=== PATIENT | female | born 1985 | race American Indian/Alaskan Native ===

== ENCOUNTER 2017-11-26 23:19 | Emergency (ER) | payer OTHER ==
[2017-11-26 23:36] VITALS: BP 149/88
[2017-11-26] MEDS ORDERED: Sodium Chloride 0.9% 1,000 ML IV ONE (23:57)
[2017-11-26] MEDS ORDERED: Ondansetron 4 MG/2 ML SDV IVPUSH ONE (23:57)
[2017-11-26] MEDS ORDERED: Loperamide 2 MG Cap PO STA (23:57)
--- NOTE | 2017-11-27 | EDM.PDOC ---
ED HPI GENERAL MEDICAL PROBLEM - General Chief Complaint: Gastrointestinal Problem Stated Complaint: nausea vomiting Time Seen by Provider: 11/26/17 23:44 Source of Information: Reports: Patient History Limitations: Reports: No Limitations - History of Present Illness INITIAL COMMENTS - FREE TEXT/NARRATIVE: The patient states that she developed nausea and emesis, the sensation of having a fast heart rate, and lightheadedness whenever upright around 13:00 this afternoon. She developed watery diarrhea a few hours ago. No recent fever. No recent cough, chest pain, or shortness of breath. No abdominal pain. No prior similar symptoms. No recent spoiled food. No recent travel. No recent antibiotics. No similarly ill contacts. The patient states that she took a calcium pill, however, has not taken any antinausea or antidiarrheal medicines. The patient states that she drank some inexpensive whiskey and smoked marijuana last night, and acknowledges that her current symptoms may be related to excessive partying last night. The patient states that she has hypothyroidism, but that she stopped taking Synthroid many months ago. The patient does not have a PCP. Headache Pain Score (Numeric/FACES): 5 - Related Data Allergies Allergy/AdvReac Type Severity Reaction Status Date / Time No Known Allergies Allergy Verified 11/26/17 23:30 Home Meds: Home Meds Ondansetron [Zofran ODT] 1 tab PO Q8H PRN #10 tab.dis 11/27/17 [Rx] Past Medical History HEENT History: Reports: Impaired Vision Other HEENT History: glasses Endocrine/Metabolic History: Reports: Hyperthyroidism, Obesity/BMI 30+ Social & Family History - Family History Family Medical History: Noncontributory - Tobacco Use Smoking Status *Q: Never Smoker - Caffeine Use Caffeine Use: Reports: None - Alcohol Use Alcohol Use History: Yes Alcohol Use Frequency: Socially - Recreational Drug Use Recreational Drug Use: Yes Drug Use in Last 12 Months: Yes Recreational Drug Type: Reports: Marijuana/Hashish (last = 11/26/2017. Uses occasionally) - Living Situation & Occupation Living situation: Reports: Single, with Family (Cousin) Occupation: Unemployed ED ROS GENERAL - Review of Systems Review Of Systems: ROS reveals no pertinent complaints other than HPI. ED EXAM, GENERAL - Physical Exam Exam: See Below Exam Limited By: No Limitations General Appearance: Alert, WD/WN, Mild Distress (Tremulous. Appears uncomfortable.) Eye Exam: Bilateral Eye: Normal Inspection Ears: Normal External Exam, Hearing Grossly Normal Nose: Normal Inspection, No Blood Throat/Mouth: Normal Inspection, Normal Lips, Normal Voice, No Airway Compromise Head: Atraumatic, Normocephalic Neck: Normal Inspection, Full Range of Motion Respiratory/Chest: No Respiratory Distress, Lungs Clear, Normal Breath Sounds, No Accessory Muscle Use Cardiovascular: Normal Peripheral Pulses, No Edema, No Gallop, No JVD, No Murmur , No Rub, Tachycardia (regular) Peripheral Pulses: 4+: Radial (L), Radial (R) GI/Abdominal: Normal Bowel Sounds, Soft, Non-Tender, No Organomegaly, No Distention, No Abnormal Bruit, No Mass, Other (Obese) (Female) Exam: Deferred Rectal (Female) Exam: Deferred Back Exam: Normal Inspection, Full Range of Motion, NT Extremities: Normal Inspection, Normal Range of Motion, No Pedal Edema, Normal Capillary Refill Neurological: Alert, Oriented, Normal Cognition, No Motor/Sensory Deficits Psychiatric: Normal Affect Skin Exam: Warm, Dry, Intact, Normal Color, No Rash EKG INTERPRETATION EKG Date: 11/27/17 Time: 00:03 Rhythm: Other (Sinus tachycardia) Rate (Beats/Min): 101 [place]: Normal P-Wave: Present QRS: Normal ST-T: Normal QT: Normal Comparison: No Change (10/17/2016) Course - Vital Signs Last Recorded V/S: Last Vital Signs Temp 36.8 C 11/26/17 23:31 Pulse 107 H 11/26/17 23:31 Resp 18 11/26/17 23:31 BP 149/88 H 11/26/17 23:31 Pulse Ox 99 11/26/17 23:31 Orthostatic Blood Pressure [ 145/94 Standing] Orthostatic Blood Pressure [ 131/82 Supine] - Orders/Labs/Meds Orders: Active Orders 24 hr Category Date Time Status EKG Documentation Completion [RC] STAT Care 11/26/17 23:55 Active Orthostatic Vital Signs [RC] STAT Care 11/26/17 23:55 Active Labs: Laboratory Tests 11/27/17 11/27/17 11/27/17 Range/Units 00:10 00:10 00:10 WBC 7.41 (3.98-10.04) K/mm3 RBC 4.02 (3.98-5.22) M/mm3 Hgb 13.2 (11.2-15.7) gm/L Hct 40.6 (34.1-44.9) % MCV 101.0 H (79.4-94.8) fl MCH 32.8 H (25.6-32.2) pg MCHC 32.5 (32.2-35.5) g/dl RDW Std Deviation 49.9 H (36.4-46.3) fL Plt Count 157 L (182-369) K/mm3 MPV 10.4 (9.4-12.3) fl Neutrophils % (Manual) 80 H (40-60) % Band Neutrophils % 0 (0-10) % Lymphocytes % (Manual) 14 L (20-40) % Atypical Lymphs % 0 % Monocytes % (Manual) 6 (2-10) % Eosinophils % (Manual) 0 L (0.7-5.8) % Basophils % (Manual) 0 L (0.1-1.2) Platelet Estimate Adequate Plt Morphology Comment Normal Macrocytosis Few Spherocytes Few RBC Morph Comment Not Reportable PT 12.6 (8.0-13.0) SECONDS INR 1.15 APTT 25 (22-36) SECONDS D-Dimer, Quantitative 0.32 (0.19-0.59) mg/L Sodium 140 (136-145) mEq/L Potassium 4.0 (3.5-5.1) mEq/L Chloride 101 (98-107) mEq/L Carbon Dioxide 20 L (21-32) mEq/L Anion Gap 23.0 H (5-15) BUN 5 L (7-18) mg/dL Creatinine 0.7 (0.55-1.02) mg/dL Est Cr Clr Drug Dosing 111.16 mL/min Estimated GFR (MDRD) > 60 (>60) mL/min BUN/Creatinine Ratio 7.1 L (14-18) Glucose 82 (74-106) mg/dL Calcium 8.6 (8.5-10.1) mg/dL Magnesium 1.6 L (1.8-2.4) mg/dl Total Bilirubin 2.6 H (0.2-1.0) mg/dL AST 210 H (15-37) U/L ALT 77 H (14-59) U/L Alkaline Phosphatase 77 (46-116) U/L Total Protein 10.1 H (6.4-8.2) g/dl Albumin 3.6 (3.4-5.0) g/dl Globulin 6.5 gm/dL Albumin/Globulin Ratio 0.6 L (1-2) TSH 3rd Generation 0.062 L (0.358-3.74) uIU/mL Urine HCG, Qual (NEGATIVE) Urine Opiates Screen (NEGATIVE) Ur Buprenorphine Scrn (NEGATIVE) Ur Oxycodone Screen (NEGATIVE) Urine Methadone Screen (NEGATIVE) Ur Propoxyphene Screen (NEGATIVE) Ur Barbiturates Screen (NEGATIVE) Ur Tricyclics Screen (NEGATIVE) Ur Phencyclidine Scrn (NEGATIVE) Ur Amphetamine Screen (NEGATIVE) U Methamphetamines Scrn (NEGATIVE) U Benzodiazepines Scrn (NEGATIVE) U Cocaine Metab Screen (NEGATIVE) U Marijuana (THC) Screen (NEGATIVE) 11/27/17 11/27/17 Range/Units 01:53 01:53 WBC (3.98-10.04) K/mm3 RBC (3.98-5.22) M/mm3 Hgb (11.2-15.7) gm/L Hct (34.1-44.9) % MCV (79.4-94.8) fl MCH (25.6-32.2) pg MCHC (32.2-35.5) g/dl RDW Std Deviation (36.4-46.3) fL Plt Count (182-369) K/mm3 MPV (9.4-12.3) fl Neutrophils % (Manual) (40-60) % Band Neutrophils % (0-10) % Lymphocytes % (Manual) (20-40) % Atypical Lymphs % % Monocytes % (Manual) (2-10) % Eosinophils % (Manual) (0.7-5.8) % Basophils % (Manual) (0.1-1.2) Platelet Estimate Plt Morphology Comment Macrocytosis Spherocytes RBC Morph Comment PT (8.0-13.0) SECONDS INR APTT (22-36) SECONDS D-Dimer, Quantitative (0.19-0.59) mg/L Sodium (136-145) mEq/L Potassium (3.5-5.1) mEq/L Chloride (98-107) mEq/L Carbon Dioxide (21-32) mEq/L Anion Gap (5-15) BUN (7-18) mg/dL Creatinine (0.55-1.02) mg/dL Est Cr Clr Drug Dosing mL/min Estimated GFR (MDRD) (>60) mL/min BUN/Creatinine Ratio (14-18) Glucose (74-106) mg/dL Calcium (8.5-10.1) mg/dL Magnesium (1.8-2.4) mg/dl Total Bilirubin (0.2-1.0) mg/dL AST (15-37) U/L ALT (14-59) U/L Alkaline Phosphatase (46-116) U/L Total Protein (6.4-8.2) g/dl Albumin (3.4-5.0) g/dl Globulin gm/dL Albumin/Globulin Ratio (1-2) TSH 3rd Generation (0.358-3.74) uIU/mL Urine HCG, Qual Negative (NEGATIVE) Urine Opiates Screen Negative (NEGATIVE) Ur Buprenorphine Scrn Negative (NEGATIVE) Ur Oxycodone Screen Negative (NEGATIVE) Urine Methadone Screen Negative (NEGATIVE) Ur Propoxyphene Screen Negative (NEGATIVE) Ur Barbiturates Screen Negative (NEGATIVE) Ur Tricyclics Screen Negative (NEGATIVE) Ur Phencyclidine Scrn Negative (NEGATIVE) Ur Amphetamine Screen Negative (NEGATIVE) U Methamphetamines Scrn Negative (NEGATIVE) U Benzodiazepines Scrn Negative (NEGATIVE) U Cocaine Metab Screen Negative (NEGATIVE) U Marijuana (THC) Screen Presumptive positive H (NEGATIVE) Meds: Medications Discontinued Medications Generic Name Dose Route Start Last Admin Trade Name Freq PRN Reason Stop Dose Admin Sodium Chloride 1,000 mls @ 999 mls/hr 11/26/17 23:57 11/27/17 00:14 Normal Saline IV 11/27/17 00:57 999 mls/hr ONETIME ONE Administration Magnesium Sulfate 2 gm/ Premix 50 mls @ 50 mls/hr 11/27/17 01:04 11/27/17 01: 20 IV 11/27/17 02:03 50 mls/hr ONETIME ONE Administration Loperamide HCl 4 mg 11/26/17 23:57 11/27/17 00:15 Imodium PO 11/26/17 23:58 4 mg ONETIME STA Administration Ondansetron HCl 4 mg 11/26/17 23:57 11/27/17 00:15 Zofran IVPUSH 11/26/17 23:58 4 mg ONETIME ONE Administration - Re-Assessments/Exams Free Text/Narrative Re-Assessment/Exam: 11/26/17 23:58 The patient has been experiencing emesis, watery diarrhea, tachycardia, and lightheadedness when upright since this afternoon. All of this is in the setting of likely excessive consumption of alcohol and marijuana last night. I have ordered IV fluid, Zofran, and loperamide. I would also like to rule out other possibilities for her symptoms, however, such as , dysrhythmias, and PE. Lastly, I have ordered a TSH, as she has a history of untreated hypothyroidism. 11/27/17 00:24 The patient is not orthostatic, but will still receive the 1 L of IV fluid. 11/27/17 01:04 The patient's magnesium has returned low at 1.6, although her potassium is normal. I have ordered a 2 g Mg-rider. The patient's total bilirubin is elevated at 2.6, and her AST/ALT are elevated at 210/77. This is consistent with, although not diagnostic of, alcohol abuse. There are no prior LFTs to compare. The patient's TSH is low at 0.062, consistent with hypERthyroidism. She will need to follow-up in this regard. The patient's urine and urine drug screen are still pending. 11/27/17 03:02 Test results discussed with the patient and her brother (who was not here when I initially examined the patient). I explained that despite the patient's tachycardia, she is not intravascularly depleted or dehydrated. I explained that her magnesium was found to be low, therefore we replace it. I explained that her liver enzymes are elevated, consistent with excessive alcohol consumption. The patient acknowledged that she is a heavy drinker. I recommended that she seek professional help in this regard, at [facility]. She stated that she is already court ordered to go there. For her nausea, I will e- prescribe Zofran. The patient's brother then stated that when he binges on alcohol and drugs, he gets admitted to [facility] for a week, where they knock him out for a couple of days, then discharge him home with Ativan, Valium, or Librium. He stated that the patient is in DTs, and he thinks that she should be admitted for the same treatment. I explained that the patient is not in DTs, and that, while commonly done, prescribing benzodiazepines for alcoholism is not medically correct; that benzodiazepines do not decrease one's desire for alcohol. I explained that I do not find an indication for the patient to be admitted to the hospital, which is why I am discharging her home. Departure - Departure Time of Disposition: 03:02 Disposition: Home, Self-Care 01 Condition: Fair Clinical Impression: Alcohol abuse, Nausea and vomiting, Low TSH level, Elevated liver enzymes, Hypomagnesemia - Discharge Information Referrals: PCP,None [Primary Care Provider] - Elle Redding MD [Physician] - Forms: ED Department Discharge Additional Instructions: You were seen in the emergency room for nausea, vomiting, watery diarrhea, an elevated heart rate, and lightheadedness when upright. Workup in the ER included blood work, a urine test, a urine drug screen, an ECG, and positional blood pressure checks. Your workup found that your magnesium was low. This was replaced through an IV. Your workup found that your thyroid-stimulating hormone (TSH) was low at 0.062. This indicates that you are hyperthyroid. You will need to follow-up in this regard. Your workup found that your liver enzymes are elevated, consistent with alcohol abuse. We STRONGLY recommend that you seek professional help in stopping drinking. We recommend that you follow-up at [facility]: [address] [place] [phone] For your nausea and vomiting, a prescription for the anti-nausea medicine Zofran has been sent to the [facility], [address]. They will be open from 8 AM until 1 PM today. Dissolve 1 tablet of Zofran on your tongue up to every 8 hours, as needed for nausea/vomiting. Stay adequately hydrated. Gatorade or Pedialyte are best, but any fluid will do. Follow-up with Dr. Elle Redding as a primary care physician, this coming week. She can help you with your thyroid issue. If any other problems, please do not hesitate to return to the ER. - My Orders Last 24 Hours: My Active Orders 11/26/17 23:55 EKG Documentation Completion [RC] STAT Orthostatic Vital Signs [RC] STAT - Assessment/Plan Last 24 Hours: My Active Orders 11/26/17 23:55 EKG Documentation Completion [RC] STAT Orthostatic Vital Signs [RC] STAT
[2017-11-27] MEDS ORDERED: Magnesium Sulfate/Water 2 GM in Premix Bag 1 BAG IV ONE (01:04)
== END 2017-11-27 03:25 | disposition home or self-care (01) ==
LOC: JD.ED 23:19
DX: F10.10 Alcohol abuse, uncomplicated (principal); E83.42 Hypomagnesemia; R74.8 Abnormal levels of other serum enzymes; R94.6 Abnormal results of thyroid function studies; E03.9 Hypothyroidism, unspecified
CPT/HCPCS: 36415; 80053; 80306; 81025; 83735; 84443; 85025; 85379; 85610; 85730; 93005; 96361; 96365; 96375; 99284; A9270; J2405; J7040; 93010; J3475

== ENCOUNTER 2017-12-25 10:34 | Emergency (ER) | payer OTHER ==
[2017-12-25] MEDS ORDERED: Thiamine 100 MG in Sodium Chloride 0.9% 100 ML IV ONE (11:22)
[2017-12-25] MEDS ORDERED: Sodium Chloride 0.9% 10 ML Syringe FLUSH PRN (11:22)
[2017-12-25] MEDS ORDERED: Pantoprazole 40 MG Vial IVPUSH ONE (11:22)
[2017-12-25] MEDS ORDERED: Folic Acid 1 MG Tab PO ONE (11:22)
[2017-12-25] MEDS ORDERED: Lactated Ringers 1,000 ML IV ONE ×2 (11:22→14:29)
[2017-12-25] MEDS ORDERED: Ondansetron 4 MG/2 ML SDV IVPUSH ONE (11:23)
--- NOTE | 2017-12-25 11:26 | EDM.PDOCBH ---
ED HPI GENERAL MEDICAL PROBLEM - General Chief Complaint: Drug or Alcohol Abuse Stated Complaint: [facility] Time Seen by Provider: 12/25/17 11:03 Source of Information: Reports: Patient History Limitations: Reports: No Limitations - History of Present Illness INITIAL COMMENTS - FREE TEXT/NARRATIVE: 32-year-old female presents via [facility] after having a seizure. Patient does not have any history of seizures. Reports that she was drinking alcohol last night. She states that she had 3 beers and 2 "shooters". No drugs. She denies any chance of . Patient reports that she was not feeling well. She is states that she went from the bathroom to the kitchen. She reports that she couldn't stand and attempted to grab onto the wall. She states that her sister was there as well as her niece. Her niece ran for help. Reportedly she fell to the floor and had a seizure. This was witnessed by her sister and her niece. It is unclear exactly how long the seizure lasted. She states she did bite her tongue. No urinary or stool incontinence. Currently she is reporting a headache in the back of her head. No nausea, vomiting or abdominal pain at this time. She states she's never had any withdrawal seizures. Denies any history of seizures, tremors or hallucinations with withdrawal. Normally drinks alcohol about twice a week. She states that she normally has about 10 drinks at a time when she does drink. Patient is a history of hypothyroidism but is not on any medications. Patient reports that she was ill with cough and symptoms motor month ago. Review of patient's records show that she was seen in the ER to by Dr. Oliver on November 26 for nausea and vomiting. She was discharged home with instructions to follow-up with Dr. Redding. She is also given the number for [facility]. Doesn't sound as [facility] Onset: Today Posterior Head Pain Score (Numeric/FACES): 8 - Related Data Allergies Allergy/AdvReac Type Severity Reaction Status Date / Time No Known Allergies Allergy Verified 12/25/17 10:41 Home Meds: Home Meds LORazepam [Ativan] 1 mg PO Q6H PRN #10 tab 12/25/17 [Rx] Nitrofurantoin Monohyd/M-Cryst [Macrobid 100 mg Capsule] 100 mg PO BID #14 capsule 12/25/17 [Rx] Past Medical History HEENT History: Reports: Impaired Vision Other HEENT History: glasses Musculoskeletal History: Reports: Fracture, Other (See Below) Other Musculoskeletal History: siatica Psychiatric History: Reports: Addiction Other Psychiatric History: alcohol Endocrine/Metabolic History: Reports: Hyperthyroidism, Obesity/BMI 30+ - Infectious Disease History Infectious Disease History: Reports: Chicken Pox Social & Family History - Family History Family Medical History: Noncontributory - Tobacco Use Smoking Status *Q: Never Smoker Second Hand Smoke Exposure: No - Caffeine Use Caffeine Use: Reports: Soda - Alcohol Use Days Per Week of Alcohol Use: 2 Number of Drinks Per Day: 10 Total Drinks Per Week: 20 - Recreational Drug Use Recreational Drug Use: No Drug Use in Last 12 Months: Yes Recreational Drug Type: Reports: Marijuana/Hashish (last = 11/26/2017. Uses occasionally) - Living Situation & Occupation Living situation: Reports: Single, with Family (Cousin) Occupation: Unemployed ED ROS GENERAL - Review of Systems Review Of Systems: See Below Constitutional: Reports: Malaise. Denies: Fever, Chills HEENT: Reports: Other (tongue biting) GI/Abdominal: Denies: Abdominal Pain, Diarrhea, Hematemesis, Melena, Nausea, Vomiting : Denies: Incontinence Neurological: Reports: Headache, Seizure ED EXAM, BEHAVIORAL HEALTH - Physical Exam Exam: See Below Exam Limited By: No Limitations General Appearance: Alert, WD/WN, No Apparent Distress, Obese Ears: Normal External Exam Nose: Normal Inspection Throat/Mouth: Normal Inspection, Normal Lips, Normal Voice, No Airway Compromise , Other (evidence of tongue biting right lateral tongue) Respiratory/Chest: No Respiratory Distress, Lungs Clear, Normal Breath Sounds Cardiovascular: Normal Peripheral Pulses, Regular Rate, Rhythm, No Murmur GI/Abdominal: Normal Bowel Sounds, Soft, Non-Tender Neurological: Alert, Normal Mood/Affect, Normal Cognition Psychiatric: Alert, Normal Affect, Normal Mood Skin Exam: Warm, Dry, Normal color COURSE, BEHAVIORAL HEALTH COMP - Course Vital Signs: Last Vital Signs Temp 36.5 C 12/25/17 14:55 Pulse 92 12/25/17 16:10 Resp 18 12/25/17 16:10 BP 110/62 12/25/17 16:10 Pulse Ox 97 12/25/17 16:10 Orders, Labs, Meds: Active Orders 24 hr Category Date Time Status Cardiac Monitoring [RC] . DIRECTED Care 12/25/17 11:30 Active Peripheral IV Care [RC] . DIRECTED Care 12/25/17 11:22 Active CULTURE URINE [RM] Stat Lab 12/25/17 14:08 Received Peripheral IV Insertion Adult [OM.PC] Routine Oth 12/25/17 11:21 Ordered Laboratory Tests 12/25/17 12/25/17 12/25/17 Range/Units 11:45 11:45 11:45 WBC 6.26 (3.98-10.04) K/mm3 RBC 3.79 L (3.98-5.22) M/mm3 Hgb 12.3 (11.2-15.7) gm/L Hct 38.4 (34.1-44.9) % MCV 101.3 H (79.4-94.8) fl MCH 32.5 H (25.6-32.2) pg MCHC 32.0 L (32.2-35.5) g/dl RDW Std Deviation 50.7 H (36.4-46.3) fL Plt Count 135 L (182-369) K/mm3 MPV 10.1 (9.4-12.3) fl Neutrophils % (Manual) 80 H (40-60) % Band Neutrophils % 0 (0-10) % Lymphocytes % (Manual) 12 L (20-40) % Atypical Lymphs % 0 % Monocytes % (Manual) 7 (2-10) % Eosinophils % (Manual) 1 (0.7-5.8) % Basophils % (Manual) 0 L (0.1-1.2) Platelet Estimate Adequate Poikilocytosis 1+ slight Anisocytosis 1+ slight RBC Morph Comment Not Reportable PT (8.0-13.0) SECONDS INR APTT (22-36) SECONDS Sodium 137 (136-145) mEq/L Potassium 3.9 (3.5-5.1) mEq/L Chloride 102 (98-107) mEq/L Carbon Dioxide 22 (21-32) mEq/L Anion Gap 16.9 H (5-15) BUN 4 L (7-18) mg/dL Creatinine 0.7 (0.55-1.02) mg/dL Est Cr Clr Drug Dosing 107.01 mL/min Estimated GFR (MDRD) > 60 (>60) mL/min BUN/Creatinine Ratio 5.7 L (14-18) Glucose 118 H (74-106) mg/dL Calcium 8.6 (8.5-10.1) mg/dL Magnesium 1.6 L (1.8-2.4) mg/dl Total Bilirubin 3.3 H (0.2-1.0) mg/dL AST 137 H (15-37) U/L ALT 51 (14-59) U/L Alkaline Phosphatase 81 (46-116) U/L Total Protein 8.3 H (6.4-8.2) g/dl Albumin 2.7 L (3.4-5.0) g/dl Globulin 5.6 gm/dL Albumin/Globulin Ratio 0.5 L (1-2) TSH 3rd Generation 0.121 L (0.358-3.74) uIU/mL HCG, Qual Negative (NEGATIVE) Urine Color (Yellow) Urine Appearance (Clear) Urine pH (5.0-8.0) Ur Specific [employer] (1.005-1.030) Urine Protein (Negative) Urine Glucose (UA) (Negative) Urine Ketones (Negative) Urine Occult Blood (Negative) Urine Nitrite (Negative) Urine Bilirubin (Negative) Urine Urobilinogen (0.2-1.0) Ur Leukocyte Esterase (Negative) Urine RBC (0-5) /hpf Urine WBC (0-5) /hpf Ur Epithelial Cells (0-5) /hpf Urine Bacteria (FEW) /hpf Urine Mucus (FEW) /hpf Urine Opiates Screen (NEGATIVE) Ur Buprenorphine Scrn (NEGATIVE) Ur Oxycodone Screen (NEGATIVE) Urine Methadone Screen (NEGATIVE) Ur Propoxyphene Screen (NEGATIVE) Ur Barbiturates Screen (NEGATIVE) Ur Tricyclics Screen (NEGATIVE) Ur Phencyclidine Scrn (NEGATIVE) Ur Amphetamine Screen (NEGATIVE) U Methamphetamines Scrn (NEGATIVE) U Benzodiazepines Scrn (NEGATIVE) U Cocaine Metab Screen (NEGATIVE) U Marijuana (THC) Screen (NEGATIVE) Ethyl Alcohol 0.00 (0.00) gm% 12/25/17 12/25/17 12/25/17 Range/Units 11:45 14:05 14:05 WBC (3.98-10.04) K/mm3 RBC (3.98-5.22) M/mm3 Hgb (11.2-15.7) gm/L Hct (34.1-44.9) % MCV (79.4-94.8) fl MCH (25.6-32.2) pg MCHC (32.2-35.5) g/dl RDW Std Deviation (36.4-46.3) fL Plt Count (182-369) K/mm3 MPV (9.4-12.3) fl Neutrophils % (Manual) (40-60) % Band Neutrophils % (0-10) % Lymphocytes % (Manual) (20-40) % Atypical Lymphs % % Monocytes % (Manual) (2-10) % Eosinophils % (Manual) (0.7-5.8) % Basophils % (Manual) (0.1-1.2) Platelet Estimate Poikilocytosis Anisocytosis RBC Morph Comment PT 14.0 H (8.0-13.0) SECONDS INR 1.30 APTT 29 (22-36) SECONDS Sodium (136-145) mEq/L Potassium (3.5-5.1) mEq/L Chloride (98-107) mEq/L Carbon Dioxide (21-32) mEq/L Anion Gap (5-15) BUN (7-18) mg/dL Creatinine (0.55-1.02) mg/dL Est Cr Clr Drug Dosing mL/min Estimated GFR (MDRD) (>60) mL/min BUN/Creatinine Ratio (14-18) Glucose (74-106) mg/dL Calcium (8.5-10.1) mg/dL Magnesium (1.8-2.4) mg/dl Total Bilirubin (0.2-1.0) mg/dL AST (15-37) U/L ALT (14-59) U/L Alkaline Phosphatase (46-116) U/L Total Protein (6.4-8.2) g/dl Albumin (3.4-5.0) g/dl Globulin gm/dL Albumin/Globulin Ratio (1-2) TSH 3rd Generation (0.358-3.74) uIU/mL HCG, Qual (NEGATIVE) Urine Color Loli H (Yellow) Urine Appearance Slt cloudy H (Clear) Urine pH 7.0 (5.0-8.0) Ur Specific [employer] 1.025 (1.005-1.030) Urine Protein 2+ H (Negative) Urine Glucose (UA) Negative (Negative) Urine Ketones Trace H (Negative) Urine Occult Blood 3+ H (Negative) Urine Nitrite Positive H (Negative) Urine Bilirubin 2+ H (Negative) Urine Urobilinogen >=8.0 H (0.2-1.0) Ur Leukocyte Esterase Negative (Negative) Urine RBC 10-20 H (0-5) /hpf Urine WBC 0-5 (0-5) /hpf Ur Epithelial Cells 10-20 H (0-5) /hpf Urine Bacteria Moderate H (FEW) /hpf Urine Mucus Many H (FEW) /hpf Urine Opiates Screen Negative (NEGATIVE) Ur Buprenorphine Scrn Negative (NEGATIVE) Ur Oxycodone Screen Negative (NEGATIVE) Urine Methadone Screen Negative (NEGATIVE) Ur Propoxyphene Screen Negative (NEGATIVE) Ur Barbiturates Screen Negative (NEGATIVE) Ur Tricyclics Screen Negative (NEGATIVE) Ur Phencyclidine Scrn Negative (NEGATIVE) Ur Amphetamine Screen Negative (NEGATIVE) U Methamphetamines Scrn Negative (NEGATIVE) U Benzodiazepines Scrn Negative (NEGATIVE) U Cocaine Metab Screen Negative (NEGATIVE) U Marijuana (THC) Screen Presumptive positive H (NEGATIVE) Ethyl Alcohol (0.00) gm% Medications Discontinued Medications Generic Name Dose Route Start Last Admin Trade Name Freq PRN Reason Stop Dose Admin Folic Acid 1 mg 12/25/17 11:22 12/25/17 11:56 Folic Acid PO 12/25/17 11:23 1 mg ONETIME ONE Administration Lactated Ringer's 1,000 mls @ 999 mls/hr 12/25/17 11:22 12/25/17 11:55 Ringers, Lactated IV 12/25/17 12:22 999 mls/hr .BOLUS ONE Administration Thiamine HCl 100 mg/ Sodium 101 mls @ 202 mls/hr 12/25/17 11:22 12/25/17 12: 12 Chloride IV 12/25/17 11:23 202 mls/hr ONETIME ONE Administration Pantoprazole Sodium 80 mg/ 100 mls @ 100 mls/hr 12/25/17 12:01 12/25/17 12:59 Sodium Chloride IV 12/25/17 13:00 Not Given NOW STA Lactated Ringer's 1,000 mls @ 999 mls/hr 12/25/17 14:29 12/25/17 14:50 Ringers, Lactated IV 12/25/17 15:29 999 mls/hr .BOLUS ONE Administration Ketorolac Tromethamine 30 mg 12/25/17 11:52 12/25/17 12:07 Toradol IVPUSH 12/25/17 11:53 30 mg ONETIME ONE Administration Lorazepam 1 mg 12/25/17 12:48 12/25/17 13:00 Ativan IVPUSH 12/25/17 12:49 1 mg ONETIME ONE Administration Ondansetron HCl 4 mg 12/25/17 11:23 12/25/17 11:47 Zofran IVPUSH 12/25/17 11:24 4 mg ONETIME ONE Administration Pantoprazole Sodium 40 mg 12/25/17 11:22 12/25/17 12:10 Protonix Iv IVPUSH 12/25/17 11:23 40 mg ONETIME ONE Administration Sodium Chloride 10 ml 12/25/17 11:22 12/25/17 11:55 Saline Flush FLUSH 10 ml ASDIRECTED PRN Administration Keep Vein Open Re-Assessment/Re-Exam: 15:[address] Technique: Multiple axial sections through the brain were obtained. Intravenous contrast was not utilized. Comparison: No previous intracranial imaging. Findings: Ventricles along with basal cisterns and sulci over the convexities are within normal limits for the patient's age. No abnormal parenchymal densities are seen. No evidence of intracranial hemorrhage. No midline shift or mass effect is seen. Visualized paranasal sinuses are clear. Mastoid sinuses are clear. No acute calvarial abnormality is identified Impression: 1. Nothing acute is seen on noncontrast head CT exam. Unfortunately, the time and instead of given over half an hour was given as a push. The Protonix which was ordered as a push was given as a drip. Patient did not have any flushing due to the timing push. Patient has been resting in the ER without any problems. She not have any additional seizure activity. I reviewed the labs and imaging with her. I have recommended that she follow up with primary care for her thyroid as well as a recheck of her symptoms. I will give her some Ativan to help with her shakes and anxiety. Encouraged to see [facility]. I will discharge her home. Discharge instructions as documented. Departure - Departure Time of Disposition: 15:45 Disposition: Home, Self-Care 01 Clinical Impression: Alcohol abuse, Urinary tract infection, Seizure, Low TSH level - Discharge Information Prescriptions: LORazepam [Ativan] 1 mg PO Q6H PRN #10 tab PRN Reason: Anxiety Nitrofurantoin Monohyd/M-Cryst [Macrobid 100 mg Capsule] 100 mg PO BID #14 capsule Instructions: Alcohol Use Disorder, Urinary Tract Infection, Adult, Easy-to- Read, Seizure, Adult Referrals: PCP,None [Primary Care Provider] - Elle Redding MD [Physician] - Additional Instructions: We recommended to stop drinking alcohol. You will have a happier and healthier life if your stop drinking alcohol. Recommend follow-up with [facility] [employer] for help with this. Call them at [phone] or the emergency crisis line at [phone] for additional help. also go to the walkin clinic hours at 8 AM Wednesday through . Present to their clinic for immediate evaluation. Recommend follow-up with a primary care provider this week for recheck. Recommend Dr. Redding at [facility]. Call [phone] schedule with her. make sure you are drinking plenty of fluids. Recommend starting a multivitamin. These are available [id number]. Macrobid 1 Twice a day for 7 days for urinary tract infection. Ativan 1 tab every 6 hours as needed for shakiness and tremors. We do not recommend the to drive or operate machinery for 3 months to your seizure today. Please return to the ER if your symptoms change or worsen. - My Orders Last 24 Hours: My Active Orders 12/25/17 11:21 Peripheral IV Insertion Adult [OM.PC] Routine 12/25/17 11:22 Peripheral IV Care [RC] . DIRECTED 12/25/17 11:30 Cardiac Monitoring [RC] . DIRECTED 12/25/17 14:08 CULTURE URINE [RM] Stat - Assessment/Plan Last 24 Hours: My Active Orders 12/25/17 11:21 Peripheral IV Insertion Adult [OM.PC] Routine 12/25/17 11:22 Peripheral IV Care [RC] . DIRECTED 12/25/17 11:30 Cardiac Monitoring [RC] . DIRECTED 12/25/17 14:08 CULTURE URINE [RM] Stat
--- NOTE | 2017-12-25 11:49 | CT ---
Head CT Technique: Multiple axial sections through the brain were obtained. Intravenous contrast was not utilized. Comparison: No previous intracranial imaging. Findings: Ventricles along with basal cisterns and sulci over the convexities are within normal limits for the patient's age. No abnormal parenchymal densities are seen. No evidence of intracranial hemorrhage. No midline shift or mass effect is seen. Visualized paranasal sinuses are clear. Mastoid sinuses are clear. No acute calvarial abnormality is identified Impression: 1. Nothing acute is seen on noncontrast head CT exam. Diagnostic code #1
[2017-12-25] MEDS ORDERED: Ketorolac 30 MG/ML SDV IVPUSH ONE (11:52)
[2017-12-25] MEDS: Pantoprazole 80 MG in Sodium Chloride 0.9% 100 ML IV STA ×2 (12:12→12:59)
[2017-12-25] MEDS ORDERED: LORazepam 2 MG/ML MDV IVPUSH ONE (12:48)
[2017-12-25 16:25] VITALS: BP 110/62
== END 2017-12-25 16:10 | disposition home or self-care (01) ==
LOC: JD.ED 10:34
DX: R56.9 Unspecified convulsions (principal); F10.10 Alcohol abuse, uncomplicated; N39.0 Urinary tract infection, site not specified; E03.9 Hypothyroidism, unspecified
CPT/HCPCS: 36415; 70450; 80053; 80306; 81001; 83735; 84443; 84703; 85025; 85610; 85730; 87086; 96361; 96374; 96375; 99285; A9270; C9113; G0480; J1885; J2060; J2405; J3411; J7030; J7050; J7120; 87088; 99284

== ENCOUNTER 2018-02-07 14:35 | Emergency (ER) | payer OTHER ==
[2018-02-07 14:41] VITALS: BP 141/79
[2018-02-07] MEDS ORDERED: LORazepam 2 MG/ML SDV IVPUSH ONE ×2 (14:55→20:16)
[2018-02-07] MEDS ORDERED: Ondansetron 4 MG/2 ML SDV IVPUSH ONE ×2 (14:55→20:16)
[2018-02-07] MEDS ORDERED: Sodium Chloride 0.9% 2,000 ML IV ONE (14:55)
--- NOTE | 2018-02-07 15:00 | EDM.PDOC ---
ED HPI GENERAL MEDICAL PROBLEM - General Chief Complaint: Neurological Problem Stated Complaint: [facility] Time Seen by Provider: 02/07/18 14:40 Source of Information: Reports: Patient History Limitations: Reports: No Limitations - History of Present Illness INITIAL COMMENTS - FREE TEXT/NARRATIVE: Patient is a 32-year-old female with a history of chronic alcohol use with intermittent dizziness with standing and a sensation of almost passing out. Patient admits to drinking 4x40 ounce bottles of beer yesterday. She consumes alcohol 5 days a week and has been attempting to cut back. With the above sensation patient does develop increasing anxiety. At time she's had tunnel vision with onset of the symptoms. She has not passed out at all. Patient states symptoms did resolve over short period of time and with stepping outside in the cool air. Today, developed a sore mild headache to the posterior aspect of her head. Denies any vision changes, fever, sinus congestion, sore throat, stiff neck, or recent trauma. She is mildly nauseated with admission to the ED. There's been no vomiting. Denies any chest pain, sob, abdomen pain, dysuria , blood in her stool, diarrhea, hallucinations, recent seizure, suicidal ideations, or any additional complaints. She has had a seizure 1 in the past but is on no medications for this. They suspect it was related to the alcohol use. She denies any additional past medical history. She is on no medications. She does not smoke. Denies any recreational drug use. - Related Data Allergies Allergy/AdvReac Type Severity Reaction Status Date / Time No Known Allergies Allergy Verified 02/07/18 14:41 Home Meds: Home Meds Magnesium Chloride [Slow-Mag] 71.5 mg PO DAILY #30 tablet.dr 02/07/18 [Rx] Potassium Chloride 20 meq PO QAM #30 tablet.er 02/07/18 [Rx] Past Medical History HEENT History: Reports: Impaired Vision Other HEENT History: glasses Musculoskeletal History: Reports: Fracture, Other (See Below) Other Musculoskeletal History: siatica Psychiatric History: Reports: Addiction Other Psychiatric History: alcohol Endocrine/Metabolic History: Reports: Hyperthyroidism, Obesity/BMI 30+ - Infectious Disease History Infectious Disease History: Reports: Chicken Pox Social & Family History - Family History Family Medical History: Noncontributory - Tobacco Use Smoking Status *Q: Never Smoker Second Hand Smoke Exposure: No - Caffeine Use Caffeine Use: Reports: Soda - Alcohol Use Days Per Week of Alcohol Use: 5 Number of Drinks Per Day: 4 Total Drinks Per Week: 20 - Recreational Drug Use Recreational Drug Use: No Drug Use in Last 12 Months: Yes Recreational Drug Type: Reports: Marijuana/Hashish (last = 11/26/2017. Uses occasionally) - Living Situation & Occupation Living situation: Reports: Single, with Family (Cousin) Occupation: Unemployed ED ROS GENERAL - Review of Systems Review Of Systems: See Below Constitutional: Reports: Malaise, Decreased Appetite HEENT: Reports: No Symptoms Respiratory: Reports: No Symptoms Cardiovascular: Reports: No Symptoms GI/Abdominal: Reports: No Symptoms : Reports: No Symptoms Musculoskeletal: Reports: No Symptoms Skin: Reports: No Symptoms Neurological: Reports: Dizziness, Headache (posterior (not the worst WALKER of her life)) Psychiatric: Reports: Anxiety (shakey) Hematologic/Lymphatic: Reports: No Symptoms ED EXAM, GENERAL - Physical Exam Exam: See Below Exam Limited By: No Limitations General Appearance: Anxious Eye Exam: Bilateral Eye: EOMI, Normal Inspection, Nystagmus (horizontal), PERRL Ears: Normal External Exam, Hearing Grossly Normal Nose: Normal Inspection Throat/Mouth: Normal Oropharynx, Normal Voice, No Airway Compromise, Other ( Tongue intact with no signs of biting her tongue. ) Neck: Normal Inspection Respiratory/Chest: No Respiratory Distress, Lungs Clear, Normal Breath Sounds, No Accessory Muscle Use, Chest Non-Tender Cardiovascular: Normal Peripheral Pulses, Tachycardia. No: Systolic Murmur Peripheral Pulses: 4+: Radial (L), Radial (R) GI/Abdominal: Normal Bowel Sounds, Soft, Non-Tender, No Organomegaly, No Distention Extremities: Normal Inspection, Normal Range of Motion, Non-Tender, No Pedal Edema, Normal Capillary Refill Neurological: Alert, Oriented, CN II-XII Intact, Normal Cognition Psychiatric: Normal Affect, Anxious Skin Exam: Warm, Dry, Intact, Normal Color Course - Vital Signs Last Recorded V/S: Last Vital Signs Temp 99 F 02/07/18 14:36 Pulse 110 H 02/07/18 14:36 Resp 17 02/07/18 14:36 BP 141/79 H 02/07/18 14:36 Pulse Ox 100 02/07/18 14:36 Orthostatic Blood Pressure [ 153/90 Standing] Orthostatic Blood Pressure [ 137/79 Supine] - Orders/Labs/Meds Labs: Laboratory Tests 02/07/18 02/07/18 02/07/18 Range/Units 15:00 15:00 15:07 WBC 6.00 (3.98-10.04) K/mm3 RBC 3.74 L (3.98-5.22) M/mm3 Hgb 12.4 (11.2-15.7) gm/L Hct 37.8 (34.1-44.9) % MCV 101.1 H (79.4-94.8) fl MCH 33.2 H (25.6-32.2) pg MCHC 32.8 (32.2-35.5) g/dl RDW Std Deviation 51.4 H (36.4-46.3) fL Plt Count 194 (182-369) K/mm3 MPV 9.1 L (9.4-12.3) fl Neutrophils % (Manual) 60 (40-60) % Band Neutrophils % 0 (0-10) % Lymphocytes % (Manual) 31 (20-40) % Atypical Lymphs % 0 % Monocytes % (Manual) 8 (2-10) % Eosinophils % (Manual) 1 (0.7-5.8) % Basophils % (Manual) 0 L (0.1-1.2) Platelet Estimate Adequate Plt Morphology Comment Normal RBC Morph Comment Normal Sodium 140 (136-145) mEq/L Potassium 3.4 L (3.5-5.1) mEq/L Chloride 104 (98-107) mEq/L Carbon Dioxide 18 L (21-32) mEq/L Anion Gap 21.4 H (5-15) BUN 3 L (7-18) mg/dL Creatinine 0.6 (0.55-1.02) mg/dL Est Cr Clr Drug Dosing 124.85 mL/min Estimated GFR (MDRD) > 60 (>60) mL/min BUN/Creatinine Ratio 5.0 L (14-18) Glucose 113 H (74-106) mg/dL Calcium 8.5 (8.5-10.1) mg/dL Magnesium 1.4 L (1.8-2.4) mg/dl Total Bilirubin 1.5 H (0.2-1.0) mg/dL AST 165 H (15-37) U/L ALT 50 (14-59) U/L Alkaline Phosphatase 65 (46-116) U/L Total Protein 9.1 H (6.4-8.2) g/dl Albumin 3.2 L (3.4-5.0) g/dl Globulin 5.9 gm/dL Albumin/Globulin Ratio 0.5 L (1-2) Urine Color Yellow (Yellow) Urine Appearance Clear (Clear) Urine pH 8.0 (5.0-8.0) Ur Specific [place] 1.020 (1.005-1.030) Urine Protein 1+ H (Negative) Urine Glucose (UA) Negative (Negative) Urine Ketones Trace H (Negative) Urine Occult Blood Negative (Negative) Urine Nitrite Negative (Negative) Urine Bilirubin Negative (Negative) Urine Urobilinogen 2.0 H (0.2-1.0) Ur Leukocyte Esterase Negative (Negative) Urine RBC Not seen (0-5) /hpf Urine WBC 0-5 (0-5) /hpf Ur Epithelial Cells 0-5 (0-5) /hpf Urine Bacteria Moderate H (FEW) /hpf Urine Mucus Moderate H (FEW) /hpf Urine HCG, Qual (NEGATIVE) Urine Opiates Screen (NEGATIVE) Ur Buprenorphine Scrn (NEGATIVE) Ur Oxycodone Screen (NEGATIVE) Urine Methadone Screen (NEGATIVE) Ur Propoxyphene Screen (NEGATIVE) Ur Barbiturates Screen (NEGATIVE) Ur Tricyclics Screen (NEGATIVE) Ur Phencyclidine Scrn (NEGATIVE) Ur Amphetamine Screen (NEGATIVE) U Methamphetamines Scrn (NEGATIVE) U Benzodiazepines Scrn (NEGATIVE) U Cocaine Metab Screen (NEGATIVE) U Marijuana (THC) Screen (NEGATIVE) Ethyl Alcohol 0.05 (0.00) gm% 02/07/18 02/07/18 Range/Units 15:07 15:07 WBC (3.98-10.04) K/mm3 RBC (3.98-5.22) M/mm3 Hgb (11.2-15.7) gm/L Hct (34.1-44.9) % MCV (79.4-94.8) fl MCH (25.6-32.2) pg MCHC (32.2-35.5) g/dl RDW Std Deviation (36.4-46.3) fL Plt Count (182-369) K/mm3 MPV (9.4-12.3) fl Neutrophils % (Manual) (40-60) % Band Neutrophils % (0-10) % Lymphocytes % (Manual) (20-40) % Atypical Lymphs % % Monocytes % (Manual) (2-10) % Eosinophils % (Manual) (0.7-5.8) % Basophils % (Manual) (0.1-1.2) Platelet Estimate Plt Morphology Comment RBC Morph Comment Sodium (136-145) mEq/L Potassium (3.5-5.1) mEq/L Chloride (98-107) mEq/L Carbon Dioxide (21-32) mEq/L Anion Gap (5-15) BUN (7-18) mg/dL Creatinine (0.55-1.02) mg/dL Est Cr Clr Drug Dosing mL/min Estimated GFR (MDRD) (>60) mL/min BUN/Creatinine Ratio (14-18) Glucose (74-106) mg/dL Calcium (8.5-10.1) mg/dL Magnesium (1.8-2.4) mg/dl Total Bilirubin (0.2-1.0) mg/dL AST (15-37) U/L ALT (14-59) U/L Alkaline Phosphatase (46-116) U/L Total Protein (6.4-8.2) g/dl Albumin (3.4-5.0) g/dl Globulin gm/dL Albumin/Globulin Ratio (1-2) Urine Color (Yellow) Urine Appearance (Clear) Urine pH (5.0-8.0) Ur Specific [place] (1.005-1.030) Urine Protein (Negative) Urine Glucose (UA) (Negative) Urine Ketones (Negative) Urine Occult Blood (Negative) Urine Nitrite (Negative) Urine Bilirubin (Negative) Urine Urobilinogen (0.2-1.0) Ur Leukocyte Esterase (Negative) Urine RBC (0-5) /hpf Urine WBC (0-5) /hpf Ur Epithelial Cells (0-5) /hpf Urine Bacteria (FEW) /hpf Urine Mucus (FEW) /hpf Urine HCG, Qual Negative (NEGATIVE) Urine Opiates Screen Negative (NEGATIVE) Ur Buprenorphine Scrn Negative (NEGATIVE) Ur Oxycodone Screen Negative (NEGATIVE) Urine Methadone Screen Negative (NEGATIVE) Ur Propoxyphene Screen Negative (NEGATIVE) Ur Barbiturates Screen Negative (NEGATIVE) Ur Tricyclics Screen Negative (NEGATIVE) Ur Phencyclidine Scrn Negative (NEGATIVE) Ur Amphetamine Screen Negative (NEGATIVE) U Methamphetamines Scrn Negative (NEGATIVE) U Benzodiazepines Scrn Negative (NEGATIVE) U Cocaine Metab Screen Negative (NEGATIVE) U Marijuana (THC) Screen Negative (NEGATIVE) Ethyl Alcohol (0.00) gm% Meds: Medications Discontinued Medications Generic Name Dose Route Start Last Admin Trade Name Freq PRN Reason Stop Dose Admin Folic Acid 1 mg 02/07/18 16:25 02/07/18 16:52 Folic Acid PO 02/07/18 16:26 1 mg ONETIME ONE Administration Sodium Chloride 2,000 mls @ 999 mls/hr 02/07/18 14:55 02/07/18 15:04 Normal Saline IV 02/07/18 16:55 999 mls/hr ONETIME ONE Administration Magnesium Sulfate 2 gm/ Premix 50 mls @ 25 mls/hr 02/07/18 16:25 02/07/18 16: 42 IV 02/07/18 18:24 25 mls/hr ONETIME ONE Administration Lorazepam 0 mg 02/07/18 14:55 02/07/18 15:03 Ativan IVPUSH 02/07/18 14:56 1 mg ONETIME ONE Administration Protocol Lorazepam 1 mg 02/07/18 20:16 02/07/18 20:24 Ativan IVPUSH 02/07/18 20:17 1 mg ONETIME ONE Administration Ondansetron HCl 4 mg 02/07/18 14:55 02/07/18 15:03 Zofran IVPUSH 02/07/18 14:56 4 mg ONETIME ONE Administration Ondansetron HCl 4 mg 02/07/18 20:16 02/07/18 20:24 Zofran IVPUSH 02/07/18 20:17 4 mg ONETIME ONE Administration Pantoprazole Sodium 40 mg 02/07/18 20:16 02/07/18 20:24 Protonix Iv IVPUSH 02/07/18 20:17 40 mg ONETIME ONE Administration Thiamine HCl 100 mg 02/07/18 16:25 02/07/18 16:44 Vitamin B-1 PO 02/07/18 16:26 100 mg ONETIME ONE Administration - Re-Assessments/Exams Free Text/Narrative Re-Assessment/Exam: Patient is quite tremulous with evaluation. Orthostatic vitals were negative. Patients BP and HR increased with standing. Patient was anxious about getting dizzy. Vital signs are stable. Initial lab studies will include CBC, chem 14, urine drug tox, serum EtOH, hCG qualitative, serum magnesium, UA, and EKG. EKG sinus tachycardia at rate 106 with UT interval 135, QTC 479, no acute ST changes noted. Initial therapies will include Ativan per CIWAA protocol, ns 2liters IV, and zofran 4mg IVP. Labs reviewed: Patient's HGB 12.4, MCV quite elevated at 101.1 suggesting chronic alcoholic. Platelet count 194. Sodium 140, potassium 3.4, CO2 18, AG 21.4, BUS 3, creatinine 0.6, glucose 113, magnesium 1.4, total bilirubin is 1.5 , AST elevated at 165, and ALT 50. Urine drug tox negative. Serum EtOH 0.05. UA revealed: protein one plus, trace ketones, urobilinogen 2.0, bacteria moderate, mucus moderate, and hCG negative. Ordered magnesium 2gram IV, folic acid 1 mg po, and thiamine 100mg PO. 1635 Reassessment, vital signs are stable. Heart rate 95. Patient states she's feeling much better with the above therapies. I discussed lab results with the patient. States the chronic alcohol use is killing her. She voices understanding. Offered to arrange help for alcoholism. Patient refuses inpatient detox and treatment. Request referral information. Will discharge patient home after administration of the above therapies. 02/07/18 18:59 Blood pressure 130/76 heart rate 97. Patient's resting comfortably after the above therapies. Once IV fluids are in will get patient up and see how she tolerates walking. If tolerates will discharge patient home. 02/07/18 19:09 Patient tolerated walking to the bathroom with no issues. Will discharge patient home. 02/07/18 20:16 per nursing staff they were getting the patient up and she became nauseated and started to vomit. There is faint blood present within yellow/clear fluid contents. I did evaluate the patient. There is a small amount of bright red blood present within the emesis. Suspect Glendy-Echeverria tear. She has no history of esophageal varices or gastric ulcers. She is tremulous. Ordered Ativan 1 mg IVP, Protonix 40 mg IVP, and Zofran 4 mg IVP. 02/07/18 20:51 Vomiting has ceased. Patient is feeling much better after the above therapies. She does not want inpatient detox and/or alcohol dependence treatment. She will followup with a addiction counselor at her own convenience. I did provide zofran and protonix prescriptions. Only scant bleeding with the emesis. Return precautions were discussed with patient. The patient remained hemodynamically stable while under my care in the E.D. I reviewed the patients care today and discussed the concerning symptoms for which to return to the E.D. with the patient/family. The patient/family verbalized understanding. All questions were answered. Departure - Departure Time of Disposition: 19:18 Disposition: Home, Self-Care 01 Condition: Good Clinical Impression: Dehydration, Alcoholic, Hypomagnesemia, Hypokalemia due to inadequate potassium intake Prescriptions: Magnesium Chloride [Slow-Mag] 71.5 mg PO DAILY #30 tablet. Potassium Chloride 20 meq PO QAM #30 tablet.er Instructions: Addiction and the Family, Chemical Dependency, Hypomagnesemia, Hypokalemia, Dehydration, Adult, [id number], Finding Treatment for Addiction Referrals: Ron Ching LAC [Licensed Counselor] - [facility] [Outside] Forms: ED Department Discharge Additional Instructions: Push the fluids including: Gatorade, Powerade, and water. Refrain from alcohol use. Take the potassium chloride and Slow-Mag as prescribed. See a addiction counselor for further evaluation and treatment for alcoholism. Eat a balanced diet. No driving while consuming alcohol. Return to the E.D. if you develop any new or worsening symptoms. See your PCP the end of this week or first part of next week for lab work to ensure potassium and magnesium levels are increasing.
[2018-02-07] MEDS ORDERED: Folic Acid 1 MG Tab PO ONE (16:25)
[2018-02-07] MEDS ORDERED: Thiamine 100 MG Tab PO ONE (16:25)
[2018-02-07] MEDS ORDERED: Magnesium Sulfate/Water 2 GM in Premix Bag 1 BAG IV ONE (16:25)
[2018-02-07] MEDS ORDERED: Pantoprazole 40 MG Vial IVPUSH ONE (20:16)
== END 2018-02-07 20:55 | disposition home or self-care (01) ==
LOC: JD.ED 14:35
DX: E83.42 Hypomagnesemia (principal); E87.6 Hypokalemia; E86.0 Dehydration; F10.229 Alcohol dependence with intoxication, unspecified; Y90.0 Blood alcohol level of less than 20 mg/100 ml
CPT/HCPCS: 36415; 80053; 80306; 81001; 81025; 83735; 85025; 93005; 96361; 96365; 96366; 96375; 96376; 99285; A9270; C9113; G0480; J2060; J2405; J7040; 93010; 99284; J3475

== ENCOUNTER 2018-02-18 10:55 | Emergency (ER) | payer OTHER ==
[2018-02-18 11:07] VITALS: BP 142/92
[2018-02-18] MEDS ORDERED: diphenhydrAMINE 50 MG/ML SDV IM ONE (11:38)
[2018-02-18] MEDS ORDERED: Haloperidol Lactate 5 MG/ML SDV IM ONE (11:38)
[2018-02-18] MEDS ORDERED: Ketorolac 60 MG/2 ML SDV IM ONE (11:38)
--- NOTE | 2018-02-18 11:45 | EDM.PDOC ---
ED HPI GENERAL MEDICAL PROBLEM - General Chief Complaint: Behavioral/Psych Stated Complaint: anxiety/headache Time Seen by Provider: 02/18/18 11:10 Source of Information: Reports: Patient History Limitations: Reports: No Limitations - History of Present Illness INITIAL COMMENTS - FREE TEXT/NARRATIVE: Patient is a 32-year-old female with a history of alcoholism presents to the ED with concerns of experiencing dizziness with body position changes while having increased anxiety. States she wants to get checked out. She has not had any alcohol since her last visit to the ED which was February 07, 2018. She has established care with Dr. Redding over [facility] and was evaluated on . On examination in the ED February 07, 2018 she was found to have low mg and k+ started on supplements. States in most cases she is anxious prior to onset of dizziness. Develops sensation of her heart is beating fast. Takes Zofran ODT with resolution. She has been eating and drinking well. States this morning symptoms worsened upon awakening. She admits to smoking quite a bit of marijuana last night. She does have evaluation at [facility] this coming Wednesday for alcohol abuse. She's been under more stress recently since she received a driving while intoxicated and also driving while license was suspended. Otherwise she's been sleeping and eating okay. She does not work she sits at home most of the day. Developed a headache to the back or head and also bitemporal described as a squeezing sensation. Sensitive to the light with no hyperacusis. There is no nausea or vomiting, chest pain, shortness of breath, dysuria, or any additional complaints. Headache Pain Score (Numeric/FACES): 3 - Related Data Allergies Allergy/AdvReac Type Severity Reaction Status Date / Time No Known Allergies Allergy Verified 02/18/18 11:09 Home Meds: Home Meds Magnesium Chloride [Slow-Mag] 71.5 mg PO DAILY #30 tablet.dr 02/07/18 [Rx] Potassium Chloride 20 meq PO QAM #30 tablet.er 02/07/18 [Rx] Ondansetron [Zofran ODT] 4 mg PO Q6H PRN 02/18/18 [History] Pantoprazole [ProTONIX] 40 mg PO DAILY 02/18/18 [History] Past Medical History HEENT History: Reports: Impaired Vision Other HEENT History: glasses Gastrointestinal History: Reports: GERD Musculoskeletal History: Reports: Fracture, Other (See Below) Other Musculoskeletal History: siatica Psychiatric History: Reports: Addiction, Anxiety Other Psychiatric History: alcohol Endocrine/Metabolic History: Reports: Hyperthyroidism, Obesity/BMI 30+ - Infectious Disease History Infectious Disease History: Reports: Chicken Pox Social & Family History - Family History Family Medical History: Noncontributory - Tobacco Use Smoking Status *Q: Never Smoker Second Hand Smoke Exposure: No - Caffeine Use Caffeine Use: Reports: Soda - Alcohol Use Days Per Week of Alcohol Use: 5 Number of Drinks Per Day: 4 Total Drinks Per Week: 20 - Recreational Drug Use Recreational Drug Use: No Drug Use in Last 12 Months: Yes Recreational Drug Type: Reports: Marijuana/Hashish - Living Situation & Occupation Living situation: Reports: Single, with Family (Cousin) Occupation: Unemployed ED ROS GENERAL - Review of Systems Review Of Systems: See Below Constitutional: Reports: No Symptoms HEENT: Reports: No Symptoms. Denies: Vision Change Respiratory: Reports: No Symptoms Cardiovascular: Reports: Palpitations (at times with increased anxiety). Denies : Chest Pain, Dyspnea on Exertion, Lightheadedness, Syncope GI/Abdominal: Reports: No Symptoms Musculoskeletal: Reports: No Symptoms Neurological: Reports: Dizziness, Headache. Denies: Confusion, Numbness, Syncope, Tingling, Difficulty Walking, Weakness Psychiatric: Reports: Anxiety. Denies: Agitation, Confusion, Cravings, Depression, Hallucinations, Homicidal Ideation, Mood Lability, Suicidal Ideation - Physical Exam Exam: See Below Exam Limited By: No Limitations General Appearance: Alert, WD/WN, Anxious Eye Exam: Bilateral Eye: EOMI, Nystagmus (few horizontal.), PERRL Ears: Normal External Exam, Normal Canal, Hearing Grossly Normal, Normal TMs Nose: Normal Inspection Throat/Mouth: Normal Inspection, Normal Oropharynx, Normal Voice, No Airway Compromise Head Exam: Atraumatic, Normocephalic Neck: Normal Inspection, Supple, Non-Tender, Full Range of Motion Respiratory/Chest: No Respiratory Distress, Lungs Clear, Normal Breath Sounds, Chest Non-Tender Cardiovascular: Normal Peripheral Pulses, Regular Rate, Rhythm Neuro Exam (Abbreviated): Alert, Oriented, CN II-XII Intact, Normal Cognition, No Motor/Sensory Deficits Psychiatric: Normal Affect, Anxious Skin Exam: Warm, Dry, Intact, Normal Color, No Rash Course - Vital Signs Last Recorded V/S: Last Vital Signs Temp 97.2 F 02/18/18 11:04 Pulse 90 02/18/18 11:04 Resp 14 02/18/18 11:04 BP 142/92 H 02/18/18 11:04 Pulse Ox 100 02/18/18 11:04 Orthostatic Blood Pressure [ 156/93 Standing] Orthostatic Blood Pressure [ 137/92 Sitting] Orthostatic Blood Pressure [ 126/70 Supine] - Orders/Labs/Meds Labs: Laboratory Tests 02/18/18 02/18/18 02/18/18 Range/Units 11:47 11:54 11:55 Sodium 139 (136-145) mEq/L Potassium 3.6 (3.5-5.1) mEq/L Chloride 102 (98-107) mEq/L Carbon Dioxide 26 (21-32) mEq/L Anion Gap 14.6 (5-15) BUN 6 L (7-18) mg/dL Creatinine 0.7 (0.55-1.02) mg/dL Est Cr Clr Drug Dosing 107.01 mL/min Estimated GFR (MDRD) > 60 (>60) mL/min BUN/Creatinine Ratio 8.6 L (14-18) Glucose 121 H (74-106) mg/dL Calcium 9.2 (8.5-10.1) mg/dL Total Bilirubin 0.8 (0.2-1.0) mg/dL AST 137 H (15-37) U/L ALT 73 H (14-59) U/L Alkaline Phosphatase 73 (46-116) U/L Total Protein 9.5 H (6.4-8.2) g/dl Albumin 3.4 (3.4-5.0) g/dl Globulin 6.1 gm/dL Albumin/Globulin Ratio 0.6 L (1-2) TSH 3rd Generation 0.096 L (0.358-3.74) uIU/mL Urine Color Yellow (Yellow) Urine Appearance Clear (Clear) Urine pH 8.5 H (5.0-8.0) Ur Specific [place] 1.015 (1.005-1.030) Urine Protein Negative (Negative) Urine Glucose (UA) Negative (Negative) Urine Ketones Negative (Negative) Urine Occult Blood Negative (Negative) Urine Nitrite Negative (Negative) Urine Bilirubin Negative (Negative) Urine Urobilinogen 1.0 (0.2-1.0) Ur Leukocyte Esterase Negative (Negative) Urine RBC 0-5 (0-5) /hpf Urine WBC 0-5 (0-5) /hpf Ur Epithelial Cells 0-5 (0-5) /hpf Urine Bacteria Few (FEW) /hpf Urine Mucus Few (FEW) /hpf Urine Opiates Screen Negative (NEGATIVE) Ur Buprenorphine Scrn Negative (NEGATIVE) Ur Oxycodone Screen Negative (NEGATIVE) Urine Methadone Screen Negative (NEGATIVE) Ur Propoxyphene Screen Negative (NEGATIVE) Ur Barbiturates Screen Negative (NEGATIVE) Ur Tricyclics Screen Negative (NEGATIVE) Ur Phencyclidine Scrn Negative (NEGATIVE) Ur Amphetamine Screen Negative (NEGATIVE) U Methamphetamines Scrn Negative (NEGATIVE) U Benzodiazepines Scrn Negative (NEGATIVE) U Cocaine Metab Screen Negative (NEGATIVE) U Marijuana (THC) Screen Negative (NEGATIVE) Meds: Medications Discontinued Medications Generic Name Dose Route Start Last Admin Trade Name Freq PRN Reason Stop Dose Admin Diphenhydramine HCl 50 mg 02/18/18 11:38 02/18/18 11:56 Benadryl IM 02/18/18 11:39 50 mg ONETIME ONE Administration Haloperidol Lactate 5 mg 02/18/18 11:38 02/18/18 11:57 Haldol IM 02/18/18 11:39 5 mg ONETIME ONE Administration Ketorolac Tromethamine 60 mg 02/18/18 11:38 02/18/18 11:56 Toradol IM 02/18/18 11:39 60 mg ONETIME ONE Administration - Re-Assessments/Exams Free Text/Narrative Re-Assessment/Exam: Labs obtained for 02/16/2018 reviewed: TSH was 0.147. Free T4 1.44. Free T3 3.42. LFTs were elevated at that time AST 163, ALT 83, GGT 332, K+ 3.9. 2017 reviewed: serum etoh 0.05 Will obtain today CMP, Urine drug screen, TSH, UA, and orthostatic vitals. To abort headache which I feel is tension in origin I have ordered haldol 5mg IM , toradol 60mg IM, and benadryl 50mg IM. 02/18/18 11:57 Orthostatic vitals were negative. 02/18/18 12:40 Labs: Sodium 139, potassium 3.6, hCG 14.6, creatinine 0.7, glucose 121, AST 137, ALT 73, TSH 0.096. UA negative for any concerning findings. Urine drug tox negative. 02/18/18 12:48 Reassessment, patient headache has resolved. She is resting comfortably with no issues. Vitals are stable. Patiet has eaten. She is ready to be discharged home. She has appt to be evaluated at [facility] thiscoming wednesday and address anxiety concerns and alcohol abuse. She has been stressed out recently and suspect increasing her anxiety. She has also stopped consuming alcohol that has also increased her symptoms.Will discharge patient home. Departure - Departure Time of Disposition: 12:50 Disposition: Home, Self-Care 01 Condition: Good Clinical Impression: Anxiety, Alcoholic, Low TSH level, Marijuana abuse - Discharge Information Instructions: Chemical Dependency, Substance Use Disorder, Finding Treatment for Addiction Referrals: Elle Redding MD [Primary Care Provider] - Forms: ED Department Discharge Additional Instructions: Please refrain from alcohol use. See addiction and psych provider at [facility] as scheduled for this coming Wednesday. Do not drive this evening since receiving a sedative medication. For headache take tylenol and ibuprofen in alternating fashion for pain. Continue to push the fluids. Eat balanced meal. Followup with PCP this coming week if symptoms persist. Return to the E.D. if you develop any new or worsening symptoms.
== END 2018-02-18 13:09 | disposition home or self-care (01) ==
LOC: JD.ED 10:55
DX: F41.9 Anxiety disorder, unspecified (principal); F12.10 Cannabis abuse, uncomplicated; F10.20 Alcohol dependence, uncomplicated; Y90.0 Blood alcohol level of less than 20 mg/100 ml; R94.6 Abnormal results of thyroid function studies; K21.9 Gastro-esophageal reflux disease without esophagitis; Z79.899 Other long term (current) drug therapy
CPT/HCPCS: 36415; 80053; 80306; 81001; 84443; 96372; 99284; J1200; J1630; J1885; 99283

== ENCOUNTER 2018-03-21 06:18 | Emergency (ER) | payer OTHER ==
[2018-03-21 06:26] VITALS: BP 162/91
[2018-03-21] MEDS ORDERED: Ondansetron 4 MG Tab.DIS PO ONE (06:37)
--- NOTE | 2018-03-21 06:45 | EDM.PDOCBH ---
ED HPI GENERAL MEDICAL PROBLEM - General Chief Complaint: Drug or Alcohol Abuse Stated Complaint: WEAK Time Seen by Provider: 03/21/18 06:32 Source of Information: Reports: Patient History Limitations: Reports: No Limitations - History of Present Illness INITIAL COMMENTS - FREE TEXT/NARRATIVE: The patient presents with generalized weakness. She says she also feels dehydrated. She has nausea and she vomited this morning. She has no fever or chills. She has no chest pain but she does have a little shortness of breath. She woke up this morning and she could not go back to sleep. She did not feel right. She has no abdominal pain. She has no dysuria or hematuria. She does admit to drinking 2 forty ounce beers last night and a few shots. This started this morning. Onset: Gradual Duration: Hour(s): Severity: Moderate Improves with: Reports: None Worsens with: Reports: None Associated Symptoms: Reports: Nausea/Vomiting, Shortness of Breath. Denies: Chest Pain, Cough, Fever/Chills, Headaches - Related Data Allergies Allergy/AdvReac Type Severity Reaction Status Date / Time No Known Allergies Allergy Verified 02/18/18 11:09 Home Meds: Home Meds Magnesium Chloride [Slow-Mag] 71.5 mg PO DAILY #30 tablet.dr 02/07/18 [Rx] Potassium Chloride 20 meq PO QAM #30 tablet.er 02/07/18 [Rx] Pantoprazole [ProTONIX] 40 mg PO DAILY 02/18/18 [History] Magnesium Amino Acid Chelate [Magnesium] 100 mg PO DAILY #30 tablet 03/21/18 [Rx ] Ondansetron [Zofran ODT] 4 mg PO Q6H PRN #20 tab.dis 03/21/18 [Rx] Potassium Chloride 20 meq PO DAILY #30 tablet.er 03/21/18 [Rx] Past Medical History HEENT History: Reports: Impaired Vision Other HEENT History: glasses Gastrointestinal History: Reports: GERD Musculoskeletal History: Reports: Fracture, Other (See Below) Other Musculoskeletal History: siatica Psychiatric History: Reports: Addiction, Anxiety Other Psychiatric History: alcohol Endocrine/Metabolic History: Reports: Hyperthyroidism, Obesity/BMI 30+ - Infectious Disease History Infectious Disease History: Reports: Chicken Pox Social & Family History - Family History Family Medical History: Noncontributory - Tobacco Use Smoking Status *Q: Never Smoker - Caffeine Use Caffeine Use: Reports: Soda - Recreational Drug Use Recreational Drug Use: No - Living Situation & Occupation Living situation: Reports: Single, with Family (Cousin) Occupation: Unemployed ED ROS GENERAL - Review of Systems Review Of Systems: See Below Constitutional: Reports: Weakness HEENT: Reports: No Symptoms Respiratory: Reports: Shortness of Breath. Denies: Cough Cardiovascular: Reports: No Symptoms Endocrine: Reports: No Symptoms GI/Abdominal: Reports: Nausea, Vomiting. Denies: Abdominal Pain : Reports: No Symptoms Musculoskeletal: Reports: No Symptoms ED EXAM, BEHAVIORAL HEALTH - Physical Exam Exam: See Below Exam Limited By: No Limitations General Appearance: Alert, No Apparent Distress Ears: Normal External Exam Nose: Normal Inspection Head: Atraumatic, Normocephalic Neck: Normal Inspection Respiratory/Chest: No Respiratory Distress, Lungs Clear, Normal Breath Sounds Cardiovascular: Regular Rate, Rhythm, No Edema, No Murmur GI/Abdominal: Soft, Non-Tender, No Organomegaly, No Mass Back Exam: Normal Inspection Extremities: Normal Inspection Neurological: Alert, No Motor/Sensory Deficits, Oriented x 3 COURSE, BEHAVIORAL HEALTH COMP - Course Vital Signs: Last Vital Signs Temp 98.7 F 03/21/18 06:23 Pulse 107 H 03/21/18 06:23 Resp 16 03/21/18 06:23 BP 162/91 H 03/21/18 06:23 Pulse Ox 99 03/21/18 06:23 Orders, Labs, Meds: Active Orders 24 hr Category Date Time Status Cardiac Monitoring [RC] . DIRECTED Care 03/21/18 06:37 Active Laboratory Tests 03/21/18 03/21/18 Range/Units 06:48 06:48 WBC 4.22 (3.98-10.04) K/mm3 RBC 3.69 L (3.98-5.22) M/mm3 Hgb 12.1 (11.2-15.7) gm/L Hct 36.6 (34.1-44.9) % MCV 99.2 H (79.4-94.8) fl MCH 32.8 H (25.6-32.2) pg MCHC 33.1 (32.2-35.5) g/dl RDW Std Deviation 43.7 (36.4-46.3) fL Plt Count 158 L (182-369) K/mm3 MPV 8.9 L (9.4-12.3) fl Neut % (Auto) 57.1 (34.0-71.1) % Lymph % (Auto) 34.4 (19.3-51.7) % [place] % (Auto) 6.4 (4.7-12.5) % Eos % (Auto) 1.9 (0.7-5.8) Baso % (Auto) 0.2 (0.1-1.2) % Neut # (Auto) 2.41 (1.56-6.13) K/mm3 Lymph # (Auto) 1.45 (1.18-3.74) K/mm3 [place] # (Auto) 0.27 (0.24-0.36) K/mm3 Eos # (Auto) 0.08 (0.04-0.36) K/mm3 Baso # (Auto) 0.01 (0.01-0.08) K/mm3 Sodium 139 (136-145) mEq/L Potassium 3.2 L (3.5-5.1) mEq/L Chloride 104 (98-107) mEq/L Carbon Dioxide 24 (21-32) mEq/L Anion Gap 14.2 (5-15) BUN 3 L (7-18) mg/dL Creatinine 0.6 (0.55-1.02) mg/dL Est Cr Clr Drug Dosing 124.85 mL/min Estimated GFR (MDRD) > 60 (>60) mL/min BUN/Creatinine Ratio 5.0 L (14-18) Glucose 127 H (74-106) mg/dL Calcium 8.3 L (8.5-10.1) mg/dL Magnesium 1.5 L (1.8-2.4) mg/dl Total Bilirubin 0.9 (0.2-1.0) mg/dL AST 75 H (15-37) U/L ALT 37 (14-59) U/L Alkaline Phosphatase 57 (46-116) U/L Total Protein 8.9 H (6.4-8.2) g/dl Albumin 3.1 L (3.4-5.0) g/dl Globulin 5.8 gm/dL Albumin/Globulin Ratio 0.5 L (1-2) Ethyl Alcohol 0.08 (0.00) gm% Medications Discontinued Medications Generic Name Dose Route Start Last Admin Trade Name Jayleen PRN Reason Stop Dose Admin Ondansetron HCl 4 mg 03/21/18 06:37 03/21/18 06:41 Zofran Odt PO 03/21/18 06:38 4 mg ONETIME ONE Administration Re-Assessment/Re-Exam: I ordered zofran 4mg ODT by mouth and labs. Her CBC looks good. Her K was a little low at 3.2. Her magnesium was a little low at 1.5. Her blood alcohol is 0.08. Departure - Departure Time of Disposition: 07:20 Disposition: Home, Self-Care 01 Condition: Good Clinical Impression: Alcohol abuse, Hypomagnesemia, Hypokalemia due to inadequate potassium intake Alcohol intoxication Qualifiers: Complication of substance-induced condition: uncomplicated Qualified Code(s): F10.920 - Alcohol use, unspecified with intoxication, uncomplicated - Discharge Information Prescriptions: Magnesium Amino Acid Chelate [Magnesium] 100 mg PO DAILY #30 tablet Ondansetron [Zofran ODT] 4 mg PO Q6H PRN #20 tab.dis PRN Reason: Nausea\vomiting Potassium Chloride 20 meq PO DAILY #30 tablet.er Referrals: Elle Redding MD [Primary Care Provider] - Additional Instructions: Take the magnesium and potassium daily. You may take the zofran every 4 hours as needed for nausea and vomiting. Drink plenty of water. Do not drink alcohol. Please return if you are worse. - My Orders Last 24 Hours: My Active Orders 03/21/18 06:37 Cardiac Monitoring [RC] . DIRECTED - Assessment/Plan Last 24 Hours: My Active Orders 03/21/18 06:37 Cardiac Monitoring [RC] . DIRECTED
== END 2018-03-21 07:54 | disposition home or self-care (01) ==
LOC: JD.ED 06:18
DX: F10.129 Alcohol abuse with intoxication, unspecified (principal); E83.42 Hypomagnesemia; E87.6 Hypokalemia; K21.9 Gastro-esophageal reflux disease without esophagitis; E05.90 Thyrotoxicosis, unspecified without thyrotoxic crisis or storm; Y90.4 Blood alcohol level of 80-99 mg/100 ml; Z79.899 Other long term (current) drug therapy
CPT/HCPCS: 36415; 80053; 83735; 85025; 99283; A9270; G0480

== ENCOUNTER 2018-03-31 14:37 | Emergency (ER) | payer OTHER ==
[2018-03-31] MEDS ORDERED: Thiamine 100 MG Tab PO ONE (15:14)
[2018-03-31] MEDS ORDERED: Sodium Chloride 0.9% 1,000 ML IV ONE (15:14)
[2018-03-31] MEDS ORDERED: LORazepam 2 MG/ML SDV IVPUSH ONE (15:14)
[2018-03-31] MEDS ORDERED: Folic Acid 1 MG Tab PO ONE (15:14)
[2018-03-31] MEDS ORDERED: Sodium Chloride 0.9% 10 ML Syringe FLUSH PRN (15:14)
[2018-03-31] MEDS ORDERED: Magnesium Sulfate/Water 2 GM in Premix Bag 1 BAG IV ONE (15:14)
[2018-03-31] MEDS ORDERED: Ondansetron 4 MG/2 ML SDV IVPUSH ONE (15:14)
[2018-03-31] MEDS ORDERED: Pantoprazole 40 MG Vial IVPUSH ONE (15:16)
[2018-03-31] MEDS ORDERED: Alum Hydrox/Mag Hydrox/Simeth 30 ML, Lidocaine 2% 15 ML PO ONE ×2 (15:16)
--- NOTE | 2018-03-31 15:20 | EDM.PDOC ---
ED HPI GENERAL MEDICAL PROBLEM - General Chief Complaint: General Stated Complaint: SEIZURES Time Seen by Provider: 03/31/18 15:10 Source of Information: Reports: Patient History Limitations: Reports: No Limitations - History of Present Illness INITIAL COMMENTS - FREE TEXT/NARRATIVE: Patient is a 32-year-old female with a history of alcoholism presents to the E.D. complaining of feeling shakey. Patient states she has been consuming alcohol pretty heavy as of recent. Stopped two days ago. Normally take magnesium and potassium supplements but since she was not feeling good did not go pick them up. She refuses inpatient admission for detox. states she has an appt with a alcohol counselor next week. She complains of mild epigastric pain. Denies SOB, fever, bloody emesis, blood in stool, dark tarry stools, suicidal ideations, hallucinations, painful urination, or any additional complaints. Treatments OCC THERAPY ASST: Reports: Other (see below) Other Treatments OCC THERAPY ASST: zofran - Related Data Allergies Allergy/AdvReac Type Severity Reaction Status Date / Time No Known Allergies Allergy Verified 02/18/18 11:09 Home Meds: Home Meds Cholecalciferol (Vitamin D3) [Vitamin D3] 2,000 unit PO DAILY 03/31/18 [History] Past Medical History HEENT History: Reports: Impaired Vision Other HEENT History: glasses Gastrointestinal History: Reports: GERD Musculoskeletal History: Reports: Fracture, Other (See Below) Other Musculoskeletal History: sciatica Neurological History: Reports: Seizure, Other (See Below) Other Neuro History: with alcohol withdrawl Psychiatric History: Reports: Addiction, Anxiety Other Psychiatric History: alcohol Endocrine/Metabolic History: Reports: Hyperthyroidism, Obesity/BMI 30+ - Infectious Disease History Infectious Disease History: Reports: Chicken Pox Social & Family History - Family History Family Medical History: Noncontributory - Tobacco Use Smoking Status *Q: Never Smoker - Caffeine Use Caffeine Use: Reports: Soda - Alcohol Use Days Per Week of Alcohol Use: 7 Number of Drinks Per Day: 15 Total Drinks Per Week: 105 Date of Last Drink: 03/30/18 Time of Last Drink: 21:00 - Recreational Drug Use Recreational Drug Use: No - Living Situation & Occupation Living situation: Reports: Single, with Family (Cousin) Occupation: Unemployed ED ROS GENERAL - Review of Systems Review Of Systems: See Below Constitutional: Reports: No Symptoms HEENT: Reports: No Symptoms Respiratory: Reports: No Symptoms Cardiovascular: Reports: No Symptoms GI/Abdominal: Reports: Abdominal Pain, Decreased Appetite, Nausea. Denies: Black Stool, Bloody Stool, Constipation, Diarrhea, Hematochezia, Melena, Vomiting : Reports: No Symptoms Musculoskeletal: Reports: No Symptoms Neurological: Reports: No Symptoms Psychiatric: Reports: Anxiety ED EXAM, GENERAL - Physical Exam Exam: See Below Exam Limited By: No Limitations General Appearance: Alert, WD/WN, Anxious Eye Exam: Bilateral Eye: PERRL Ears: Hearing Grossly Normal Nose: Normal Inspection Throat/Mouth: Normal Inspection, Normal Oropharynx, Normal Voice, No Airway Compromise Neck: Normal Inspection, Supple, Non-Tender, Full Range of Motion Respiratory/Chest: No Respiratory Distress, Lungs Clear, Normal Breath Sounds, No Accessory Muscle Use, Chest Non-Tender Cardiovascular: Normal Peripheral Pulses, Regular Rate, Rhythm Peripheral Pulses: 4+: Radial (R) GI/Abdominal: Normal Bowel Sounds, Soft, No Organomegaly, No Distention, Tender (epigastric region) Back Exam: Normal Inspection Extremities: Normal Inspection, Normal Range of Motion, Non-Tender, No Pedal Edema, Normal Capillary Refill Neurological: Alert, Oriented, CN II-XII Intact, Normal Cognition, No Motor/ Sensory Deficits Psychiatric: Normal Affect, Normal Mood Skin Exam: Warm, Dry, Intact, Normal Color, No Rash Course - Vital Signs Last Recorded V/S: Last Vital Signs Temp 97.8 F 03/31/18 14:42 Pulse 89 03/31/18 18:30 Resp 16 03/31/18 18:30 BP 129/73 03/31/18 18:30 Pulse Ox 99 03/31/18 18:30 - Orders/Labs/Meds Orders: Active Orders 24 hr Category Date Time Status EKG Documentation Completion [RC] STAT Care 03/31/18 15:14 Active Peripheral IV Care [RC] . DIRECTED Care 03/31/18 15:15 Active DRUG SCREEN, URINE [URCHEM] Stat Lab 03/31/18 16:15 Ordered Peripheral IV Insertion Adult [OM.PC] Routine Oth 03/31/18 15:14 Ordered Labs: Laboratory Tests 03/31/18 03/31/18 03/31/18 Range/Units 15:25 15:25 15:25 WBC 5.76 (3.98-10.04) K/mm3 RBC 3.70 L (3.98-5.22) M/mm3 Hgb 12.0 (11.2-15.7) gm/L Hct 36.6 (34.1-44.9) % MCV 98.9 H (79.4-94.8) fl MCH 32.4 H (25.6-32.2) pg MCHC 32.8 (32.2-35.5) g/dl RDW Std Deviation 43.9 (36.4-46.3) fL Plt Count 218 (182-369) K/mm3 MPV 8.6 L (9.4-12.3) fl Neutrophils % (Manual) 54 (40-60) % Band Neutrophils % 0 (0-10) % Lymphocytes % (Manual) 43 H (20-40) % Atypical Lymphs % 0 % Monocytes % (Manual) 3 (2-10) % Eosinophils % (Manual) 0 L (0.7-5.8) % Basophils % (Manual) 0 L (0.1-1.2) Platelet Estimate Adequate Plt Morphology Comment Normal RBC Morph Comment Normal PT 11.7 (9.5-12.1) SECONDS INR 1.07 APTT 27 (24-31) SECONDS Sodium 136 (136-145) mEq/L Potassium 3.4 L (3.5-5.1) mEq/L Chloride 101 (98-107) mEq/L Carbon Dioxide 20 L (21-32) mEq/L Anion Gap 18.4 H (5-15) BUN 4 L (7-18) mg/dL Creatinine 0.7 (0.55-1.02) mg/dL Est Cr Clr Drug Dosing 107.01 mL/min Estimated GFR (MDRD) > 60 (>60) mL/min BUN/Creatinine Ratio 5.7 L (14-18) Glucose 116 H (74-106) mg/dL Calcium 8.7 (8.5-10.1) mg/dL Magnesium 1.3 L (1.8-2.4) mg/dl Total Bilirubin 0.8 (0.2-1.0) mg/dL AST 78 H (15-37) U/L ALT 40 (14-59) U/L Alkaline Phosphatase 55 (46-116) U/L C-Reactive Protein 0.5 (<1.0) mg/dL Total Protein 9.0 H (6.4-8.2) g/dl Albumin 3.2 L (3.4-5.0) g/dl Globulin 5.8 gm/dL Albumin/Globulin Ratio 0.6 L (1-2) Lipase 138 (73-393) U/L Urine Color (Yellow) Urine Appearance (Clear) Urine pH (5.0-8.0) Ur Specific [place] (1.005-1.030) Urine Protein (Negative) Urine Glucose (UA) (Negative) Urine Ketones (Negative) Urine Occult Blood (Negative) Urine Nitrite (Negative) Urine Bilirubin (Negative) Urine Urobilinogen (0.2-1.0) Ur Leukocyte Esterase (Negative) Urine RBC (0-5) /hpf Urine WBC (0-5) /hpf Ur Epithelial Cells (0-5) /hpf Urine Bacteria (FEW) /hpf Urine Mucus (FEW) /hpf Urine Opiates Screen (NEGATIVE) Ur Buprenorphine Scrn (NEGATIVE) Ur Oxycodone Screen (NEGATIVE) Urine Methadone Screen (NEGATIVE) Ur Propoxyphene Screen (NEGATIVE) Ur Barbiturates Screen (NEGATIVE) Ur Tricyclics Screen (NEGATIVE) Ur Phencyclidine Scrn (NEGATIVE) Ur Amphetamine Screen (NEGATIVE) U Methamphetamines Scrn (NEGATIVE) U Benzodiazepines Scrn (NEGATIVE) U Cocaine Metab Screen (NEGATIVE) U Marijuana (THC) Screen (NEGATIVE) Ethyl Alcohol 0.05 (0.00) gm% 03/31/18 03/31/18 Range/Units 16:15 16:15 WBC (3.98-10.04) K/mm3 RBC (3.98-5.22) M/mm3 Hgb (11.2-15.7) gm/L Hct (34.1-44.9) % MCV (79.4-94.8) fl MCH (25.6-32.2) pg MCHC (32.2-35.5) g/dl RDW Std Deviation (36.4-46.3) fL Plt Count (182-369) K/mm3 MPV (9.4-12.3) fl Neutrophils % (Manual) (40-60) % Band Neutrophils % (0-10) % Lymphocytes % (Manual) (20-40) % Atypical Lymphs % % Monocytes % (Manual) (2-10) % Eosinophils % (Manual) (0.7-5.8) % Basophils % (Manual) (0.1-1.2) Platelet Estimate Plt Morphology Comment RBC Morph Comment PT (9.5-12.1) SECONDS INR APTT (24-31) SECONDS Sodium (136-145) mEq/L Potassium (3.5-5.1) mEq/L Chloride (98-107) mEq/L Carbon Dioxide (21-32) mEq/L Anion Gap (5-15) BUN (7-18) mg/dL Creatinine (0.55-1.02) mg/dL Est Cr Clr Drug Dosing mL/min Estimated GFR (MDRD) (>60) mL/min BUN/Creatinine Ratio (14-18) Glucose (74-106) mg/dL Calcium (8.5-10.1) mg/dL Magnesium (1.8-2.4) mg/dl Total Bilirubin (0.2-1.0) mg/dL AST (15-37) U/L ALT (14-59) U/L Alkaline Phosphatase (46-116) U/L C-Reactive Protein (<1.0) mg/dL Total Protein (6.4-8.2) g/dl Albumin (3.4-5.0) g/dl Globulin gm/dL Albumin/Globulin Ratio (1-2) Lipase (73-393) U/L Urine Color Yellow (Yellow) Urine Appearance Clear (Clear) Urine pH 8.0 (5.0-8.0) Ur Specific [place] 1.020 (1.005-1.030) Urine Protein Negative (Negative) Urine Glucose (UA) Negative (Negative) Urine Ketones Trace H (Negative) Urine Occult Blood Negative (Negative) Urine Nitrite Negative (Negative) Urine Bilirubin Negative (Negative) Urine Urobilinogen 0.2 (0.2-1.0) Ur Leukocyte Esterase Negative (Negative) Urine RBC 0-5 (0-5) /hpf Urine WBC 0-5 (0-5) /hpf Ur Epithelial Cells 0-5 (0-5) /hpf Urine Bacteria Few (FEW) /hpf Urine Mucus Not seen (FEW) /hpf Urine Opiates Screen Negative (NEGATIVE) Ur Buprenorphine Scrn Negative (NEGATIVE) Ur Oxycodone Screen Negative (NEGATIVE) Urine Methadone Screen Negative (NEGATIVE) Ur Propoxyphene Screen Negative (NEGATIVE) Ur Barbiturates Screen Negative (NEGATIVE) Ur Tricyclics Screen Negative (NEGATIVE) Ur Phencyclidine Scrn Negative (NEGATIVE) Ur Amphetamine Screen Negative (NEGATIVE) U Methamphetamines Scrn Negative (NEGATIVE) U Benzodiazepines Scrn Negative (NEGATIVE) U Cocaine Metab Screen Negative (NEGATIVE) U Marijuana (THC) Screen Negative (NEGATIVE) Ethyl Alcohol (0.00) gm% Meds: Medications Discontinued Medications Generic Name Dose Route Start Last Admin Trade Name Freq PRN Reason Stop Dose Admin Al Hydroxide/Mg Hydroxide 30 0 ml 03/31/18 15:16 03/31/18 16:22 ml/ Lidocaine HCl 15 ml PO 03/31/18 15:17 45 ml ONETIME ONE Administration Folic Acid 1 mg 03/31/18 15:14 03/31/18 15:59 Folic Acid PO 03/31/18 15:15 1 mg ONETIME ONE Administration Magnesium Sulfate 2 gm/ Premix 50 mls @ 25 mls/hr 03/31/18 15:14 03/31/18 16: 21 IV 03/31/18 17:13 25 mls/hr ONETIME ONE Administration Sodium Chloride 1,000 mls @ 999 mls/hr 03/31/18 15:14 03/31/18 16:00 Normal Saline IV 03/31/18 16:14 999 mls/hr ONETIME ONE Administration Lorazepam 2 mg 03/31/18 15:14 03/31/18 16:04 Ativan IVPUSH 03/31/18 15:15 2 mg ONETIME ONE Administration Protocol Ondansetron HCl 4 mg 03/31/18 15:14 03/31/18 16:01 Zofran IVPUSH 03/31/18 15:15 4 mg ONETIME ONE Administration Pantoprazole Sodium 40 mg 03/31/18 15:16 03/31/18 16:02 Protonix Iv IVPUSH 03/31/18 15:17 40 mg ONETIME ONE Administration Sodium Chloride 10 ml 03/31/18 15:14 03/31/18 16:21 Saline Flush FLUSH 10 ml ASDIRECTED PRN Administration Keep Vein Open Thiamine HCl 100 mg 03/31/18 15:14 03/31/18 15:59 Vitamin B-1 PO 03/31/18 15:15 100 mg ONETIME ONE Administration - Re-Assessments/Exams Free Text/Narrative Re-Assessment/Exam: Patient is quite anxious with examination. Patient has pain to the epigastric region. The is concerning for pancreatitis. IV established with NS 999 mls per hour. Magnesium 2 g IV. Zofran 4 mg IV. Protonix 40 mg IV. Thiamine 100 mg by mouth. Folic acid 1 mg by mouth. Ativan protocol. GI cocktail by mouth. 03/31/18 18:23 Labs reviewed: CBC within normal limits. Chemistry revealed potassium 3.4, creatinine 0.7, magnesium 1.3, AST ALT and alkaline phosphatase his concerns noted. Lipase 138. UA trace ketones. Urine drug tox negative. Serum EtOH 0.05. 1815 Reassessment, patient's feeling much better. Resting comfortably. She is ready be discharged home. Departure - Departure Time of Disposition: 18:26 Disposition: Home, Self-Care 01 Condition: Good Clinical Impression: Alcohol abuse, Hypokalemia due to inadequate potassium intake, Hypomagnesemia, Elevated liver enzymes Alcohol intoxication Qualifiers: Complication of substance-induced condition: uncomplicated Qualified Code(s): F10.920 - Alcohol use, unspecified with intoxication, uncomplicated Gastritis Qualifiers: Gastritis type: alcoholic Chronicity: acute Gastritis bleeding: without bleeding Qualified Code(s): K29.20 - Alcoholic gastritis without bleeding - Discharge Information Instructions: Gastritis, Adult, [id number], Liver Function Tests, Hypomagnesemia, Hypokalemia, Alcohol Intoxication, Alcohol Abuse and Nutrition Referrals: Elle Redding MD [Primary Care Provider] - [facility] [Outside] [facility] [Outside] Forms: ED Department Discharge Additional Instructions: Refrain from alcohol use. Push the fluids including: Gatorade and Powerade. Potassium and magnesium were low. This is related to your poor diet due to alcohol is in. So eat 3 balanced meals with plenty of vegetables. No driving today since receiving a sedative medication while in the ED. Seek out help for alcohol abuse. Stop drinking alcohol. An additional heavy take Prilosec 20 mg every day half-hour prior to eating every morning. May take Zantac 150 mg at at bedtime if acid reflux present. See your primary care provider this coming week for reevaluation. Return to the ED if you develop any new or worsening symptoms. Refrain from caffeinated beverages, spicy foods, and her eating within 4 hours of going to bed. - My Orders Last 24 Hours: My Active Orders 03/31/18 15:14 EKG Documentation Completion [RC] STAT Peripheral IV Insertion Adult [OM.PC] Routine 03/31/18 15:15 Peripheral IV Care [RC] . DIRECTED 03/31/18 16:15 DRUG SCREEN, URINE [URCHEM] Stat - Assessment/Plan Last 24 Hours: My Active Orders 03/31/18 15:14 EKG Documentation Completion [RC] STAT Peripheral IV Insertion Adult [OM.PC] Routine 03/31/18 15:15 Peripheral IV Care [RC] . DIRECTED 03/31/18 16:15 DRUG SCREEN, URINE [URCHEM] Stat
--- NOTE | 2018-03-31 16:26 | CR ---
Abdominal series: Supine and upright views of the abdomen were obtained as well as frontal view of the chest. Comparison: Prior chest x-ray of 10/17/16. Heart size and mediastinum are within normal limits. Lungs are clear. No free air is seen. Bowel gas pattern appears normal. No abnormal calcifications or soft tissue abnormality is seen. Bony structures are unremarkable. Impression: 1. Nothing acute is seen on abdominal series. Diagnostic code #1
[2018-03-31 18:30] VITALS: BP 129/73
== END 2018-03-31 18:45 | disposition home or self-care (01) ==
LOC: JD.ED 14:37
DX: F10.129 Alcohol abuse with intoxication, unspecified (principal); K29.20 Alcoholic gastritis without bleeding; R74.8 Abnormal levels of other serum enzymes; E87.6 Hypokalemia; E83.42 Hypomagnesemia; Y90.2 Blood alcohol level of 40-59 mg/100 ml
CPT/HCPCS: 36415; 74022; 80053; 80306; 81001; 83690; 83735; 85007; 85027; 85610; 85730; 86140; 93005; 96365; 96366; 96375; 99285; A9270; C9113; G0480; J2060; J2405; J7040; J7050; 99284; J3475

== ENCOUNTER 2018-05-17 11:42 | Emergency (ER) | payer OTHER ==
--- NOTE | 2018-05-17 12:04 | EDM.PDOC ---
<Nadine Olivo - Last Filed: 05/17/18 14:47> ED HPI GENERAL MEDICAL PROBLEM - General Chief Complaint: Syncope Stated Complaint: BLACKING OUT Time Seen by Provider: 05/17/18 12:04 - History of Present Illness INITIAL COMMENTS - FREE TEXT/NARRATIVE: Patient comes in today for complaint of pre syncope at 1100 this morning while sitting in the bathroom. She did not have a syncopal episode. Patient then vomited three times. Running her head under cold water helped her symptoms. Associated symptoms include SOB, GRANADOS, and tremor. Patient denies cough, wheezing, chest pain, edema, nausea, diarrhea, and constipation. Patient is supposed to take magnesium daily, however, she ran out a week ago. She has been taking her potassium, vitamin D, and Protonix. Patient drank a 40mL bottle of liquor last night, she believes she went to bed at midnight last night. Onset: Today Duration: Improving Improves with: Reports: Rest Worsens with: Reports: Movement Associated Symptoms: Reports: Nausea/Vomiting, Shortness of Breath. Denies: Chest Pain, Cough, Fever/Chills - Related Data Allergies Allergy/AdvReac Type Severity Reaction Status Date / Time No Known Allergies Allergy Verified 05/17/18 11:52 Home Meds: Home Meds Cholecalciferol (Vitamin D3) [Vitamin D3] 0 unit PO DAILY 03/31/18 [History] Magnesium Chloride [Slow-Mag] 71.5 mg PO BID #60 tablet. 05/17/18 [Rx] ED ROS GENERAL - Review of Systems Review Of Systems: See Below Constitutional: Reports: No Symptoms Cardiovascular: Reports: No Symptoms. Denies: Chest Pain GI/Abdominal: Reports: Vomiting. Denies: Abdominal Pain, Bloody Stool, Constipation, Diarrhea, Nausea Musculoskeletal: Reports: No Symptoms Neurological: Reports: Tremors ED EXAM, NEURO - Physical Exam Exam: See Below Exam Limited By: No Limitations General Appearance: Alert, WD/WN, No Apparent Distress Eye Exam: Bilateral Eye: EOMI, PERRL Head Exam: Atraumatic, Normocephalic Respiratory/Chest: No Respiratory Distress, Lungs Clear, Normal Breath Sounds, No Accessory Muscle Use, Chest Non-Tender Cardiovascular: Normal Peripheral Pulses, Regular Rate, Rhythm, No Edema GI/Abdominal: Soft, Non-Tender, No Organomegaly, No Distention. No: Guarding, Rigid, Rebound Neurological: Alert, Normal Mood/Affect, Oriented x 3 Skin Exam: Warm, Dry, Intact Course - Vital Signs Last Recorded V/S: Last Vital Signs Temp 98.7 F 05/17/18 15:35 Pulse 112 H 05/17/18 15:35 Resp 20 05/17/18 15:35 BP 132/79 05/17/18 15:35 Pulse Ox 96 05/17/18 15:35 Orthostatic Blood Pressure [ 148/89 Standing] Orthostatic Blood Pressure [ 132/79 Supine] - Orders/Labs/Meds Labs: Laboratory Tests 05/17/18 05/17/18 05/17/18 Range/Units 11:52 11:52 12:15 WBC 4.95 (3.98-10.04) K/mm3 RBC 3.96 L (3.98-5.22) M/mm3 Hgb 12.4 (11.2-15.7) gm/L Hct 38.1 (34.1-44.9) % MCV 96.2 H (79.4-94.8) fl MCH 31.3 (25.6-32.2) pg MCHC 32.5 (32.2-35.5) g/dl RDW Std Deviation 47.7 H (36.4-46.3) fL Plt Count 208 (182-369) K/mm3 MPV 9.2 L (9.4-12.3) fl Neutrophils % (Manual) 54 (40-60) % Band Neutrophils % 0 (0-10) % Lymphocytes % (Manual) 41 H (20-40) % Atypical Lymphs % 0 % Monocytes % (Manual) 2 (2-10) % Eosinophils % (Manual) 3 (0.7-5.8) % Basophils % (Manual) 0 L (0.1-1.2) Platelet Estimate Adequate RBC Morph Comment Normal Sodium 141 (136-145) mEq/L Potassium 3.7 (3.5-5.1) mEq/L Chloride 103 (98-107) mEq/L Carbon Dioxide 23 (21-32) mEq/L Anion Gap 18.7 H (5-15) BUN 3 L (7-18) mg/dL Creatinine 0.7 (0.55-1.02) mg/dL Est Cr Clr Drug Dosing 107.01 mL/min Estimated GFR (MDRD) > 60 (>60) mL/min BUN/Creatinine Ratio 4.3 L (14-18) Glucose 115 H (74-106) mg/dL Calcium 8.3 L (8.5-10.1) mg/dL Magnesium 1.7 L (1.8-2.4) mg/dl Total Bilirubin 0.7 (0.2-1.0) mg/dL AST 138 H (15-37) U/L ALT 70 H (14-59) U/L Alkaline Phosphatase 65 (46-116) U/L Total Protein 9.3 H (6.4-8.2) g/dl Albumin 3.4 (3.4-5.0) g/dl Globulin 5.9 gm/dL Albumin/Globulin Ratio 0.6 L (1-2) TSH 3rd Generation 0.081 L (0.358-3.74) uIU/mL Urine Color Yellow (Yellow) Urine Appearance Clear (Clear) Urine pH 8.5 H (5.0-8.0) Ur Specific [place] 1.015 (1.005-1.030) Urine Protein Negative (Negative) Urine Glucose (UA) Negative (Negative) Urine Ketones Negative (Negative) Urine Occult Blood Negative (Negative) Urine Nitrite Negative (Negative) Urine Bilirubin Negative (Negative) Urine Urobilinogen 0.2 (0.2-1.0) Ur Leukocyte Esterase Negative (Negative) Urine RBC Not seen (0-5) /hpf Urine WBC 0-5 (0-5) /hpf Ur Epithelial Cells 0-5 (0-5) /hpf Urine Bacteria Few (FEW) /hpf Urine Mucus Not seen (FEW) /hpf Urine Opiates Screen (NEGATIVE) Ur Buprenorphine Scrn (NEGATIVE) Ur Oxycodone Screen (NEGATIVE) Urine Methadone Screen (NEGATIVE) Ur Propoxyphene Screen (NEGATIVE) Ur Barbiturates Screen (NEGATIVE) Ur Tricyclics Screen (NEGATIVE) Ur Phencyclidine Scrn (NEGATIVE) Ur Amphetamine Screen (NEGATIVE) U Methamphetamines Scrn (NEGATIVE) U Benzodiazepines Scrn (NEGATIVE) U Cocaine Metab Screen (NEGATIVE) U Marijuana (THC) Screen (NEGATIVE) Ethyl Alcohol 0.13 (0.00) gm% 05/17/18 Range/Units 12:15 WBC (3.98-10.04) K/mm3 RBC (3.98-5.22) M/mm3 Hgb (11.2-15.7) gm/L Hct (34.1-44.9) % MCV (79.4-94.8) fl MCH (25.6-32.2) pg MCHC (32.2-35.5) g/dl RDW Std Deviation (36.4-46.3) fL Plt Count (182-369) K/mm3 MPV (9.4-12.3) fl Neutrophils % (Manual) (40-60) % Band Neutrophils % (0-10) % Lymphocytes % (Manual) (20-40) % Atypical Lymphs % % Monocytes % (Manual) (2-10) % Eosinophils % (Manual) (0.7-5.8) % Basophils % (Manual) (0.1-1.2) Platelet Estimate RBC Morph Comment Sodium (136-145) mEq/L Potassium (3.5-5.1) mEq/L Chloride (98-107) mEq/L Carbon Dioxide (21-32) mEq/L Anion Gap (5-15) BUN (7-18) mg/dL Creatinine (0.55-1.02) mg/dL Est Cr Clr Drug Dosing mL/min Estimated GFR (MDRD) (>60) mL/min BUN/Creatinine Ratio (14-18) Glucose (74-106) mg/dL Calcium (8.5-10.1) mg/dL Magnesium (1.8-2.4) mg/dl Total Bilirubin (0.2-1.0) mg/dL AST (15-37) U/L ALT (14-59) U/L Alkaline Phosphatase (46-116) U/L Total Protein (6.4-8.2) g/dl Albumin (3.4-5.0) g/dl Globulin gm/dL Albumin/Globulin Ratio (1-2) TSH 3rd Generation (0.358-3.74) uIU/mL Urine Color (Yellow) Urine Appearance (Clear) Urine pH (5.0-8.0) Ur Specific [place] (1.005-1.030) Urine Protein (Negative) Urine Glucose (UA) (Negative) Urine Ketones (Negative) Urine Occult Blood (Negative) Urine Nitrite (Negative) Urine Bilirubin (Negative) Urine Urobilinogen (0.2-1.0) Ur Leukocyte Esterase (Negative) Urine RBC (0-5) /hpf Urine WBC (0-5) /hpf Ur Epithelial Cells (0-5) /hpf Urine Bacteria (FEW) /hpf Urine Mucus (FEW) /hpf Urine Opiates Screen Negative (NEGATIVE) Ur Buprenorphine Scrn Negative (NEGATIVE) Ur Oxycodone Screen Negative (NEGATIVE) Urine Methadone Screen Negative (NEGATIVE) Ur Propoxyphene Screen Negative (NEGATIVE) Ur Barbiturates Screen Negative (NEGATIVE) Ur Tricyclics Screen Negative (NEGATIVE) Ur Phencyclidine Scrn Negative (NEGATIVE) Ur Amphetamine Screen Negative (NEGATIVE) U Methamphetamines Scrn Negative (NEGATIVE) U Benzodiazepines Scrn Negative (NEGATIVE) U Cocaine Metab Screen Negative (NEGATIVE) U Marijuana (THC) Screen Negative (NEGATIVE) Ethyl Alcohol (0.00) gm% Meds: Medications Discontinued Medications Generic Name Dose Route Start Last Admin Trade Name Freq PRN Reason Stop Dose Admin Folic Acid 1 mg 05/17/18 12:18 05/17/18 12:37 Folic Acid PO 05/17/18 12:19 1 mg ONETIME ONE Administration Sodium Chloride 1,000 mls @ 999 mls/hr 05/17/18 12:15 05/17/18 12:37 Normal Saline IV 05/17/18 13:15 999 mls/hr ONETIME ONE Administration Thiamine HCl 100 mg/ Sodium 101 mls @ 202 mls/hr 05/17/18 12:18 05/17/18 12: 58 Chloride IV 05/17/18 12:19 202 mls/hr ONETIME ONE Administration Sodium Chloride 1,000 mls @ 999 mls/hr 05/17/18 13:22 05/17/18 14:08 Normal Saline IV 05/17/18 14:22 999 mls/hr ONETIME ONE Administration Magnesium Oxide 400 mg 05/17/18 14:15 05/17/18 14:30 Magnesium Oxide PO 05/17/18 14:16 400 mg ONETIME ONE Administration Ondansetron HCl 4 mg 05/17/18 13:25 05/17/18 13:30 Zofran IVPUSH 05/17/18 13:26 4 mg ONETIME ONE Administration Sodium Chloride 10 ml 05/17/18 12:15 05/17/18 12:39 Saline Flush FLUSH 10 ml ASDIRECTED PRN Administration Keep Vein Open Departure - Departure Time of Disposition: 14:46 Disposition: Home, Self-Care 01 Condition: Fair Clinical Impression: Alcohol abuse, Hypomagnesemia, Elevated liver enzymes - Discharge Information Prescriptions: Magnesium Chloride [Slow-Mag] 71.5 mg PO BID #60 tablet. Instructions: Near-Syncope, [id number] Referrals: Elle Redding MD [Primary Care Provider] - Forms: ED Department Discharge Additional Instructions: I recommend that you stop drinking alcohol. [facility] . Please follow up with your primary care Dr. Redding within the next week for ED follow up care. I have prescribed magnesium for you to take twice a day. Drink plenty of water. Please return to the ED if you have any worsening of your symptoms. <Myra Francis - Last Filed: 05/20/18 11:19> ED HPI GENERAL MEDICAL PROBLEM - General Source of Information: Reports: Patient History Limitations: Reports: No Limitations - History of Present Illness INITIAL COMMENTS - FREE TEXT/NARRATIVE: I have seen the patient and agree with the HPI as documented by MAYI D eLeon. Patient reportedly has a history of seizures. Last seizure was in December. She was working with [facility] on getting into an inpatient treatment facility. She stopped seeing [facility] in April. Head Pain Score (Numeric/FACES): 6 Past Medical History HEENT History: Reports: Impaired Vision Other HEENT History: glasses Gastrointestinal History: Reports: GERD Musculoskeletal History: Reports: Fracture, Other (See Below) Other Musculoskeletal History: sciatica Neurological History: Reports: Seizure, Other (See Below) Other Neuro History: with alcohol withdrawl Psychiatric History: Reports: Addiction, Anxiety Other Psychiatric History: alcohol Endocrine/Metabolic History: Reports: Hyperthyroidism, Obesity/BMI 30+ - Infectious Disease History Infectious Disease History: Reports: Chicken Pox Social & Family History - Family History Family Medical History: Noncontributory - Tobacco Use Smoking Status *Q: Never Smoker - Caffeine Use Caffeine Use: Reports: Soda - Recreational Drug Use Recreational Drug Use: Yes Drug Use in Last 12 Months: Yes Recreational Drug Type: Reports: Marijuana/Hashish - Living Situation & Occupation Living situation: Reports: Single, with Family (Cousin) Occupation: Unemployed ED ROS GENERAL - Review of Systems Review Of Systems: See Below ED EXAM, NEURO - Physical Exam Exam: See Below General Appearance: Obese Ears: Normal External Exam Nose: Normal Inspection Throat/Mouth: Normal Inspection, Normal Lips, Normal Oropharynx, Normal Voice, No Airway Compromise, Other (dry mucus membranes) Psychiatric: Anxious Skin Exam: Warm, Dry Course - Orders/Labs/Meds Labs: Laboratory Tests 05/17/18 05/17/18 05/17/18 Range/Units 11:52 11:52 12:15 WBC 4.95 (3.98-10.04) K/mm3 RBC 3.96 L (3.98-5.22) M/mm3 Hgb 12.4 (11.2-15.7) gm/L Hct 38.1 (34.1-44.9) % MCV 96.2 H (79.4-94.8) fl MCH 31.3 (25.6-32.2) pg MCHC 32.5 (32.2-35.5) g/dl RDW Std Deviation 47.7 H (36.4-46.3) fL Plt Count 208 (182-369) K/mm3 MPV 9.2 L (9.4-12.3) fl Neutrophils % (Manual) 54 (40-60) % Band Neutrophils % 0 (0-10) % Lymphocytes % (Manual) 41 H (20-40) % Atypical Lymphs % 0 % Monocytes % (Manual) 2 (2-10) % Eosinophils % (Manual) 3 (0.7-5.8) % Basophils % (Manual) 0 L (0.1-1.2) Platelet Estimate Adequate RBC Morph Comment Normal Sodium 141 (136-145) mEq/L Potassium 3.7 (3.5-5.1) mEq/L Chloride 103 (98-107) mEq/L Carbon Dioxide 23 (21-32) mEq/L Anion Gap 18.7 H (5-15) BUN 3 L (7-18) mg/dL Creatinine 0.7 (0.55-1.02) mg/dL Est Cr Clr Drug Dosing 107.01 mL/min Estimated GFR (MDRD) > 60 (>60) mL/min BUN/Creatinine Ratio 4.3 L (14-18) Glucose 115 H (74-106) mg/dL Calcium 8.3 L (8.5-10.1) mg/dL Magnesium 1.7 L (1.8-2.4) mg/dl Total Bilirubin 0.7 (0.2-1.0) mg/dL AST 138 H (15-37) U/L ALT 70 H (14-59) U/L Alkaline Phosphatase 65 (46-116) U/L Total Protein 9.3 H (6.4-8.2) g/dl Albumin 3.4 (3.4-5.0) g/dl Globulin 5.9 gm/dL Albumin/Globulin Ratio 0.6 L (1-2) TSH 3rd Generation 0.081 L (0.358-3.74) uIU/mL Urine Color Yellow (Yellow) Urine Appearance Clear (Clear) Urine pH 8.5 H (5.0-8.0) Ur Specific [place] 1.015 (1.005-1.030) Urine Protein Negative (Negative) Urine Glucose (UA) Negative (Negative) Urine Ketones Negative (Negative) Urine Occult Blood Negative (Negative) Urine Nitrite Negative (Negative) Urine Bilirubin Negative (Negative) Urine Urobilinogen 0.2 (0.2-1.0) Ur Leukocyte Esterase Negative (Negative) Urine RBC Not seen (0-5) /hpf Urine WBC 0-5 (0-5) /hpf Ur Epithelial Cells 0-5 (0-5) /hpf Urine Bacteria Few (FEW) /hpf Urine Mucus Not seen (FEW) /hpf Urine Opiates Screen (NEGATIVE) Ur Buprenorphine Scrn (NEGATIVE) Ur Oxycodone Screen (NEGATIVE) Urine Methadone Screen (NEGATIVE) Ur Propoxyphene Screen (NEGATIVE) Ur Barbiturates Screen (NEGATIVE) Ur Tricyclics Screen (NEGATIVE) Ur Phencyclidine Scrn (NEGATIVE) Ur Amphetamine Screen (NEGATIVE) U Methamphetamines Scrn (NEGATIVE) U Benzodiazepines Scrn (NEGATIVE) U Cocaine Metab Screen (NEGATIVE) U Marijuana (THC) Screen (NEGATIVE) Ethyl Alcohol 0.13 (0.00) gm% //18 Range/Units 12:15 WBC (3.98-10.04) K/mm3 RBC (3.98-5.22) M/mm3 Hgb (11.2-15.7) gm/L Hct (34.1-44.9) % MCV (79.4-94.8) fl MCH (25.6-32.2) pg MCHC (32.2-35.5) g/dl RDW Std Deviation (36.4-46.3) fL Plt Count (182-369) K/mm3 MPV (9.4-12.3) fl Neutrophils % (Manual) (40-60) % Band Neutrophils % (0-10) % Lymphocytes % (Manual) (20-40) % Atypical Lymphs % % Monocytes % (Manual) (2-10) % Eosinophils % (Manual) (0.7-5.8) % Basophils % (Manual) (0.1-1.2) Platelet Estimate RBC Morph Comment Sodium (136-145) mEq/L Potassium (3.5-5.1) mEq/L Chloride (98-107) mEq/L Carbon Dioxide (21-32) mEq/L Anion Gap (5-15) BUN (7-18) mg/dL Creatinine (0.55-1.02) mg/dL Est Cr Clr Drug Dosing mL/min Estimated GFR (MDRD) (>60) mL/min BUN/Creatinine Ratio (14-18) Glucose (74-106) mg/dL Calcium (8.5-10.1) mg/dL Magnesium (1.8-2.4) mg/dl Total Bilirubin (0.2-1.0) mg/dL AST (15-37) U/L ALT (14-59) U/L Alkaline Phosphatase (46-116) U/L Total Protein (6.4-8.2) g/dl Albumin (3.4-5.0) g/dl Globulin gm/dL Albumin/Globulin Ratio (1-2) TSH 3rd Generation (0.358-3.74) uIU/mL Urine Color (Yellow) Urine Appearance (Clear) Urine pH (5.0-8.0) Ur Specific [place] (1.005-1.030) Urine Protein (Negative) Urine Glucose (UA) (Negative) Urine Ketones (Negative) Urine Occult Blood (Negative) Urine Nitrite (Negative) Urine Bilirubin (Negative) Urine Urobilinogen (0.2-1.0) Ur Leukocyte Esterase (Negative) Urine RBC (0-5) /hpf Urine WBC (0-5) /hpf Ur Epithelial Cells (0-5) /hpf Urine Bacteria (FEW) /hpf Urine Mucus (FEW) /hpf Urine Opiates Screen Negative (NEGATIVE) Ur Buprenorphine Scrn Negative (NEGATIVE) Ur Oxycodone Screen Negative (NEGATIVE) Urine Methadone Screen Negative (NEGATIVE) Ur Propoxyphene Screen Negative (NEGATIVE) Ur Barbiturates Screen Negative (NEGATIVE) Ur Tricyclics Screen Negative (NEGATIVE) Ur Phencyclidine Scrn Negative (NEGATIVE) Ur Amphetamine Screen Negative (NEGATIVE) U Methamphetamines Scrn Negative (NEGATIVE) U Benzodiazepines Scrn Negative (NEGATIVE) U Cocaine Metab Screen Negative (NEGATIVE) U Marijuana (THC) Screen Negative (NEGATIVE) Ethyl Alcohol (0.00) gm% Meds: Medications Discontinued Medications Generic Name Dose Route Start Last Admin Trade Name Freq PRN Reason Stop Dose Admin Folic Acid 1 mg 05/17/18 12:18 05/17/18 12:37 Folic Acid PO 05/17/18 12:19 1 mg ONETIME ONE Administration Sodium Chloride 1,000 mls @ 999 mls/hr 05/17/18 12:15 05/17/18 12:37 Normal Saline IV 05/17/18 13:15 999 mls/hr ONETIME ONE Administration Thiamine HCl 100 mg/ Sodium 101 mls @ 202 mls/hr 05/17/18 12:18 05/17/18 12: 58 Chloride IV 05/17/18 12:19 202 mls/hr ONETIME ONE Administration Sodium Chloride 1,000 mls @ 999 mls/hr 05/17/18 13:22 05/17/18 14:08 Normal Saline IV 05/17/18 14:22 999 mls/hr ONETIME ONE Administration Magnesium Oxide 400 mg 05/17/18 14:15 05/17/18 14:30 Magnesium Oxide PO 05/17/18 14:16 400 mg ONETIME ONE Administration Ondansetron HCl 4 mg 05/17/18 13:25 05/17/18 13:30 Zofran IVPUSH 05/17/18 13:26 4 mg ONETIME ONE Administration Sodium Chloride 10 ml 05/17/18 12:15 05/17/18 12:39 Saline Flush FLUSH 10 ml ASDIRECTED PRN Administration Keep Vein Open - Re-Assessments/Exams Free Text/Narrative Re-Assessment/Exam: 05/17/18 14:18 I have seen the patient and agree with the HPI, ROS and PE as documented by MAYI De Leon. checked on the patient. she is resting. Has eaten. Reviewed labs with the patient. 05/17/18 14:46 Patient is feeling improved. Recommend re establishing with [facility] if she would like to pursue further treatment with her alcohol abuse. Will refill the magnesium, recommend follow-up with family med. Discharge institutions as documented. Departure - Discharge Information *PRESCRIPTION DRUG MONITORING PROGRAM REVIEWED*: No *COPY OF PRESCRIPTION DRUG MONITORING REPORT IN PATIENT MAURY: No
[2018-05-17] MEDS ORDERED: Sodium Chloride 0.9% 10 ML Syringe FLUSH PRN (12:15)
[2018-05-17] MEDS ORDERED: Sodium Chloride 0.9% 1,000 ML IV ONE ×2 (12:15→13:22)
[2018-05-17] MEDS ORDERED: Thiamine 100 MG in Sodium Chloride 0.9% 100 ML IV ONE (12:18)
[2018-05-17] MEDS ORDERED: Folic Acid 1 MG Tab PO ONE (12:18)
[2018-05-17] MEDS ORDERED: Ondansetron 4 MG/2 ML SDV IVPUSH ONE (13:25)
[2018-05-17] MEDS ORDERED: Magnesium Oxide 400 MG Tab PO ONE (14:15)
[2018-05-17 15:44] VITALS: BP 132/79
== END 2018-05-17 15:39 | disposition home or self-care (01) ==
LOC: JD.ED 11:42
DX: F10.129 Alcohol abuse with intoxication, unspecified (principal); E83.42 Hypomagnesemia; R74.8 Abnormal levels of other serum enzymes; Y90.6 Blood alcohol level of 120-199 mg/100 ml
CPT/HCPCS: 36415; 80053; 80306; 81001; 83735; 84443; 85007; 85027; 96361; 96365; 96375; 99284; A9270; G0480; J2405; J3411; J7030; J7040; J7050

== ENCOUNTER 2018-06-18 12:56 | Emergency (ER) | payer OTHER ==
[2018-06-18 14:30] VITALS: BP 154/92
--- NOTE | 2018-06-18 15:36 | EDM.PDOC ---
ED HPI GENERAL MEDICAL PROBLEM - General Chief Complaint: Neurological Problem Stated Complaint: SEIZURES Time Seen by Provider: 06/18/18 15:07 Source of Information: Reports: Patient History Limitations: Reports: No Limitations - History of Present Illness INITIAL COMMENTS - FREE TEXT/NARRATIVE: The patient states that she walked about one block to the store, and on the way developed lightheadedness, generalized body weakness, tightness in her throat, and a panicky feeling, around 13:00 this afternoon.. She believes that her symptoms were due to the heat - it is 92 out. The patient states that she had similar symptoms about 3 weeks ago. She did not seek medical attention for that episode. Here in the ED, the patient is feeling much better, but it is noted that her oxygen saturation was 100% on room air. The patient's PCP is Dr. Elle Redding. The patient has an appointment to see Dr. Redding this coming 06/20/2018, at 14:15. - Related Data Allergies Allergy/AdvReac Type Severity Reaction Status Date / Time No Known Allergies Allergy Verified 06/18/18 14:29 Home Meds: Home Meds Cholecalciferol (Vitamin D3) [Vitamin D3] 0 unit PO DAILY 03/31/18 [History] Magnesium Chloride [Slow-Mag] 71.5 mg PO BID #60 tablet. 05/17/18 [Rx] Past Medical History HEENT History: Reports: Impaired Vision Other HEENT History: glasses Gastrointestinal History: Reports: GERD (untreated) Musculoskeletal History: Reports: Fracture (right 3rd finger) Neurological History: Reports: Seizure (alcohol-related only) Psychiatric History: Reports: Addiction (alcohol), Anxiety (untreated) Endocrine/Metabolic History: Reports: Hyperthyroidism (untreated), Obesity/BMI 30+ - Infectious Disease History Infectious Disease History: Reports: Chicken Pox - Past Surgical History Musculoskeletal Surgical History: Reports: Arthroscopic Knee (right) Social & Family History - Family History Family Medical History: Noncontributory - Tobacco Use Smoking Status *Q: Never Smoker - Caffeine Use Caffeine Use: Reports: Energy Drinks, Soda - Alcohol Use Alcohol Use History: Yes Date/Time of Last Drink Comment: Alcoholic. Last drink around 06/11/2018 - Recreational Drug Use Recreational Drug Use: Yes Drug Use in Last 12 Months: Yes Recreational Drug Type: Reports: Marijuana/Hashish (smokes on occasion) - Living Situation & Occupation Living situation: Reports: Single, with Family (Cousin) Occupation: Unemployed ED ROS GENERAL - Review of Systems Review Of Systems: ROS reveals no pertinent complaints other than HPI. ED EXAM, GENERAL - Physical Exam Exam: See Below Exam Limited By: No Limitations General Appearance: Alert, WD/WN, No Apparent Distress Eye Exam: Bilateral Eye: EOMI, Normal Inspection Ears: Normal External Exam, Hearing Grossly Normal Nose: Normal Inspection, No Blood Throat/Mouth: Normal Inspection, Normal Lips, Normal Voice, No Airway Compromise Head: Atraumatic, Normocephalic Neck: Normal Inspection, Full Range of Motion Respiratory/Chest: No Respiratory Distress, Lungs Clear, Normal Breath Sounds, No Accessory Muscle Use Cardiovascular: Normal Peripheral Pulses, Regular Rate, Rhythm, No Gallop, No JVD, No Murmur, No Rub Peripheral Pulses: 4+: Radial (L), Radial (R) GI/Abdominal: Normal Bowel Sounds, Soft, Non-Tender, No Organomegaly, No Distention, No Abnormal Bruit, No Mass, Other (Obese) (Female) Exam: Deferred Rectal (Female) Exam: Deferred Back Exam: Normal Inspection, Full Range of Motion, NT Extremities: Normal Inspection, Normal Range of Motion, No Pedal Edema, Normal Capillary Refill Neurological: Alert, Oriented, Normal Cognition, No Motor/Sensory Deficits Psychiatric: Normal Affect Skin Exam: Warm, Dry, Intact, Normal Color, No Rash Course - Vital Signs Last Recorded V/S: Last Vital Signs Temp 36.9 C 06/18/18 14:26 Pulse 74 06/18/18 14:26 Resp 13 06/18/18 14:26 BP 154/92 H 06/18/18 14:26 Pulse Ox 100 06/18/18 14:26 - Re-Assessments/Exams Free Text/Narrative Re-Assessment/Exam: 06/18/18 15:32 By history, the patient experienced a panic attack with hyperventilation. It is noted that her oxygen saturation was 100% on room air here in the ED, consistent with hyperventilation. Currently, she feels calm. As this is only the second episode that the patient has had of this, no specific treatment is required, however, I am recommending that if this becomes recurrent, that she talk to her PCP, Dr. Redding, about treatment options for anxiety. The patient mentioned that she has an appointment to see Dr. Redding this coming 06/20/2018, to have her electrolytes and magnesium checked. She inquired whether that could be done here in the ED. I explained that the emergency department is not in a position to check routine labs simply out of convenience. Departure - Departure Time of Disposition: 15:33 Disposition: Home, Self-Care 01 Condition: Good Clinical Impression: Hyperventilation syndrome - Discharge Information *PRESCRIPTION DRUG MONITORING PROGRAM REVIEWED*: Not Applicable *COPY OF PRESCRIPTION DRUG MONITORING REPORT IN PATIENT MAURY: Not Applicable Instructions: Hyperventilation Referrals: Elle Redding MD [Primary Care Provider] - Forms: ED Department Discharge Additional Instructions: You were seen in the emergency room after developing lightheadedness, generalized weakness, tightness in your throat, and feeling panicky. Based on your history and physical examination, your symptoms are MOST LIKELY due to hyperventilation syndrome, due to anxiety. As this is only the second time this has happened 2, no treatment is required, however, if this becomes a recurrent thing, we recommend that you talk to your PCP, Dr. Redding, about treatment options for anxiety. Follow-up with Dr. Redding at your previously scheduled appointment this coming 06/20/2018, to have your electrolytes checked. If any other problems, please do not hesitate to return to the ER.
== END 2018-06-18 15:47 | disposition home or self-care (01) ==
LOC: JD.ED 12:56
DX: F45.8 Other somatoform disorders (principal); E66.9 Obesity, unspecified
CPT/HCPCS: 99284

== ENCOUNTER 2018-07-16 12:50 | Emergency (ER) | payer OTHER ==
[2018-07-16] MEDS ORDERED: Sodium Chloride 0.9% 10 ML Syringe FLUSH PRN (13:36)
[2018-07-16] MEDS ORDERED: Sodium Chloride 0.9% 2,000 ML IV STA (13:36)
[2018-07-16] MEDS ORDERED: Ondansetron 4 MG/2 ML SDV IVPUSH ONE (13:36)
--- NOTE | 2018-07-16 14:16 | EDM.PDOCBH ---
ED HPI GENERAL MEDICAL PROBLEM - General Chief Complaint: Drug or Alcohol Abuse Stated Complaint: DIZZINESS,FEELS FAINT Time Seen by Provider: 07/16/18 13:10 Source of Information: Reports: Patient History Limitations: Reports: No Limitations - History of Present Illness INITIAL COMMENTS - FREE TEXT/NARRATIVE: The patient presents with nausea and vomiting. She admits to drinking to much last night and she passed out until morning and when she woke up she had nausea , vomiting, shaking and tingling and cramping in both hands. She has no fever but she does have chills. She has a slight cough. She has no chest pain or shortness of breath. She has no abdominal pain. Onset: Gradual Duration: Hour(s): Severity: Moderate Improves with: Reports: None Worsens with: Reports: None Associated Symptoms: Reports: Fever/Chills, Nausea/Vomiting. Denies: Chest Pain , Cough, Headaches, Shortness of Breath - Related Data Allergies Allergy/AdvReac Type Severity Reaction Status Date / Time No Known Allergies Allergy Verified 06/18/18 14:29 Home Meds: Home Meds Cholecalciferol (Vitamin D3) [Vitamin D3] 0 unit PO DAILY 03/31/18 [History] Magnesium Chloride [Slow-Mag] 71.5 mg PO BID #60 tablet.dr 05/17/18 [Rx] Ondansetron [Zofran ODT] 4 mg PO Q6H PRN #20 tab.dis 07/16/18 [Rx] Pantoprazole Sodium [Protonix] 40 mg PO DAILY 07/16/18 [History] Past Medical History HEENT History: Reports: Impaired Vision Other HEENT History: glasses Gastrointestinal History: Reports: GERD Musculoskeletal History: Reports: Fracture Other Musculoskeletal History: sciatica Neurological History: Reports: Seizure Other Neuro History: with alcohol withdrawl Psychiatric History: Reports: Addiction, Anxiety Other Psychiatric History: alcohol Endocrine/Metabolic History: Reports: Hyperthyroidism, Obesity/BMI 30+ - Infectious Disease History Infectious Disease History: Reports: Chicken Pox - Past Surgical History Musculoskeletal Surgical History: Reports: Arthroscopic Knee Social & Family History - Family History Family Medical History: Noncontributory - Tobacco Use Smoking Status *Q: Never Smoker - Caffeine Use Caffeine Use: Reports: None - Recreational Drug Use Recreational Drug Use: No - Living Situation & Occupation Living situation: Reports: Single, with Family (Cousin) Occupation: Unemployed ED ROS GENERAL - Review of Systems Review Of Systems: See Below Constitutional: Reports: Chills. Denies: Fever HEENT: Reports: No Symptoms Respiratory: Reports: No Symptoms Cardiovascular: Reports: No Symptoms Endocrine: Reports: No Symptoms GI/Abdominal: Reports: Nausea, Vomiting. Denies: Abdominal Pain : Reports: No Symptoms Musculoskeletal: Reports: Other (shaking and cramping in her hands) ED EXAM, BEHAVIORAL HEALTH - Physical Exam Exam: See Below Exam Limited By: No Limitations General Appearance: Alert, No Apparent Distress Ears: Normal External Exam Nose: Normal Inspection Head: Atraumatic, Normocephalic Neck: Normal Inspection Respiratory/Chest: No Respiratory Distress, Lungs Clear, Normal Breath Sounds Cardiovascular: Regular Rate, Rhythm, No Edema, No Murmur GI/Abdominal: Soft, Non-Tender, No Organomegaly, No Mass Back Exam: Normal Inspection Extremities: Normal Inspection Neurological: Alert, No Motor/Sensory Deficits, Oriented x 3 COURSE, BEHAVIORAL HEALTH COMP - Course Vital Signs: Last Vital Signs Temp 97.7 F 07/16/18 13:09 Pulse 83 07/16/18 13:09 Resp 20 07/16/18 13:09 BP 133/71 07/16/18 13:09 Pulse Ox 99 07/16/18 13:09 Orders, Labs, Meds: Active Orders 24 hr Category Date Time Status Peripheral IV Care [RC] . DIRECTED Care 07/16/18 13:36 Active Sodium Chloride 0.9% [Normal Saline] 2,000 ml Med 07/16/18 13:36 Active IV .BOLUS Sodium Chloride 0.9% [Saline Flush] Med 07/16/18 13:36 Active 10 ml FLUSH ASDIRECTED PRN ED Antiemetic Medication Reflex [OM.PC] Stat Oth 07/16/18 13:36 Ordered Peripheral IV Insertion Adult [OM.PC] Stat Oth 07/16/18 13:36 Ordered Medication Orders Sodium Chloride (Normal Saline) 2,000 mls @ 1,000 mls/hr IV .BOLUS STA Stop: 07/16/18 15:35 Last Admin: 07/16/18 13:45 Dose: 1,000 mls/hr Sodium Chloride (Saline Flush) 10 ml FLUSH ASDIRECTED PRN PRN Reason: Keep Vein Open Last Admin: 07/16/18 13:48 Dose: 10 ml Laboratory Tests 07/16/18 07/16/18 07/16/18 Range/Units 13:42 13:42 13:42 WBC 4.14 (3.98-10.04) K/mm3 RBC 4.11 (3.98-5.22) M/mm3 Hgb 12.6 (11.2-15.7) gm/L Hct 38.7 (34.1-44.9) % MCV 94.2 (79.4-94.8) fl MCH 30.7 (25.6-32.2) pg MCHC 32.6 (32.2-35.5) g/dl RDW Std Deviation 50.5 H (36.4-46.3) fL Plt Count 152 L (182-369) K/mm3 MPV 9.4 (9.4-12.3) fl Neut % (Auto) 52.8 (34.0-71.1) % Lymph % (Auto) 40.3 (19.3-51.7) % [place] % (Auto) 6.5 (4.7-12.5) % Eos % (Auto) 0.2 L (0.7-5.8) Baso % (Auto) 0.2 (0.1-1.2) % Neut # (Auto) 2.18 (1.56-6.13) K/mm3 Lymph # (Auto) 1.67 (1.18-3.74) K/mm3 [place] # (Auto) 0.27 (0.24-0.36) K/mm3 Eos # (Auto) 0.01 L (0.04-0.36) K/mm3 Baso # (Auto) 0.01 (0.01-0.08) K/mm3 Sodium 137 (136-145) mEq/L Potassium 3.5 (3.5-5.1) mEq/L Chloride 104 (98-107) mEq/L Carbon Dioxide 23 (21-32) mEq/L Anion Gap 13.5 (5-15) BUN 4 L (7-18) mg/dL Creatinine 0.7 (0.55-1.02) mg/dL Est Cr Clr Drug Dosing 107.01 mL/min Estimated GFR (MDRD) > 60 (>60) mL/min BUN/Creatinine Ratio 5.7 L (14-18) Glucose 109 H (74-106) mg/dL Calcium 8.5 (8.5-10.1) mg/dL Magnesium 1.5 L (1.8-2.4) mg/dl Total Bilirubin 1.4 H (0.2-1.0) mg/dL AST 128 H (15-37) U/L ALT 66 H (14-59) U/L Alkaline Phosphatase 73 (46-116) U/L Total Protein 8.9 H (6.4-8.2) g/dl Albumin 3.4 (3.4-5.0) g/dl Globulin 5.5 gm/dL Albumin/Globulin Ratio 0.6 L (1-2) Lipase 158 (73-393) U/L Ethyl Alcohol 0.08 (0.00) gm% Medications Generic Name Dose Route Start Last Admin Trade Name Freq PRN Reason Stop Dose Admin Sodium Chloride 2,000 mls @ 1,000 mls/hr 07/16/18 13:36 07/16/18 13:45 Normal Saline IV 07/16/18 15:35 1,000 mls/hr .BOLUS STA Administration Sodium Chloride 10 ml 07/16/18 13:36 07/16/18 13:48 Saline Flush FLUSH 10 ml ASDIRECTED PRN Administration Keep Vein Open Discontinued Medications Generic Name Dose Route Start Last Admin Trade Name Freq PRN Reason Stop Dose Admin Sodium Chloride Confirm 07/16/18 14:39 Normal Saline Administered 07/16/18 14:40 Dose 1,000 mls @ as directed .ROUTE .STK-MED ONE Ondansetron HCl 4 mg 07/16/18 13:36 07/16/18 13:46 Zofran IVPUSH 07/16/18 13:37 4 mg ONETIME ONE Administration Re-Assessment/Re-Exam: I ordered an IV NS 1L bolus, zofran 4mg IV, and labs. Her CBC looks good. Her magnesium was a little low at 1.5. Her total bili was elevated at 1.4. Her AST was elevated at 128. Her ALT was elevated at 66. Her lipase was normal. Her ETOH was elevated at 0.08. I will discharge her home soon. Departure - Departure Time of Disposition: 15:05 Disposition: Home, Self-Care 01 Condition: Good Clinical Impression: Alcohol abuse, Alcoholic Nausea and vomiting Qualifiers: Vomiting type: unspecified Vomiting Intractability: non-intractable Qualified Code(s): R11.2 - Nausea with vomiting, unspecified - Discharge Information *PRESCRIPTION DRUG MONITORING PROGRAM REVIEWED*: No *COPY OF PRESCRIPTION DRUG MONITORING REPORT IN PATIENT MAURY: No Prescriptions: Ondansetron [Zofran ODT] 4 mg PO Q6H PRN #20 tab.dis PRN Reason: Nausea\vomiting Referrals: Elle Redding MD [Primary Care Provider] - 1 Week Additional Instructions: Stop drinking. Go to [facility] for help. Their number is ( [phone]. Take the zofran every 6 hours as needed for nausea and vomiting. Please return if you are worse. - My Orders Last 24 Hours: My Active Orders 07/16/18 13:36 Peripheral IV Care [RC] . DIRECTED Sodium Chloride 0.9% [Normal Saline] 2,000 ml IV .BOLUS Sodium Chloride 0.9% [Saline Flush] 10 ml FLUSH ASDIRECTED PRN ED Antiemetic Medication Reflex [OM.PC] Stat Peripheral IV Insertion Adult [OM.PC] Stat - Assessment/Plan Last 24 Hours: My Active Orders 07/16/18 13:36 Peripheral IV Care [RC] . DIRECTED Sodium Chloride 0.9% [Normal Saline] 2,000 ml IV .BOLUS Sodium Chloride 0.9% [Saline Flush] 10 ml FLUSH ASDIRECTED PRN ED Antiemetic Medication Reflex [OM.PC] Stat Peripheral IV Insertion Adult [OM.PC] Stat
[2018-07-16] MEDS ORDERED: Sodium Chloride 0.9% 1,000 ML ONE (14:39)
[2018-07-16 15:04] VITALS: BP 123/78
== END 2018-07-16 15:20 | disposition home or self-care (01) ==
LOC: JD.ED 12:50
DX: F10.10 Alcohol abuse, uncomplicated (principal); E66.9 Obesity, unspecified; Y90.4 Blood alcohol level of 80-99 mg/100 ml
CPT/HCPCS: 36415; 80053; 83690; 83735; 85025; 96361; 96374; 99285; G0480; J2405; J7040; J7050; 99284

== ENCOUNTER 2018-08-01 12:43 | Emergency (ER) | payer OTHER ==
[2018-08-01] MEDS ORDERED: Sodium Chloride 0.9% 10 ML Syringe FLUSH PRN (13:57)
[2018-08-01] MEDS ORDERED: Ondansetron 4 MG/2 ML SDV IVPUSH ONE ×2 (13:57→16:14)
[2018-08-01] MEDS ORDERED: Sodium Chloride 0.9% 1,000 ML IV ONE (13:57)
--- NOTE | 2018-08-01 14:37 | EDM.PDOC ---
ED HPI GENERAL MEDICAL PROBLEM - General Chief Complaint: Abdominal Pain Stated Complaint: NAUSEA,VOMITING AND ABD PAIN Time Seen by Provider: 08/01/18 14:00 Source of Information: Reports: Patient History Limitations: Reports: No Limitations - History of Present Illness INITIAL COMMENTS - FREE TEXT/NARRATIVE: 32-year-old female presents for evaluation and treatment of nausea and vomiting. Patient reports she's been nauseous and vomited last 3-5 days. Patient is not able to eat or drink due to the nausea and vomiting. She reports some soreness her abdomen associated with this. She states that she had one bloody stool present unable to quantify blood was present. States she has been constipated lately. Has tried zofran with no relief. Patient also reports she has been ill with cold like symptoms for about 5 days. Reports headaches, bodyaches and a cough. Review of the patient's records show she has been her on numerous occasions for alcohol withdrawal side effects. Patient reports she has been drinking lately. Treatments MANAGER INSURANCE: Reports: Other Medication(s) Other Treatments MANAGER INSURANCE: nausea Abdomen Pain Score (Numeric/FACES): 2 - Related Data Allergies Allergy/AdvReac Type Severity Reaction Status Date / Time No Known Allergies Allergy Verified 08/01/18 13:17 Home Meds: Home Meds Cholecalciferol (Vitamin D3) [Vitamin D3] 0 unit PO DAILY 03/31/18 [History] Magnesium Chloride [Slow-Mag] 71.5 mg PO BID #60 tablet. 05/17/18 [Rx] Ondansetron [Zofran ODT] 4 mg PO Q6H PRN #20 tab.dis 07/16/18 [Rx] Pantoprazole Sodium [Protonix] 40 mg PO DAILY 07/16/18 [History] Potassium Chloride [Klor-Con] 20 mg PO DAILY 08/01/18 [History] Promethazine [Phenergan] 12.5 mg PO Q8H PRN #15 tab 08/01/18 [Rx] Past Medical History HEENT History: Reports: Impaired Vision Other HEENT History: glasses Gastrointestinal History: Reports: GERD Musculoskeletal History: Reports: Fracture Other Musculoskeletal History: sciatica Neurological History: Reports: Seizure Other Neuro History: with alcohol withdrawl Psychiatric History: Reports: Addiction, Anxiety Other Psychiatric History: alcohol Endocrine/Metabolic History: Reports: Hyperthyroidism, Obesity/BMI 30+ - Infectious Disease History Infectious Disease History: Reports: Chicken Pox - Past Surgical History Musculoskeletal Surgical History: Reports: Arthroscopic Knee Social & Family History - Family History Family Medical History: Noncontributory - Tobacco Use Smoking Status *Q: Never Smoker - Caffeine Use Caffeine Use: Reports: Coffee, Energy Drinks - Alcohol Use Days Per Week of Alcohol Use: 5 Number of Drinks Per Day: 10 Total Drinks Per Week: 50 - Recreational Drug Use Recreational Drug Use: Yes Drug Use in Last 12 Months: Yes Recreational Drug Type: Reports: Marijuana/Hashish Recreational Drug Use Frequency: Socially - Living Situation & Occupation Living situation: Reports: Single, with Family (Cousin) Occupation: Unemployed ED ROS GENERAL - Review of Systems Review Of Systems: See Below Constitutional: Reports: Malaise, Fatigue, Decreased Appetite, Other (reports bodyaches). Denies: Fever, Chills HEENT: Denies: Ear Pain, Throat Pain Respiratory: Reports: Cough GI/Abdominal: Reports: Abdominal Pain (reports "soreness"), Bloody Stool, Constipation, Nausea, Vomiting Neurological: Reports: Headache ED EXAM, GI/ABD - Physical Exam Exam: See Below Exam Limited By: No Limitations General Appearance: Alert, WD/WN, No Apparent Distress, Obese Eyes: Bilateral: Normal Appearance Ears: Normal External Exam, Normal Canal, Hearing Grossly Normal, Normal TMs Nose: Normal Inspection Throat/Mouth: Normal Inspection, Normal Lips, Normal Voice, No Airway Compromise Neck: Normal Inspection. No: Lymphadenopathy (L), Lymphadenopathy (R) Respiratory/Chest: No Respiratory Distress, Lungs Clear, Normal Breath Sounds Cardiovascular: Normal Peripheral Pulses, Regular Rate, Rhythm, No Murmur GI/Abdominal Exam: Normal Bowel Sounds, Soft, Non-Tender Neurological: Alert, Oriented, Normal Cognition Psychiatric: Normal Affect, Normal Mood Skin Exam: Warm, Dry, Normal Color Course - Vital Signs Last Recorded V/S: Last Vital Signs Temp 98.9 F 08/01/18 17:30 Pulse 90 08/01/18 17:30 Resp 18 08/01/18 17:30 BP 148/80 H 08/01/18 17:30 Pulse Ox 98 08/01/18 17:30 - Orders/Labs/Meds Labs: Laboratory Tests 08/01/18 08/01/18 08/01/18 Range/Units 14:00 14:00 14:00 WBC 5.94 (3.98-10.04) K/mm3 RBC 4.02 (3.98-5.22) M/mm3 Hgb 12.3 (11.2-15.7) gm/L Hct 38.3 (34.1-44.9) % MCV 95.3 H (79.4-94.8) fl MCH 30.6 (25.6-32.2) pg MCHC 32.1 L (32.2-35.5) g/dl RDW Std Deviation 51.2 H (36.4-46.3) fL Plt Count 222 (182-369) K/mm3 MPV 9.0 L (9.4-12.3) fl Neut % (Auto) 73.5 H (34.0-71.1) % Lymph % (Auto) 20.5 (19.3-51.7) % [place] % (Auto) 5.6 (4.7-12.5) % Eos % (Auto) 0.2 L (0.7-5.8) Baso % (Auto) 0.2 (0.1-1.2) % Neut # (Auto) 4.37 (1.56-6.13) K/mm3 Lymph # (Auto) 1.22 (1.18-3.74) K/mm3 [place] # (Auto) 0.33 (0.24-0.36) K/mm3 Eos # (Auto) 0.01 L (0.04-0.36) K/mm3 Baso # (Auto) 0.01 (0.01-0.08) K/mm3 Sodium 140 (136-145) mEq/L Potassium 3.7 (3.5-5.1) mEq/L Chloride 105 (98-107) mEq/L Carbon Dioxide 25 (21-32) mEq/L Anion Gap 13.7 (5-15) BUN 3 L (7-18) mg/dL Creatinine 0.6 (0.55-1.02) mg/dL Est Cr Clr Drug Dosing 124.85 mL/min Estimated GFR (MDRD) > 60 (>60) mL/min BUN/Creatinine Ratio 5.0 L (14-18) Glucose 101 (74-106) mg/dL Calcium 8.4 L (8.5-10.1) mg/dL Total Bilirubin 1.3 H (0.2-1.0) mg/dL AST 236 H (15-37) U/L ALT 88 H (14-59) U/L Alkaline Phosphatase 80 (46-116) U/L Total Protein 9.0 H (6.4-8.2) g/dl Albumin 3.3 L (3.4-5.0) g/dl Globulin 5.7 gm/dL Albumin/Globulin Ratio 0.6 L (1-2) HCG, Qual Negative (NEGATIVE) Ethyl Alcohol (0.00) gm% 08/01/18 Range/Units 14:00 WBC (3.98-10.04) K/mm3 RBC (3.98-5.22) M/mm3 Hgb (11.2-15.7) gm/L Hct (34.1-44.9) % MCV (79.4-94.8) fl MCH (25.6-32.2) pg MCHC (32.2-35.5) g/dl RDW Std Deviation (36.4-46.3) fL Plt Count (182-369) K/mm3 MPV (9.4-12.3) fl Neut % (Auto) (34.0-71.1) % Lymph % (Auto) (19.3-51.7) % [place] % (Auto) (4.7-12.5) % Eos % (Auto) (0.7-5.8) Baso % (Auto) (0.1-1.2) % Neut # (Auto) (1.56-6.13) K/mm3 Lymph # (Auto) (1.18-3.74) K/mm3 [place] # (Auto) (0.24-0.36) K/mm3 Eos # (Auto) (0.04-0.36) K/mm3 Baso # (Auto) (0.01-0.08) K/mm3 Sodium (136-145) mEq/L Potassium (3.5-5.1) mEq/L Chloride (98-107) mEq/L Carbon Dioxide (21-32) mEq/L Anion Gap (5-15) BUN (7-18) mg/dL Creatinine (0.55-1.02) mg/dL Est Cr Clr Drug Dosing mL/min Estimated GFR (MDRD) (>60) mL/min BUN/Creatinine Ratio (14-18) Glucose (74-106) mg/dL Calcium (8.5-10.1) mg/dL Total Bilirubin (0.2-1.0) mg/dL AST (15-37) U/L ALT (14-59) U/L Alkaline Phosphatase (46-116) U/L Total Protein (6.4-8.2) g/dl Albumin (3.4-5.0) g/dl Globulin gm/dL Albumin/Globulin Ratio (1-2) HCG, Qual (NEGATIVE) Ethyl Alcohol 0.08 (0.00) gm% Meds: Medications Discontinued Medications Generic Name Dose Route Start Last Admin Trade Name Freq PRN Reason Stop Dose Admin Sodium Chloride 1,000 mls @ 999 mls/hr 08/01/18 13:57 08/01/18 14:09 Normal Saline IV 08/01/18 14:57 999 mls/hr ONETIME ONE Administration Ondansetron HCl 4 mg 08/01/18 13:57 08/01/18 14:09 Zofran IVPUSH 08/01/18 13:58 4 mg ONETIME ONE Administration Ondansetron HCl 4 mg 08/01/18 16:14 08/01/18 16:39 Zofran IVPUSH 08/01/18 16:15 4 mg ONETIME ONE Administration Sodium Chloride 10 ml 08/01/18 13:57 08/01/18 14:09 Saline Flush FLUSH 10 ml ASDIRECTED PRN Administration Keep Vein Open - Re-Assessments/Exams Free Text/Narrative Re-Assessment/Exam: 08/01/18 16:33 Has not vomited since entering the ED. Likely alcohol abuse/withdrawal causing nausea and vomiting symptoms. Patient has no desire to stop drinking. Informed of lab changes, elevated liver enzymes, due to alcohol abuse. Recommend following-up with Mark. Could symptoms are likely from a viral upper respiratory infection. No bacterial source obvious. Rapid flu is negative. Discharge instructions as documented. Departure - Departure Time of Disposition: 16:35 Disposition: Home, Self-Care 01 Condition: Fair Clinical Impression: Elevated liver enzymes, Alcohol abuse Nausea and vomiting Qualifiers: Vomiting type: unspecified Vomiting Intractability: non-intractable Qualified Code(s): R11.2 - Nausea with vomiting, unspecified - Discharge Information *PRESCRIPTION DRUG MONITORING PROGRAM REVIEWED*: No *COPY OF PRESCRIPTION DRUG MONITORING REPORT IN PATIENT MAURY: No Prescriptions: Promethazine [Phenergan] 12.5 mg PO Q8H PRN #15 tab PRN Reason: Nausea Instructions: Nausea and Vomiting, Adult Referrals: Elle Redding MD [Primary Care Provider] - Forms: ED Department Discharge Additional Instructions: make sure you are drinking plenty of fluids. Recommend clear fluids such as water, Gatorade or Powerade. May advance to a bland diet Wednesday night or Wednesday as tolerated. [place] diet recommendations include bread, rice, soft, toast, soup broth, etc. Recommend avoiding alcohol. This likely is likely contributing to your nausea and vomiting today. If you would like any help with alcohol abuse recommend [facility]. Call [phone] to schedule with them. As of walk-in hours from 8a.m. Wednesday through for immediate evaluation. Take you zofran you have at home for nausea. May take phenergran as needed for if nausea is not relieved. Please return the ER for symptoms change or worsen.
[2018-08-01 17:33] VITALS: BP 148/80
--- NOTE | 2018-08-02 08:52 | CR ---
Chest: Two views of the chest were obtained. Comparison: Prior chest x-ray of 10/17/16. Heart size and mediastinum are normal. Lungs are clear. Bony structures appear unremarkable. Impression: 1. Nothing acute is seen on two-view chest x-ray. Diagnostic code #1
== END 2018-08-01 16:53 | disposition home or self-care (01) ==
LOC: JD.ED 12:43
DX: R11.2 Nausea with vomiting, unspecified (principal); F10.129 Alcohol abuse with intoxication, unspecified; R74.8 Abnormal levels of other serum enzymes; K21.9 Gastro-esophageal reflux disease without esophagitis; Y90.4 Blood alcohol level of 80-99 mg/100 ml; Z79.899 Other long term (current) drug therapy
CPT/HCPCS: 36415; 71046; 80053; 84703; 85025; 87804; 96361; 96374; 96376; 99284; G0480; J2405; J7040; J7050

== ENCOUNTER 2018-10-29 13:24 | Emergency (ER) | payer OTHER ==
[2018-10-29 13:53] VITALS: BP 122/77
[2018-10-29] MEDS ORDERED: Sodium Chloride 0.9% 1,000 ML IV ONE (14:13)
[2018-10-29] MEDS ORDERED: Ondansetron 4 MG/2 ML SDV IVPUSH ONE (14:13)
--- NOTE | 2018-10-29 14:19 | EDM.PDOCBH ---
ED HPI GENERAL MEDICAL PROBLEM - General Chief Complaint: Drug or Alcohol Abuse Stated Complaint: DIZZY Time Seen by Provider: 10/29/18 13:44 Source of Information: Reports: Patient, RN Notes Reviewed History Limitations: Reports: Intoxication - History of Present Illness INITIAL COMMENTS - FREE TEXT/NARRATIVE: The patient states that she developed nausea and vomiting around 13:00 this afternoon, just after her last drink. The patient states that she has been drinking "99 Bananas", a 99-prove schnapps, along with whiskey. The patient is a binge alcoholic. She states that she has been drinking daily for the past 4 days, and was sober for about one week prior to that. The patient also reports tingling to the dorsum of her right hand, which is recurrent. She also reports a bruise and swelling to the proximal phalanx of her right fourth finger, that she discovered this morning. The patient's PCP is Dr. Elle Redding. Left Upper Abdomen Pain Score (Numeric/FACES): 8 - Related Data Allergies Allergy/AdvReac Type Severity Reaction Status Date / Time No Known Allergies Allergy Verified 08/01/18 13:17 Home Meds: Home Meds Cholecalciferol (Vitamin D3) [Vitamin D3] 0 unit PO DAILY 03/31/18 [History] Magnesium Chloride [Slow-Mag] 71.5 mg PO BID #60 tablet.dr 05/17/18 [Rx] Pantoprazole Sodium [Protonix] 40 mg PO DAILY 07/16/18 [History] Potassium Chloride [Klor-Con] 20 mg PO DAILY 08/01/18 [History] Ondansetron [Zofran ODT] 1 tab PO Q8H PRN #10 tab.dis 10/29/18 [Rx] Past Medical History HEENT History: Reports: Impaired Vision Other HEENT History: glasses Gastrointestinal History: Reports: GERD (untreated) Musculoskeletal History: Reports: Fracture (right 3rd finger) Other Musculoskeletal History: sciatica Neurological History: Reports: Seizure (alcohol-related only) Psychiatric History: Reports: Addiction (alcohol), Anxiety (untreated) Endocrine/Metabolic History: Reports: Hyperthyroidism (untreated), Obesity/BMI 30+ - Infectious Disease History Infectious Disease History: Reports: Chicken Pox - Past Surgical History Musculoskeletal Surgical History: Reports: Arthroscopic Knee (right) Social & Family History - Family History Family Medical History: Noncontributory - Tobacco Use Smoking Status *Q: Former Smoker Years of Tobacco use: 10 Month/Year Tobacco Last Used: Quit 2006 - Caffeine Use Caffeine Use: Reports: None - Alcohol Use Alcohol Use History: Yes Alcohol Use Frequency: Binges - Recreational Drug Use Recreational Drug Use: Yes Drug Use in Last 12 Months: Yes Recreational Drug Type: Reports: Marijuana/Hashish (last smoked 10/27/2018) Recreational Drug Use Frequency: Socially - Living Situation & Occupation Living situation: Reports: Single, with Family (Cousin, brothers) Occupation: Unemployed ED ROS GENERAL - Review of Systems Review Of Systems: ROS reveals no pertinent complaints other than HPI. ED EXAM, BEHAVIORAL HEALTH - Physical Exam Exam: See Below General Appearance: WD/WN, No Apparent Distress, Lethargic (able to cooperate with exam), Other (smells of alcohol) Eye Exam: Bilateral Eye: EOMI, Normal Inspection Ears: Normal External Exam Nose: Normal Inspection Throat/Mouth: Normal Inspection, Normal Lips, Normal Voice, No Airway Compromise Head: Atraumatic, Normocephalic Neck: Normal Inspection, Full Range of Motion Respiratory/Chest: No Respiratory Distress, Lungs Clear, Normal Breath Sounds, No Accessory Muscle Use Cardiovascular: Normal Peripheral Pulses, Regular Rate, Rhythm, No Gallop, No JVD, No Murmur, No Rub GI/Abdominal: Normal Bowel Sounds, Soft, No Organomegaly, No Distention, No Abnormal Bruit, No Mass, Tender (slight, in epigastrium), Other (Obese) (Female) Exam: Deferred Rectal (Female) Exam: Deferred Extremities: Normal Inspection, Normal Range of Motion, Normal Capillary Refill , Other (ecchymosis and swelling to the proximal phalanx of the right 4th finger ) Neurological: No Motor/Sensory Deficits, Slow Response to Commands, Other ( slurred speech) Psychiatric: Other (Unable to assess) Skin Exam: Warm, Dry, Intact, Normal color, No rash COURSE, BEHAVIORAL HEALTH COMP - Course Vital Signs: Last Vital Signs Temp 36.6 C 10/29/18 13:51 Pulse 82 10/29/18 13:51 Resp 22 H 10/29/18 13:51 BP 122/77 10/29/18 13:51 Pulse Ox 98 10/29/18 13:51 Orders, Labs, Meds: Laboratory Tests 10/29/18 10/29/18 10/29/18 Range/Units 14:20 14:20 14:20 WBC 5.00 (3.98-10.04) K/mm3 RBC 3.85 L (3.98-5.22) M/mm3 Hgb 12.1 (11.2-15.7) gm/L Hct 37.5 (34.1-44.9) % MCV 97.4 H (79.4-94.8) fl MCH 31.4 (25.6-32.2) pg MCHC 32.3 (32.2-35.5) g/dl RDW Std Deviation 49.8 H (36.4-46.3) fL Plt Count 184 (182-369) K/mm3 MPV 9.6 (9.4-12.3) fl Neutrophils % (Manual) 63 H (40-60) % Band Neutrophils % 0 (0-10) % Lymphocytes % (Manual) 32 (20-40) % Atypical Lymphs % 0 % Monocytes % (Manual) 4 (2-10) % Eosinophils % (Manual) 1 (0.7-5.8) % Basophils % (Manual) 0 L (0.1-1.2) Platelet Estimate Adequate RBC Morph Comment Normal Sodium 143 (136-145) mEq/L Potassium 3.8 (3.5-5.1) mEq/L Chloride 106 (98-107) mEq/L Carbon Dioxide 25 (21-32) mEq/L Anion Gap 15.8 H (5-15) BUN 4 L (7-18) mg/dL Creatinine 0.5 L (0.55-1.02) mg/dL Est Cr Clr Drug Dosing 148.41 mL/min Estimated GFR (MDRD) > 60 (>60) mL/min BUN/Creatinine Ratio 8.0 L (14-18) Glucose 117 H (74-106) mg/dL Calcium 8.0 L (8.5-10.1) mg/dL Magnesium 1.8 (1.8-2.4) mg/dl Total Bilirubin 0.7 (0.2-1.0) mg/dL AST 169 H (15-37) U/L ALT 58 (14-59) U/L Alkaline Phosphatase 84 (46-116) U/L Total Protein 8.8 H (6.4-8.2) g/dl Albumin 3.2 L (3.4-5.0) g/dl Globulin 5.6 gm/dL Albumin/Globulin Ratio 0.6 L (1-2) Lipase 189 (73-393) U/L Ethyl Alcohol 0.38 (0.00) gm% 10/29/18 Range/Units 17:20 WBC (3.98-10.04) K/mm3 RBC (3.98-5.22) M/mm3 Hgb (11.2-15.7) gm/L Hct (34.1-44.9) % MCV (79.4-94.8) fl MCH (25.6-32.2) pg MCHC (32.2-35.5) g/dl RDW Std Deviation (36.4-46.3) fL Plt Count (182-369) K/mm3 MPV (9.4-12.3) fl Neutrophils % (Manual) (40-60) % Band Neutrophils % (0-10) % Lymphocytes % (Manual) (20-40) % Atypical Lymphs % % Monocytes % (Manual) (2-10) % Eosinophils % (Manual) (0.7-5.8) % Basophils % (Manual) (0.1-1.2) Platelet Estimate RBC Morph Comment Sodium (136-145) mEq/L Potassium (3.5-5.1) mEq/L Chloride (98-107) mEq/L Carbon Dioxide (21-32) mEq/L Anion Gap (5-15) BUN (7-18) mg/dL Creatinine (0.55-1.02) mg/dL Est Cr Clr Drug Dosing mL/min Estimated GFR (MDRD) (>60) mL/min BUN/Creatinine Ratio (14-18) Glucose (74-106) mg/dL Calcium (8.5-10.1) mg/dL Magnesium (1.8-2.4) mg/dl Total Bilirubin (0.2-1.0) mg/dL AST (15-37) U/L ALT (14-59) U/L Alkaline Phosphatase (46-116) U/L Total Protein (6.4-8.2) g/dl Albumin (3.4-5.0) g/dl Globulin gm/dL Albumin/Globulin Ratio (1-2) Lipase (73-393) U/L Ethyl Alcohol 0.30 (0.00) gm% Medications Discontinued Medications Generic Name Dose Route Start Last Admin Trade Name Jayleen PRN Reason Stop Dose Admin Sodium Chloride 1,000 mls @ 999 mls/hr 10/29/18 14:13 10/29/18 14:25 Normal Saline IV 10/29/18 15:13 999 mls/hr ONETIME ONE Administration Sodium Chloride 1,000 mls @ 100 mls/hr 10/29/18 16:15 10/29/18 16:13 Normal Saline IV 100 mls/hr ASDIRECTED HALINA Administration Ondansetron HCl 4 mg 10/29/18 14:13 10/29/18 14:26 Zofran IVPUSH 10/29/18 14:14 4 mg ONETIME ONE Administration Medical Clearance: 10/29/18 14:20 I have ordered some blood work, to make sure that the patient's electrolytes are not significantly abnormal, as well as a lipase, since she is complaining of mild epigastric tenderness, given her drinking history. I've ordered an alcohol level. In the meantime, the patient will receive some IV fluid and IV Zofran. 10/29/18 15:23 The patient's alcohol level has returned substantially elevated at 0.38. The remainder of her labwork is unremarkable. We will need to keep the patient in the ED until she is sober enough to discharge home. If her alcohol level decreases at 25 mg/dL/hr (a rough estimate), her alcohol level should drop below 0.30 around 17:30 this evening. I have ordered a repeat alcohol level for that time. 10/29/18 17:53 The patient's alcohol level at 17:20 returned at 0.30. She has been sleeping, but ate dinner earlier. A male relative is with her. I believe the patient can safely be discharged home. I will send in a prescription for Zofran, and refer her to [facility]. Departure - Departure Time of Disposition: 17:54 Disposition: Home, Self-Care 01 Condition: Fair Clinical Impression: Alcohol dependence, binge pattern Alcohol intoxication Qualifiers: Complication of substance-induced condition: uncomplicated Qualified Code(s): F10.920 - Alcohol use, unspecified with intoxication, uncomplicated Nausea and vomiting Qualifiers: Vomiting type: unspecified Vomiting Intractability: non-intractable Qualified Code(s): R11.2 - Nausea with vomiting, unspecified - Discharge Information *PRESCRIPTION DRUG MONITORING PROGRAM REVIEWED*: Not Applicable *COPY OF PRESCRIPTION DRUG MONITORING REPORT IN PATIENT MAURY: Not Applicable Prescriptions: Ondansetron [Zofran ODT] 1 tab PO Q8H PRN #10 tab.dis PRN Reason: Nausea/Vomiting Instructions: Addiction and the Family, Nausea and Vomiting, Adult, Easy-to- Read, Alcohol Intoxication, Alcohol Abuse and Nutrition Referrals: Elle Redding MD [Physician] - Additional Instructions: You were seen in the emergency room for nausea and vomiting associated with heavy drinking. Workup in the ER included blood work, including two alcohol levels. Your initial alcohol level was substantially elevated at 0.38. For reference, the legal limit for driving is 0.08. After some time, your repeat level was down to 0.30. A prescription for the anti-nausea medicine Zofran has been sent to the [facility], located in the [employer] grocery store. Dissolve one tablet of Zofran on your tongue up to every 8 hours, as needed for nausea/vomiting. We strongly recommend that you stop drinking alcohol. We recommend that you follow-up at [facility]: [address] [phone] Follow-up with your PCP, Dr. Elle Redding, as needed. If any other problems, please do not hesitate to return to the ER.
[2018-10-29] MEDS ORDERED: Sodium Chloride 0.9% 1,000 ML IV SCH (16:15)
== END 2018-10-29 18:15 | disposition home or self-care (01) ==
LOC: JD.ED 13:24
DX: F10.229 Alcohol dependence with intoxication, unspecified (principal); K21.9 Gastro-esophageal reflux disease without esophagitis; R11.2 Nausea with vomiting, unspecified; Z79.899 Other long term (current) drug therapy; Z87.891 Personal history of nicotine dependence; Y90.8 Blood alcohol level of 240 mg/100 ml or more
CPT/HCPCS: 36415; 80053; 83690; 83735; 85007; 85027; 96361; 96374; 99284; G0480; J2405; J7040

== ENCOUNTER 2018-11-08 14:30 | Emergency (ER) | payer OTHER ==
[2018-11-08] MEDS ORDERED: Ondansetron 4 MG/2 ML SDV IVPUSH ONE (15:50)
[2018-11-08] MEDS ORDERED: Sodium Chloride 0.9% 10 ML Syringe FLUSH PRN (15:50)
[2018-11-08] MEDS ORDERED: LORazepam 2 MG/ML SDV IVPUSH ONE (15:51)
[2018-11-08] MEDS ORDERED: Sodium Chloride 0.9% 1,000 ML IV SCH (16:00)
--- NOTE | 2018-11-08 16:02 | EDM.PDOC ---
<Sylvia Boyd M - Last Filed: 11/08/18 15:52> ED HPI GENERAL MEDICAL PROBLEM - General Chief Complaint: Neck Problem Stated Complaint: Neck pain, headache, alcohol abuse, situational depression Time Seen by Provider: 11/08/18 15:25 Source of Information: Reports: Patient History Limitations: Reports: No Limitations - History of Present Illness INITIAL COMMENTS - FREE TEXT/NARRATIVE: Patient is a 33 year old female who presents to the ED today for neck pain, headache, alcohol abuse, vision changes and situational depression. Patient states that yesterday, she found her 33 year old cousin unresponsive in his bedroom in her townhouse, and that after EMS resuscitation attempts, he unfortunately . This has caused her significant distress and she states she "overdid it" with alcohol. She states she drank 10 shots of vodka and 4 shooters of 99 Bananas. She was watched by some family members last night , and denies that she fell or hit her head. She states she was crying all day yesterday. Today, she woke up and had some diarrhea, was nauseous and had some wretching but no emesis. Denies any blood in her stool. She also had posterior neck pain and occipital head pain. She felt dizzy, and generally weak as well. Furthermore, she had blurry vision and felt that she was "Cross eyed" at times. She then had a strange sensation across her entire body that felt similar to when she had alcohol related seizures in the past. She then asked her cousin to take her to the ED. She states that she is short of breath, dizzy, unsteady, and still quite depressed. Posterior Neck Pain Score (Numeric/FACES): 7 - Related Data Allergies Allergy/AdvReac Type Severity Reaction Status Date / Time No Known Allergies Allergy Verified 08/01/18 13:17 Home Meds: Home Meds Cholecalciferol (Vitamin D3) [Vitamin D3] 0 unit PO DAILY 03/31/18 [History] Magnesium Chloride [Slow-Mag] 71.5 mg PO BID #60 tablet. 05/17/18 [Rx] Pantoprazole Sodium [Protonix] 40 mg PO DAILY 07/16/18 [History] Potassium Chloride [Klor-Con] 20 mg PO DAILY 08/01/18 [History] Ondansetron [Zofran ODT] 1 tab PO Q8H PRN #10 tab.dis 10/29/18 [Rx] LORazepam [Ativan] 1 mg PO Q8H PRN #15 tab 11/08/18 [Rx] Ondansetron [Zofran ODT] 4 mg PO Q6H PRN #20 tab.dis 11/08/18 [Rx] Past Medical History HEENT History: Reports: Impaired Vision Other HEENT History: glasses Gastrointestinal History: Reports: GERD Musculoskeletal History: Reports: Fracture Other Musculoskeletal History: sciatica Neurological History: Reports: Seizure Other Neuro History: with alcohol withdrawl Psychiatric History: Reports: Addiction, Anxiety Other Psychiatric History: alcohol Endocrine/Metabolic History: Reports: Hyperthyroidism, Obesity/BMI 30+ - Infectious Disease History Infectious Disease History: Reports: Chicken Pox - Past Surgical History Musculoskeletal Surgical History: Reports: Arthroscopic Knee Social & Family History - Family History Family Medical History: Noncontributory - Tobacco Use Smoking Status *Q: Never Smoker - Caffeine Use Caffeine Use: Reports: None - Recreational Drug Use Recreational Drug Type: Reports: Marijuana/Hashish - Living Situation & Occupation Living situation: Reports: Single, with Family (Cousin, brothers) Occupation: Unemployed ED ROS GENERAL - Review of Systems Review Of Systems: See Below Constitutional: Reports: Chills, Weakness HEENT: Reports: Vertigo, Vision Change (feels "cross eyed") Respiratory: Reports: Shortness of Breath Cardiovascular: Reports: No Symptoms GI/Abdominal: Reports: Diarrhea, Nausea : Reports: No Symptoms Musculoskeletal: Reports: Neck Pain (posterior ) Skin: Reports: No Symptoms Neurological: Reports: Dizziness, Headache (occipital), Tremors, Weakness Psychiatric: Reports: Anxiety, Depression ED EXAM, UPPER BACK/NECK PAIN - Physical Exam Exam: See Below General Appearance: Alert, Anxious, Obese Head Exam: Atraumatic, Normocephalic Neck Exam: Full Range of Motion, Normal Inspection, Other (neck pain improves on palpation) Cardiovascular/Respiratory: Regular Rate, Rhythm, Normal Breath Sounds GI/Abdominal: Normal Bowel Sounds, Soft, Non-Tender Neurologic: No Motor/Sensory Deficits, Alert, Depressed Affect Psychiatric: Anxious, Depressed Mood, Tearful Course - Vital Signs Last Recorded V/S: Last Vital Signs Temp 98.2 F 11/08/18 14:59 Pulse 87 11/08/18 14:59 Resp 14 11/08/18 14:59 BP 134/80 11/08/18 14:59 Pulse Ox 97 11/08/18 14:59 - Orders/Labs/Meds Orders: Active Orders 24 hr Category Date Time Status Cardiac Monitoring [RC] . DIRECTED Care 11/08/18 15:50 Active Peripheral IV Care [RC] . DIRECTED Care 11/08/18 15:50 Active Sodium Chloride 0.9% [Normal Saline] 1,000 ml Med 11/08/18 16:00 Active IV .BOLUS Sodium Chloride 0.9% [Saline Flush] Med 11/08/18 15:50 Active 10 ml FLUSH ASDIRECTED PRN ED Antiemetic Medication Reflex [OM.PC] Stat Oth 11/08/18 15:51 Ordered Peripheral IV Insertion Adult [OM.PC] Stat Oth 11/08/18 15:50 Ordered Medication Orders Sodium Chloride (Normal Saline) 1,000 mls @ 1,000 mls/hr IV .BOLUS HALINA Last Admin: 11/08/18 16:06 Dose: 1,000 mls/hr Sodium Chloride (Saline Flush) 10 ml FLUSH ASDIRECTED PRN PRN Reason: Keep Vein Open Last Admin: 11/08/18 16:08 Dose: 10 ml Labs: Laboratory Tests 11/08/18 11/08/18 Range/Units 16:00 16:09 WBC 6.14 (3.98-10.04) K/mm3 RBC 3.90 L (3.98-5.22) M/mm3 Hgb 12.1 (11.2-15.7) gm/L Hct 38.1 (34.1-44.9) % MCV 97.7 H (79.4-94.8) fl MCH 31.0 (25.6-32.2) pg MCHC 31.8 L (32.2-35.5) g/dl RDW Std Deviation 52.0 H (36.4-46.3) fL Plt Count 113 L (182-369) K/mm3 MPV 10.1 (9.4-12.3) fl Neut % (Auto) 67.4 (34.0-71.1) % Lymph % (Auto) 26.9 (19.3-51.7) % Ferry % (Auto) 5.0 (4.7-12.5) % Eos % (Auto) 0.2 L (0.7-5.8) Baso % (Auto) 0.3 (0.1-1.2) % Neut # (Auto) 4.14 (1.56-6.13) K/mm3 Lymph # (Auto) 1.65 (1.18-3.74) K/mm3 Ferry # (Auto) 0.31 (0.24-0.36) K/mm3 Eos # (Auto) 0.01 L (0.04-0.36) K/mm3 Baso # (Auto) 0.02 (0.01-0.08) K/mm3 Sodium 142 (136-145) mEq/L Potassium 3.9 (3.5-5.1) mEq/L Chloride 105 (98-107) mEq/L Carbon Dioxide 26 (21-32) mEq/L Anion Gap 14.9 (5-15) BUN 5 L (7-18) mg/dL Creatinine 0.6 (0.55-1.02) mg/dL Est Cr Clr Drug Dosing 123.68 mL/min Estimated GFR (MDRD) > 60 (>60) mL/min BUN/Creatinine Ratio 8.3 L (14-18) Glucose 97 (74-106) mg/dL Calcium 8.4 L (8.5-10.1) mg/dL Total Bilirubin 2.1 H (0.2-1.0) mg/dL AST 201 H (15-37) U/L ALT 62 H (14-59) U/L Alkaline Phosphatase 88 (46-116) U/L Total Protein 9.2 H (6.4-8.2) g/dl Albumin 3.4 (3.4-5.0) g/dl Globulin 5.8 gm/dL Albumin/Globulin Ratio 0.6 L (1-2) Lipase 200 (73-393) U/L Ethyl Alcohol 0.14 (0.00) gm% Meds: Medications Generic Name Dose Route Start Last Admin Trade Name Freq PRN Reason Stop Dose Admin Sodium Chloride 1,000 mls @ 1,000 mls/hr 11/08/18 16:00 11/08/18 16:06 Normal Saline IV 1,000 mls/hr .BOLUS HALINA Administration Sodium Chloride 10 ml 11/08/18 15:50 11/08/18 16:08 Saline Flush FLUSH 10 ml ASDIRECTED PRN Administration Keep Vein Open Discontinued Medications Generic Name Dose Route Start Last Admin Trade Name Jayleen PRN Reason Stop Dose Admin Lorazepam 1 mg 11/08/18 15:51 11/08/18 16:07 Ativan IVPUSH 11/08/18 15:52 1 mg ONETIME ONE Administration Ondansetron HCl 4 mg 11/08/18 15:50 11/08/18 16:07 Zofran IVPUSH 11/08/18 15:51 4 mg ONETIME ONE Administration Departure - Departure Disposition: Home, Self-Care 01 Clinical Impression: Neck pain, Alcohol dependence, binge pattern Alcohol intoxication Qualifiers: Complication of substance-induced condition: uncomplicated Qualified Code(s): F10.920 - Alcohol use, unspecified with intoxication, uncomplicated - Discharge Information Prescriptions: LORazepam [Ativan] 1 mg PO Q8H PRN #15 tab PRN Reason: Anxiety Ondansetron [Zofran ODT] 4 mg PO Q6H PRN #20 tab.dis PRN Reason: Nausea\\vomiting Referrals: Elle Redding MD [Primary Care Provider] - Forms: ED Department Discharge Additional Instructions: Take the zofran every 6 hours as needed for nausea and vomiting. Take the ativan every 8 hours as needed for anxiety and alcohol withdrawals. - My Orders Last 24 Hours: My Active Orders 11/08/18 15:50 Cardiac Monitoring [RC] . DIRECTED Peripheral IV Care [RC] . DIRECTED Sodium Chloride 0.9% [Saline Flush] 10 ml FLUSH ASDIRECTED PRN Peripheral IV Insertion Adult [OM.PC] Stat 11/08/18 15:51 ED Antiemetic Medication Reflex [OM.PC] Stat 11/08/18 16:00 Sodium Chloride 0.9% [Normal Saline] 1,000 ml IV .BOLUS - Assessment/Plan Last 24 Hours: My Active Orders 11/08/18 15:50 Cardiac Monitoring [RC] . DIRECTED Peripheral IV Care [RC] . DIRECTED Sodium Chloride 0.9% [Saline Flush] 10 ml FLUSH ASDIRECTED PRN Peripheral IV Insertion Adult [OM.PC] Stat 11/08/18 15:51 ED Antiemetic Medication Reflex [OM.PC] Stat 11/08/18 16:00 Sodium Chloride 0.9% [Normal Saline] 1,000 ml IV .BOLUS <Nico Landrum - Last Filed: 11/08/18 17:12> Course - Re-Assessments/Exams Free Text/Narrative Re-Assessment/Exam: 11/08/18 17:07 I examined the patient and I agree with Sylvia's assessment and plan. I ordered an IV NS 1L bolus, zofran 4mg IV, ativan 1mg IV and labs. Her platelets were a little low at 113. Her BUN was low at 5. Her calcium was low at 8.4. Her total bili was elevated at 2.1. Her AST was elevated at 201. Her ALT was elevated at 62. Her lipase was negative. Her ETOH was 0.14. I will discharge her home with some zofran and a few ativan. Departure - Departure Time of Disposition: 17:10 Condition: Good - Discharge Information *PRESCRIPTION DRUG MONITORING PROGRAM REVIEWED*: No *COPY OF PRESCRIPTION DRUG MONITORING REPORT IN PATIENT MAURY: No
[2018-11-08 17:36] VITALS: BP 126/78
== END 2018-11-08 17:20 | disposition home or self-care (01) ==
LOC: JD.ED 14:30
DX: F10.229 Alcohol dependence with intoxication, unspecified (principal); M54.2 Cervicalgia; K21.9 Gastro-esophageal reflux disease without esophagitis; F41.9 Anxiety disorder, unspecified; R56.9 Unspecified convulsions; Z79.891 Long term (current) use of opiate analgesic; Y90.0 Blood alcohol level of less than 20 mg/100 ml
CPT/HCPCS: 36415; 80053; 83690; 85025; 96361; 96374; 96375; 99284; G0480; J2060; J2405; J7040

== ENCOUNTER 2018-11-17 23:08 | Inpatient (IN) | payer OTHER ==
[2018-11-18] MEDS ORDERED: Sodium Chloride 0.9% 1,000 ML IV ONE (00:14)
[2018-11-18] MEDS ORDERED: Ondansetron 4 MG/2 ML SDV IVPUSH ONE (00:14)
[2018-11-18] MEDS ORDERED: LORazepam 2 MG/ML SDV IVPUSH STA ×2 (00:14→00:51)
--- NOTE | 2018-11-18 00:17 | EDM.PDOCBH ---
ED HPI GENERAL MEDICAL PROBLEM - General Chief Complaint: Drug or Alcohol Abuse Stated Complaint: SEIZURES Time Seen by Provider: 11/17/18 23:57 Source of Information: Reports: Patient, RN Notes Reviewed History Limitations: Reports: No Limitations - History of Present Illness INITIAL COMMENTS - FREE TEXT/NARRATIVE: The patient has a history of binge alcoholism. She states that she has been drinking daily ever since she was last here, and medical records indicate that she was last seen in this ED on 11/08/2018, for neck pain. The patient states that she drinks approximately 12 of the 99 Bananas mini bottles per day (99 Bananas = 99 proof schnapps, and each bottle contains 50 ml = 1.7 fl oz, each equivalent to 1.4 drinks, therefore almost 17 drinks per day). She states that her last drink was this morning, when she drank 2 of the mini bottles. The patient now presents, complaining of feeling lightheaded when she is ambulatory for the last 4 days, feeling shaky for the past 2 days, having a sharp pain in her left upper abdomen that has been coming and going since yesterday, and blurry vision, confusion, and possible visual hallucinations tonight. She states that looking up at an object in the ED examination room, the object appears to be coming towards her. She reports nausea and vomiting tonight. No recent fever. The patient denies taking any [id number] or home remedies to try to treat her symptoms. The patient's PCP is Dr. Elle Redding. - Related Data Allergies Allergy/AdvReac Type Severity Reaction Status Date / Time No Known Allergies Allergy Verified 08/01/18 13:17 Home Meds: Home Meds Cholecalciferol (Vitamin D3) [Vitamin D3] 0 unit PO DAILY 03/31/18 [History] Magnesium Chloride [Slow-Mag] 71.5 mg PO BID #60 tablet. 05/17/18 [Rx] Pantoprazole Sodium [Protonix] 40 mg PO DAILY 07/16/18 [History] Potassium Chloride [Klor-Con] 20 mg PO DAILY 08/01/18 [History] Ondansetron [Zofran ODT] 1 tab PO Q8H PRN #10 tab.dis 10/29/18 [Rx] LORazepam [Ativan] 1 mg PO Q8H PRN #15 tab 11/08/18 [Rx] LORazepam [Ativan] 1 mg PO Q8HR PRN #15 tablet 11/08/18 [Rx] Ondansetron [Zofran ODT] 4 mg PO Q6H PRN #20 tab.dis 11/08/18 [Rx] Past Medical History HEENT History: Reports: Impaired Vision Other HEENT History: wears glasses Gastrointestinal History: Reports: GERD (untreated) Musculoskeletal History: Reports: Fracture (right 3rd finger) Neurological History: Reports: Seizure (alcohol-related only) Psychiatric History: Reports: Addiction (alcohol), Anxiety (untreated) Other Psychiatric History: alcohol Endocrine/Metabolic History: Reports: Hyperthyroidism (untreated), Obesity/BMI 30+ - Infectious Disease History Infectious Disease History: Reports: Chicken Pox - Past Surgical History Musculoskeletal Surgical History: Reports: Arthroscopic Knee (right) Social & Family History - Family History Family Medical History: Noncontributory - Tobacco Use Smoking Status *Q: Never Smoker - Caffeine Use Caffeine Use: Reports: None - Alcohol Use Alcohol Use History: Yes Days Per Week of Alcohol Use: 7 Number of Drinks Per Day: 17 Total Drinks Per Week: 119 Date of Last Drink: 11/17/18 Alcohol Use Frequency: Binges - Recreational Drug Use Recreational Drug Use: Yes Drug Use in Last 12 Months: Yes Recreational Drug Type: Reports: Marijuana/Hashish (smokes regularly) - Living Situation & Occupation Living situation: Reports: Single, with Family (Cousin, brothers) Occupation: Unemployed ED ROS GENERAL - Review of Systems Review Of Systems: ROS reveals no pertinent complaints other than HPI. ED EXAM, BEHAVIORAL HEALTH - Physical Exam Exam: See Below Exam Limited By: No Limitations General Appearance: Alert, WD/WN, Mild Distress (tachypneic. Appears anxious.) Eye Exam: Bilateral Eye: EOMI, Normal Inspection Ears: Normal External Exam, Hearing Grossly Normal Nose: Normal Inspection Throat/Mouth: Normal Inspection, Normal Lips, Normal Voice, No Airway Compromise Head: Atraumatic, Normocephalic Neck: Normal Inspection, Full Range of Motion Respiratory/Chest: No Respiratory Distress, Lungs Clear, Normal Breath Sounds, No Accessory Muscle Use Cardiovascular: Normal Peripheral Pulses, No Gallop, No JVD, No Murmur, No Rub, Tachycardia (regular) GI/Abdominal: Normal Bowel Sounds, Soft, No Organomegaly, No Distention, No Abnormal Bruit, No Mass, Other (Obese) (Female) Exam: Deferred Rectal (Female) Exam: Deferred Extremities: Normal Inspection, Normal Range of Motion, Normal Capillary Refill Neurological: Alert, Normal Cognition, No Motor/Sensory Deficits, Oriented x 3 Psychiatric: Normal Affect, Visual Hallucinations (possible) Skin Exam: Warm, Dry, Intact, Normal color, No rash EKG INTERPRETATION EKG Date: 11/18/18 Time: 00:46 Rhythm: NSR Rate (Beats/Min): 93 [place]: Normal P-Wave: Present QRS: Normal (? early transition?) ST-T: Normal QT: Prolonged (QTc 489 ms) Comparison: No Change (03/31/2018) COURSE, BEHAVIORAL HEALTH COMP - Course Vital Signs: Last Vital Signs Temp 37.1 C 11/18/18 02:00 Pulse 114 H 11/17/18 23:17 Resp 17 11/18/18 02:00 BP 124/75 11/18/18 02:00 Pulse Ox 95 11/18/18 02:00 Orthostatic Blood Pressure [ 146/89 Standing] Orthostatic Blood Pressure [ 145/86 Sitting] Orthostatic Blood Pressure [ 130/74 Supine] Orders, Labs, Meds: Active Orders 24 hr Category Date Time Status Patient Status [ADT] Routine ADT 11/18/18 01:38 Active CIWAA Assessment [RC] Q1H Care 11/18/18 02:29 Active EKG Documentation Completion [RC] STAT Care 11/18/18 00:12 Active Orthostatic Vital Signs [RC] STAT Care 11/18/18 00:12 Active Up With Assistance [RC] ASDIRECTED Care 11/18/18 02:27 Active Regular Diet [DIET] Diet 11/18/18 Breakfast Active Chest 1V Frontal [CR] Stat Exams 11/18/18 00:11 Taken LORazepam [Ativan] Med 11/18/18 02:28 Active 1 mg IVPUSH Q4H PRN Ondansetron [Zofran] Med 11/18/18 02:27 Active 4 mg IVPUSH Q6H PRN Sodium Chloride 0.9% [Normal Saline] 1,000 ml Med 11/18/18 01:45 Active IV ASDIRECTED Code Status [Resuscitation Status] Routine Resus Stat 11/18/18 02:30 Ordered Medication Orders Sodium Chloride (Normal Saline) 1,000 mls @ 150 mls/hr IV ASDIRECTED HALINA Last Admin: 11/18/18 01:41 Dose: 150 mls/hr Lorazepam (Ativan) 1 mg IVPUSH Q4H PRN; Protocol PRN Reason: Withdrawal Symptoms Ondansetron HCl (Zofran) 4 mg IVPUSH Q6H PRN PRN Reason: Nausea/Vomiting Laboratory Tests 11/18/18 11/18/18 11/18/18 Range/Units 00:17 00:17 00:17 WBC 5.57 (3.98-10.04) K/mm3 RBC 3.79 L (3.98-5.22) M/mm3 Hgb 11.9 (11.2-15.7) gm/L Hct 36.9 (34.1-44.9) % MCV 97.4 H (79.4-94.8) fl MCH 31.4 (25.6-32.2) pg MCHC 32.2 (32.2-35.5) g/dl RDW Std Deviation 54.4 H (36.4-46.3) fL Plt Count 108 L (182-369) K/mm3 MPV 10.3 (9.4-12.3) fl Neutrophils % (Manual) 65 H (40-60) % Band Neutrophils % 0 (0-10) % Lymphocytes % (Manual) 22 (20-40) % Atypical Lymphs % 0 % Monocytes % (Manual) 12 H (2-10) % Eosinophils % (Manual) 0 L (0.7-5.8) % Basophils % (Manual) 1 (0.1-1.2) Platelet Estimate Decreased Plt Morphology Comment See note RBC Morph Comment Normal Puncture Site ABG pH (7.35-7.45) ABG pCO2 (35.0-45.0) mmHg ABG pO2 (80.0-100.0) mmHg ABG HCO3 (22.0-26.0) meq/L ABG O2 Saturation (96.0-97.0) % ABG Base Excess (-2-2.0) Gigi Test A-a Gradient mmHg FiO2 (21.00-100.00) % Sodium 142 (136-145) mEq/L Potassium 3.3 L (3.5-5.1) mEq/L Chloride 105 (98-107) mEq/L Carbon Dioxide 23 (21-32) mEq/L Anion Gap 17.3 H (5-15) BUN 4 L (7-18) mg/dL Creatinine 0.6 (0.55-1.02) mg/dL Est Cr Clr Drug Dosing 123.68 mL/min Estimated GFR (MDRD) > 60 (>60) mL/min BUN/Creatinine Ratio 6.7 L (14-18) Glucose 100 (74-106) mg/dL Calcium 8.2 L (8.5-10.1) mg/dL Magnesium 1.3 L (1.8-2.4) mg/dl Total Bilirubin 2.8 H (0.2-1.0) mg/dL AST 200 H (15-37) U/L ALT 68 H (14-59) U/L Alkaline Phosphatase 98 (46-116) U/L Total Protein 8.6 H (6.4-8.2) g/dl Albumin 3.0 L (3.4-5.0) g/dl Globulin 5.6 gm/dL Albumin/Globulin Ratio 0.5 L (1-2) Lipase 198 (73-393) U/L TSH 3rd Generation 0.073 L (0.358-3.74) uIU/mL Urine Color (Yellow) Urine Appearance (Clear) Urine pH (5.0-8.0) Ur Specific [place] (1.005-1.030) Urine Protein (Negative) Urine Glucose (UA) (Negative) Urine Ketones (Negative) Urine Occult Blood (Negative) Urine Nitrite (Negative) Urine Bilirubin (Negative) Urine Urobilinogen (0.2-1.0) Ur Leukocyte Esterase (Negative) Urine RBC (0-5) /hpf Urine WBC (0-5) /hpf Ur Epithelial Cells (0-5) /hpf Urine Bacteria (FEW) /hpf Urine Mucus (FEW) /hpf Urine HCG, Qual (NEGATIVE) Urine Opiates Screen (IWXLDP=033) Ur Buprenorphine Scrn (CUTOFF=10) Ur Oxycodone Screen (XLP3NA=865) Urine Methadone Screen (WJVGKN=390) Ur Propoxyphene Screen (MHLPVR=853) Ur Barbiturates Screen (RGHXZO=668) Ur Tricyclics Screen (FWPVOW=737) Ur Phencyclidine Scrn (CUTOFF=25) Ur Amphetamine Screen (OKRPDO=552) U Methamphetamines Scrn (HXPQKG=137) U Benzodiazepines Scrn (RJLRTW=490) U Cocaine Metab Screen (WCTVBC=175) U Marijuana (THC) Screen (CUTOFF=50) Ethyl Alcohol 0.15 (0.00) gm% Ketones 0.37 (0.0-0.3) mM 11/18/18 11/18/18 11/18/18 Range/Units 00:30 00:41 00:47 WBC (3.98-10.04) K/mm3 RBC (3.98-5.22) M/mm3 Hgb (11.2-15.7) gm/L Hct (34.1-44.9) % MCV (79.4-94.8) fl MCH (25.6-32.2) pg MCHC (32.2-35.5) g/dl RDW Std Deviation (36.4-46.3) fL Plt Count (182-369) K/mm3 MPV (9.4-12.3) fl Neutrophils % (Manual) (40-60) % Band Neutrophils % (0-10) % Lymphocytes % (Manual) (20-40) % Atypical Lymphs % % Monocytes % (Manual) (2-10) % Eosinophils % (Manual) (0.7-5.8) % Basophils % (Manual) (0.1-1.2) Platelet Estimate Plt Morphology Comment RBC Morph Comment Puncture Site Rt radial ABG pH 7.62 H* (7.35-7.45) ABG pCO2 17.5 L* (35.0-45.0) mmHg ABG pO2 108.0 H (80.0-100.0) mmHg ABG HCO3 18.3 L (22.0-26.0) meq/L ABG O2 Saturation 99.3 H (96.0-97.0) % ABG Base Excess -1.0 (-2-2.0) Gigi Test Positive A-a Gradient 4 mmHg FiO2 21.00 (21.00-100.00) % Sodium (136-145) mEq/L Potassium (3.5-5.1) mEq/L Chloride (98-107) mEq/L Carbon Dioxide (21-32) mEq/L Anion Gap (5-15) BUN (7-18) mg/dL Creatinine (0.55-1.02) mg/dL Est Cr Clr Drug Dosing mL/min Estimated GFR (MDRD) (>60) mL/min BUN/Creatinine Ratio (14-18) Glucose (74-106) mg/dL Calcium (8.5-10.1) mg/dL Magnesium (1.8-2.4) mg/dl Total Bilirubin (0.2-1.0) mg/dL AST (15-37) U/L ALT (14-59) U/L Alkaline Phosphatase (46-116) U/L Total Protein (6.4-8.2) g/dl Albumin (3.4-5.0) g/dl Globulin gm/dL Albumin/Globulin Ratio (1-2) Lipase (73-393) U/L TSH 3rd Generation (0.358-3.74) uIU/mL Urine Color Loli H (Yellow) Urine Appearance Clear (Clear) Urine pH 7.0 (5.0-8.0) Ur Specific [place] 1.025 (1.005-1.030) Urine Protein 2+ H (Negative) Urine Glucose (UA) Trace H (Negative) Urine Ketones 2+ H (Negative) Urine Occult Blood Negative (Negative) Urine Nitrite Negative (Negative) Urine Bilirubin 3+ H (Negative) Urine Urobilinogen >=8.0 H (0.2-1.0) Ur Leukocyte Esterase Negative (Negative) Urine RBC Not seen (0-5) /hpf Urine WBC Not seen (0-5) /hpf Ur Epithelial Cells 0-5 (0-5) /hpf Urine Bacteria Not seen (FEW) /hpf Urine Mucus Moderate H (FEW) /hpf Urine HCG, Qual Negative (NEGATIVE) Urine Opiates Screen (HVQSOM=519) Ur Buprenorphine Scrn (CUTOFF=10) Ur Oxycodone Screen (TKF3UG=622) Urine Methadone Screen (ZXICBD=083) Ur Propoxyphene Screen (OFBAUH=787) Ur Barbiturates Screen (PBMNYK=747) Ur Tricyclics Screen (TAIMKH=313) Ur Phencyclidine Scrn (CUTOFF=25) Ur Amphetamine Screen (ROPKCS=184) U Methamphetamines Scrn (SGEKBA=437) U Benzodiazepines Scrn (BRTVID=132) U Cocaine Metab Screen (CIZKBS=582) U Marijuana (THC) Screen (CUTOFF=50) Ethyl Alcohol (0.00) gm% Ketones (0.0-0.3) mM 01/18/19 Range/Units 00:47 WBC (3.98-10.04) K/mm3 RBC (3.98-5.22) M/mm3 Hgb (11.2-15.7) gm/L Hct (34.1-44.9) % MCV (79.4-94.8) fl MCH (25.6-32.2) pg MCHC (32.2-35.5) g/dl RDW Std Deviation (36.4-46.3) fL Plt Count (182-369) K/mm3 MPV (9.4-12.3) fl Neutrophils % (Manual) (40-60) % Band Neutrophils % (0-10) % Lymphocytes % (Manual) (20-40) % Atypical Lymphs % % Monocytes % (Manual) (2-10) % Eosinophils % (Manual) (0.7-5.8) % Basophils % (Manual) (0.1-1.2) Platelet Estimate Plt Morphology Comment RBC Morph Comment Puncture Site ABG pH (7.35-7.45) ABG pCO2 (35.0-45.0) mmHg ABG pO2 (80.0-100.0) mmHg ABG HCO3 (22.0-26.0) meq/L ABG O2 Saturation (96.0-97.0) % ABG Base Excess (-2-2.0) Gigi Test A-a Gradient mmHg FiO2 (21.00-100.00) % Sodium (136-145) mEq/L Potassium (3.5-5.1) mEq/L Chloride (98-107) mEq/L Carbon Dioxide (21-32) mEq/L Anion Gap (5-15) BUN (7-18) mg/dL Creatinine (0.55-1.02) mg/dL Est Cr Clr Drug Dosing mL/min Estimated GFR (MDRD) (>60) mL/min BUN/Creatinine Ratio (14-18) Glucose (74-106) mg/dL Calcium (8.5-10.1) mg/dL Magnesium (1.8-2.4) mg/dl Total Bilirubin (0.2-1.0) mg/dL AST (15-37) U/L ALT (14-59) U/L Alkaline Phosphatase (46-116) U/L Total Protein (6.4-8.2) g/dl Albumin (3.4-5.0) g/dl Globulin gm/dL Albumin/Globulin Ratio (1-2) Lipase (73-393) U/L TSH 3rd Generation (0.358-3.74) uIU/mL Urine Color (Yellow) Urine Appearance (Clear) Urine pH (5.0-8.0) Ur Specific [place] (1.005-1.030) Urine Protein (Negative) Urine Glucose (UA) (Negative) Urine Ketones (Negative) Urine Occult Blood (Negative) Urine Nitrite (Negative) Urine Bilirubin (Negative) Urine Urobilinogen (0.2-1.0) Ur Leukocyte Esterase (Negative) Urine RBC (0-5) /hpf Urine WBC (0-5) /hpf Ur Epithelial Cells (0-5) /hpf Urine Bacteria (FEW) /hpf Urine Mucus (FEW) /hpf Urine HCG, Qual (NEGATIVE) Urine Opiates Screen Negative (QQZXFE=382) Ur Buprenorphine Scrn Negative (CUTOFF=10) Ur Oxycodone Screen Negative (GDT0HY=936) Urine Methadone Screen Negative (HCIYVJ=208) Ur Propoxyphene Screen Negative (PTNUKQ=215) Ur Barbiturates Screen Negative (FTSPBF=472) Ur Tricyclics Screen Negative (ONCSEL=987) Ur Phencyclidine Scrn Negative (CUTOFF=25) Ur Amphetamine Screen Negative (MZKOWJ=677) U Methamphetamines Scrn Negative (FQLHLQ=599) U Benzodiazepines Scrn Presumptive positive H (YVPJLR=634) U Cocaine Metab Screen Negative (UNWSEI=289) U Marijuana (THC) Screen Presumptive positive H (CUTOFF=50) Ethyl Alcohol (0.00) gm% Ketones (0.0-0.3) mM Medications Generic Name Dose Route Start Last Admin Trade Name Freq PRN Reason Stop Dose Admin Sodium Chloride 1,000 mls @ 150 mls/hr 11/18/18 01:45 11/18/18 01:41 Normal Saline IV 150 mls/hr ASDIRECTED HALINA Administration Lorazepam 1 mg 11/18/18 02:28 Ativan IVPUSH Q4H PRN Withdrawal Symptoms Protocol Ondansetron HCl 4 mg 11/18/18 02:27 Zofran IVPUSH Q6H PRN Nausea/Vomiting Discontinued Medications Generic Name Dose Route Start Last Admin Trade Name Freq PRN Reason Stop Dose Admin Sodium Chloride 1,000 mls @ 999 mls/hr 11/18/18 00:14 11/18/18 00:32 Normal Saline IV 11/18/18 01:14 999 mls/hr ONETIME ONE Administration Magnesium Sulfate 2 gm/ Premix 50 mls @ 50 mls/hr 11/18/18 00:57 11/18/18 01: 13 IV 11/18/18 01:56 50 mls/hr ONETIME ONE Administration Lorazepam 1 mg 11/18/18 00:14 11/18/18 00:33 Ativan IVPUSH 11/18/18 00:15 1 mg ONETIME STA Administration Lorazepam 1 mg 11/18/18 00:51 11/18/18 01:06 Ativan IVPUSH 11/18/18 00:52 1 mg ONETIME STA Administration Ondansetron HCl 4 mg 11/18/18 00:14 11/18/18 00:32 Zofran IVPUSH 11/18/18 00:15 4 mg ONETIME ONE Administration Medical Clearance: 11/18/18 00:15 The patient is concerned that she might suffer seizures from alcohol withdrawal. That's possible, although at this time the patient is able to give a good history despite her tremulousness. She appears to be suffering from some significant alcohol withdrawal, however, including possible alcoholic hallucinosis. She is going to need to be admitted to the hospital. I've ordered a workup that includes orthostatic blood pressure measurements, a urinalysis, a urine drug screen, an alcohol level, ketones, and a chest x-ray, among other tests. In the meantime, the patient will receive IV fluid, some Ativan, and Zofran. 11/18/18 00:50 The patient's ABG shows significant acute respiratory alkalosis with no oxygen deficit. The patient was already given 1 mg Ativan, but we will need to give more to get this under control. 11/18/18 00:58 Portable chest radiograph appears to be grossly normal. The cardiac silhouette is within normal limits. No pulmonary vascular congestion. No pleural effusions seen on this AP view. No focal infiltrate. No pneumothorax. Formal read per the Radiologist pending. The patient's potassium has returned mildly depressed at 3.3, likely due to the respiratory alkalosis, however, the patient's magnesium is also significantly depressed at 1.3. I have therefore ordered a 2 g Mg-rider. The patient's alcohol level is significantly elevated at 0.15. This is concerning, given the degree of alcohol withdrawal symptoms that the patient is experiencing despite having such an alcohol level. This increases her risk of developing DTs within the next several days. As above, the patient will need to be hospitalized. The patient's TSH is depressed at 0.073. This is consistent with the patient's known history of untreated hyperthyroidism. 11/18/18 01:13 The patient is not orthostatic. 11/18/18 01:29 The patient's urine drug screen is positive for benzodiazepines and marijuana, however, the benzodiazepines are probably from the Ativan that was given here, and the patient acknowledged that she smokes marijuana regularly. The remainder of the patient's workup is unremarkable. Case discussed with Dr. Juárez at 01:26. He agreed to admit the patient to the ICU, and asked that I write bridge orders. Departure - Departure Time of Disposition: 01:30 Disposition: DC/Tfer to Acute Hospital 02 Condition: Serious Clinical Impression: Alcohol withdrawal, Acute alcoholic hallucinosis, Acute respiratory alkalosis, Ketosis, Hypomagnesemia, Hypokalemia, Hyperthyroidism, Alcohol dependence, binge pattern Alcohol intoxication Qualifiers: Complication of substance-induced condition: uncomplicated Qualified Code(s): F10.920 - Alcohol use, unspecified with intoxication, uncomplicated - Discharge Information *PRESCRIPTION DRUG MONITORING PROGRAM REVIEWED*: Not Applicable *COPY OF PRESCRIPTION DRUG MONITORING REPORT IN PATIENT MAURY: Not Applicable Referrals: Elle Redding MD [Primary Care Provider] - - My Orders Last 24 Hours: My Active Orders 11/18/18 00:11 Chest 1V Frontal [CR] Stat 11/18/18 00:12 EKG Documentation Completion [RC] STAT Orthostatic Vital Signs [RC] STAT 11/18/18 01:38 Patient Status [ADT] Routine 11/18/18 01:45 Sodium Chloride 0.9% [Normal Saline] 1,000 ml IV ASDIRECTED 11/18/18 02:27 Up With Assistance [RC] ASDIRECTED Ondansetron [Zofran] 4 mg IVPUSH Q6H PRN 11/18/18 02:28 LORazepam [Ativan] 1 mg IVPUSH Q4H PRN 11/18/18 02:29 CIWAA Assessment [RC] Q1H 11/18/18 02:30 Code Status [Resuscitation Status] Routine 11/18/18 Breakfast Regular Diet [DIET] - Assessment/Plan Last 24 Hours: My Active Orders 11/18/18 00:11 Chest 1V Frontal [CR] Stat 11/18/18 00:12 EKG Documentation Completion [RC] STAT Orthostatic Vital Signs [RC] STAT 11/18/18 01:38 Patient Status [ADT] Routine 11/18/18 01:45 Sodium Chloride 0.9% [Normal Saline] 1,000 ml IV ASDIRECTED 11/18/18 02:27 Up With Assistance [RC] ASDIRECTED Ondansetron [Zofran] 4 mg IVPUSH Q6H PRN 11/18/18 02:28 LORazepam [Ativan] 1 mg IVPUSH Q4H PRN 11/18/18 02:29 CIWAA Assessment [RC] Q1H 11/18/18 02:30 Code Status [Resuscitation Status] Routine 11/18/18 Breakfast Regular Diet [DIET]
[2018-11-18] MEDS ORDERED: Magnesium Sulfate/Water 2 GM in Premix Bag 1 BAG IV ONE ×2 (00:57→08:30)
[2018-11-18] MEDS: Sodium Chloride 0.9% 1,000 ML IV SCH ×4 (01:41→22:04)
[2018-11-18] MEDS ORDERED: Ondansetron 4 MG/2 ML SDV IVPUSH PRN (02:27)
[2018-11-18] MEDS ORDERED: LORazepam 2 MG/ML SDV IVPUSH PRN ×2 (02:28→06:36)
--- NOTE | 2018-11-18 06:31 | PCM.HP ---
H&P History of Present Illness - General Date of Service: 11/18/18 Admit Problem/Dx: Admission Diagnosis/Problem Admission Diagnosis/Problem Alcohol withdrawal syndrome Source of Information: Patient, Old Records, Provider, RN, RN Notes Reviewed History Limitations: Reports: No Limitations - History of Present Illness Initial Comments - Free Text/Narative: Stephany England is a 33 yo female who presented to our ED late yesterday night for possible seizures. She reportedly has a history of binge alcoholism. She is less in the ED on 11/18/2018 and has reportedly been drinking daily since she was here. She reports she drinks approximately 12 of the 99 but now has many bottles per day which is 99 progression ops. Each bowel reportedly contains 50 mL or 1.7 fluid ounces. This reported to be 1.4 drinks per bottle and chocolates O2 around 17 drinks per day. She reports her last alcoholic intake was in the morning in which she drank 2 of the many bottles. In the ED she complains of a feeling of lightheadedness while laboratory which has been present for the last 4 days, a shaky feeling for the last 2 days, and a sharp pain in her left abdomen that has been coming and going since the day prior. She also reports blurry vision, confusion, and possible visual hallucinations which started that day. She reports that she can see an object while in the ED examination room and thought it is coming towards her. She also complains of nausea and vomiting but denies fever or prior treatment. In the ED temperature 37.1 Celsius. Pulse 114. Respirations 17. Blood pressure 1/24/75. Pulse ox 95%. Total EKG is obtained showing a sinus rhythm at 93 bpm there is questionable early transition and a QRS along with a prolonged QTC of 489 ms. No changes noted from the prior years EKG. Orthostatic blood pressures are obtained and are negative. Labs are obtained: WBC is normal at 5.57. Hemoglobin 11.9. Hematocrit 36.9. She has macrocytic. Platelet are low 108,000. Neutrophils are elevated at 65%. There is no bandemia. Sodium is 142. Potassium 3.3. I will 5. Current accident 23. Anion gap was high at 17.3. BUN is 4. Creatinine 0.6. EGFR greater than 60. Glucose is 100. Calcium 8.2. Magnesium is very low at 1.3. Bilirubin is high at 2.8. AST is 200, ALT 68, alkaline phosphatase 98. Protein is high at 8.6. Albumin is low at 3.0. Lipase is 198. TSH is very low at 0.073. Ethyl alcohol is obtained and is 0.15. Ketones are 0.37. ABGs obtained in the right radial showing a pH of 7.62. PCO2 of 17.5. PO2 of 100.8. Bicarbonate of 18.3. O2 saturation 99.3. Base excess of -1.0. A-a gradient of 4. FiO2 21. UA is obtained and is negative however urine is noted to be paulino in color with 2+ protein, trace glucose, 2+ ketones, 3+ bilirubin, greater than 8 urobilinogen , and moderate mucus. HCG is negative. Urine drug screen is obtained and is positive for benzodiazepines and marijuana. He noted does mention that the patient was given benzos prior to UDS being obtained and the patient does admit to daily marijuana consumption. She is given a 1 L saline bolus and 2 g of magnesium. She is also given 1 mg of Ativan twice and 4 mg of Zofran. Chest x- rays obtained and interpreted by Dr. Gilbert as showing nothing acute. She carries a history of untreated GERD, alcohol-related seizures, untreated anxiety, alcohol addiction, untreated hyperthyroidism, obesity. She was never a smoker. She is a full code. Her PCP is Dr. Redding. Headache Pain Score (Numeric/FACES): 4 - Related Data Allergies/Adverse Reactions: Allergies Allergy/AdvReac Type Severity Reaction Status Date / Time No Known Allergies Allergy Verified 11/18/18 03:31 Home Medications: Home Meds Cholecalciferol (Vitamin D3) [Vitamin D3] 0 unit PO DAILY 03/31/18 [History] Magnesium Chloride [Slow-Mag] 71.5 mg PO BID #60 tablet. 05/17/18 [Rx] Pantoprazole Sodium [Protonix] 40 mg PO DAILY 07/16/18 [History] Potassium Chloride [Klor-Con] 20 mg PO DAILY 08/01/18 [History] Ondansetron [Zofran ODT] 1 tab PO Q8H PRN #10 tab.dis 10/29/18 [Rx] LORazepam [Ativan] 1 mg PO Q8H PRN #15 tab 11/08/18 [Rx] LORazepam [Ativan] 1 mg PO Q8HR PRN #15 tablet 11/08/18 [Rx] Ondansetron [Zofran ODT] 4 mg PO Q6H PRN #20 tab.dis 11/08/18 [Rx] Past Medical History HEENT History: Reports: Impaired Vision Other HEENT History: wears glasses Gastrointestinal History: Reports: GERD (untreated) Musculoskeletal History: Reports: Fracture (right 3rd finger) Other Musculoskeletal History: sciatica Neurological History: Reports: Seizure (alcohol-related only) Other Neuro History: with alcohol withdrawl Psychiatric History: Reports: Addiction (alcohol), Anxiety (untreated) Other Psychiatric History: alcohol Endocrine/Metabolic History: Reports: Hyperthyroidism (untreated), Obesity/BMI 30+ - Infectious Disease History Infectious Disease History: Reports: Chicken Pox - Past Surgical History Musculoskeletal Surgical History: Reports: Arthroscopic Knee (right) Social & Family History - Family History Family Medical History: Noncontributory - Tobacco Use Smoking Status *Q: Never Smoker Second Hand Smoke Exposure: No - Caffeine Use Caffeine Use: Reports: None - Alcohol Use Days Per Week of Alcohol Use: 7 Number of Drinks Per Day: 17 Total Drinks Per Week: 119 Date of Last Drink: 11/17/18 Time of Last Drink: 09:00 - Recreational Drug Use Recreational Drug Use: Yes Drug Use in Last 12 Months: Yes Recreational Drug Type: Reports: Marijuana/Hashish (smokes regularly) Recreational Drug Use Frequency: Socially - Living Situation & Occupation Living situation: Reports: Single, with Family (Cousin, brothers) Occupation: Unemployed H&P Review of Systems - Review of Systems: Review Of Systems: See Below General: Reports: Weakness, Fatigue. Denies: Fever, Chills, Malaise HEENT: Reports: No Symptoms. Denies: Eye Pain, Rhinitis, Sore Throat, Vertigo Pulmonary: Reports: No Symptoms. Denies: Shortness of Breath, Wheezing, Pleuritic Chest Pain, Cough, Sputum Cardiovascular: Reports: No Symptoms. Denies: Chest Pain, Palpitations, Dyspnea on Exertion, Edema, Lightheadedness Gastrointestinal: Reports: Abdominal Pain (epigastric ), Decreased Appetite, Nausea. Denies: Constipation, Diarrhea, Vomiting Genitourinary: Reports: No Symptoms. Denies: Pain Musculoskeletal: Reports: No Symptoms Skin: Reports: No Symptoms. Denies: Cyanosis, Jaundice, Erythema Psychiatric: Reports: Anxiety. Denies: Confusion, Hallucinations Neurological: Reports: Difficulty Walking, Gait Disturbance. Denies: Confusion , Headache, Numbness, Tingling, Trouble Speaking, Weakness, Change in Speech Hematologic/Lymphatic: Reports: No Symptoms Immunologic: Reports: No Symptoms Exam - Exam Exam: See Below - Vital Signs Vital Signs: Last Vital Signs Temp 99.1 F 11/18/18 04:00 Pulse 114 H 11/17/18 23:17 Resp 20 11/18/18 04:00 BP 112/73 11/18/18 04:00 Pulse Ox 92 L 11/18/18 04:00 Orthostatic Blood Pressure [ 146/89 Standing] Orthostatic Blood Pressure [ 145/86 Sitting] Orthostatic Blood Pressure [ 130/74 Supine] Weight: 237 lb - Exam Quality Assessment: DVT Prophylaxis General: Alert, Oriented, Cooperative, Mild Distress (starting to withdrawl ) HEENT: Conjunctiva Clear, EACs Clear, EOMI, Hearing Intact, Mucosa Moist & [place] , Nares Patent, Posterior Pharynx Clear, PERRLA Neck: Supple, Trachea Midline Lungs: Clear to Auscultation, Normal Respiratory Effort Cardiovascular: Regular Rhythm, Tachycardia GI/Abdominal Exam: Normal Bowel Sounds, Soft, No Distention, No Abnormal Bruit, Tender (Epigastric ) (Female) Exam: Deferred Rectal (Female) Exam: Deferred Extremities: Normal Inspection, Normal Range of Motion, Non-Tender, No Pedal Edema, Normal Capillary Refill Peripheral Pulses: 4+: Radial (L), Radial (R), Dorsalis Pedis (L), Dorsalis Pedis (R) Skin: Warm, Dry, Intact Neurological: Cranial Nerves Intact (grossly ) Psychiatric: Alert, Anxious, Withdrawal Symptoms. No: Agitated, Suicidal Ideation, Hallucinations - Patient Data Lab Results Last 24 hrs: Laboratory Results - last 24 hr 11/18/18 11/18/18 11/18/18 Range/Units 00:17 00:17 00:17 WBC 5.57 (3.98-10.04) K/mm3 RBC 3.79 L (3.98-5.22) M/mm3 Hgb 11.9 (11.2-15.7) gm/L Hct 36.9 (34.1-44.9) % MCV 97.4 H (79.4-94.8) fl MCH 31.4 (25.6-32.2) pg MCHC 32.2 (32.2-35.5) g/dl RDW Std Deviation 54.4 H (36.4-46.3) fL Plt Count 108 L (182-369) K/mm3 MPV 10.3 (9.4-12.3) fl Neutrophils % (Manual) 65 H (40-60) % Band Neutrophils % 0 (0-10) % Lymphocytes % (Manual) 22 (20-40) % Atypical Lymphs % 0 % Monocytes % (Manual) 12 H (2-10) % Eosinophils % (Manual) 0 L (0.7-5.8) % Basophils % (Manual) 1 (0.1-1.2) Platelet Estimate Decreased Plt Morphology Comment See note RBC Morph Comment Normal Puncture Site ABG pH (7.35-7.45) ABG pCO2 (35.0-45.0) mmHg ABG pO2 (80.0-100.0) mmHg ABG HCO3 (22.0-26.0) meq/L ABG O2 Saturation (96.0-97.0) % ABG Base Excess (-2-2.0) Gigi Test A-a Gradient mmHg FiO2 (21.00-100.00) % Sodium 142 (136-145) mEq/L Potassium 3.3 L (3.5-5.1) mEq/L Chloride 105 (98-107) mEq/L Carbon Dioxide 23 (21-32) mEq/L Anion Gap 17.3 H (5-15) BUN 4 L (7-18) mg/dL Creatinine 0.6 (0.55-1.02) mg/dL Est Cr Clr Drug Dosing 123.68 mL/min Estimated GFR (MDRD) > 60 (>60) mL/min BUN/Creatinine Ratio 6.7 L (14-18) Glucose 100 (74-106) mg/dL Calcium 8.2 L (8.5-10.1) mg/dL Magnesium 1.3 L (1.8-2.4) mg/dl Total Bilirubin 2.8 H (0.2-1.0) mg/dL AST 200 H (15-37) U/L ALT 68 H (14-59) U/L Alkaline Phosphatase 98 (46-116) U/L Total Protein 8.6 H (6.4-8.2) g/dl Albumin 3.0 L (3.4-5.0) g/dl Globulin 5.6 gm/dL Albumin/Globulin Ratio 0.5 L (1-2) Lipase 198 (73-393) U/L TSH 3rd Generation 0.073 L (0.358-3.74) uIU/mL Urine Color (Yellow) Urine Appearance (Clear) Urine pH (5.0-8.0) Ur Specific Filion (1.005-1.030) Urine Protein (Negative) Urine Glucose (UA) (Negative) Urine Ketones (Negative) Urine Occult Blood (Negative) Urine Nitrite (Negative) Urine Bilirubin (Negative) Urine Urobilinogen (0.2-1.0) Ur Leukocyte Esterase (Negative) Urine RBC (0-5) /hpf Urine WBC (0-5) /hpf Ur Epithelial Cells (0-5) /hpf Urine Bacteria (FEW) /hpf Urine Mucus (FEW) /hpf Urine HCG, Qual (NEGATIVE) Urine Opiates Screen (MCLFOJ=372) Ur Buprenorphine Scrn (CUTOFF=10) Ur Oxycodone Screen (SRV1KL=271) Urine Methadone Screen (YVHDXA=053) Ur Propoxyphene Screen (VEVBYH=667) Ur Barbiturates Screen (WGFNVK=094) Ur Tricyclics Screen (XQSFDH=575) Ur Phencyclidine Scrn (CUTOFF=25) Ur Amphetamine Screen (EZOJIX=992) U Methamphetamines Scrn (VWVRZB=718) U Benzodiazepines Scrn (FGSLLR=897) U Cocaine Metab Screen (SKFFFE=740) U Marijuana (THC) Screen (CUTOFF=50) Ethyl Alcohol 0.15 (0.00) gm% Ketones 0.37 (0.0-0.3) mM 11/18/18 11/18/18 11/18/18 Range/Units 00:30 00:41 00:47 WBC (3.98-10.04) K/mm3 RBC (3.98-5.22) M/mm3 Hgb (11.2-15.7) gm/L Hct (34.1-44.9) % MCV (79.4-94.8) fl MCH (25.6-32.2) pg MCHC (32.2-35.5) g/dl RDW Std Deviation (36.4-46.3) fL Plt Count (182-369) K/mm3 MPV (9.4-12.3) fl Neutrophils % (Manual) (40-60) % Band Neutrophils % (0-10) % Lymphocytes % (Manual) (20-40) % Atypical Lymphs % % Monocytes % (Manual) (2-10) % Eosinophils % (Manual) (0.7-5.8) % Basophils % (Manual) (0.1-1.2) Platelet Estimate Plt Morphology Comment RBC Morph Comment Puncture Site Rt radial ABG pH 7.62 H* (7.35-7.45) ABG pCO2 17.5 L* (35.0-45.0) mmHg ABG pO2 108.0 H (80.0-100.0) mmHg ABG HCO3 18.3 L (22.0-26.0) meq/L ABG O2 Saturation 99.3 H (96.0-97.0) % ABG Base Excess -1.0 (-2-2.0) Gigi Test Positive A-a Gradient 4 mmHg FiO2 21.00 (21.00-100.00) % Sodium (136-145) mEq/L Potassium (3.5-5.1) mEq/L Chloride (98-107) mEq/L Carbon Dioxide (21-32) mEq/L Anion Gap (5-15) BUN (7-18) mg/dL Creatinine (0.55-1.02) mg/dL Est Cr Clr Drug Dosing mL/min Estimated GFR (MDRD) (>60) mL/min BUN/Creatinine Ratio (14-18) Glucose (74-106) mg/dL Calcium (8.5-10.1) mg/dL Magnesium (1.8-2.4) mg/dl Total Bilirubin (0.2-1.0) mg/dL AST (15-37) U/L ALT (14-59) U/L Alkaline Phosphatase (46-116) U/L Total Protein (6.4-8.2) g/dl Albumin (3.4-5.0) g/dl Globulin gm/dL Albumin/Globulin Ratio (1-2) Lipase (73-393) U/L TSH 3rd Generation (0.358-3.74) uIU/mL Urine Color Paulino H (Yellow) Urine Appearance Clear (Clear) Urine pH 7.0 (5.0-8.0) Ur Specific Filion 1.025 (1.005-1.030) Urine Protein 2+ H (Negative) Urine Glucose (UA) Trace H (Negative) Urine Ketones 2+ H (Negative) Urine Occult Blood Negative (Negative) Urine Nitrite Negative (Negative) Urine Bilirubin 3+ H (Negative) Urine Urobilinogen >=8.0 H (0.2-1.0) Ur Leukocyte Esterase Negative (Negative) Urine RBC Not seen (0-5) /hpf Urine WBC Not seen (0-5) /hpf Ur Epithelial Cells 0-5 (0-5) /hpf Urine Bacteria Not seen (FEW) /hpf Urine Mucus Moderate H (FEW) /hpf Urine HCG, Qual Negative (NEGATIVE) Urine Opiates Screen (NABITL=340) Ur Buprenorphine Scrn (CUTOFF=10) Ur Oxycodone Screen (QEF0YL=697) Urine Methadone Screen (AFPDUY=666) Ur Propoxyphene Screen (YLHBZL=274) Ur Barbiturates Screen (ZBPPOX=342) Ur Tricyclics Screen (XRBQFM=767) Ur Phencyclidine Scrn (CUTOFF=25) Ur Amphetamine Screen (ICIAZB=026) U Methamphetamines Scrn (FCFEZA=162) U Benzodiazepines Scrn (EHHPWJ=403) U Cocaine Metab Screen (YFDKIS=815) U Marijuana (THC) Screen (CUTOFF=50) Ethyl Alcohol (0.00) gm% Ketones (0.0-0.3) mM 11/18/18 Range/Units 00:47 WBC (3.98-10.04) K/mm3 RBC (3.98-5.22) M/mm3 Hgb (11.2-15.7) gm/L Hct (34.1-44.9) % MCV (79.4-94.8) fl MCH (25.6-32.2) pg MCHC (32.2-35.5) g/dl RDW Std Deviation (36.4-46.3) fL Plt Count (182-369) K/mm3 MPV (9.4-12.3) fl Neutrophils % (Manual) (40-60) % Band Neutrophils % (0-10) % Lymphocytes % (Manual) (20-40) % Atypical Lymphs % % Monocytes % (Manual) (2-10) % Eosinophils % (Manual) (0.7-5.8) % Basophils % (Manual) (0.1-1.2) Platelet Estimate Plt Morphology Comment RBC Morph Comment Puncture Site ABG pH (7.35-7.45) ABG pCO2 (35.0-45.0) mmHg ABG pO2 (80.0-100.0) mmHg ABG HCO3 (22.0-26.0) meq/L ABG O2 Saturation (96.0-97.0) % ABG Base Excess (-2-2.0) Gigi Test A-a Gradient mmHg FiO2 (21.00-100.00) % Sodium (136-145) mEq/L Potassium (3.5-5.1) mEq/L Chloride (98-107) mEq/L Carbon Dioxide (21-32) mEq/L Anion Gap (5-15) BUN (7-18) mg/dL Creatinine (0.55-1.02) mg/dL Est Cr Clr Drug Dosing mL/min Estimated GFR (MDRD) (>60) mL/min BUN/Creatinine Ratio (14-18) Glucose (74-106) mg/dL Calcium (8.5-10.1) mg/dL Magnesium (1.8-2.4) mg/dl Total Bilirubin (0.2-1.0) mg/dL AST (15-37) U/L ALT (14-59) U/L Alkaline Phosphatase (46-116) U/L Total Protein (6.4-8.2) g/dl Albumin (3.4-5.0) g/dl Globulin gm/dL Albumin/Globulin Ratio (1-2) Lipase (73-393) U/L TSH 3rd Generation (0.358-3.74) uIU/mL Urine Color (Yellow) Urine Appearance (Clear) Urine pH (5.0-8.0) Ur Specific Filion (1.005-1.030) Urine Protein (Negative) Urine Glucose (UA) (Negative) Urine Ketones (Negative) Urine Occult Blood (Negative) Urine Nitrite (Negative) Urine Bilirubin (Negative) Urine Urobilinogen (0.2-1.0) Ur Leukocyte Esterase (Negative) Urine RBC (0-5) /hpf Urine WBC (0-5) /hpf Ur Epithelial Cells (0-5) /hpf Urine Bacteria (FEW) /hpf Urine Mucus (FEW) /hpf Urine HCG, Qual (NEGATIVE) Urine Opiates Screen Negative (FQAMLW=411) Ur Buprenorphine Scrn Negative (CUTOFF=10) Ur Oxycodone Screen Negative (LFE2WE=501) Urine Methadone Screen Negative (MZIFHE=474) Ur Propoxyphene Screen Negative (VSAEZW=096) Ur Barbiturates Screen Negative (RAMNQN=603) Ur Tricyclics Screen Negative (ZQQABK=209) Ur Phencyclidine Scrn Negative (CUTOFF=25) Ur Amphetamine Screen Negative (LJKZLZ=837) U Methamphetamines Scrn Negative (FZAOZP=383) U Benzodiazepines Scrn Presumptive positive H (OUHREL=463) U Cocaine Metab Screen Negative (XLAWWI=773) U Marijuana (THC) Screen Presumptive positive H (CUTOFF=50) Ethyl Alcohol (0.00) gm% Ketones (0.0-0.3) mM Result Diagrams: 11/18/18 00:17 11/18/18 00:17 - Problem List (1) Alcohol dependence, binge pattern SNOMED Code(s): 112521774, 389373372 ICD Code: F10.20 - ALCOHOL DEPENDENCE, UNCOMPLICATED Status: Acute Priority: High Current Visit: Yes (2) Alcohol intoxication SNOMED Code(s): 58370803 ICD Code: F10.929 - ALCOHOL USE, UNSPECIFIED WITH INTOXICATION, UNSPECIFIED Status: Acute Priority: High Current Visit: Yes Qualifiers: Complication of substance-induced condition: with unspecified complication Qualified Code(s): F10.929 - Alcohol use, unspecified with intoxication, unspecified (3) Alcohol withdrawal SNOMED Code(s): 677796677 ICD Code: F10.239 - ALCOHOL DEPENDENCE WITH WITHDRAWAL, UNSPECIFIED Status : Acute Priority: High Current Visit: Yes Qualifiers: Complication of substance-induced condition: with unspecified complication Qualified Code(s): F10.239 - Alcohol dependence with withdrawal, unspecified (4) Hyperthyroidism SNOMED Code(s): 32582209 ICD Code: E05.90 - THYROTOXICOSIS, UNSP WITHOUT THYROTOXIC CRISIS OR STORM Status: Chronic Priority: Medium Current Visit: Yes (5) Hypokalemia SNOMED Code(s): 17492125 ICD Code: E87.6 - HYPOKALEMIA Status: Acute Priority: High Current Visit: Yes (6) Hypomagnesemia SNOMED Code(s): 435147825 ICD Code: E83.42 - HYPOMAGNESEMIA Status: Acute Priority: High Current Visit: Yes (7) Marijuana abuse SNOMED Code(s): 65838759 ICD Code: F12.10 - CANNABIS ABUSE, UNCOMPLICATED Status: Chronic Priority : Medium Current Visit: Yes Problem List Initiated/Reviewed/Updated: Yes Orders Last 24hrs: Active Orders 24 hr Category Date Time Status Patient Status [ADT] Routine ADT 11/18/18 01:38 Active CIWAA Assessment [RC] Q1HR Care 11/18/18 02:29 Active Orthostatic Vital Signs [RC] STAT Care 11/18/18 00:12 Active Up With Assistance [RC] ASDIRECTED Care 11/18/18 02:27 Active Regular Diet [DIET] Diet 11/18/18 Breakfast Active Chest 1V Frontal [CR] Stat Exams 11/18/18 00:11 Taken LORazepam [Ativan] Med 11/18/18 02:28 Active 1 mg IVPUSH Q4H PRN Ondansetron [Zofran] Med 11/18/18 02:27 Active 4 mg IVPUSH Q6H PRN Sodium Chloride 0.9% [Normal Saline] 1,000 ml Med 11/18/18 01:45 Active IV ASDIRECTED Code Status [Resuscitation Status] Routine Resus Stat 11/18/18 02:30 Ordered Medication Orders Sodium Chloride (Normal Saline) 1,000 mls @ 150 mls/hr IV ASDIRECTED HALINA Last Admin: 11/18/18 01:41 Dose: 150 mls/hr Lorazepam (Ativan) 1 mg IVPUSH Q4H PRN; Protocol PRN Reason: Withdrawal Symptoms Ondansetron HCl (Zofran) 4 mg IVPUSH Q6H PRN PRN Reason: Nausea/Vomiting Assessment/Plan Comment:: I/P: Acute: ETOH Withdrawal Symptoms/DT - CIWA protocol: CIWA score has been 0 thus far - Was reportedly hallucinating in ED - Reported history of ETOH seizures - PRN Librium - Scheduled Topamax/Seroquel - MVI/Thiamine/Folic acid - Hydralzine and IVP BB for HR/BP control - Ativan for Abortive Seizure and Withdrawal Symptoms - Tele-psych and SA consult - Aspiration and seizure precautions Alcohol Abuse - Acute on Chronic - Risk factors: Unemployed, Hx/o ETOH abuse within family, Daily marijuana use, untreated anxiety - She reportedly drinks 12 small bottles of 99 bananas daily (99 proof schnapps, 1.7 fl oz. per bottle) - CIWA Protocol as above - ETOH 0.15 in ED - SA consult Hx/o Poly-Substance Abuse - Daily Marijuana user - UDS: Positive for marijuana and benzos (was given ativan piror to urine being obtained) - Counseled on Substance Abuse - SA/Psych consult Hyperthyroidism - TSH 0.073 - Has history of known hyperthyroidism which is untreated - T4 1.71 - Free T3 ordered Hypokalemia - Potassium 3.3 in ED - Pharmayc to monitor and supplement Hypomagnesemia - Magnesium 1.3 in ED - 2gm magnesium given in ED - Pharmacy to monitor and supplement Abdominal pain - Epigastric location - Likely 2/2 above - "I think it hurts because I had been puking so much" - Worse on palpation - Hx/o untreated GERD, heavy ETOH use - H2 reji daily - Abdominal/Pelvic CT ordered Chronic: Untreated GERD ETOH Seizures Untreated anxiety ETOH addiction Untreated Hyperthyroidism Obesity Plan: Admit to ICU Other orders as indicated above Routine AM lab draws Home medications as ordered SW/CM d/c planning DVT/PE prophylaxis: SCDs GI Prophylaxis/GERD treatment: Pepcid Code Status: Full code; PCP: Dr. Redding
[2018-11-18] MEDS ORDERED: Albuterol/Ipratropium 3.0-0.5 MG/3 ML Neb Soln NEB PRN (06:33)
[2018-11-18] MEDS ORDERED: Ondansetron 4 MG Tab.DIS PO PRN (06:33)
[2018-11-18] MEDS ORDERED: Acetaminophen 325 MG Tab PO PRN (06:33)
[2018-11-18] MEDS ORDERED: hydrALAZINE 20 MG/ML SDV IVPUSH PRN (06:36)
[2018-11-18] MEDS ORDERED: Metoprolol Tartrate 5 MG/5 ML SDV IVPUSH PRN (06:36)
[2018-11-18] MEDS ORDERED: Magnesium Oxide 400 MG Tab PO SCH (07:00)
--- NOTE | 2018-11-18 07:03 | CR ---
Chest: Portable view of the chest was obtained. Comparison: Prior chest x-ray of 08/01/18. Heart size and mediastinum are within normal limits for portable technique. Lungs are clear with no acute parenchymal change. Bony structures are grossly intact. Impression: 1. Nothing acute is identified on portable chest x-ray. Diagnostic code #1
[2018-11-18] MEDS: Potassium Chloride 20 MEQ Tab.ER PO SCH ×2 (07:53→12:04)
[2018-11-18] MEDS: Topiramate 25 MG Tab PO SCH ×2 (08:08→20:31)
[2018-11-18] MEDS: Famotidine 20 MG Tab PO SCH ×2 (08:08→20:31)
[2018-11-18] MEDS: Thiamine 100 MG Tab PO SCH (08:08)
[2018-11-18] MEDS: Folic Acid 1 MG Tab PO SCH (08:08)
[2018-11-18] MEDS: Multivitamins,Therapeutic Tab PO SCH (08:08)
[2018-11-18] MEDS: chlordiazePOXIDE 25 MG Cap PO PRN (12:04)
--- NOTE | 2018-11-18 14:20 | CT ---
CT abdomen and pelvis Technique: Multiple axial sections were obtained from above the dome of the diaphragm inferiorly through the pubic symphysis. Intravenous and oral contrast not utilized. Comparison: No prior CT abdomen or pelvis exam, previous abdominal x-ray of 03/31/18. Findings: Visualized lung bases shows slight atelectasis and/or scarring within both lung bases. Diffuse fatty infiltration is seen throughout the liver. Spleen appears within normal limits. Adrenal glands show no nodule. Pancreas is within normal limits. Kidneys show no abnormal calcifications or hydronephrosis. Gallbladder shows minimal calcification suspicious for small gallstones. Aorta shows no aneurysm. No retroperitoneal adenopathy or mesenteric abnormalities are seen. There is fat being seen within the colonic wall. Appendix is seen and is normal in size. No pelvic mass or adenopathy is seen. No free fluid or inflammatory change is identified. Bone window settings were reviewed which appear within normal limits for the patient's age. Impression: 1. Fatty infiltration throughout the liver. 2. Fatty change within the colonic wall raising the possibility of change from chronic inflammation. Please correlate with the patient's symptoms. 3. Possible small gallstones. 3. No acute abnormality is appreciated. Diagnostic code #3
[2018-11-18] MEDS: QUEtiapine 25 MG Tab PO SCH (20:31)
[2018-11-19] MEDS: chlordiazePOXIDE 25 MG Cap PO PRN (00:56)
[2018-11-19] MEDS: Sodium Chloride 0.9% 1,000 ML IV SCH ×3 (04:51→20:11)
[2018-11-19] MEDS: Thiamine 100 MG Tab PO SCH (10:15)
[2018-11-19] MEDS: Famotidine 20 MG Tab PO SCH ×2 (10:15→20:15)
[2018-11-19] MEDS: Folic Acid 1 MG Tab PO SCH (10:15)
[2018-11-19] MEDS: Multivitamins,Therapeutic Tab PO SCH (10:15)
[2018-11-19] MEDS: Topiramate 25 MG Tab PO SCH ×2 (10:16→20:15)
[2018-11-19] MEDS: chlordiazePOXIDE 25 MG Cap PO SCH ×2 (12:36→20:15)
--- NOTE | 2018-11-19 13:45 | PN ---
DATE OF SERVICE: 11/19/2018 TIME: 1258 hours. IDENTIFICATION: The patient is a 33-year-old woman, who was admitted to [facility] on 11/18/2018. An alcohol and drug evaluation was requested by her medical treatment team. SOURCE OF INFORMATION: Hospital records, staff report, background research, prescription drug monitoring report. An GORGE was signed to speak with her sister, Carrie. HISTORY OF PRESENT ILLNESS: The patient is a 33-year-old woman, who was admitted to [facility] on 11/18/2018 with complaints of feeling lightheaded for the past 4 days, having a sharp pain in her left upper abdomen, blurry vision, confusion, and possible visual hallucinations secondary to chronic alcoholism and intoxication. Her admitting ASHLYN is 0.15 with a presumptive positive for THC. The patient has presented 15 times in the past year with alcohol-related issues and has been experiencing alcohol-related seizures with decreased levels of alcohol in her system. She is experiencing significant alcohol withdrawal currently including possible alcohol hallucinosis, even at a ASHLYN 0.15, increasing her risk of severe withdrawals when her ASHLYN zeros out. The patient is also presenting with hyperthyroidism, untreated. PSYCHOSOCIAL HISTORY: The patient reports that she was born in [place], [place], and raised in [place], [place], by her biological parents. She reports that her mother moved to [place] when she was young, and she lived with her father and/or her auntie in [place] until she was about age 16. The patient reports that she dropped out of [employer] in the 10th grade after her auntie and moved to [place] to live with her mother. Her mother in 2003. The patient reports she has 4 brothers, one is , and 3 sisters, and she currently lives with her brother, Tru, and sister, Ashtyn, in an apartment in [place]. Her father is still living, and she reports having a relationship with him. 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 The patient reports that she has never been and is not currently involved in any significant relationship. The patient has no children. MENTAL HEALTH HISTORY: The patient's mental health history is deferred on this evaluation pending Dr. Escobedo's mental health assessment and diagnosis. The patient is reporting that her cousin recently and that she has been experiencing sadness and grief. SUBSTANCE ABUSE HISTORY: Tobacco: The patient reports that she is a never smoker. Alcohol: The patient's self-report is minimal; however, she is amenable to this evaluation and verbalizes she wants to address her substance use. The patient reports that she started drinking alcohol at age 14, and from 14 to 20, she drank on the weekends, 1 to 3 days, typically drinking one to two 40-ounce beers per occasion. From age 20 to 24, she reports drinking "3 good mixes; Holland, Coke, and beer" per occasion. When asked about how many beers she could drink, she states "5 to 6." From age 24 to 29, the patient reports drinking primarily on the weekends, 1 to 3 days, and she would share a gallon of vodka or whiskey with 5 or 6 other people per occasion. In 2012, she was arrested for APC and was put on the 24/05 program for short time. She states that she began drinking in a binge pattern at age 29 and would drink 3 to 4 days, all day every day, and then take a couple days off and start again. At age 29, she reports drinking during the binge days at least 6 shooters of 99 Bananas or schnapps and "maybe beer." The last several years she reports to ER staff that she has been drinking daily, about twelve 99 Banana shooters a day. ER staff calculates that this amount is equivalent to 17 shots of liquor daily. Research into past ER visits indicates that the patient has been drinking whiskey, vodka, and more beer per occasion as well. One admission, she drank four 40-ounce beers prior to admission. Another admission indicates, the client presented with a ASHLYN 0.38 after drinking 10 shots of vodka and 4 banana shooters. With the variance of self-report over the past 15 ER visits, it is possible to conclude that the patient may drink vodka, whiskey, 99 Bananas, schnapps, and beer depending on the occasion and may drink to fatal levels as indicated by her drug and alcohol lab tests. The patient currently presents with significant withdrawals at a ASHLYN 0.15, which may indicate that her body requires a much higher ASHLYN level to feel "normal." The patient reports her last drink was prior to admission. She also reports that she has had prior substance abuse residential treatment at [facility], but she states she could not pay the bill and did complete the program. The patient has had multiple alcohol and drug evaluations in the past for illegal substance related offenses. The patient reports that most members of her family have drug or alcohol problems. The patient also has experienced pass-out blackout, and delirium tremens. Cannabis: The patient reports that she started smoking cannabis at age 12. During her teen years, she reports smoking every day about 2 joints a day. When asked if this everyday pattern has continued, she replies "yes, but I quit in July." When asked why she quit in July, she replies "I just got tired of it." The patient did report to ER staff that upon admission she smoked cannabis regularly. The last time the patient reports smoking was prior to admission, but she adds that she only smoked because her cousin . She is denying withdrawals, however, it is unclear if she has totally quit smoking cannabis or not. The patient denies all other illicit or illicit substance use. DIAGNOSES: The patient meets DSM-5 criteria for the following diagnoses: 1. F10.20, alcohol use disorder, severe. 2. F10.229, alcohol intoxication. 3. F10.232, alcohol withdrawal with perceptual disturbance. 4. F12.20, cannabis use disorder, severe. ASAM DIMENSIONS: Dimension 1: Score of 3. The patient presents with a ASHLYN 0.15. She demonstrates poor ability to tolerate and cope with withdrawal discomfort. The patient displays severe signs and symptoms of risk of withdrawal, but manageable with medical intervention. Dimension 2: Score 1. The patient presents with mild to moderate signs and symptoms of hyperthyroidism that may interfere with daily functioning, but treated would likely not interfere with recovery or treatment. Dimension 3: Score 1. The patient is reporting grief issues and these emotional concerns may relate to negative consequences and effects of addiction. Diagnosis is deferred pending Dr. Escobedo's mental health evaluation. Dimension 4: Score 3. The patient has historically been unable to achieve and maintain sobriety for any length of time. Even though she may have expressed a desire to quit drinking, she exhibits inconsistent followthrough and minimal awareness of her addiction and its complications. The patient appears to be only partially able to follow through with treatment recommendations. Dimension 5: Score 3. The patient appears to have poor skills to cope with and interrupt addiction problems or to avoid or limit relapse or continued use. The patient appears to have severe craving with minimal or sporadic ability to resist. The patient appears to be substantially affected by external influences, and she demonstrates frequent use of alcohol 3 or more times a week and frequent use of cannabis more than 3 times a week. Dimension 6. Score of 3. The patient's environment appears to be not supportive of addiction recovery and coping is difficult even with clinical structure. The patient lives with people in the household who are currently dependent or abusing. The patient appears to have a subcultural norm that encourages abusive use, alcohol and drugs are readily available, and are preferred leisure and recreational activity. ASSESSMENT SUMMARY: The patient presents with chronic severe polysubstance dependence, alcohol and cannabis, which is resulting in significant withdrawal symptoms including alcohol-related seizures manifesting at high intoxication levels. On this admission, withdrawal presents at ASHLYN 0.15. The patient requires hospitalization to manage withdrawal symptoms. She is also presenting with unmanaged hyperthyroidism exacerbated by alcohol use. The patient reports that her cousin recently and that she has drank excessively in response. She apparently has been drinking chronically for at least the past 5 years and is now to the point where her body needs the presence of alcohol to continue to function. The patient displays symptoms that indicate she is in late stage III alcoholism as she is still able to have some insight into her alcohol use and some desire to quit. The patient is verbalizing that she wants to quit drinking, however, because of the nature of addiction, even though the patient may have the desire, the patient consistently demonstrates the inability to achieve sobriety on her own. At this stage, stage III, the psychological and biological addiction to alcohol necessitates professional intervention to assist the patient in achieving and maintaining sobriety. Several phone calls were placed to [facility], [facility], and [email or web address] in an attempt to transfer this patient to an [facility] approved treatment center, either in [place] or [place]. The patient was informed of the efforts to place her in one of these treatment centers. However, the patient is un- amenable to leave her family and is only willing to follow through with continued care at [facility]. A phone call was placed to her sister, Ashtyn, to discuss treatment options with family. However, her sister was at work and could not talk. A followup phone call to the patient's sister will be made this weekend at her request. The patient's evaluation was discussed with Dr. Juárez and SARAH Estrella. There is a concern that if discharged without any involuntary commitment, this patient will not be able to follow through with substance abuse treatment and may ultimately re-present to [facility] ER with similar symptoms as she has been admitted to ER approximately every 10 days since October 2018. The patient meets ASAM imminent danger criteria for a petition for involuntary commitment as well as meets ASAM criteria for a level 3.1 when medically stable. A petition for involuntary commitment was executed on 11/18/2018 for the patient to be admitted to [facility] or any admitting facility. RECOMMENDATIONS: The patient meets ASAM criteria for a level 3.1 clinically managed low intensity residential treatment. A petition for involuntary commitment was executed on 11/18/2018 for admission to [facility] or any admitting facility. WHITLEY /[id number]
--- NOTE | 2018-11-19 15:24 | PCM.PN ---
- General Info Date of Service: 11/19/18 Functional Status: Reports: Tolerating Diet, Urinating - Review of Systems General: Reports: Weakness HEENT: Reports: No Symptoms Pulmonary: Reports: No Symptoms Cardiovascular: Reports: No Symptoms Gastrointestinal: Reports: No Symptoms Genitourinary: Reports: No Symptoms Musculoskeletal: Reports: No Symptoms Skin: Reports: No Symptoms Neurological: Reports: No Symptoms - Patient Data Vitals - Most Recent: Last Vital Signs Temp 37.1 C 11/19/18 11:53 Pulse 96 11/19/18 11:53 Resp 20 11/19/18 11:53 BP 112/51 L 11/19/18 11:53 Pulse Ox 96 11/19/18 11:53 Orthostatic Blood Pressure [ 146/89 Standing] Orthostatic Blood Pressure [ 145/86 Sitting] Orthostatic Blood Pressure [ 130/74 Supine] Weight - Most Recent: 108 kg I&O - Last 24 Hours: Intake & Output 11/19/18 11/19/18 11/19/18 06:59 14:59 22:59 Intake Total 1134 240 Balance 1134 240 Lab Results Last 24 Hours: Laboratory Results - last 24 hr 11/19/18 11/19/18 Range/Units 05:55 05:55 WBC 4.88 (3.98-10.04) K/mm3 RBC 3.59 L (3.98-5.22) M/mm3 Hgb 11.3 (11.2-15.7) gm/L Hct 36.1 (34.1-44.9) % MCV 100.6 H (79.4-94.8) fl MCH 31.5 (25.6-32.2) pg MCHC 31.3 L (32.2-35.5) g/dl RDW Std Deviation 55.7 H (36.4-46.3) fL Plt Count 87 L (182-369) K/mm3 MPV 10.8 (9.4-12.3) fl Neut % (Auto) 58.6 (34.0-71.1) % Lymph % (Auto) 28.5 (19.3-51.7) % [place] % (Auto) 11.5 (4.7-12.5) % Eos % (Auto) 1.2 (0.7-5.8) Baso % (Auto) 0.2 (0.1-1.2) % Neut # (Auto) 2.86 (1.56-6.13) K/mm3 Lymph # (Auto) 1.39 (1.18-3.74) K/mm3 [place] # (Auto) 0.56 H (0.24-0.36) K/mm3 Eos # (Auto) 0.06 (0.04-0.36) K/mm3 Baso # (Auto) 0.01 (0.01-0.08) K/mm3 Manual Slide Review Abnormal smear Sodium 137 (136-145) mEq/L Potassium 4.5 (3.5-5.1) mEq/L Chloride 105 (98-107) mEq/L Carbon Dioxide 25 (21-32) mEq/L Anion Gap 11.5 (5-15) BUN 3 L (7-18) mg/dL Creatinine 0.6 (0.55-1.02) mg/dL Est Cr Clr Drug Dosing 123.68 mL/min Estimated GFR (MDRD) > 60 (>60) mL/min BUN/Creatinine Ratio 5.0 L (14-18) Glucose 87 (74-106) mg/dL Calcium 8.1 L (8.5-10.1) mg/dL Magnesium 2.0 (1.8-2.4) mg/dl Total Bilirubin 4.8 H (0.2-1.0) mg/dL AST 128 H (15-37) U/L ALT 55 (14-59) U/L Alkaline Phosphatase 89 (46-116) U/L Total Protein 7.7 (6.4-8.2) g/dl Albumin 2.6 L (3.4-5.0) g/dl Globulin 5.1 gm/dL Albumin/Globulin Ratio 0.5 L (1-2) Med Orders - Current: Current Medications Acetaminophen (Tylenol) 650 mg PO Q4H PRN PRN Reason: Pain (Mild 1-3)/fever Albuterol/Ipratropium (Duoneb 3.0-0.5 Mg/3 Ml) 3 ml NEB Q4H PRN PRN Reason: Shortness Of Breath/wheezing Chlordiazepoxide HCl (Librium) 25 mg PO Q12HR [facility] Last Admin: 11/19/18 12:36 Dose: 25 mg Famotidine (Pepcid) 20 mg PO BID [facility] Last Admin: 11/19/18 10:15 Dose: 20 mg Folic Acid (Folic Acid) 1 mg PO DAILY [facility] Last Admin: 11/19/18 10:15 Dose: 1 mg Hydralazine HCl (Apresoline) 20 mg IVPUSH Q4H PRN PRN Reason: Hypertension Sodium Chloride (Normal Saline) 1,000 mls @ 150 mls/hr IV ASDIRECTED [facility] Last Admin: 11/19/18 11:50 Dose: 150 mls/hr Lorazepam (Ativan) 1 mg IVPUSH Q4H PRN; Protocol PRN Reason: Withdrawal Symptoms Lorazepam (Ativan) 2 mg IVPUSH Q4H PRN PRN Reason: Seizures Metoprolol Tartrate (Lopressor) 5 mg IVPUSH Q4H PRN PRN Reason: Tachycardia Multivitamins (Thera) 1 each PO DAILY [facility] Last Admin: 11/19/18 10:15 Dose: 1 each Ondansetron HCl (Zofran) 4 mg IVPUSH Q6H PRN PRN Reason: Nausea/Vomiting Ondansetron HCl (Zofran Odt) 4 mg PO Q6H PRN PRN Reason: nausea, able to take PO Quetiapine Fumarate (Seroquel) 25 mg PO BEDTIME [facility] Last Admin: 11/18/18 20:31 Dose: 25 mg Thiamine HCl (Vitamin B-1) 100 mg PO DAILY [facility] Last Admin: 11/19/18 10:15 Dose: 100 mg Topiramate (Topamax) 25 mg PO BID [facility] Last Admin: 11/19/18 10:16 Dose: 25 mg Discontinued Medications Chlordiazepoxide HCl (Librium) 25 mg PO Q8HR PRN PRN Reason: ETOH Withdrawls Last Admin: 11/19/18 00:56 Dose: 25 mg Sodium Chloride (Normal Saline) 1,000 mls @ 999 mls/hr IV ONETIME ONE Stop: 11/18/18 01:14 Last Admin: 11/18/18 00:32 Dose: 999 mls/hr Magnesium Sulfate 2 gm/ Premix 50 mls @ 50 mls/hr IV ONETIME ONE Stop: 11/18/18 01:56 Last Admin: 11/18/18 01:13 Dose: 50 mls/hr Magnesium Sulfate 2 gm/ Premix 50 mls @ 25 mls/hr IV ONETIME ONE Stop: 11/18/18 10:29 Last Admin: 11/18/18 09:30 Dose: 25 mls/hr Influenza Virus Vaccine (Pharmacy To Dose - Influenza Vaccine) 1 each IM ONETIME ONE Stop: 11/18/18 14:00 Influenza Virus Vaccine (Fluzone Quad 0845-7501 Syringe) 60 mcg IM .ONCE ONE Stop: 11/18/18 14:16 Lorazepam (Ativan) 1 mg IVPUSH ONETIME STA Stop: 11/18/18 00:15 Last Admin: 11/18/18 00:33 Dose: 1 mg Lorazepam (Ativan) 1 mg IVPUSH ONETIME STA Stop: 11/18/18 00:52 Last Admin: 11/18/18 01:06 Dose: 1 mg Magnesium Oxide (Magnesium Oxide) 400 mg PO Q4H [facility] Stop: 11/18/18 11:01 Last Admin: 11/18/18 08:09 Dose: Not Given Magnesium Sulfate (Pharmacy To Dose - Magnesium Replacement) 1 dose .XX ASDIRECTED [facility] Ondansetron HCl (Zofran) 4 mg IVPUSH ONETIME ONE Stop: 11/18/18 00:15 Last Admin: 11/18/18 00:32 Dose: 4 mg Potassium Chloride (Pharmacy To Dose - Potassium Replacement) 1 dose .XX ASDIRECTED [facility] Potassium Chloride (Klor-Con M20) 20 meq PO Q4H [facility] Stop: 11/18/18 11:01 Last Admin: 11/18/18 12:04 Dose: 20 meq - Exam Quality Assessment: DVT Prophylaxis General: Alert, Oriented, Cooperative, No Acute Distress HEENT: Pupils Equal, Pupils Reactive, EOMI Neck: Trachea Midline, No JVD Lungs: Normal Respiratory Effort Cardiovascular: Regular Rate GI/Abdominal Exam: Normal Bowel Sounds, Soft, Non-Tender, No Organomegaly, No Distention (Female) Exam: Deferred Back Exam: Normal Inspection Extremities: Normal Inspection, Non-Tender, Normal Capillary Refill Skin: Warm Neurological: No New Focal Deficit Psy/Mental Status: Alert - Problem List & Annotations (1) Acute respiratory alkalosis SNOMED Code(s): 01723401 Code(s): E87.3 - ALKALOSIS Status: Acute Current Visit: Yes (2) Alcohol dependence, binge pattern SNOMED Code(s): 182683934, 998835495 Code(s): F10.20 - ALCOHOL DEPENDENCE, UNCOMPLICATED Status: Acute Priority: High Current Visit: Yes (3) Alcohol intoxication SNOMED Code(s): 21611121 Code(s): F10.929 - ALCOHOL USE, UNSPECIFIED WITH INTOXICATION, UNSPECIFIED Status: Acute Priority: High Current Visit: Yes Qualifiers: Complication of substance-induced condition: with unspecified complication Qualified Code(s): F10.929 - Alcohol use, unspecified with intoxication, unspecified (4) Alcohol withdrawal SNOMED Code(s): 687301893 Code(s): F10.239 - ALCOHOL DEPENDENCE WITH WITHDRAWAL, UNSPECIFIED Status: Acute Priority: High Current Visit: Yes Qualifiers: Complication of substance-induced condition: with unspecified complication Qualified Code(s): F10.239 - Alcohol dependence with withdrawal, unspecified (5) Hypokalemia SNOMED Code(s): 04652472 Code(s): E87.6 - HYPOKALEMIA Status: Acute Priority: High Current Visit : Yes (6) Hypomagnesemia SNOMED Code(s): 672301286 Code(s): E83.42 - HYPOMAGNESEMIA Status: Acute Priority: High Current Visit: Yes (7) Hyperthyroidism SNOMED Code(s): 78059951 Code(s): E05.90 - THYROTOXICOSIS, UNSP WITHOUT THYROTOXIC CRISIS OR STORM Status: Chronic Priority: Medium Current Visit: Yes (8) Marijuana abuse SNOMED Code(s): 30711693 Code(s): F12.10 - CANNABIS ABUSE, UNCOMPLICATED Status: Chronic Priority : Medium Current Visit: Yes (9) Alcohol abuse SNOMED Code(s): 93791288 Code(s): F10.10 - ALCOHOL ABUSE, UNCOMPLICATED Status: Acute Current Visit: No (10) Anxiety SNOMED Code(s): 61802202 Code(s): F41.9 - ANXIETY DISORDER, UNSPECIFIED Status: Acute Current Visit: No (11) Low TSH level SNOMED Code(s): 100444801 Code(s): R94.6 - ABNORMAL RESULTS OF THYROID FUNCTION STUDIES Status: Acute Current Visit: No - Problem List Review Problem List Initiated/Reviewed/Updated: Yes - My Orders Last 24 Hours: My Active Orders 11/19/18 12:39 Communication Order [RC] ROUTINE 11/19/18 13:00 chlordiazePOXIDE [Librium] 25 mg PO Q12HR 11/19/18 Dinner Clear Liquid Diet [DIET] 11/20/18 05:00 BILIRUBIN TOTAL [CHEM] Routine 11/20/18 Dinner NPO [Nothing Per Oral Diet] [DIET] 11/21/18 08:00 Abdomen Comp [US] Routine - Plan Plan:: I/P: Acute: ETOH Withdrawal Symptoms/DT - CIWA protocol: CIWA score has been 0 thus far - Was reportedly hallucinating in ED - Reported history of ETOH seizures - PRN Librium - Scheduled Topamax/Seroquel - MVI/Thiamine/Folic acid - Hydralzine and IVP BB for HR/BP control - Ativan for Abortive Seizure and Withdrawal Symptoms - Tele-psych and SA consult - Aspiration and seizure precautions Alcohol Abuse - Acute on Chronic - Risk factors: Unemployed, Hx/o ETOH abuse within family, Daily marijuana use, untreated anxiety - She reportedly drinks 12 small bottles of 99 bananas daily (99 proof schnapps, 1.7 fl oz. per bottle) - CIWA Protocol as above - ETOH 0.15 in ED - SA consult Hx/o Poly-Substance Abuse - Daily Marijuana user - UDS: Positive for marijuana and benzos (was given ativan piror to urine being obtained) - Counseled on Substance Abuse - SA/Psych consult Hyperthyroidism - TSH 0.073 - Has history of known hyperthyroidism which is untreated - T4 1.71 - Free T3 ordered Hypokalemia - Potassium 3.3 in ED - Pharmayc to monitor and supplement Hypomagnesemia - Magnesium 1.3 in ED - 2gm magnesium given in ED - Pharmacy to monitor and supplement Abdominal pain--needs abd US; elevated bilirubin, questionable GS - Epigastric location - Likely 2/2 above - "I think it hurts because I had been puking so much" - Worse on palpation - Hx/o untreated GERD, heavy ETOH use - H2 reji daily - Abdominal/Pelvic CT ordered Chronic: Untreated GERD ETOH Seizures Untreated anxiety ETOH addiction Untreated Hyperthyroidism Obesity Plan: Other orders as indicated above Routine AM lab draws Home medications as ordered SW/CM d/c planning DVT/PE prophylaxis: SCDs GI Prophylaxis/GERD treatment: Pepcid Code Status: Full code; PCP: Dr. Vahid FERNANDEZ Endo consult [facility] re: ETOH OP Psych
[2018-11-19] MEDS: QUEtiapine 25 MG Tab PO SCH (20:15)
[2018-11-20] MEDS: Sodium Chloride 0.9% 1,000 ML IV SCH ×5 (02:42→23:52)
[2018-11-20] MEDS: Topiramate 25 MG Tab PO SCH ×2 (08:49→20:57)
[2018-11-20] MEDS: Thiamine 100 MG Tab PO SCH (08:49)
[2018-11-20] MEDS: Folic Acid 1 MG Tab PO SCH (08:49)
[2018-11-20] MEDS: Multivitamins,Therapeutic Tab PO SCH (08:49)
[2018-11-20] MEDS: Famotidine 20 MG Tab PO SCH ×2 (08:50→20:57)
[2018-11-20] MEDS: chlordiazePOXIDE 25 MG Cap PO SCH ×2 (08:50→20:57)
--- NOTE | 2018-11-20 15:21 | PCM.PN ---
- General Info Date of Service: 11/20/18 Functional Status: Reports: Pain Controlled, Ambulating, Urinating - Review of Systems General: Reports: Weakness HEENT: Reports: No Symptoms Pulmonary: Reports: No Symptoms Cardiovascular: Reports: No Symptoms Gastrointestinal: Reports: No Symptoms Genitourinary: Reports: No Symptoms Musculoskeletal: Reports: No Symptoms Skin: Reports: No Symptoms Neurological: Reports: No Symptoms Psychiatric: Reports: No Symptoms - Patient Data Vitals - Most Recent: Last Vital Signs Temp 36.9 C 11/20/18 12:02 Pulse 98 11/20/18 12:02 Resp 16 11/20/18 12:02 BP 109/65 11/20/18 12:02 Pulse Ox 97 11/20/18 12:02 Orthostatic Blood Pressure [ 146/89 Standing] Orthostatic Blood Pressure [ 145/86 Sitting] Orthostatic Blood Pressure [ 130/74 Supine] Weight - Most Recent: 105.143 kg I&O - Last 24 Hours: Intake & Output 11/20/18 11/20/18 11/20/18 06:59 14:59 22:59 Intake Total 2525 500 360 Output Total 1200 Balance 1325 500 360 Lab Results Last 24 Hours: Laboratory Results - last 24 hr 11/20/18 11/20/18 11/20/18 Range/Units 06:45 06:45 06:45 WBC 6.01 (3.98-10.04) K/mm3 RBC 3.96 L (3.98-5.22) M/mm3 Hgb 12.6 (11.2-15.7) gm/L Hct 39.9 (34.1-44.9) % MCV 100.8 H (79.4-94.8) fl MCH 31.8 (25.6-32.2) pg MCHC 31.6 L (32.2-35.5) g/dl RDW Std Deviation 56.4 H (36.4-46.3) fL Plt Count 108 L (182-369) K/mm3 MPV 10.8 (9.4-12.3) fl Neut % (Auto) 63.8 (34.0-71.1) % Lymph % (Auto) 26.5 (19.3-51.7) % Grand % (Auto) 7.5 (4.7-12.5) % Eos % (Auto) 2.2 (0.7-5.8) Baso % (Auto) 0.0 L (0.1-1.2) % Neut # (Auto) 3.84 (1.56-6.13) K/mm3 Lymph # (Auto) 1.59 (1.18-3.74) K/mm3 Grand # (Auto) 0.45 H (0.24-0.36) K/mm3 Eos # (Auto) 0.13 (0.04-0.36) K/mm3 Baso # (Auto) 0.00 L (0.01-0.08) K/mm3 Sodium 138 (136-145) mEq/L Potassium 3.9 (3.5-5.1) mEq/L Chloride 107 (98-107) mEq/L Carbon Dioxide 23 (21-32) mEq/L Anion Gap 11.9 (5-15) BUN 3 L (7-18) mg/dL Creatinine 0.6 (0.55-1.02) mg/dL Est Cr Clr Drug Dosing 123.68 mL/min Estimated GFR (MDRD) > 60 (>60) mL/min BUN/Creatinine Ratio 5.0 L (14-18) Glucose 79 (74-106) mg/dL Calcium 8.5 (8.5-10.1) mg/dL Magnesium 1.9 (1.8-2.4) mg/dl Total Bilirubin 5.9 H (0.2-1.0) mg/dL Direct Bilirubin 4.10 H (0.0-0.2) mg/dl AST 104 H (15-37) U/L ALT 45 (14-59) U/L Alkaline Phosphatase 92 (46-116) U/L Total Protein 8.4 H (6.4-8.2) g/dl Albumin 2.8 L (3.4-5.0) g/dl Globulin 5.6 gm/dL Albumin/Globulin Ratio 0.5 L (1-2) Med Orders - Current: Current Medications Acetaminophen (Tylenol) 650 mg PO Q4H PRN PRN Reason: Pain (Mild 1-3)/fever Albuterol/Ipratropium (Duoneb 3.0-0.5 Mg/3 Ml) 3 ml NEB Q4H PRN PRN Reason: Shortness Of Breath/wheezing Chlordiazepoxide HCl (Librium) 25 mg PO Q12HR [facility] Last Admin: 11/20/18 08:50 Dose: 25 mg Famotidine (Pepcid) 20 mg PO BID [facility] Last Admin: 11/20/18 08:50 Dose: 20 mg Folic Acid (Folic Acid) 1 mg PO DAILY [facility] Last Admin: 11/20/18 08:49 Dose: 1 mg Hydralazine HCl (Apresoline) 20 mg IVPUSH Q4H PRN PRN Reason: Hypertension Sodium Chloride (Normal Saline) 1,000 mls @ 150 mls/hr IV ASDIRECTED [facility] Last Admin: 11/20/18 10:48 Dose: 150 mls/hr Lorazepam (Ativan) 1 mg IVPUSH Q4H PRN; Protocol PRN Reason: Withdrawal Symptoms Lorazepam (Ativan) 2 mg IVPUSH Q4H PRN PRN Reason: Seizures Metoprolol Tartrate (Lopressor) 5 mg IVPUSH Q4H PRN PRN Reason: Tachycardia Multivitamins (Thera) 1 each PO DAILY [facility] Last Admin: 11/20/18 08:49 Dose: 1 each Ondansetron HCl (Zofran) 4 mg IVPUSH Q6H PRN PRN Reason: Nausea/Vomiting Ondansetron HCl (Zofran Odt) 4 mg PO Q6H PRN PRN Reason: nausea, able to take PO Quetiapine Fumarate (Seroquel) 25 mg PO BEDTIME [facility] Last Admin: 11/19/18 20:15 Dose: 25 mg Thiamine HCl (Vitamin B-1) 100 mg PO DAILY [facility] Last Admin: 11/20/18 08:49 Dose: 100 mg Topiramate (Topamax) 25 mg PO BID [facility] Last Admin: 11/20/18 08:49 Dose: 25 mg Discontinued Medications Chlordiazepoxide HCl (Librium) 25 mg PO Q8HR PRN PRN Reason: ETOH Withdrawls Last Admin: 11/19/18 00:56 Dose: 25 mg Sodium Chloride (Normal Saline) 1,000 mls @ 999 mls/hr IV ONETIME ONE Stop: 11/18/18 01:14 Last Admin: 11/18/18 00:32 Dose: 999 mls/hr Magnesium Sulfate 2 gm/ Premix 50 mls @ 50 mls/hr IV ONETIME ONE Stop: 11/18/18 01:56 Last Admin: 11/18/18 01:13 Dose: 50 mls/hr Magnesium Sulfate 2 gm/ Premix 50 mls @ 25 mls/hr IV ONETIME ONE Stop: 11/18/18 10:29 Last Admin: 11/18/18 09:30 Dose: 25 mls/hr Influenza Virus Vaccine (Pharmacy To Dose - Influenza Vaccine) 1 each IM ONETIME ONE Stop: 11/18/18 14:00 Influenza Virus Vaccine (Fluzone Quad [id number] Syringe) 60 mcg IM .ONCE ONE Stop: 11/18/18 14:16 Lorazepam (Ativan) 1 mg IVPUSH ONETIME STA Stop: 11/18/18 00:15 Last Admin: 11/18/18 00:33 Dose: 1 mg Lorazepam (Ativan) 1 mg IVPUSH ONETIME STA Stop: 11/18/18 00:52 Last Admin: 11/18/18 01:06 Dose: 1 mg Magnesium Oxide (Magnesium Oxide) 400 mg PO Q4H [facility] Stop: 11/18/18 11:01 Last Admin: 11/18/18 08:09 Dose: Not Given Magnesium Sulfate (Pharmacy To Dose - Magnesium Replacement) 1 dose .XX ASDIRECTED [facility] Ondansetron HCl (Zofran) 4 mg IVPUSH ONETIME ONE Stop: 11/18/18 00:15 Last Admin: 11/18/18 00:32 Dose: 4 mg Potassium Chloride (Pharmacy To Dose - Potassium Replacement) 1 dose .XX ASDIRECTED [facility] Potassium Chloride (Klor-Con M20) 20 meq PO Q4H [facility] Stop: 11/18/18 11:01 Last Admin: 11/18/18 12:04 Dose: 20 meq - Exam Quality Assessment: Supplemental Oxygen, DVT Prophylaxis General: Alert, Cooperative, No Acute Distress HEENT: Pupils Equal, Pupils Reactive, EOMI, Scleral Icterus Neck: Trachea Midline, No JVD Lungs: Normal Respiratory Effort, Decreased Breath Sounds Cardiovascular: Regular Rate, Regular Rhythm GI/Abdominal Exam: Normal Bowel Sounds, Soft, Non-Tender, No Organomegaly, No Distention (Female) Exam: Deferred Back Exam: Normal Inspection Extremities: Normal Inspection, Normal Capillary Refill Skin: Warm Neurological: No New Focal Deficit Psy/Mental Status: Alert - Problem List & Annotations (1) Acute respiratory alkalosis SNOMED Code(s): 75895493 Code(s): E87.3 - ALKALOSIS Status: Acute Current Visit: Yes (2) Alcohol dependence, binge pattern SNOMED Code(s): 190797121, 197018566 Code(s): F10.20 - ALCOHOL DEPENDENCE, UNCOMPLICATED Status: Acute Priority: High Current Visit: Yes (3) Alcohol intoxication SNOMED Code(s): 76945421 Code(s): F10.929 - ALCOHOL USE, UNSPECIFIED WITH INTOXICATION, UNSPECIFIED Status: Acute Priority: High Current Visit: Yes Qualifiers: Complication of substance-induced condition: with unspecified complication Qualified Code(s): F10.929 - Alcohol use, unspecified with intoxication, unspecified (4) Alcohol withdrawal SNOMED Code(s): 957724339 Code(s): F10.239 - ALCOHOL DEPENDENCE WITH WITHDRAWAL, UNSPECIFIED Status: Acute Priority: High Current Visit: Yes Qualifiers: Complication of substance-induced condition: with unspecified complication Qualified Code(s): F10.239 - Alcohol dependence with withdrawal, unspecified (5) Hypokalemia SNOMED Code(s): 18921705 Code(s): E87.6 - HYPOKALEMIA Status: Acute Priority: High Current Visit : Yes (6) Hypomagnesemia SNOMED Code(s): 321438499 Code(s): E83.42 - HYPOMAGNESEMIA Status: Acute Priority: High Current Visit: Yes (7) Hyperthyroidism SNOMED Code(s): 97303456 Code(s): E05.90 - THYROTOXICOSIS, UNSP WITHOUT THYROTOXIC CRISIS OR STORM Status: Chronic Priority: Medium Current Visit: Yes (8) Marijuana abuse SNOMED Code(s): 71366803 Code(s): F12.10 - CANNABIS ABUSE, UNCOMPLICATED Status: Chronic Priority : Medium Current Visit: Yes (9) Alcohol abuse SNOMED Code(s): 71253340 Code(s): F10.10 - ALCOHOL ABUSE, UNCOMPLICATED Status: Acute Current Visit: No (10) Anxiety SNOMED Code(s): 35321505 Code(s): F41.9 - ANXIETY DISORDER, UNSPECIFIED Status: Acute Current Visit: No (11) Low TSH level SNOMED Code(s): 280330296 Code(s): R94.6 - ABNORMAL RESULTS OF THYROID FUNCTION STUDIES Status: Acute Current Visit: No (12) Hyperbilirubinemia SNOMED Code(s): 03148955 Code(s): E80.6 - OTHER DISORDERS OF BILIRUBIN METABOLISM Status: Acute Current Visit: Yes - Problem List Review Problem List Initiated/Reviewed/Updated: Yes - My Orders Last 24 Hours: My Active Orders 11/19/18 Dinner Clear Liquid Diet [DIET] 11/20/18 09:17 AIME Hose [Antiembolic Hose] [OM.PC] Routine 11/20/18 Dinner NPO [Nothing Per Oral Diet] [DIET] 11/21/18 08:00 Abdomen Comp [US] Routine - Plan Plan:: I/P: Acute: ETOH Withdrawal Symptoms/DT - CIWA protocol: CIWA score has been 0 thus far - Was reportedly hallucinating in ED - Reported history of ETOH seizures - PRN Librium - Scheduled Topamax/Seroquel - MVI/Thiamine/Folic acid - Hydralzine and IVP BB for HR/BP control - Ativan for Abortive Seizure and Withdrawal Symptoms - Tele-psych and SA consult - Aspiration and seizure precautions Alcohol Abuse - Acute on Chronic - Risk factors: Unemployed, Hx/o ETOH abuse within family, Daily marijuana use, untreated anxiety - She reportedly drinks 12 small bottles of 99 bananas daily (99 proof schnapps, 1.7 fl oz. per bottle) - CIWA Protocol as above - ETOH 0.15 in ED - SA consult Hx/o Poly-Substance Abuse - Daily Marijuana user - UDS: Positive for marijuana and benzos (was given ativan piror to urine being obtained) - Counseled on Substance Abuse - SA/Psych consult Hyperthyroidism - TSH 0.073 - Has history of known hyperthyroidism which is untreated - T4 1.71 - Free T3 ordered Hypokalemia - Potassium 3.3 in ED - Pharmayc to monitor and supplement Hypomagnesemia - Magnesium 1.3 in ED - 2gm magnesium given in ED - Pharmacy to monitor and supplement Abdominal pain--needs abd US; elevated bilirubin, questionable GS - Epigastric location - Likely 2/2 above - "I think it hurts because I had been puking so much" - Worse on palpation - Hx/o untreated GERD, heavy ETOH use - H2 reji daily - Abdominal/Pelvic CT ordered Hyperbilirubinemia-->mixed, total/direct; unlikely hyperthyroidism; eval for gallstones Chronic: Untreated GERD ETOH Seizures Untreated anxiety ETOH addiction Untreated Hyperthyroidism Obesity Plan: Abd US Hepatitis panel Other orders as indicated above Routine AM lab draws Home medications as ordered SW/CM d/c planning DVT/PE prophylaxis: SCDs GI Prophylaxis/GERD treatment: Pepcid Code Status: Full code; PCP: Dr. Vahid FERNANDEZ Endo consult Gen surgery PRABHU Flores re: ETOH OP Psych
[2018-11-20] MEDS: QUEtiapine 25 MG Tab PO SCH (20:56)
[2018-11-21] MEDS: Sodium Chloride 0.9% 1,000 ML IV SCH ×3 (06:41→20:11)
[2018-11-21] MEDS: Thiamine 100 MG Tab PO SCH (08:40)
[2018-11-21] MEDS: chlordiazePOXIDE 25 MG Cap PO SCH ×2 (08:40→20:12)
[2018-11-21] MEDS: Multivitamins,Therapeutic Tab PO SCH (08:40)
[2018-11-21] MEDS: Folic Acid 1 MG Tab PO SCH (08:40)
[2018-11-21] MEDS: Topiramate 25 MG Tab PO SCH ×2 (08:41→20:12)
[2018-11-21] MEDS: Famotidine 20 MG Tab PO SCH ×2 (08:41→20:12)
--- NOTE | 2018-11-21 08:47 | US ---
Abdominal ultrasound: Multiple real-time images were obtained. Comparison: Previous abdominal and pelvic CT study of 11/18/18. Technologist's note: Very limited study due to poor windows in part to body habitus, and intercostal scanning Liver is echogenic likely representing fatty infiltration which was noted on prior CT exam. Small amount of free fluid seen next to the anterior liver. Spleen size measures at the upper limits of normal at 13.2 cm. Minimal debris is noted within the gallbladder. No shadowing cholelithiasis, gallbladder wall thickening or biliary duct dilatation is seen. Kidney show no hydronephrosis or discrete mass. Right kidney length is 13.5 cm and left kidney length is 13.3 cm. Proximal aorta not visualized. Distal aorta shows no aneurysm. Pancreas is incompletely seen. Visualized portions appear within normal limits. Inferior vena cava is patent. Portal vein not well seen. Impression: 1. Somewhat limited abdominal ultrasound as noted above. 2. Echogenic liver compatible with fatty infiltration. Small amount of free fluid next to the anterior liver is seen. 3. Small amount of debris within the gallbladder without shadowing gallstones, gallbladder wall thickening or biliary duct dilatation. 4. Spleen size at the upper limits of normal at 13.2 cm. Diagnostic code #3
--- NOTE | 2018-11-21 12:11 | PCM.PN ---
- General Info Date of Service: 11/21/18 Admission Dx/Problem (Free Text): Admission Diagnosis/Problem Admission Diagnosis/Problem Alcohol withdrawal syndrome Functional Status: Reports: Pain Controlled, Tolerating Diet, Ambulating, Urinating. Denies: New Symptoms - Review of Systems General: Reports: No Symptoms. Denies: Fever, Weakness, Fatigue, Malaise HEENT: Reports: No Symptoms. Denies: Headaches, Sore Throat Pulmonary: Reports: No Symptoms. Denies: Shortness of Breath, Pleuritic Chest Pain, Cough, Wheezing Cardiovascular: Reports: No Symptoms. Denies: Chest Pain, Palpitations, Dyspnea on Exertion, Edema, Lightheadedness Gastrointestinal: Reports: No Symptoms. Denies: Abdominal Pain, Constipation, Diarrhea, Nausea, Vomiting Genitourinary: Reports: No Symptoms. Denies: Pain Musculoskeletal: Reports: No Symptoms Skin: Reports: No Symptoms Neurological: Reports: No Symptoms. Denies: Confusion, Dizziness, Headache, Numbness, Seizure, Syncope, Trouble Speaking, Difficulty Walking, Weakness, Gait Disturbance Psychiatric: Reports: No Symptoms - Patient Data Vitals - Most Recent: Last Vital Signs Temp 98.1 F 11/21/18 08:29 Pulse 100 11/21/18 08:28 Resp 19 11/21/18 08:28 BP 118/67 11/21/18 08:28 Pulse Ox 98 11/21/18 08:28 Orthostatic Blood Pressure [ 146/89 Standing] Orthostatic Blood Pressure [ 145/86 Sitting] Orthostatic Blood Pressure [ 130/74 Supine] Weight - Most Recent: 229 lb 14.4 oz I&O - Last 24 Hours: Intake & Output 11/20/18 11/21/18 11/21/18 22:59 06:59 14:59 Intake Total 2500 2182 500 Output Total 1000 1900 Balance 1500 282 500 Lab Results Last 24 Hours: Laboratory Results - last 24 hr 11/21/18 11/21/18 Range/Units 05:38 05:38 WBC 6.34 (3.98-10.04) K/mm3 RBC 3.73 L (3.98-5.22) M/mm3 Hgb 11.5 (11.2-15.7) gm/L Hct 37.7 (34.1-44.9) % MCV 101.1 H (79.4-94.8) fl MCH 30.8 (25.6-32.2) pg MCHC 30.5 L (32.2-35.5) g/dl RDW Std Deviation 57.4 H (36.4-46.3) fL Plt Count 120 L (182-369) K/mm3 MPV 10.4 (9.4-12.3) fl Neut % (Auto) 59.5 (34.0-71.1) % Lymph % (Auto) 26.3 (19.3-51.7) % [place] % (Auto) 11.5 (4.7-12.5) % Eos % (Auto) 2.2 (0.7-5.8) Baso % (Auto) 0.3 (0.1-1.2) % Neut # (Auto) 3.77 (1.56-6.13) K/mm3 Lymph # (Auto) 1.67 (1.18-3.74) K/mm3 [place] # (Auto) 0.73 H (0.24-0.36) K/mm3 Eos # (Auto) 0.14 (0.04-0.36) K/mm3 Baso # (Auto) 0.02 (0.01-0.08) K/mm3 Sodium 139 (136-145) mEq/L Potassium 3.7 (3.5-5.1) mEq/L Chloride 109 H (98-107) mEq/L Carbon Dioxide 24 (21-32) mEq/L Anion Gap 9.7 (5-15) BUN 3 L (7-18) mg/dL Creatinine 0.6 (0.55-1.02) mg/dL Est Cr Clr Drug Dosing 123.68 mL/min Estimated GFR (MDRD) > 60 (>60) mL/min BUN/Creatinine Ratio 5.0 L (14-18) Glucose 81 (74-106) mg/dL Calcium 8.4 L (8.5-10.1) mg/dL Magnesium 1.8 (1.8-2.4) mg/dl Total Bilirubin 5.6 H (0.2-1.0) mg/dL AST 77 H (15-37) U/L ALT 34 (14-59) U/L Alkaline Phosphatase 85 (46-116) U/L Total Protein 7.5 (6.4-8.2) g/dl Albumin 2.4 L (3.4-5.0) g/dl Globulin 5.1 gm/dL Albumin/Globulin Ratio 0.5 L (1-2) Med Orders - Current: Current Medications Acetaminophen (Tylenol) 650 mg PO Q4H PRN PRN Reason: Pain (Mild 1-3)/fever Albuterol/Ipratropium (Duoneb 3.0-0.5 Mg/3 Ml) 3 ml NEB Q4H PRN PRN Reason: Shortness Of Breath/wheezing Chlordiazepoxide HCl (Librium) 25 mg PO Q12HR [facility] Last Admin: 11/21/18 08:40 Dose: 25 mg Famotidine (Pepcid) 20 mg PO BID [facility] Last Admin: 11/21/18 08:41 Dose: 20 mg Folic Acid (Folic Acid) 1 mg PO DAILY [facility] Last Admin: 11/21/18 08:40 Dose: 1 mg Hydralazine HCl (Apresoline) 20 mg IVPUSH Q4H PRN PRN Reason: Hypertension Sodium Chloride (Normal Saline) 1,000 mls @ 150 mls/hr IV ASDIRECTED [facility] Last Admin: 11/21/18 06:41 Dose: 150 mls/hr Lorazepam (Ativan) 1 mg IVPUSH Q4H PRN; Protocol PRN Reason: Withdrawal Symptoms Lorazepam (Ativan) 2 mg IVPUSH Q4H PRN PRN Reason: Seizures Metoprolol Tartrate (Lopressor) 5 mg IVPUSH Q4H PRN PRN Reason: Tachycardia Multivitamins (Thera) 1 each PO DAILY [facility] Last Admin: 11/21/18 08:40 Dose: 1 each Ondansetron HCl (Zofran) 4 mg IVPUSH Q6H PRN PRN Reason: Nausea/Vomiting Ondansetron HCl (Zofran Odt) 4 mg PO Q6H PRN PRN Reason: nausea, able to take PO Quetiapine Fumarate (Seroquel) 25 mg PO BEDTIME [facility] Last Admin: 11/20/18 20:56 Dose: 25 mg Thiamine HCl (Vitamin B-1) 100 mg PO DAILY [facility] Last Admin: 11/21/18 08:40 Dose: 100 mg Topiramate (Topamax) 25 mg PO BID [facility] Last Admin: 11/21/18 08:41 Dose: 25 mg Discontinued Medications Chlordiazepoxide HCl (Librium) 25 mg PO Q8HR PRN PRN Reason: ETOH Withdrawls Last Admin: 11/19/18 00:56 Dose: 25 mg Sodium Chloride (Normal Saline) 1,000 mls @ 999 mls/hr IV ONETIME ONE Stop: 11/18/18 01:14 Last Admin: 11/18/18 00:32 Dose: 999 mls/hr Magnesium Sulfate 2 gm/ Premix 50 mls @ 50 mls/hr IV ONETIME ONE Stop: 11/18/18 01:56 Last Admin: 11/18/18 01:13 Dose: 50 mls/hr Magnesium Sulfate 2 gm/ Premix 50 mls @ 25 mls/hr IV ONETIME ONE Stop: 11/18/18 10:29 Last Admin: 11/18/18 09:30 Dose: 25 mls/hr Influenza Virus Vaccine (Pharmacy To Dose - Influenza Vaccine) 1 each IM ONETIME ONE Stop: 11/18/18 14:00 Influenza Virus Vaccine (Fluzone Quad [id number] Syringe) 60 mcg IM .ONCE ONE Stop: 11/18/18 14:16 Lorazepam (Ativan) 1 mg IVPUSH ONETIME STA Stop: 11/18/18 00:15 Last Admin: 11/18/18 00:33 Dose: 1 mg Lorazepam (Ativan) 1 mg IVPUSH ONETIME STA Stop: 11/18/18 00:52 Last Admin: 11/18/18 01:06 Dose: 1 mg Magnesium Oxide (Magnesium Oxide) 400 mg PO Q4H [facility] Stop: 11/18/18 11:01 Last Admin: 11/18/18 08:09 Dose: Not Given Magnesium Sulfate (Pharmacy To Dose - Magnesium Replacement) 1 dose .XX ASDIRECTED [facility] Ondansetron HCl (Zofran) 4 mg IVPUSH ONETIME ONE Stop: 11/18/18 00:15 Last Admin: 11/18/18 00:32 Dose: 4 mg Potassium Chloride (Pharmacy To Dose - Potassium Replacement) 1 dose .XX ASDIRECTED [facility] Potassium Chloride (Klor-Con M20) 20 meq PO Q4H [facility] Stop: 11/18/18 11:01 Last Admin: 11/18/18 12:04 Dose: 20 meq - Exam Quality Assessment: DVT Prophylaxis General: Alert, Oriented, Cooperative, No Acute Distress HEENT: Pupils Equal, Pupils Reactive, EOMI, Mucous Membr. Moist/[place] Neck: Supple, Trachea Midline Lungs: Clear to Auscultation, Normal Respiratory Effort Cardiovascular: Regular Rate, Regular Rhythm GI/Abdominal Exam: Normal Bowel Sounds, Soft, Non-Tender, No Distention, No Abnormal Bruit (Female) Exam: Deferred Back Exam: Normal Inspection, Full Range of Motion Extremities: Normal Inspection, Normal Range of Motion, Non-Tender, No Pedal Edema, Normal Capillary Refill Peripheral Pulses: 3+: Radial (L), Radial (R), Dorsalis Pedis (L), Dorsalis Pedis (R) Skin: Warm, Dry, Intact Neurological: No New Focal Deficit Psy/Mental Status: Alert, Normal Affect, Normal Mood. No: Anxious, Agitated, Withdrawal Symptoms - Problem List & Annotations (1) Alcohol dependence, binge pattern SNOMED Code(s): 977954024, 044318446 Code(s): F10.20 - ALCOHOL DEPENDENCE, UNCOMPLICATED Status: Acute Priority: High Current Visit: Yes (2) Alcohol intoxication SNOMED Code(s): 60853190 Code(s): F10.929 - ALCOHOL USE, UNSPECIFIED WITH INTOXICATION, UNSPECIFIED Status: Acute Priority: High Current Visit: Yes Qualifiers: Complication of substance-induced condition: with unspecified complication Qualified Code(s): F10.929 - Alcohol use, unspecified with intoxication, unspecified (3) Alcohol withdrawal SNOMED Code(s): 372578662 Code(s): F10.239 - ALCOHOL DEPENDENCE WITH WITHDRAWAL, UNSPECIFIED Status: Acute Priority: High Current Visit: Yes Qualifiers: Complication of substance-induced condition: with unspecified complication Qualified Code(s): F10.239 - Alcohol dependence with withdrawal, unspecified (4) Hyperthyroidism SNOMED Code(s): 77948006 Code(s): E05.90 - THYROTOXICOSIS, UNSP WITHOUT THYROTOXIC CRISIS OR STORM Status: Chronic Priority: Medium Current Visit: Yes (5) Hypokalemia SNOMED Code(s): 04663315 Code(s): E87.6 - HYPOKALEMIA Status: Acute Priority: High Current Visit : Yes (6) Hypomagnesemia SNOMED Code(s): 716994985 Code(s): E83.42 - HYPOMAGNESEMIA Status: Acute Priority: High Current Visit: Yes (7) Marijuana abuse SNOMED Code(s): 47064267 Code(s): F12.10 - CANNABIS ABUSE, UNCOMPLICATED Status: Chronic Priority : Medium Current Visit: Yes - Problem List Review Problem List Initiated/Reviewed/Updated: Yes - My Orders Last 24 Hours: My Active Orders 11/22/18 05:11 CBC WITH AUTO DIFF [HEME] AM CMP [COMPREHENSIVE METABOLIC PN,CMP] [CHEM] DAILY MAGNESIUM [CHEM] AM - Plan Plan:: I/P: Acute: ETOH Withdrawal Symptoms/DT - CIWA protocol: CIWA score has been 0 thus far - Was reportedly hallucinating in ED - Reported history of ETOH seizures - PRN Librium - Scheduled Topamax/Seroquel - MVI/Thiamine/Folic acid - Hydralzine and IVP BB for HR/BP control - Ativan for Abortive Seizure and Withdrawal Symptoms - Tele-psych and SA consult - Aspiration and seizure precautions Alcohol Abuse - Acute on Chronic - Risk factors: Unemployed, Hx/o ETOH abuse within family, Daily marijuana use, untreated anxiety - She reportedly drinks 12 small bottles of 99 bananas daily (99 proof schnapps, 1.7 fl oz. per bottle) - CIWA Protocol as above - ETOH 0.15 in ED - SA consult Hx/o Poly-Substance Abuse - Daily Marijuana user - UDS: Positive for marijuana and benzos (was given ativan piror to urine being obtained) - Counseled on Substance Abuse - SA/Psych consult Hyperthyroidism - TSH 0.073 - Has history of known hyperthyroidism which is untreated - T4 1.71 - Free T3 ordered - Old notes show multiple appointments made with endocrinology which the patient no-showed - Old record note prior dx of Graves disease with exopthalmos - thyroid uptake done in 2012 - Was apparently treated with methimazole for 3 months in the past Hyperbilirubinemia - Mixed, total/direct - Unlikely hyperthyroidism - Abdominal US to eval for gallstones 11/21/18 * 1.Somewhat limited abdominal ultrasound as noted * 2. Echogenic liver compatible with fatty infiltration. Small amount of free fluid next to the anterior liver is seen * 3. Small amount of debris within the gallbladder without shadowing gallstones , gallbladder wall thickening or biliary duct dilation * 4. Spleen size at the upper limits of normal at 13.2cm - Hepatitis panel pending - General surgery consult - Dr. Dowell fashion coordinator Resolved: Hypokalemia - Potassium 3.3 in ED - Pharmayc to monitor and supplement Hypomagnesemia - Magnesium 1.3 in ED - 2gm magnesium given in ED - Pharmacy to monitor and supplement Abdominal pain--needs abd US; elevated bilirubin, questionable GS - Epigastric location - Likely 2/2 above - "I think it hurts because I had been puking so much" - Worse on palpation - Hx/o untreated GERD, heavy ETOH use - H2 reji daily - Abdominal/Pelvic CT 11/19/18 * 1. Fatty infiltration throughout the liver * 2. Fatty change within the colonic wall raising the possibility of change from chronic inflammation. Please correlate with the patient's symptoms * 3. Possible small gallstones * 4. No acute abnormality is appreciated Chronic: Untreated GERD ETOH Seizures Untreated anxiety ETOH addiction Untreated Hyperthyroidism Obesity Plan: Other orders as indicated above Routine AM lab draws Home medications as ordered SW/CM d/c planning DVT/PE prophylaxis: SCDs GI Prophylaxis/GERD treatment: Pepcid Code Status: Full code; PCP: Dr. Vahid FERNANDEZ Endo consult Gen surgery [facility] re: ETOH OP Psych
--- NOTE | 2018-11-21 12:57 | CONS ---
CONSULTING PHYSICIAN: Nico Escobedo MD DATE OF CONSULTATION: 11/19/2018 This is a 60-minute inpatient telemedicine event. Site where the services are provided to are [facility] in [place], [place]. Site with the services are provided from our offices in [facility]. Length of service for this 60-minute inpatient telemedicine event is 60 minutes. IDENTIFICATION: The patient is a 33-year-old female who is admitted to the inpatient MICU at [facility] in [place], [place]. She is seen for psychiatric consultation. CHIEF COMPLAINT: "me and my cousin and my brother were drinking and my cousin the next day. I have been drinking every day since then." HISTORY OF PRESENT ILLNESS: The patient is a 33-year-old female who reports that she has been drinking very heavily since her cousin and she ended up being admitted to the [facility] in 11/2018. She has had multiple in ED visits and 2 ED visits since the 11/01/2018 and she had a blood alcohol level of 0.15 on this admission to the ICU. The patient states she is drinking "way too much" and she estimates maybe it is about "pint a day or something like that." The patient states she struggles with lonely feelings and " feeling down" and she also endorses some symptoms of anxiety. That said, at this point in time, she is wanting treatment "over at [facility]." When she is medically stable, she wants to hold off on any psychiatric medications because she was going to get prescribed Lexapro "but I heard from my friend that was not a good medication." The patient feels that if she can get her drinking under control, she will be feeling better. MEDICATIONS: Prior to admission none. ALLERGIES: No known drug allergies. PAST MEDICAL HISTORY: 1. GERD. 2. History of seizures. REVIEW OF SYSTEMS: Aside from GI and neuro, all other major organ systems are negative at this point in time for acute difficulties or complications. FAMILY PSYCHIATRIC AND CD HISTORY: The patient reports a history of alcoholism in the family. PAST PSYCHIATRIC AND CD HISTORY: The patient denies any previous psychiatric hospitalizations or chemical dependency treatments. Denies any previous suicide attempts or eating disorder history. She has been diagnosed with depression in the past and prescribed Lexapro, but she has never taken the Lexapro. SOCIAL HISTORY: The patient is born and raised in [place], [place]. She works in road construction and cleaning. She is not involved in any current relationships, and she has never been . Denies any pregnancies in the past. She has no children. She lives in a town house by herself in [place]. Denies any prior service or current legal difficulties. She is raised Hindu. She enjoys playing pool and spending time with her family. MENTAL STATUS EXAMINATION: The patient is a 33-year-old, soft-spoken, female of [place], [facility], and [facility] descent, in no apparent distress. She is a member of the 3 affiliated tribes or virtual [place]. She is cognitively oriented x3. Psychomotor activity is within normal limits. There is no abnormal motor movements or tics observed. Gait and station are not observed. This patient is lying in bed for the purposes of the telemedicine consult. Mood is mildly depressed and anxious per patient report. Affect is cooperative overall for the purposes of the inpatient consult. There is no behavioral or stated evidence of acute suicidal or homicidal ideation or acute psychotic, delusional, or paranoid symptoms. Thought process is organized. There are no manic symptoms ir loose associations evident. Judgment and insight appear unimpaired at this point in time. Motivation for help is good. VITALS: 119/52, 95, 20, 98.7 degrees. IMPRESSION: Frohna I: 1. Alcohol dependence, F10.20. 2. Depression, not otherwise specified, F32.9. 3. Anxiety disorder, not otherwise specified, F41.9. 4. Rule out major depressive disorder. Frohna II: None. Frohna III: 1. History of gastroesophageal reflux disease. 2. History of seizures, withdrawal type in the past. Frohna IV: Severe. Frohna V: 60. PLAN: 1. Sobriety. 2. AA rep to visit the patient while on unit. 3. Pastoral guidance. 4. CD consult to assess the patient's need for treatment. 5. Librium 25 mg b.i.d. 6. Topamax 25 mg b.i.d. for seizure prophylaxis and anxiety reduction. 7. Seroquel 25 mg at bedtime for clarity of thought, mood stability, and psychosis prophylaxis. 8. Ativan per [place] protocol. 9. Folic acid supplementation 1 mg daily. 10.Thiamine supplementation 100 mg daily. 11.Other medications as dosed and prescribed by the patient's primary inpatient medical treatment team. 12.Recommend transferring the patient to chemical dependency treatment when she is medically stable. 13.Would recommend following up with Outpatient Psychiatry. The patient continues to struggle with symptoms of depression and anxiety, once she is medically stabilized and discharged after the treatment into the community. 14.We will continue to follow up the patient as needed while she remains on the inpatient medical treatment unit. 15.Crisis plan is in place. WHITLEY /[id number]
--- NOTE | 2018-11-21 15:54 | PCM.CONS ---
H&P History of Present Illness - General Date of Service: 11/21/18 Admit Problem/Dx: Admission Diagnosis/Problem Admission Diagnosis/Problem Alcohol withdrawal syndrome Source of Information: Patient, Old Records, Provider History Limitations: Reports: No Limitations - History of Present Illness Initial Comments - Free Text/Narative: 33 yo female, admitted morning of 11/18/2018 with alcoholic withdrawal, has been on the hospitalist service. She was noted to have epigastric abdominal pain on admission, which was attributed to vomiting at the time. A CT scan was obtained , which demonstrated possible gallstones. Daily labs were notable for an increase in both total and direct bilirubin. A RUQ ultrasound was obtained today , which demonstrated debris in the gallbladder. This was a limited study due to patient's body habitus. The patient was evaluated this afternoon, and currently denies any pain. She reports having a "bruised rib" when her cousin fell on her two months ago, and since then, she has had a pain. Pain is located mid-epigastric, but radiating to her back. She has had vomiting prior to admission, attributed to her alcohol. She denies yellowing of eyes or skin. Denies acholic stools and tea- colored urine. Patient is notably a poor historian. Headache Pain Score (Numeric/FACES): 4 - Related Data Allergies/Adverse Reactions: Allergies Allergy/AdvReac Type Severity Reaction Status Date / Time No Known Allergies Allergy Verified 11/18/18 03:31 Home Medications: Home Meds Cholecalciferol (Vitamin D3) [Vitamin D] 5,000 unit PO BID 11/18/18 [History] Pantoprazole [ProTONIX] 40 mg PO DAILY 11/18/18 [History] Potassium Chloride [Klor-Con M20] 20 meq PO DAILY 11/18/18 [History] Past Medical History HEENT History: Reports: Impaired Vision Other HEENT History: wears glasses Gastrointestinal History: Reports: GERD (untreated) Musculoskeletal History: Reports: Fracture (right 3rd finger) Other Musculoskeletal History: sciatica Neurological History: Reports: Seizure (alcohol-related only) Other Neuro History: with alcohol withdrawl Psychiatric History: Reports: Addiction (alcohol), Anxiety (untreated) Other Psychiatric History: alcohol Endocrine/Metabolic History: Reports: Hyperthyroidism (untreated), Obesity/BMI 30+ - Infectious Disease History Infectious Disease History: Reports: Chicken Pox - Past Surgical History Musculoskeletal Surgical History: Reports: Arthroscopic Knee (right) Social & Family History - Family History Family Medical History: Noncontributory - Tobacco Use Smoking Status *Q: Never Smoker Second Hand Smoke Exposure: No - Caffeine Use Caffeine Use: Reports: None - Alcohol Use Days Per Week of Alcohol Use: 7 Number of Drinks Per Day: 17 Total Drinks Per Week: 119 Date of Last Drink: 11/17/18 Time of Last Drink: 09:00 - Recreational Drug Use Recreational Drug Use: Yes Drug Use in Last 12 Months: Yes Recreational Drug Type: Reports: Marijuana/Hashish (smokes regularly) Recreational Drug Use Frequency: Socially - Living Situation & Occupation Living situation: Reports: Single, with Family (Cousin, brothers) Occupation: Unemployed H&P Review of Systems - Review of Systems: Review Of Systems: ROS reveals no pertinent complaints other than HPI. Exam - Exam Exam: See Below - Vital Signs Vital Signs: Last Vital Signs Temp 36.7 C 11/21/18 08:29 Pulse 100 11/21/18 08:28 Resp 19 11/21/18 08:28 BP 118/67 11/21/18 08:28 Pulse Ox 98 11/21/18 08:28 Orthostatic Blood Pressure [ 146/89 Standing] Orthostatic Blood Pressure [ 145/86 Sitting] Orthostatic Blood Pressure [ 130/74 Supine] Weight: 104.281 kg - Exam General: Alert, Oriented, Other (Obese) HEENT: Scleral Icterus, Other (mucosal jaundice) Lungs: Clear to Auscultation, Normal Respiratory Effort Cardiovascular: Regular Rate, Regular Rhythm, Normal S1, Normal S2 GI/Abdominal Exam: Soft, Tender (mildly tender to the epigastric region), Other (Obese) Skin: Other (jaundice) Psychiatric: Alert - Patient Data Lab Results Last 24 hrs: Laboratory Results - last 24 hr 11/21/18 11/21/18 Range/Units 05:38 05:38 WBC 6.34 (3.98-10.04) K/mm3 RBC 3.73 L (3.98-5.22) M/mm3 Hgb 11.5 (11.2-15.7) gm/L Hct 37.7 (34.1-44.9) % MCV 101.1 H (79.4-94.8) fl MCH 30.8 (25.6-32.2) pg MCHC 30.5 L (32.2-35.5) g/dl RDW Std Deviation 57.4 H (36.4-46.3) fL Plt Count 120 L (182-369) K/mm3 MPV 10.4 (9.4-12.3) fl Neut % (Auto) 59.5 (34.0-71.1) % Lymph % (Auto) 26.3 (19.3-51.7) % Parke % (Auto) 11.5 (4.7-12.5) % Eos % (Auto) 2.2 (0.7-5.8) Baso % (Auto) 0.3 (0.1-1.2) % Neut # (Auto) 3.77 (1.56-6.13) K/mm3 Lymph # (Auto) 1.67 (1.18-3.74) K/mm3 Parke # (Auto) 0.73 H (0.24-0.36) K/mm3 Eos # (Auto) 0.14 (0.04-0.36) K/mm3 Baso # (Auto) 0.02 (0.01-0.08) K/mm3 Sodium 139 (136-145) mEq/L Potassium 3.7 (3.5-5.1) mEq/L Chloride 109 H (98-107) mEq/L Carbon Dioxide 24 (21-32) mEq/L Anion Gap 9.7 (5-15) BUN 3 L (7-18) mg/dL Creatinine 0.6 (0.55-1.02) mg/dL Est Cr Clr Drug Dosing 123.68 mL/min Estimated GFR (MDRD) > 60 (>60) mL/min BUN/Creatinine Ratio 5.0 L (14-18) Glucose 81 (74-106) mg/dL Calcium 8.4 L (8.5-10.1) mg/dL Magnesium 1.8 (1.8-2.4) mg/dl Total Bilirubin 5.6 H (0.2-1.0) mg/dL AST 77 H (15-37) U/L ALT 34 (14-59) U/L Alkaline Phosphatase 85 (46-116) U/L Total Protein 7.5 (6.4-8.2) g/dl Albumin 2.4 L (3.4-5.0) g/dl Globulin 5.1 gm/dL Albumin/Globulin Ratio 0.5 L (1-2) Result Diagrams: 11/21/18 05:38 11/21/18 05:38 Imaging Impressions Last 24 hrs: Abdominal ultrasound: Multiple real-time images were obtained. Comparison: Previous abdominal and pelvic CT study of 11/18/18. Technologist's note: Very limited study due to poor windows in part to body habitus, and intercostal scanning Liver is echogenic likely representing fatty infiltration which was noted on prior CT exam. Small amount of free fluid seen next to the anterior liver. Spleen size measures at the upper limits of normal at 13.2 cm. Minimal debris is noted within the gallbladder. No shadowing cholelithiasis, gallbladder wall thickening or biliary duct dilatation is seen. Kidney show no hydronephrosis or discrete mass. Right kidney length is 13.5 cm and left kidney length is 13.3 cm. Proximal aorta not visualized. Distal aorta shows no aneurysm. Pancreas is incompletely seen. Visualized portions appear within normal limits. Inferior vena cava is patent. Portal vein not well seen. Impression: 1. Somewhat limited abdominal ultrasound as noted above. 2. Echogenic liver compatible with fatty infiltration. Small amount of free fluid next to the anterior liver is seen. 3. Small amount of debris within the gallbladder without shadowing gallstones, gallbladder wall thickening or biliary duct dilatation. 4. Spleen size at the upper limits of normal at 13.2 cm. Diagnostic code #3 Dictated by: Darrick Gilbert MD 11/21/[address] abdomen and pelvis Technique: Multiple axial sections were obtained from above the dome of the diaphragm inferiorly through the pubic symphysis. Intravenous and oral contrast not utilized. Comparison: No prior CT abdomen or pelvis exam, previous abdominal x-ray of 03/31/18. Findings: Visualized lung bases shows slight atelectasis and/or scarring within both lung bases. Diffuse fatty infiltration is seen throughout the liver. Spleen appears within normal limits. Adrenal glands show no nodule. Pancreas is within normal limits. Kidneys show no abnormal calcifications or hydronephrosis. Gallbladder shows minimal calcification suspicious for small gallstones. Aorta shows no aneurysm. No retroperitoneal adenopathy or mesenteric abnormalities are seen. There is fat being seen within the colonic wall. Appendix is seen and is normal in size. No pelvic mass or adenopathy is seen. No free fluid or inflammatory change is identified. Bone window settings were reviewed which appear within normal limits for the patient's age. Impression: 1. Fatty infiltration throughout the liver. 2. Fatty change within the colonic wall raising the possibility of change from chronic inflammation. Please correlate with the patient's symptoms. 3. Possible small gallstones. 3. No acute abnormality is appreciated. Diagnostic code #3 Dictated by: Darrick Gilbert MD 11/18/18 at 1418 Consult PN Assessment/Plan Procedures: Procedures ASSAY OF FERRITIN (02/16/18) ASSAY OF FREE THYROXINE (06/20/18) ASSAY OF GGT (02/16/18) ASSAY OF IRON (02/16/18) ASSAY OF LIPASE (11/08/18) ASSAY OF MAGNESIUM (10/29/18) ASSAY THYROID STIM HORMONE (06/20/18) BL SMEAR W/DIFF WBC COUNT (10/29/18) C-REACTIVE PROTEIN (08/26/18) CHEST X-RAY 1 VIEW FRONTAL (10/17/16) CHORIONIC GONADOTROPIN ASSAY (08/01/18) CHYLMD TRACH DNA AMP PROBE (02/16/18) COMPLETE CBC AUTOMATED (10/29/18) COMPLETE CBC W/AUTO DIFF WBC (11/08/18) COMPREHEN METABOLIC PANEL (11/08/18) CT HEAD/BRAIN W/O DYE (12/25/17) DRUG TEST PRSMV INSTRMNT (05/17/18) ECG MONIT/REPRT UP TO 48 HRS (07/21/18) ECG MONIT/REPRT UP TO 48 HRS (07/21/18) ELECTROCARDIOGRAM TRACING (03/31/18) EMERGENCY DEPT VISIT (11/08/18) EMERGENCY DEPT VISIT (07/16/18) EMERGENCY DEPT VISIT (06/18/18) EMERGENCY DEPT VISIT (03/31/18) EMERGENCY DEPT VISIT (03/21/18) EMERGENCY DEPT VISIT (02/18/18) EMERGENCY DEPT VISIT (02/07/18) EMERGENCY DEPT VISIT (11/26/17) EMERGENCY DEPT VISIT (10/17/16) FIBRIN DEGRADATION QUANT (11/26/17) FREE ASSAY (FT-3) (06/20/18) GLYCOSYLATED HEMOGLOBIN TEST (02/16/18) HYDRATE IV INFUSION ADD-ON (11/08/18) IMMUNOASSAY QUANT NOS NONAB (04/07/18) INFLUENZA ASSAY W/OPTIC (08/01/18) LIPID PANEL (02/16/18) METABOLIC PANEL TOTAL CA (04/07/18) MRI LUMBAR SPINE W/O DYE (02/28/18) N.GONORRHOEAE DNA AMP PROB (02/16/18) PROTHROMBIN TIME (03/31/18) ROUTINE VENIPUNCTURE (11/08/18) SMEAR WET MOUNT SALINE/INK (02/16/18) THER/DIAG CONCURRENT INF (08/26/18) THER/PROPH/DIAG INJ IV PUSH (11/08/18) THER/PROPH/DIAG INJ SC/IM (02/18/18) THER/PROPH/DIAG IV INF ADDON (08/26/18) THER/PROPH/DIAG IV INF INIT (08/26/18) THROMBOPLASTIN TIME PARTIAL (03/31/18) TRICHOMONAS ASSAY W/OPTIC (02/16/18) TX/PRO/DX INJ NEW DRUG ADDON (11/08/18) TX/PRO/DX INJ SAME DRUG TEACHING ARTIST (08/01/18) TX/PROPH/DG ADDL SEQ IV INF (08/26/18) URINALYSIS AUTO W/SCOPE (05/17/18) URINE CULTURE/COLONY COUNT (12/25/17) URINE TEST (02/07/18) VITAMIN D 25 HYDROXY (06/20/18) X-RAY EXAM CHEST 2 VIEWS (08/01/18) X-RAY EXAM L-S SPINE 2/3 VWS (02/16/18) X-RAY EXAM SERIES ABDOMEN (03/31/18) (1) Alcohol dependence, binge pattern SNOMED Code(s): 731029119, 867458603 Code(s): F10.20 - ALCOHOL DEPENDENCE, UNCOMPLICATED Priority: High Current Visit: Yes (2) Hyperbilirubinemia SNOMED Code(s): 92917783 Code(s): E80.6 - OTHER DISORDERS OF BILIRUBIN METABOLISM Current Visit: Yes Problem List Initiated/Reviewed/Updated: Yes Plan: IMPRESSION/RECOMMENDATIONS: 33 yo female, h/o multiple medical problems, including alcohol abuse (with prior admissions for alcohol withdrawal), alcoholic liver disease, fatty liver, obesity (BMI 37), hyperthyroidism (untreated), HD#4 for alcohol withdrawal, presenting with abdominal pain and hyperbilirubinemia. Total bilirubin has continued to increase since admission (2.8 -> 4.8 -> 5.9 -> 5.6). Direct bilirubin is elevated at 4.1 (yesterday). AST elevated more than ALT (2x greater ), consistent with alcoholic liver disease. Elevation of both total and direct bilirubin concerning for post-hepatic biliary obstruction (most common benign cause is gallstones) or cholestasis (from alcoholic hepatitis). No fever or leukocytosis, so no concern for cholangitis at this time. CT scan images, US images, and radiology reports were reviewed. No obvious gallstones seen. - Recommend MRCP to rule out choledocholithiasis. If negative, then patient's elevated bilirubin likely secondary to alcoholic hepatitis. - If MRCP shows choledocholithiasis, then patient would benefit from transfer to higher level of care for consideration of ERCP. In the setting of biliary obstruction, can develop into cholangitis, so can consider antibiotic use (IV Zosyn). If patient's biliary obstruction is indeed due to choledocholithiasis, then patient would also benefit from cholecystectomy during the same hospitalization to prevent future episodes. - Can consider repeat total and direct bilirubin to track changes. Alfred Meng M.D., F.A.C.S. General Surgery Pager: [phone]
[2018-11-21] MEDS: Saccharomyces Boulardii (Probiotic) 250 MG Cap PO SCH (16:59)
[2018-11-21] MEDS ORDERED: Piperacillin/Tazobactam 4.5 GM in Sodium Chloride 0.9% 100 ML IV ONE (17:00)
[2018-11-21] MEDS: QUEtiapine 25 MG Tab PO SCH (20:12)
[2018-11-22] MEDS ORDERED: Piperacillin/Tazobactam 4.5 GM in Sodium Chloride 0.9% 100 ML IV SCH (01:00)
[2018-11-22] MEDS: Sodium Chloride 0.9% 1,000 ML IV SCH (01:20)
[2018-11-22] MEDS ORDERED: Magnesium Sulfate/Water 2 GM in Premix Bag 1 BAG IV ONE (09:00)
[2018-11-22] MEDS: Piperacillin/Tazobactam 4.5 GM in Sodium Chloride 0.9% 100 ML IV SCH ×2 (09:03→17:06)
[2018-11-22] MEDS: Saccharomyces Boulardii (Probiotic) 250 MG Cap PO SCH (09:03)
[2018-11-22] MEDS: Famotidine 20 MG Tab PO SCH ×2 (09:03→20:16)
[2018-11-22] MEDS: Topiramate 25 MG Tab PO SCH ×2 (09:03→20:16)
[2018-11-22] MEDS: Folic Acid 1 MG Tab PO SCH (09:03)
[2018-11-22] MEDS: Thiamine 100 MG Tab PO SCH (09:03)
[2018-11-22] MEDS: chlordiazePOXIDE 25 MG Cap PO SCH ×2 (09:03→20:16)
[2018-11-22] MEDS: Multivitamins,Therapeutic Tab PO SCH (09:03)
--- NOTE | 2018-11-22 10:04 | MR ---
MRI abdomen (without contrast) Technique: Various sequences were obtained in axial and coronal planes as well as MRI cholangiogram study. Comparison: Prior abdominal ultrasound of 11/21/[address] abdomen and pelvis exam of 11/18/18. Findings: Fatty infiltration is again noted within the liver. Fluid is identified around the gallbladder wall. Small amount of fluid is seen around the liver and spleen. No definite filling defects within the gallbladder are seen to indicate definite gallstones. MR cholangiogram shows the CBD but does not show the CHD and intrahepatic ducts. CBD shows no filling defects of stone and shows no dilatation. Visualized kidneys show no discrete abnormality. Pancreas appears unremarkable for noncontrast exam. Adrenal glands show no nodule. Impression: 1. CBD is noted on cholangiogram study but CHD and intrahepatic ducts are not seen. Difficult to exclude a lesion in the area of the CHD and isamar hepatis as an etiology for the nonvisualization, although no discrete abnormality appreciated on the non-cholangiogram images but evaluation is difficult due to lack of contrast. ERCP would be helpful to further evaluate. 2. Gallbladder shows surrounding edema/fluid and difficult to completely exclude acalculous cholecystitis. Please correlate with patient's symptoms. 3. Fatty infiltration within the liver. 4. Small amount of fluid is seen around the liver and spleen. Diagnostic code #3
--- NOTE | 2018-11-22 11:46 | PCM.PN ---
- General Info Date of Service: 11/22/18 Admission Dx/Problem (Free Text): Admission Diagnosis/Problem Admission Diagnosis/Problem Alcohol withdrawal syndrome Subjective Update: In to see Dian. She is lying in bed. Still no abdominal pain. Contacted Dr. Ladd , GI with [facility] about possible transfer due to elevated direct and indirect bilirubin level elevations. He requests HIDA scan first and then contact him about results. Radiology can perform scan this afternoon. LFTs continue to decline. She is jaundiced. MRCP was obtained and is unfortunately unable to visualize intrahepatic ducts. Dr. Gilbert suggests ERCP would be helpful. She was started on Zosyn, which Dr. Ladd agreed with, for prophylactic cholecystitis treatment. Functional Status: Reports: Pain Controlled, Tolerating Diet, Ambulating, Urinating. Denies: New Symptoms - Review of Systems General: Reports: No Symptoms. Denies: Fever, Weakness, Fatigue, Malaise, Chills HEENT: Reports: No Symptoms Pulmonary: Reports: No Symptoms. Denies: Shortness of Breath, Cough, Sputum, Wheezing Cardiovascular: Reports: No Symptoms. Denies: Chest Pain, Palpitations, Dyspnea on Exertion, Edema Gastrointestinal: Reports: No Symptoms. Denies: Abdominal Pain, Constipation, Diarrhea, Nausea, Vomiting Genitourinary: Reports: No Symptoms. Denies: Pain Musculoskeletal: Reports: No Symptoms Skin: Reports: No Symptoms Neurological: Reports: No Symptoms. Denies: Confusion, Dizziness, Headache, Numbness, Seizure, Tingling, Difficulty Walking, Gait Disturbance Psychiatric: Reports: No Symptoms. Denies: Confusion - Patient Data Vitals - Most Recent: Last Vital Signs Temp 98.6 F 11/22/18 07:34 Pulse 94 11/22/18 07:34 Resp 14 11/22/18 07:34 BP 110/56 L 11/22/18 07:34 Pulse Ox 97 11/22/18 07:34 Orthostatic Blood Pressure [ 146/89 Standing] Orthostatic Blood Pressure [ 145/86 Sitting] Orthostatic Blood Pressure [ 130/74 Supine] Weight - Most Recent: 234 lb I&O - Last 24 Hours: Intake & Output 11/21/18 11/22/18 11/22/18 22:59 06:59 14:59 Intake Total 3100 2300 Output Total 1000 1600 Balance 2100 700 Lab Results Last 24 Hours: Laboratory Results - last 24 hr 11/18/18 11/21/18 11/22/18 Range/Units 13:25 18:06 06:30 WBC 7.24 (3.98-10.04) K/mm3 RBC 3.85 L (3.98-5.22) M/mm3 Hgb 12.1 (11.2-15.7) gm/L Hct 38.9 (34.1-44.9) % MCV 101.0 H (79.4-94.8) fl MCH 31.4 (25.6-32.2) pg MCHC 31.1 L (32.2-35.5) g/dl RDW Std Deviation 59.2 H (36.4-46.3) fL Plt Count 147 L (182-369) K/mm3 MPV 9.8 (9.4-12.3) fl Neut % (Auto) 59.1 (34.0-71.1) % Lymph % (Auto) 25.7 (19.3-51.7) % [place] % (Auto) 13.3 H (4.7-12.5) % Eos % (Auto) 1.5 (0.7-5.8) Baso % (Auto) 0.3 (0.1-1.2) % Neut # (Auto) 4.28 (1.56-6.13) K/mm3 Lymph # (Auto) 1.86 (1.18-3.74) K/mm3 [place] # (Auto) 0.96 H (0.24-0.36) K/mm3 Eos # (Auto) 0.11 (0.04-0.36) K/mm3 Baso # (Auto) 0.02 (0.01-0.08) K/mm3 Sodium (136-145) mEq/L Potassium (3.5-5.1) mEq/L Chloride (98-107) mEq/L Carbon Dioxide (21-32) mEq/L Anion Gap (5-15) BUN (7-18) mg/dL Creatinine (0.55-1.02) mg/dL Est Cr Clr Drug Dosing mL/min Estimated GFR (MDRD) (>60) mL/min BUN/Creatinine Ratio (14-18) Glucose (74-106) mg/dL Calcium (8.5-10.1) mg/dL Magnesium (1.8-2.4) mg/dl Total Bilirubin (0.2-1.0) mg/dL Direct Bilirubin 5.10 H (0.0-0.2) mg/dl AST (15-37) U/L ALT (14-59) U/L Alkaline Phosphatase (46-116) U/L Total Protein (6.4-8.2) g/dl Albumin (3.4-5.0) g/dl Globulin gm/dL Albumin/Globulin Ratio (1-2) Free T3 pg/mL 3.83 (2.50-3.90) pg/mL 11/22/18 11/22/18 Range/Units 06:30 06:30 WBC (3.98-10.04) K/mm3 RBC (3.98-5.22) M/mm3 Hgb (11.2-15.7) gm/L Hct (34.1-44.9) % MCV (79.4-94.8) fl MCH (25.6-32.2) pg MCHC (32.2-35.5) g/dl RDW Std Deviation (36.4-46.3) fL Plt Count (182-369) K/mm3 MPV (9.4-12.3) fl Neut % (Auto) (34.0-71.1) % Lymph % (Auto) (19.3-51.7) % [place] % (Auto) (4.7-12.5) % Eos % (Auto) (0.7-5.8) Baso % (Auto) (0.1-1.2) % Neut # (Auto) (1.56-6.13) K/mm3 Lymph # (Auto) (1.18-3.74) K/mm3 [place] # (Auto) (0.24-0.36) K/mm3 Eos # (Auto) (0.04-0.36) K/mm3 Baso # (Auto) (0.01-0.08) K/mm3 Sodium 141 (136-145) mEq/L Potassium 3.7 (3.5-5.1) mEq/L Chloride 109 H (98-107) mEq/L Carbon Dioxide 23 (21-32) mEq/L Anion Gap 12.7 (5-15) BUN 3 L (7-18) mg/dL Creatinine 0.7 (0.55-1.02) mg/dL Est Cr Clr Drug Dosing 106.01 mL/min Estimated GFR (MDRD) > 60 (>60) mL/min BUN/Creatinine Ratio 4.3 L (14-18) Glucose 86 (74-106) mg/dL Calcium 8.5 (8.5-10.1) mg/dL Magnesium 1.6 L (1.8-2.4) mg/dl Total Bilirubin 6.6 H (0.2-1.0) mg/dL Direct Bilirubin 5.50 H (0.0-0.2) mg/dl AST 76 H (15-37) U/L ALT 31 (14-59) U/L Alkaline Phosphatase 90 (46-116) U/L Total Protein 7.7 (6.4-8.2) g/dl Albumin 2.5 L (3.4-5.0) g/dl Globulin 5.2 gm/dL Albumin/Globulin Ratio 0.5 L (1-2) Free T3 pg/mL (2.50-3.90) pg/mL Med Orders - Current: Current Medications Acetaminophen (Tylenol) 650 mg PO Q4H PRN PRN Reason: Pain (Mild 1-3)/fever Albuterol/Ipratropium (Duoneb 3.0-0.5 Mg/3 Ml) 3 ml NEB Q4H PRN PRN Reason: Shortness Of Breath/wheezing Chlordiazepoxide HCl (Librium) 25 mg PO Q12HR [facility] Last Admin: 11/22/18 09:03 Dose: 25 mg Famotidine (Pepcid) 20 mg PO BID [facility] Last Admin: 11/22/18 09:03 Dose: 20 mg Folic Acid (Folic Acid) 1 mg PO DAILY [facility] Last Admin: 11/22/18 09:03 Dose: 1 mg Hydralazine HCl (Apresoline) 20 mg IVPUSH Q4H PRN PRN Reason: Hypertension Piperacillin Sod/Tazobactam (Sod 4.5 gm/ Sodium Chloride) 100 mls @ 25 mls/hr IV Q8H [facility] Last Admin: 11/22/18 09:03 Dose: 25 mls/hr Lorazepam (Ativan) 1 mg IVPUSH Q4H PRN; Protocol PRN Reason: Withdrawal Symptoms Lorazepam (Ativan) 2 mg IVPUSH Q4H PRN PRN Reason: Seizures Metoprolol Tartrate (Lopressor) 5 mg IVPUSH Q4H PRN PRN Reason: Tachycardia Multivitamins (Thera) 1 each PO DAILY [facility] Last Admin: 11/22/18 09:03 Dose: 1 each Ondansetron HCl (Zofran) 4 mg IVPUSH Q6H PRN PRN Reason: Nausea/Vomiting Ondansetron HCl (Zofran Odt) 4 mg PO Q6H PRN PRN Reason: nausea, able to take PO Quetiapine Fumarate (Seroquel) 25 mg PO BEDTIME [facility] Last Admin: 11/21/18 20:12 Dose: 25 mg Saccharomyces Boulardii (Florastor) 250 mg PO DAILY [facility] Last Admin: 11/22/18 09:03 Dose: 250 mg Thiamine HCl (Vitamin B-1) 100 mg PO DAILY [facility] Last Admin: 11/22/18 09:03 Dose: 100 mg Topiramate (Topamax) 25 mg PO BID [facility] Last Admin: 11/22/18 09:03 Dose: 25 mg Discontinued Medications Chlordiazepoxide HCl (Librium) 25 mg PO Q8HR PRN PRN Reason: ETOH Withdrawls Last Admin: 11/19/18 00:56 Dose: 25 mg Sodium Chloride (Normal Saline) 1,000 mls @ 999 mls/hr IV ONETIME ONE Stop: 11/18/18 01:14 Last Admin: 11/18/18 00:32 Dose: 999 mls/hr Magnesium Sulfate 2 gm/ Premix 50 mls @ 50 mls/hr IV ONETIME ONE Stop: 11/18/18 01:56 Last Admin: 11/18/18 01:13 Dose: 50 mls/hr Sodium Chloride (Normal Saline) 1,000 mls @ 150 mls/hr IV ASDIRECTED [facility] Last Admin: 11/22/18 01:20 Dose: 150 mls/hr Magnesium Sulfate 2 gm/ Premix 50 mls @ 25 mls/hr IV ONETIME ONE Stop: 11/18/18 10:29 Last Admin: 11/18/18 09:30 Dose: 25 mls/hr Piperacillin Sod/Tazobactam (Sod 4.5 gm/ Sodium Chloride) 100 mls @ 25 mls/hr IV Q8H [facility] Last Admin: 11/22/18 01:18 Dose: 25 mls/hr Piperacillin Sod/Tazobactam (Sod 4.5 gm/ Sodium Chloride) 100 mls @ 200 mls/hr IV ONETIME ONE Stop: 11/21/18 17:29 Last Admin: 11/21/18 16:59 Dose: 200 mls/hr Magnesium Sulfate 2 gm/ Premix 50 mls @ 25 mls/hr IV ONETIME ONE Stop: 11/22/18 10:59 Last Admin: 11/22/18 09:12 Dose: 25 mls/hr Influenza Virus Vaccine (Pharmacy To Dose - Influenza Vaccine) 1 each IM ONETIME ONE Stop: 11/18/18 14:00 Influenza Virus Vaccine (Fluzone Quad [id number] Syringe) 60 mcg IM .ONCE ONE Stop: 11/18/18 14:16 Lorazepam (Ativan) 1 mg IVPUSH ONETIME STA Stop: 11/18/18 00:15 Last Admin: 11/18/18 00:33 Dose: 1 mg Lorazepam (Ativan) 1 mg IVPUSH ONETIME STA Stop: 11/18/18 00:52 Last Admin: 11/18/18 01:06 Dose: 1 mg Magnesium Oxide (Magnesium Oxide) 400 mg PO Q4H [facility] Stop: 11/18/18 11:01 Last Admin: 11/18/18 08:09 Dose: Not Given Magnesium Sulfate (Pharmacy To Dose - Magnesium Replacement) 1 dose .XX ASDIRECTED [facility] Ondansetron HCl (Zofran) 4 mg IVPUSH ONETIME ONE Stop: 11/18/18 00:15 Last Admin: 11/18/18 00:32 Dose: 4 mg Potassium Chloride (Pharmacy To Dose - Potassium Replacement) 1 dose .XX ASDIRECTED [facility] Potassium Chloride (Klor-Con M20) 20 meq PO Q4H [facility] Stop: 11/18/18 11:01 Last Admin: 11/18/18 12:04 Dose: 20 meq - Exam Quality Assessment: DVT Prophylaxis General: Alert, Oriented, Cooperative, No Acute Distress HEENT: Pupils Equal, Pupils Reactive, EOMI, Mucous Membr. Moist/[place] Neck: Supple, Trachea Midline, No JVD Lungs: Clear to Auscultation, Normal Respiratory Effort Cardiovascular: Regular Rate, Regular Rhythm GI/Abdominal Exam: Normal Bowel Sounds, Soft, Non-Tender, No Distention, No Abnormal Bruit (Female) Exam: Deferred Back Exam: Normal Inspection, Full Range of Motion Extremities: Normal Inspection, Normal Range of Motion, Non-Tender, No Pedal Edema, Normal Capillary Refill Peripheral Pulses: 3+: Radial (L), Radial (R), Dorsalis Pedis (L), Dorsalis Pedis (R) Skin: Warm, Dry, Intact Neurological: No New Focal Deficit Psy/Mental Status: Alert, Normal Mood, Other (Flat affect ) - Problem List & Annotations (1) Alcohol dependence, binge pattern SNOMED Code(s): 174270574, 875489379 Code(s): F10.20 - ALCOHOL DEPENDENCE, UNCOMPLICATED Status: Acute Priority: High Current Visit: Yes (2) Alcohol intoxication SNOMED Code(s): 04352863 Code(s): F10.929 - ALCOHOL USE, UNSPECIFIED WITH INTOXICATION, UNSPECIFIED Status: Acute Priority: High Current Visit: Yes Qualifiers: Complication of substance-induced condition: with unspecified complication Qualified Code(s): F10.929 - Alcohol use, unspecified with intoxication, unspecified (3) Alcohol withdrawal SNOMED Code(s): 513746611 Code(s): F10.239 - ALCOHOL DEPENDENCE WITH WITHDRAWAL, UNSPECIFIED Status: Acute Priority: High Current Visit: Yes Qualifiers: Complication of substance-induced condition: with unspecified complication Qualified Code(s): F10.239 - Alcohol dependence with withdrawal, unspecified (4) Hyperthyroidism SNOMED Code(s): 74673991 Code(s): E05.90 - THYROTOXICOSIS, UNSP WITHOUT THYROTOXIC CRISIS OR STORM Status: Chronic Priority: Medium Current Visit: Yes (5) Hypokalemia SNOMED Code(s): 12206788 Code(s): E87.6 - HYPOKALEMIA Status: Acute Priority: High Current Visit : Yes (6) Hypomagnesemia SNOMED Code(s): 538340904 Code(s): E83.42 - HYPOMAGNESEMIA Status: Acute Priority: High Current Visit: Yes (7) Marijuana abuse SNOMED Code(s): 75645012 Code(s): F12.10 - CANNABIS ABUSE, UNCOMPLICATED Status: Chronic Priority : Medium Current Visit: Yes - Problem List Review Problem List Initiated/Reviewed/Updated: Yes - My Orders Last 24 Hours: My Active Orders 11/21/18 13:42 Consult to Physician [CONS] Routine 11/21/18 13:43 Notify Provider Consults [RC] ASDIRECTED 11/22/18 13:15 HIDA with EF [Cholescintigraphy w Pharm Int] [NM] Routine 11/22/18 Lunch NPO [Nothing Per Oral Diet] [DIET] 11/23/18 05:11 BILIRUBIN DIRECT [CHEM] AM CBC WITH AUTO DIFF [HEME] AM CMP [COMPREHENSIVE METABOLIC PN,CMP] [CHEM] AM MAGNESIUM [CHEM] AM 11/24/18 05:11 BILIRUBIN DIRECT [CHEM] AM CBC WITH AUTO DIFF [HEME] AM CMP [COMPREHENSIVE METABOLIC PN,CMP] [CHEM] AM MAGNESIUM [CHEM] AM 11/25/18 05:11 BILIRUBIN DIRECT [CHEM] AM CBC WITH AUTO DIFF [HEME] AM CMP [COMPREHENSIVE METABOLIC PN,CMP] [CHEM] AM MAGNESIUM [CHEM] AM 11/26/18 05:11 BILIRUBIN DIRECT [CHEM] AM CBC WITH AUTO DIFF [HEME] AM CMP [COMPREHENSIVE METABOLIC PN,CMP] [CHEM] AM MAGNESIUM [CHEM] AM 11/27/18 05:11 BILIRUBIN DIRECT [CHEM] AM - Plan Plan:: I/P: Acute: ETOH Withdrawal Symptoms/DT - CIWA protocol: CIWA score has been 0 thus far - Was reportedly hallucinating in ED - Reported history of ETOH seizures - PRN Librium - Scheduled Topamax/Seroquel - MVI/Thiamine/Folic acid - Hydralzine and IVP BB for HR/BP control - Ativan for Abortive Seizure and Withdrawal Symptoms - Tele-psych and SA consult - Aspiration and seizure precautions Alcohol Abuse - Acute on Chronic - Risk factors: Unemployed, Hx/o ETOH abuse within family, Daily marijuana use, untreated anxiety - She reportedly drinks 12 small bottles of 99 bananas daily (99 proof schnapps, 1.7 fl oz. per bottle) - CIWA Protocol as above - ETOH 0.15 in ED - SA consult Hx/o Poly-Substance Abuse - Daily Marijuana user - UDS: Positive for marijuana and benzos (was given ativan piror to urine being obtained) - Counseled on Substance Abuse - SA/Psych consult Hyperthyroidism - TSH 0.073 - Has history of known hyperthyroidism which is untreated - T4 1.71 - Free T3 3.83 (WNL) - Old notes show multiple appointments made with endocrinology, which the patient no-showed - Old record note prior dx of Graves disease with exopthalmos - thyroid uptake done in 2012 - Was apparently treated with methimazole for 3 months in the past Hyperbilirubinemia - Mixed, total/direct - Unlikely hyperthyroidism - Abdominal US to eval for gallstones 11/21/18 * 1.Somewhat limited abdominal ultrasound as noted * 2. Echogenic liver compatible with fatty infiltration. Small amount of free fluid next to the anterior liver is seen * 3. Small amount of debris within the gallbladder without shadowing gallstones , gallbladder wall thickening or biliary duct dilation * 4. Spleen size at the upper limits of normal at 13.2cm - Hepatitis panel pending - General surgery consult - Dr. Dowell supervisor reclamation - MRCP obtained 11/22/18 * 1. CBD is noted on cholangiogram study but CHD and intrahepatic ducts are not seen. Difficult to exclude a lesion in the area of the CHD and isamar hepatitis as an etiology for the nonvisualization, although no discrete abnormality appreciated on the non-cholangiogram images but evaluation is difficult due to lack of contrast. ERCP would be helpful to further evaluate. * 2. Gallbladder shows surrounding edema/fluid and difficult to completely exclude acalculous cholecystitis. Please correlate with patient's symptoms. * 3. Fatty infiltration within the liver. * 4. Small amount of fluid is seen on the liver and spleen -Contacted PHI Charles with [facility] in [place] * Suggest HIDA scan - scheduled for this afternoon * Would like us to contact him with results if needed * Reports difficult to exclude hyperbilirubinemia due to chronic alcohol abuse versus blockage. * Was started on prophylactic Zosyn for cholangitis - he agreed to this antibiotic choice. Resolved: Hypokalemia - Potassium 3.3 in ED - Pharmayc to monitor and supplement Hypomagnesemia - Magnesium 1.3 in ED - 2gm magnesium given in ED - Pharmacy to monitor and supplement Abdominal pain--needs abd US; elevated bilirubin, questionable GS - Epigastric location - Likely 2/2 above - "I think it hurts because I had been puking so much" - Worse on palpation - Hx/o untreated GERD, heavy ETOH use - H2 reji daily - Abdominal/Pelvic CT 11/19/18 * 1. Fatty infiltration throughout the liver * 2. Fatty change within the colonic wall raising the possibility of change from chronic inflammation. Please correlate with the patient's symptoms * 3. Possible small gallstones * 4. No acute abnormality is appreciated Chronic: Untreated GERD ETOH Seizures Untreated anxiety ETOH addiction Untreated Hyperthyroidism Obesity Plan: Other orders as indicated above Routine AM lab draws Home medications as ordered SW/CM d/c planning DVT/PE prophylaxis: SCDs GI Prophylaxis/GERD treatment: Pepcid Code Status: Full code; PCP: Dr. Vahid FERNANDEZ Endo consult Gen surgery [facility] re: ETOH OP Psych
--- NOTE | 2018-11-22 16:33 | NM ---
Biliary HIDA scan with ejection fraction Technique: 9.7 mCi of technetium 99m mebrofenin was given intravenously. Scintigraphic imaging was then obtained up to an hour at which time the gallbladder started to be visualized. Common bile duct was not visualized and 3 ounces of heavy whipping cream was given with 1 teaspoon sugar. Continued scintigraphic imaging then performed. Findings: Bowel activity is seen after the ingestion of heavy whipping cream and sugar. There is delayed excretion of tracer with persistent blood pool being seen within the heart. Findings indicate intrahepatic cholestasis or obstruction from a central lesion. No findings of obstruction to the CBD. Gallbladder ejection fraction is low at 10% which may represent acute or chronic cholecystitis. Impression: 1. Abnormal study as described above. Diagnostic code #5
--- NOTE | 2018-11-22 17:45 | PCM.CONSN ---
- General Info Date of Service: 11/22/18 Admission Dx/Problem (Free Text): Admission Diagnosis/Problem Admission Diagnosis/Problem Alcohol withdrawal syndrome Subjective Update: Patient underwent MRCP this morning, followed by HIDA scan. She reported some sharp pain in the upper abdomen while in the HIDA scanner, which lasted only one second. Currently no pain. - Patient Data Vitals - Most Recent: Last Vital Signs Temp 36.3 C 11/22/18 14:33 Pulse 97 11/22/18 14:33 Resp 16 11/22/18 14:33 BP 117/66 11/22/18 14:33 Pulse Ox 97 11/22/18 14:33 Orthostatic Blood Pressure [ 146/89 Standing] Orthostatic Blood Pressure [ 145/86 Sitting] Orthostatic Blood Pressure [ 130/74 Supine] Weight - Most Recent: 106.141 kg I&O - Last 24 Hours: Intake & Output 11/22/18 11/22/18 11/22/18 06:59 14:59 22:59 Intake Total 2300 250 Output Total 1600 Balance 700 250 Lab Results Last 24 Hours: Laboratory Results - last 24 hr 11/18/18 11/21/18 11/22/18 Range/Units 13:25 18:06 06:30 WBC 7.24 (3.98-10.04) K/mm3 RBC 3.85 L (3.98-5.22) M/mm3 Hgb 12.1 (11.2-15.7) gm/L Hct 38.9 (34.1-44.9) % MCV 101.0 H (79.4-94.8) fl MCH 31.4 (25.6-32.2) pg MCHC 31.1 L (32.2-35.5) g/dl RDW Std Deviation 59.2 H (36.4-46.3) fL Plt Count 147 L (182-369) K/mm3 MPV 9.8 (9.4-12.3) fl Neut % (Auto) 59.1 (34.0-71.1) % Lymph % (Auto) 25.7 (19.3-51.7) % [place] % (Auto) 13.3 H (4.7-12.5) % Eos % (Auto) 1.5 (0.7-5.8) Baso % (Auto) 0.3 (0.1-1.2) % Neut # (Auto) 4.28 (1.56-6.13) K/mm3 Lymph # (Auto) 1.86 (1.18-3.74) K/mm3 [place] # (Auto) 0.96 H (0.24-0.36) K/mm3 Eos # (Auto) 0.11 (0.04-0.36) K/mm3 Baso # (Auto) 0.02 (0.01-0.08) K/mm3 Sodium (136-145) mEq/L Potassium (3.5-5.1) mEq/L Chloride (98-107) mEq/L Carbon Dioxide (21-32) mEq/L Anion Gap (5-15) BUN (7-18) mg/dL Creatinine (0.55-1.02) mg/dL Est Cr Clr Drug Dosing mL/min Estimated GFR (MDRD) (>60) mL/min BUN/Creatinine Ratio (14-18) Glucose (74-106) mg/dL Calcium (8.5-10.1) mg/dL Magnesium (1.8-2.4) mg/dl Total Bilirubin (0.2-1.0) mg/dL Direct Bilirubin 5.10 H (0.0-0.2) mg/dl AST (15-37) U/L ALT (14-59) U/L Alkaline Phosphatase (46-116) U/L Total Protein (6.4-8.2) g/dl Albumin (3.4-5.0) g/dl Globulin gm/dL Albumin/Globulin Ratio (1-2) Free T3 pg/mL 3.83 (2.50-3.90) pg/mL 11/22/18 11/22/18 Range/Units 06:30 06:30 WBC (3.98-10.04) K/mm3 RBC (3.98-5.22) M/mm3 Hgb (11.2-15.7) gm/L Hct (34.1-44.9) % MCV (79.4-94.8) fl MCH (25.6-32.2) pg MCHC (32.2-35.5) g/dl RDW Std Deviation (36.4-46.3) fL Plt Count (182-369) K/mm3 MPV (9.4-12.3) fl Neut % (Auto) (34.0-71.1) % Lymph % (Auto) (19.3-51.7) % [place] % (Auto) (4.7-12.5) % Eos % (Auto) (0.7-5.8) Baso % (Auto) (0.1-1.2) % Neut # (Auto) (1.56-6.13) K/mm3 Lymph # (Auto) (1.18-3.74) K/mm3 [place] # (Auto) (0.24-0.36) K/mm3 Eos # (Auto) (0.04-0.36) K/mm3 Baso # (Auto) (0.01-0.08) K/mm3 Sodium 141 (136-145) mEq/L Potassium 3.7 (3.5-5.1) mEq/L Chloride 109 H (98-107) mEq/L Carbon Dioxide 23 (21-32) mEq/L Anion Gap 12.7 (5-15) BUN 3 L (7-18) mg/dL Creatinine 0.7 (0.55-1.02) mg/dL Est Cr Clr Drug Dosing 106.01 mL/min Estimated GFR (MDRD) > 60 (>60) mL/min BUN/Creatinine Ratio 4.3 L (14-18) Glucose 86 (74-106) mg/dL Calcium 8.5 (8.5-10.1) mg/dL Magnesium 1.6 L (1.8-2.4) mg/dl Total Bilirubin 6.6 H (0.2-1.0) mg/dL Direct Bilirubin 5.50 H (0.0-0.2) mg/dl AST 76 H (15-37) U/L ALT 31 (14-59) U/L Alkaline Phosphatase 90 (46-116) U/L Total Protein 7.7 (6.4-8.2) g/dl Albumin 2.5 L (3.4-5.0) g/dl Globulin 5.2 gm/dL Albumin/Globulin Ratio 0.5 L (1-2) Free T3 pg/mL (2.50-3.90) pg/mL Med Orders - Current: Current Medications Acetaminophen (Tylenol) 650 mg PO Q4H PRN PRN Reason: Pain (Mild 1-3)/fever Albuterol/Ipratropium (Duoneb 3.0-0.5 Mg/3 Ml) 3 ml NEB Q4H PRN PRN Reason: Shortness Of Breath/wheezing Chlordiazepoxide HCl (Librium) 25 mg PO Q12HR [facility] Last Admin: 11/22/18 09:03 Dose: 25 mg Famotidine (Pepcid) 20 mg PO BID [facility] Last Admin: 11/22/18 09:03 Dose: 20 mg Folic Acid (Folic Acid) 1 mg PO DAILY [facility] Last Admin: 11/22/18 09:03 Dose: 1 mg Hydralazine HCl (Apresoline) 20 mg IVPUSH Q4H PRN PRN Reason: Hypertension Piperacillin Sod/Tazobactam (Sod 4.5 gm/ Sodium Chloride) 100 mls @ 25 mls/hr IV Q8H [facility] Last Admin: 11/22/18 17:06 Dose: 25 mls/hr Lorazepam (Ativan) 1 mg IVPUSH Q4H PRN; Protocol PRN Reason: Withdrawal Symptoms Lorazepam (Ativan) 2 mg IVPUSH Q4H PRN PRN Reason: Seizures Metoprolol Tartrate (Lopressor) 5 mg IVPUSH Q4H PRN PRN Reason: Tachycardia Multivitamins (Thera) 1 each PO DAILY [facility] Last Admin: 11/22/18 09:03 Dose: 1 each Ondansetron HCl (Zofran) 4 mg IVPUSH Q6H PRN PRN Reason: Nausea/Vomiting Ondansetron HCl (Zofran Odt) 4 mg PO Q6H PRN PRN Reason: nausea, able to take PO Quetiapine Fumarate (Seroquel) 25 mg PO BEDTIME [facility] Last Admin: 11/21/18 20:12 Dose: 25 mg Saccharomyces Boulardii (Florastor) 250 mg PO DAILY [facility] Last Admin: 11/22/18 09:03 Dose: 250 mg Thiamine HCl (Vitamin B-1) 100 mg PO DAILY [facility] Last Admin: 11/22/18 09:03 Dose: 100 mg Topiramate (Topamax) 25 mg PO BID [facility] Last Admin: 11/22/18 09:03 Dose: 25 mg Discontinued Medications Chlordiazepoxide HCl (Librium) 25 mg PO Q8HR PRN PRN Reason: ETOH Withdrawls Last Admin: 11/19/18 00:56 Dose: 25 mg Sodium Chloride (Normal Saline) 1,000 mls @ 999 mls/hr IV ONETIME ONE Stop: 11/18/18 01:14 Last Admin: 11/18/18 00:32 Dose: 999 mls/hr Magnesium Sulfate 2 gm/ Premix 50 mls @ 50 mls/hr IV ONETIME ONE Stop: 11/18/18 01:56 Last Admin: 11/18/18 01:13 Dose: 50 mls/hr Sodium Chloride (Normal Saline) 1,000 mls @ 150 mls/hr IV ASDIRECTED [facility] Last Admin: 11/22/18 01:20 Dose: 150 mls/hr Magnesium Sulfate 2 gm/ Premix 50 mls @ 25 mls/hr IV ONETIME ONE Stop: 11/18/18 10:29 Last Admin: 11/18/18 09:30 Dose: 25 mls/hr Piperacillin Sod/Tazobactam (Sod 4.5 gm/ Sodium Chloride) 100 mls @ 25 mls/hr IV Q8H [facility] Last Admin: 11/22/18 01:18 Dose: 25 mls/hr Piperacillin Sod/Tazobactam (Sod 4.5 gm/ Sodium Chloride) 100 mls @ 200 mls/hr IV ONETIME ONE Stop: 11/21/18 17:29 Last Admin: 11/21/18 16:59 Dose: 200 mls/hr Magnesium Sulfate 2 gm/ Premix 50 mls @ 25 mls/hr IV ONETIME ONE Stop: 11/22/18 10:59 Last Admin: 11/22/18 09:12 Dose: 25 mls/hr Influenza Virus Vaccine (Pharmacy To Dose - Influenza Vaccine) 1 each IM ONETIME ONE Stop: 11/18/18 14:00 Influenza Virus Vaccine (Fluzone Quad [id number] Syringe) 60 mcg IM .ONCE ONE Stop: 11/18/18 14:16 Lorazepam (Ativan) 1 mg IVPUSH ONETIME STA Stop: 11/18/18 00:15 Last Admin: 11/18/18 00:33 Dose: 1 mg Lorazepam (Ativan) 1 mg IVPUSH ONETIME STA Stop: 11/18/18 00:52 Last Admin: 11/18/18 01:06 Dose: 1 mg Magnesium Oxide (Magnesium Oxide) 400 mg PO Q4H [facility] Stop: 11/18/18 11:01 Last Admin: 11/18/18 08:09 Dose: Not Given Magnesium Sulfate (Pharmacy To Dose - Magnesium Replacement) 1 dose .XX ASDIRECTED [facility] Ondansetron HCl (Zofran) 4 mg IVPUSH ONETIME ONE Stop: 11/18/18 00:15 Last Admin: 11/18/18 00:32 Dose: 4 mg Potassium Chloride (Pharmacy To Dose - Potassium Replacement) 1 dose .XX ASDIRECTED [facility] Potassium Chloride (Klor-Con M20) 20 meq PO Q4H [facility] Stop: 11/18/18 11:01 Last Admin: 11/18/18 12:04 Dose: 20 meq - Exam General: Alert, Oriented HEENT: Scleral Icterus, Other (mucosal jaundice) GI/Abdominal Exam: Soft, Non-Tender Skin: Other (Jaundic) Consult PN Assessment/Plan Procedures: Procedures ASSAY OF FERRITIN (02/16/18) ASSAY OF FREE THYROXINE (06/20/18) ASSAY OF GGT (02/16/18) ASSAY OF IRON (02/16/18) ASSAY OF LIPASE (11/08/18) ASSAY OF MAGNESIUM (10/29/18) ASSAY THYROID STIM HORMONE (06/20/18) BL SMEAR W/DIFF WBC COUNT (10/29/18) C-REACTIVE PROTEIN (08/26/18) CHEST X-RAY 1 VIEW FRONTAL (10/17/16) CHORIONIC GONADOTROPIN ASSAY (08/01/18) CHYLMD TRACH DNA AMP PROBE (02/16/18) COMPLETE CBC AUTOMATED (10/29/18) COMPLETE CBC W/AUTO DIFF WBC (11/08/18) COMPREHEN METABOLIC PANEL (11/08/18) CT HEAD/BRAIN W/O DYE (12/25/17) DRUG TEST PRSMV INSTRMNT (05/17/18) ECG MONIT/REPRT UP TO 48 HRS (07/21/18) ECG MONIT/REPRT UP TO 48 HRS (07/21/18) ELECTROCARDIOGRAM TRACING (03/31/18) EMERGENCY DEPT VISIT (11/08/18) EMERGENCY DEPT VISIT (07/16/18) EMERGENCY DEPT VISIT (06/18/18) EMERGENCY DEPT VISIT (03/31/18) EMERGENCY DEPT VISIT (03/21/18) EMERGENCY DEPT VISIT (02/18/18) EMERGENCY DEPT VISIT (02/07/18) EMERGENCY DEPT VISIT (11/26/17) EMERGENCY DEPT VISIT (10/17/16) FIBRIN DEGRADATION QUANT (11/26/17) FREE ASSAY (FT-3) (06/20/18) GLYCOSYLATED HEMOGLOBIN TEST (02/16/18) HYDRATE IV INFUSION ADD-ON (11/08/18) IMMUNOASSAY QUANT NOS NONAB (04/07/18) INFLUENZA ASSAY W/OPTIC (08/01/18) LIPID PANEL (02/16/18) METABOLIC PANEL TOTAL CA (04/07/18) MRI LUMBAR SPINE W/O DYE (02/28/18) N.GONORRHOEAE DNA AMP PROB (02/16/18) PROTHROMBIN TIME (03/31/18) ROUTINE VENIPUNCTURE (11/08/18) SMEAR WET M[place] SALINE/INK (02/16/18) THER/DIAG CONCURRENT INF (08/26/18) THER/PROPH/DIAG INJ IV PUSH (11/08/18) THER/PROPH/DIAG INJ SC/IM (02/18/18) THER/PROPH/DIAG IV INF ADDON (08/26/18) THER/PROPH/DIAG IV INF INIT (08/26/18) THROMBOPLASTIN TIME PARTIAL (03/31/18) TRICHOMONAS ASSAY W/OPTIC (02/16/18) TX/PRO/DX INJ NEW DRUG ADDON (11/08/18) TX/PRO/DX INJ SAME DRUG HEALTH INFORMATION DIRECTOR (08/01/18) TX/PROPH/DG ADDL SEQ IV INF (08/26/18) URINALYSIS AUTO W/SCOPE (05/17/18) URINE CULTURE/COLONY COUNT (12/25/17) URINE TEST (02/07/18) VITAMIN D 25 HYDROXY (06/20/18) X-RAY EXAM CHEST 2 VIEWS (08/01/18) X-RAY EXAM L-S SPINE 2/3 VWS (02/16/18) X-RAY EXAM SERIES ABDOMEN (03/31/18) (1) Alcohol dependence, binge pattern SNOMED Code(s): 281816973, 150121877 Code(s): F10.20 - ALCOHOL DEPENDENCE, UNCOMPLICATED Priority: High Current Visit: Yes (2) Hyperbilirubinemia SNOMED Code(s): 01811171 Code(s): E80.6 - OTHER DISORDERS OF BILIRUBIN METABOLISM Current Visit: Yes Problem List Initiated/Reviewed/Updated: Yes Plan: IMPRESSION/RECOMMENDATIONS: 33 yo female, h/o multiple medical problems, including alcohol abuse (with prior admissions for alcohol withdrawal), alcoholic liver disease, fatty liver, obesity (BMI 37), hyperthyroidism (untreated), HD#5 for alcohol withdrawal, presenting with abdominal pain and hyperbilirubinemia. Total bilirubin has continued to increase since admission (2.8 -> 4.8 -> 5.9 -> 5.6 -> 6.5). Direct bilirubin is elevated at 4.1 (yesterday), and continues to increase to now 5.5. - MRCP results as below, which showed no lesions in the CBD, but difficult to visualize the CHD and intrahepatic ducts. - A HIDA scan was then obtained (results below). This showed delayed excretion of tracer, indicative of intrahepatic cholestasis. No obstruction of the CBD. The GB EF is 10%. - Recommending discussing case with GI to determine if patient would need further work-up to rule out post-hepatic obstruction. - Recommend checking patient's coagulation (PT/INR/PTT) to assess intrinsic function of liver. - Patient may be candidate for cholecystectomy given low EF (biliary dyskinesia) . - Will discuss patient's case with Dr. Harris, who will take over General Surgery coverage starting tomorrow AM. MRI abdomen (without contrast) Technique: Various sequences were obtained in axial and coronal planes as well as MRI cholangiogram study. Comparison: Prior abdominal ultrasound of 11/21/[address] abdomen and pelvis exam of 11/18/18. Findings: Fatty infiltration is again noted within the liver. Fluid is identified around the gallbladder wall. Small amount of fluid is seen around the liver and spleen. No definite filling defects within the gallbladder are seen to indicate definite gallstones. MR cholangiogram shows the CBD but does not show the CHD and intrahepatic ducts. CBD shows no filling defects of stone and shows no dilatation. Visualized kidneys show no discrete abnormality. Pancreas appears unremarkable for noncontrast exam. Adrenal glands show no nodule. Impression: 1. CBD is noted on cholangiogram study but CHD and intrahepatic ducts are not seen. Difficult to exclude a lesion in the area of the CHD and isamar hepatis as an etiology for the nonvisualization, although no discrete abnormality appreciated on the non-cholangiogram images but evaluation is difficult due to lack of contrast. ERCP would be helpful to further evaluate. 2. Gallbladder shows surrounding edema/fluid and difficult to completely exclude acalculous cholecystitis. Please correlate with patient's symptoms. 3. Fatty infiltration within the liver. 4. Small amount of fluid is seen around the liver and spleen. Diagnostic code #3 Dictated by: Darrick Gilbert MD 11/22/18 at 1002 Biliary HIDA scan with ejection fraction Technique: 9.7 mCi of technetium 99m mebrofenin was given intravenously. Scintigraphic imaging was then obtained up to an hour at which time the gallbladder started to be visualized. Common bile duct was not visualized and 3 ounces of heavy whipping cream was given with 1 teaspoon sugar. Continued scintigraphic imaging then performed. Findings: Bowel activity is seen after the ingestion of heavy whipping cream and sugar. There is delayed excretion of tracer with persistent blood pool being seen within the heart. Findings indicate intrahepatic cholestasis or obstruction from a central lesion. No findings of obstruction to the CBD. Gallbladder ejection fraction is low at 10% which may represent acute or chronic cholecystitis. Impression: 1. Abnormal study as described above. Diagnostic code #5 Dictated by: Darrick Gilbert MD 11/22/18 at 1631 Alfred Meng M.D., F.A.C.S. General Surgery Pager: [phone]
[2018-11-22] MEDS: QUEtiapine 25 MG Tab PO SCH (20:17)
[2018-11-23] MEDS: Piperacillin/Tazobactam 4.5 GM in Sodium Chloride 0.9% 100 ML IV SCH ×2 (00:27→08:28)
[2018-11-23 08:26] VITALS: BP 106/48
[2018-11-23] MEDS: Multivitamins,Therapeutic Tab PO SCH (08:26)
[2018-11-23] MEDS: Saccharomyces Boulardii (Probiotic) 250 MG Cap PO SCH (08:26)
[2018-11-23] MEDS: Famotidine 20 MG Tab PO SCH (08:27)
[2018-11-23] MEDS: Folic Acid 1 MG Tab PO SCH (08:27)
[2018-11-23] MEDS: chlordiazePOXIDE 25 MG Cap PO SCH (08:27)
[2018-11-23] MEDS: Topiramate 25 MG Tab PO SCH (08:27)
[2018-11-23] MEDS: Thiamine 100 MG Tab PO SCH (08:27)
--- NOTE | 2018-11-23 08:59 | PCM.DCSUM1 ---
Discharge Summary - Hospital Course HPI Initial Comments: Stephany England is a 33 yo female who presented to our ED late yesterday night for possible seizures. She reportedly has a history of binge alcoholism. She is less in the ED on 11/18/2018 and has reportedly been drinking daily since she was here. She reports she drinks approximately 12 of the 99 but now has many bottles per day which is 99 progression ops. Each bowel reportedly contains 50 mL or 1.7 fluid ounces. This reported to be 1.4 drinks per bottle and chocolates O2 around 17 drinks per day. She reports her last alcoholic intake was in the morning in which she drank 2 of the many bottles. In the ED she complains of a feeling of lightheadedness while laboratory which has been present for the last 4 days, a shaky feeling for the last 2 days, and a sharp pain in her left abdomen that has been coming and going since the day prior. She also reports blurry vision, confusion, and possible visual hallucinations which started that day. She reports that she can see an object while in the ED examination room and thought it is coming towards her. She also complains of nausea and vomiting but denies fever or prior treatment. In the ED temperature 37.1 Celsius. Pulse 114. Respirations 17. Blood pressure 1/24/75. Pulse ox 95%. Total EKG is obtained showing a sinus rhythm at 93 bpm there is questionable early transition and a QRS along with a prolonged QTC of 489 ms. No changes noted from the prior years EKG. Orthostatic blood pressures are obtained and are negative. Labs are obtained: WBC is normal at 5.57. Hemoglobin 11.9. Hematocrit 36.9. She has macrocytic. Platelet are low 108,000. Neutrophils are elevated at 65%. There is no bandemia. Sodium is 142. Potassium 3.3. I will 5. Current accident 23. Anion gap was high at 17.3. BUN is 4. Creatinine 0.6. EGFR greater than 60. Glucose is 100. Calcium 8.2. Magnesium is very low at 1.3. Bilirubin is high at 2.8. AST is 200, ALT 68, alkaline phosphatase 98. Protein is high at 8.6. Albumin is low at 3.0. Lipase is 198. TSH is very low at 0.073. Ethyl alcohol is obtained and is 0.15. Ketones are 0.37. ABGs obtained in the right radial showing a pH of 7.62. PCO2 of 17.5. PO2 of 100.8. Bicarbonate of 18.3. O2 saturation 99.3. Base excess of -1.0. A-a gradient of 4. FiO2 21. UA is obtained and is negative however urine is noted to be paulino in color with 2+ protein, trace glucose, 2+ ketones, 3+ bilirubin, greater than 8 urobilinogen , and moderate mucus. HCG is negative. Urine drug screen is obtained and is positive for benzodiazepines and marijuana. He noted does mention that the patient was given benzos prior to UDS being obtained and the patient does admit to daily marijuana consumption. She is given a 1 L saline bolus and 2 g of magnesium. She is also given 1 mg of Ativan twice and 4 mg of Zofran. Chest x- rays obtained and interpreted by Dr. Gilbert as showing nothing acute. She carries a history of untreated GERD, alcohol-related seizures, untreated anxiety, alcohol addiction, untreated hyperthyroidism, obesity. She was never a smoker. She is a full code. Her PCP is Dr. Redding. Diagnosis: Stroke: No - Discharge Data Discharge Date: 11/23/18 (Admit date: 11/18/18) Discharge Disposition: DC/Tfer to Acute Hospital 02 Condition: Stable - Discharge Diagnosis/Problem(s) (1) Alcohol dependence, binge pattern SNOMED Code(s): 470498498, 375506437 ICD Code: F10.20 - ALCOHOL DEPENDENCE, UNCOMPLICATED Status: Acute Priority: High Current Visit: Yes (2) Alcohol intoxication SNOMED Code(s): 54431207 ICD Code: F10.929 - ALCOHOL USE, UNSPECIFIED WITH INTOXICATION, UNSPECIFIED Status: Resolved Priority: High Current Visit: Yes Qualifiers: Complication of substance-induced condition: with unspecified complication Qualified Code(s): F10.929 - Alcohol use, unspecified with intoxication, unspecified (3) Alcohol withdrawal SNOMED Code(s): 692118553 ICD Code: F10.239 - ALCOHOL DEPENDENCE WITH WITHDRAWAL, UNSPECIFIED Status : Resolved Priority: High Current Visit: Yes Qualifiers: Complication of substance-induced condition: with unspecified complication Qualified Code(s): F10.239 - Alcohol dependence with withdrawal, unspecified (4) Hyperthyroidism SNOMED Code(s): 32507345 ICD Code: E05.90 - THYROTOXICOSIS, UNSP WITHOUT THYROTOXIC CRISIS OR STORM Status: Chronic Priority: Medium Current Visit: Yes (5) Hypokalemia SNOMED Code(s): 43910977 ICD Code: E87.6 - HYPOKALEMIA Status: Resolved Priority: High Current Visit: Yes (6) Hypomagnesemia SNOMED Code(s): 004387284 ICD Code: E83.42 - HYPOMAGNESEMIA Status: Resolved Priority: High Current Visit: Yes (7) Marijuana abuse SNOMED Code(s): 86046017 ICD Code: F12.10 - CANNABIS ABUSE, UNCOMPLICATED Status: Chronic Priority : Medium Current Visit: Yes - Patient Summary/Data Consults: Consultations 11/18/18 06:33 Consult to Case Management/Payroll Analyst [CONS] Routine Consult to Physician [CONS] Routine 11/18/18 06:37 Consult for Substance Abuse [CONS] Routine 11/19/18 20:53 Consult to Spiritual Care [CONS] Routine 11/21/18 13:42 Consult to Physician [CONS] Routine Labs Pending at D/C: None Recommended Follow-up Testing/Procedures: Follow-up with licensed addiction counselor when discharged regarding future alcohol treatment. Hospital Course: I/P: Acute: ETOH Withdrawal Symptoms/DT - CIWA protocol: CIWA score has been 0 thus far - Was reportedly hallucinating in ED - Reported history of ETOH seizures - PRN Librium - Scheduled Topamax/Seroquel - MVI/Thiamine/Folic acid - Hydralzine and IVP BB for HR/BP control - Ativan for Abortive Seizure and Withdrawal Symptoms - Tele-psych and SA consult - Aspiration and seizure precautions Alcohol Abuse - Acute on Chronic - Risk factors: Unemployed, Hx/o ETOH abuse within family, Daily marijuana use, untreated anxiety - She reportedly drinks 12 small bottles of 99 bananas daily (99 proof schnapps, 1.7 fl oz. per bottle) - CIWA Protocol as above - ETOH 0.15 in ED - SA consult Hx/o Poly-Substance Abuse - Daily Marijuana user - UDS: Positive for marijuana and benzos (was given ativan piror to urine being obtained) - Counseled on Substance Abuse - SA/Psych consult Hyperthyroidism - TSH 0.073 - Has history of known hyperthyroidism which is untreated - T4 1.71 - Free T3 3.83 (WNL) - Old notes show multiple appointments made with endocrinology, which the patient no-showed - Old record note prior dx of Graves disease with exopthalmos - thyroid uptake done in 2012 - Was apparently treated with methimazole for 3 months in the past Hyperbilirubinemia - Mixed, total/direct - Unlikely hyperthyroidism - Abdominal US to eval for gallstones 11/21/18 * 1.Somewhat limited abdominal ultrasound as noted * 2. Echogenic liver compatible with fatty infiltration. Small amount of free fluid next to the anterior liver is seen * 3. Small amount of debris within the gallbladder without shadowing gallstones , gallbladder wall thickening or biliary duct dilation * 4. Spleen size at the upper limits of normal at 13.2cm - Hepatitis panel pending - General surgery consult - Dr. Dowell director non profit - MRCP obtained 11/22/18 * 1. CBD is noted on cholangiogram study but CHD and intrahepatic ducts are not seen. Difficult to exclude a lesion in the area of the CHD and isamar hepatitis as an etiology for the nonvisualization, although no discrete abnormality appreciated on the non-cholangiogram images but evaluation is difficult due to lack of contrast. ERCP would be helpful to further evaluate. * 2. Gallbladder shows surrounding edema/fluid and difficult to completely exclude acalculous cholecystitis. Please correlate with patient's symptoms. * 3. Fatty infiltration within the liver. * 4. Small amount of fluid is seen on the liver and spleen -Contacted Dr. Ladd GI with [facility] in [place] * Suggest HIDA scan - obtained 11/22/18 and shows abnormalities. * Would like us to contact him with results if needed * Reports difficult to exclude hyperbilirubinemia due to chronic alcohol abuse versus blockage. * Was started on prophylactic Zosyn for cholangitis - he agreed to this antibiotic choice. Resolved: Hypokalemia - Potassium 3.3 in ED - Pharmacy to monitor and supplement Hypomagnesemia - Magnesium 1.3 in ED - 2gm magnesium given in ED - Pharmacy to monitor and supplement Abdominal pain--needs abd US; elevated bilirubin, questionable GS - Epigastric location - Likely 2/2 above - "I think it hurts because I had been puking so much" - Worse on palpation - Hx/o untreated GERD, heavy ETOH use - H2 reji daily - Abdominal/Pelvic CT 11/19/18 * 1. Fatty infiltration throughout the liver * 2. Fatty change within the colonic wall raising the possibility of change from chronic inflammation. Please correlate with the patient's symptoms * 3. Possible small gallstones * 4. No acute abnormality is appreciated Chronic: Untreated GERD ETOH Seizures Untreated anxiety ETOH addiction Untreated Hyperthyroidism Obesity Plan: Other orders as indicated above Routine AM lab draws Home medications as ordered / d/c planning DVT/PE prophylaxis: SCDs GI Prophylaxis/GERD treatment: Pepcid Code Status: Full code; PCP: Dr. Vahid FERNANDEZ plan: Endo consult Gen surgery [facility] re: ETOH OP Psych Dian was admitted to the ICU for detox. She has a very strong family and personal history of alcohol abuse. She reportedly had a sibling around her age from alcohol abuse recently and has decided she needs help. Her detox was fairly straight forward. She has been receiving librium 25mg BID along with scheduled seroquel 25mg and topamax 25mg BID. She was given thiamine, folic acid , and a multivitamin. She saw psychiatry who recommended inpatient chemical dependancy treatment and outpatient psychiatry on discharge. Licensed addiction counselor was consulted and plan was for discharge to [facility] here locally. While here she was noted to have a low TSH and elevated T4. Old records indicate a history of graves disease and apparently she stopped treatment somewhere along the line. It is unclear if this was stopped by a provider or by the patient. Multiple old record show endocrinology appointments being scheduled and the patient would not show up. We were in the process of contacting endocrinology for an appointment and she reportedly did have an appointment scheduled with the date falling yesterday. She reports to me that she had planned on attending that appointment. Electrolytes were supplemented accordingly. She was noted to have some worsening jaundice and elevated bilirubin. Her LFTs were also high and this was suspected to be 2/2 to her ETOH use. She was complaining of abdominal pain which she believed was 2/[address] was ordered with results as above. Abdominal US was ordered with results as above and was noted to be somewhat non-specific with debris noted in the gallbladder. While here LFTs trended downward and total bilirubin priyanka from 2.4 to 6.5 today. Direct bilirubin priyanka from 4.10 to 5.40. General surgery, Dr. Dowell, was contacted for consulted and suggested MRCP. She was also started on IV Zosyn for prophylactic treatment of cholangitis MRCP was largely non- specific as well and Dr. Dowell subsequently suggested transfer. [facility] was contacted and Dr. Ledesma, GI specialist, requested HIDA scan. This was obtained on 11/22/18 and shows abnormalities. I will defer to that report for specifics. Dr. Ladd was again contacted and agrees to consult on patient for further workup and monitoring. Report given to Dr. Rodriguez, hospitalist with [facility] in [place] who also agrees to transfer. She was transferred by [facility] ground ambulance to [place] today. - Discharge Plan *PRESCRIPTION DRUG MONITORING PROGRAM REVIEWED*: Not Applicable *COPY OF PRESCRIPTION DRUG MONITORING REPORT IN PATIENT MAURY: Not Applicable Home Medications: Home Meds Cholecalciferol (Vitamin D3) [Vitamin D] 5,000 unit PO BID 11/18/18 [History] Pantoprazole [ProTONIX] 40 mg PO DAILY 11/18/18 [History] Potassium Chloride [Klor-Con M20] 20 meq PO DAILY 11/18/18 [History] Oxygen Therapy Mode: Room Air Referrals: Elle Redding MD [Primary Care Provider] - - Discharge Summary/Plan Comment DC Time >30 min.: Yes (60 minutes ) - General Info Date of Service: 11/23/18 Admission Dx/Problem (Free Text: Admission Diagnosis/Problem Admission Diagnosis/Problem Alcohol withdrawal syndrome Functional Status: Reports: Pain Controlled, Tolerating Diet, Ambulating, Urinating (very orange urine ). Denies: New Symptoms - Review of Systems General: Reports: No Symptoms. Denies: Fever, Weakness, Fatigue, Malaise, Chills HEENT: Reports: No Symptoms. Denies: Eye Pain, Headaches, Visual Changes Pulmonary: Reports: No Symptoms. Denies: Shortness of Breath, Cough, Sputum, Wheezing Cardiovascular: Reports: No Symptoms. Denies: Chest Pain, Palpitations, Dyspnea on Exertion, Edema, Lightheadedness Gastrointestinal: Reports: No Symptoms. Denies: Abdominal Pain (None currently - has come and gone frequenlty lasting momentarily ), Constipation, Diarrhea, Nausea, Vomiting Genitourinary: Reports: No Symptoms. Denies: Pain Musculoskeletal: Reports: No Symptoms Skin: Reports: Jaundice. Denies: Cyanosis Neurological: Reports: No Symptoms. Denies: Confusion, Dizziness, Headache, Numbness, Seizure, Syncope, Tingling, Trouble Speaking, Difficulty Walking, Gait Disturbance Psychiatric: Reports: No Symptoms - Patient Data Vitals - Most Recent: Last Vital Signs Temp 98.8 F 11/23/18 08:08 Pulse 105 H 11/23/18 08:08 Resp 20 11/23/18 08:08 BP 106/48 L 11/23/18 08:08 Pulse Ox 95 11/23/18 08:08 Orthostatic Blood Pressure [ 146/89 Standing] Orthostatic Blood Pressure [ 145/86 Sitting] Orthostatic Blood Pressure [ 130/74 Supine] Weight - Most Recent: 233 lb 12.8 oz I&O - Last 24 hours: Intake & Output 11/22/18 11/23/18 11/23/18 22:59 06:59 14:59 Intake Total 570 600 Output Total 300 Balance 570 300 Lab Results - Last 24 hrs: Laboratory Results - last 24 hr 11/21/18 11/23/18 11/23/18 Range/Units 05:38 06:12 06:13 WBC 7.77 (3.98-10.04) K/mm3 RBC 3.58 L (3.98-5.22) M/mm3 Hgb 11.1 L (11.2-15.7) gm/L Hct 35.8 (34.1-44.9) % MCV 100.0 H (79.4-94.8) fl MCH 31.0 (25.6-32.2) pg MCHC 31.0 L (32.2-35.5) g/dl RDW Std Deviation 60.1 H (36.4-46.3) fL Plt Count 141 L (182-369) K/mm3 MPV 9.5 (9.4-12.3) fl Neut % (Auto) 58.9 (34.0-71.1) % Lymph % (Auto) 21.6 (19.3-51.7) % [place] % (Auto) 17.2 H (4.7-12.5) % Eos % (Auto) 2.1 (0.7-5.8) Baso % (Auto) 0.1 (0.1-1.2) % Neut # (Auto) 4.57 (1.56-6.13) K/mm3 Lymph # (Auto) 1.68 (1.18-3.74) K/mm3 [place] # (Auto) 1.34 H (0.24-0.36) K/mm3 Eos # (Auto) 0.16 (0.04-0.36) K/mm3 Baso # (Auto) 0.01 (0.01-0.08) K/mm3 PT (9.5-12.1) SECONDS INR APTT (24-31) SECONDS Sodium 139 (136-145) mEq/L Potassium 3.7 (3.5-5.1) mEq/L Chloride 108 H (98-107) mEq/L Carbon Dioxide 20 L (21-32) mEq/L Anion Gap 14.7 (5-15) BUN 5 L (7-18) mg/dL Creatinine 0.7 (0.55-1.02) mg/dL Est Cr Clr Drug Dosing 106.01 mL/min Estimated GFR (MDRD) > 60 (>60) mL/min BUN/Creatinine Ratio 7.1 L (14-18) Glucose 88 (74-106) mg/dL Calcium 8.3 L (8.5-10.1) mg/dL Magnesium 2.0 (1.8-2.4) mg/dl Total Bilirubin 6.5 H (0.2-1.0) mg/dL Direct Bilirubin 5.40 H (0.0-0.2) mg/dl AST 78 H (15-37) U/L ALT 27 (14-59) U/L Alkaline Phosphatase 90 (46-116) U/L Total Protein 7.2 (6.4-8.2) g/dl Albumin 2.3 L (3.4-5.0) g/dl Globulin 4.9 gm/dL Albumin/Globulin Ratio 0.5 L (1-2) Hepatitis A IgM Ab Negative (Negative) Hep Bs Antigen Negative (Negative) Hep B Core IgM Ab Negative (Negative) Hepatitis C Antibody 0.1 (0.0-0.9) s/co ratio 11/23/18 Range/Units 06:13 WBC (3.98-10.04) K/mm3 RBC (3.98-5.22) M/mm3 Hgb (11.2-15.7) gm/L Hct (34.1-44.9) % MCV (79.4-94.8) fl MCH (25.6-32.2) pg MCHC (32.2-35.5) g/dl RDW Std Deviation (36.4-46.3) fL Plt Count (182-369) K/mm3 MPV (9.4-12.3) fl Neut % (Auto) (34.0-71.1) % Lymph % (Auto) (19.3-51.7) % [place] % (Auto) (4.7-12.5) % Eos % (Auto) (0.7-5.8) Baso % (Auto) (0.1-1.2) % Neut # (Auto) (1.56-6.13) K/mm3 Lymph # (Auto) (1.18-3.74) K/mm3 [place] # (Auto) (0.24-0.36) K/mm3 Eos # (Auto) (0.04-0.36) K/mm3 Baso # (Auto) (0.01-0.08) K/mm3 PT 18.3 H (9.5-12.1) SECONDS INR 1.70 APTT 35 H (24-31) SECONDS Sodium (136-145) mEq/L Potassium (3.5-5.1) mEq/L Chloride (98-107) mEq/L Carbon Dioxide (21-32) mEq/L Anion Gap (5-15) BUN (7-18) mg/dL Creatinine (0.55-1.02) mg/dL Est Cr Clr Drug Dosing mL/min Estimated GFR (MDRD) (>60) mL/min BUN/Creatinine Ratio (14-18) Glucose (74-106) mg/dL Calcium (8.5-10.1) mg/dL Magnesium (1.8-2.4) mg/dl Total Bilirubin (0.2-1.0) mg/dL Direct Bilirubin (0.0-0.2) mg/dl AST (15-37) U/L ALT (14-59) U/L Alkaline Phosphatase (46-116) U/L Total Protein (6.4-8.2) g/dl Albumin (3.4-5.0) g/dl Globulin gm/dL Albumin/Globulin Ratio (1-2) Hepatitis A IgM Ab (Negative) Hep Bs Antigen (Negative) Hep B Core IgM Ab (Negative) Hepatitis C Antibody (0.0-0.9) s/co ratio Med Orders - Current: Current Medications Acetaminophen (Tylenol) 650 mg PO Q4H PRN PRN Reason: Pain (Mild 1-3)/fever Albuterol/Ipratropium (Duoneb 3.0-0.5 Mg/3 Ml) 3 ml NEB Q4H PRN PRN Reason: Shortness Of Breath/wheezing Chlordiazepoxide HCl (Librium) 25 mg PO Q12HR [facility] Last Admin: 11/23/18 08:27 Dose: 25 mg Famotidine (Pepcid) 20 mg PO BID [facility] Last Admin: 11/23/18 08:27 Dose: 20 mg Folic Acid (Folic Acid) 1 mg PO DAILY [facility] Last Admin: 11/23/18 08:27 Dose: 1 mg Hydralazine HCl (Apresoline) 20 mg IVPUSH Q4H PRN PRN Reason: Hypertension Piperacillin Sod/Tazobactam (Sod 4.5 gm/ Sodium Chloride) 100 mls @ 25 mls/hr IV Q8H [facility] Last Admin: 11/23/18 08:28 Dose: 25 mls/hr Lorazepam (Ativan) 1 mg IVPUSH Q4H PRN; Protocol PRN Reason: Withdrawal Symptoms Lorazepam (Ativan) 2 mg IVPUSH Q4H PRN PRN Reason: Seizures Metoprolol Tartrate (Lopressor) 5 mg IVPUSH Q4H PRN PRN Reason: Tachycardia Multivitamins (Thera) 1 each PO DAILY [facility] Last Admin: 11/23/18 08:26 Dose: 1 each Ondansetron HCl (Zofran) 4 mg IVPUSH Q6H PRN PRN Reason: Nausea/Vomiting Ondansetron HCl (Zofran Odt) 4 mg PO Q6H PRN PRN Reason: nausea, able to take PO Quetiapine Fumarate (Seroquel) 25 mg PO BEDTIME [facility] Last Admin: 11/22/18 20:17 Dose: 25 mg Saccharomyces Boulardii (Florastor) 250 mg PO DAILY [facility] Last Admin: 11/23/18 08:26 Dose: 250 mg Thiamine HCl (Vitamin B-1) 100 mg PO DAILY [facility] Last Admin: 11/23/18 08:27 Dose: 100 mg Topiramate (Topamax) 25 mg PO BID [facility] Last Admin: 11/23/18 08:27 Dose: 25 mg Discontinued Medications Chlordiazepoxide HCl (Librium) 25 mg PO Q8HR PRN PRN Reason: ETOH Withdrawls Last Admin: 11/19/18 00:56 Dose: 25 mg Sodium Chloride (Normal Saline) 1,000 mls @ 999 mls/hr IV ONETIME ONE Stop: 11/18/18 01:14 Last Admin: 11/18/18 00:32 Dose: 999 mls/hr Magnesium Sulfate 2 gm/ Premix 50 mls @ 50 mls/hr IV ONETIME ONE Stop: 11/18/18 01:56 Last Admin: 11/18/18 01:13 Dose: 50 mls/hr Sodium Chloride (Normal Saline) 1,000 mls @ 150 mls/hr IV ASDIRECTED [facility] Last Admin: 11/22/18 01:20 Dose: 150 mls/hr Magnesium Sulfate 2 gm/ Premix 50 mls @ 25 mls/hr IV ONETIME ONE Stop: 11/18/18 10:29 Last Admin: 11/18/18 09:30 Dose: 25 mls/hr Piperacillin Sod/Tazobactam (Sod 4.5 gm/ Sodium Chloride) 100 mls @ 25 mls/hr IV Q8H [facility] Last Admin: 11/22/18 01:18 Dose: 25 mls/hr Piperacillin Sod/Tazobactam (Sod 4.5 gm/ Sodium Chloride) 100 mls @ 200 mls/hr IV ONETIME ONE Stop: 11/21/18 17:29 Last Admin: 11/21/18 16:59 Dose: 200 mls/hr Magnesium Sulfate 2 gm/ Premix 50 mls @ 25 mls/hr IV ONETIME ONE Stop: 11/22/18 10:59 Last Admin: 11/22/18 09:12 Dose: 25 mls/hr Influenza Virus Vaccine (Pharmacy To Dose - Influenza Vaccine) 1 each IM ONETIME ONE Stop: 11/18/18 14:00 Influenza Virus Vaccine (Fluzone Quad [id number] Syringe) 60 mcg IM .ONCE ONE Stop: 11/18/18 14:16 Lorazepam (Ativan) 1 mg IVPUSH ONETIME STA Stop: 11/18/18 00:15 Last Admin: 11/18/18 00:33 Dose: 1 mg Lorazepam (Ativan) 1 mg IVPUSH ONETIME [facility] Stop: 11/18/18 00:52 Last Admin: 11/18/18 01:06 Dose: 1 mg Magnesium Oxide (Magnesium Oxide) 400 mg PO Q4H [facility] Stop: 11/18/18 11:01 Last Admin: 11/18/18 08:09 Dose: Not Given Magnesium Sulfate (Pharmacy To Dose - Magnesium Replacement) 1 dose .XX ASDIRECTED [facility] Ondansetron HCl (Zofran) 4 mg IVPUSH ONETIME ONE Stop: 11/18/18 00:15 Last Admin: 11/18/18 00:32 Dose: 4 mg Potassium Chloride (Pharmacy To Dose - Potassium Replacement) 1 dose .XX ASDIRECTED [facility] Potassium Chloride (Klor-Con M20) 20 meq PO Q4H [facility] Stop: 11/18/18 11:01 Last Admin: 11/18/18 12:04 Dose: 20 meq - Exam Quality Assessment: Reports: DVT Prophylaxis General: Reports: Alert, Oriented, Cooperative, No Acute Distress, Other (Obese) HEENT: Reports: Pupils Equal, Pupils Reactive, EOMI, Mucous Membr. Moist/[place], Scleral Icterus Neck: Reports: Supple, Trachea Midline, No JVD Lungs: Reports: Clear to Auscultation, Normal Respiratory Effort Cardiovascular: Reports: Regular Rate, Tachycardia GI/Abdominal Exam: Normal Bowel Sounds, Soft, Non-Tender, No Distention, No Abnormal Bruit (Female) Exam: Deferred Rectal (Female) Exam: Deferred Back Exam: Reports: Normal Inspection, Full Range of Motion Extremities: Normal Inspection, Normal Range of Motion, Non-Tender, No Pedal Edema, Normal Capillary Refill Skin: Reports: Warm, Dry, Intact Neurological: Reports: No New Focal Deficit Psy/Mental Status: Reports: Alert, Normal Affect, Normal Mood
== END 2018-11-23 10:37 | DRG 896 ==
LOC: JD.ED 23:08 → JD.ICU 11-18 01:38 → JD.MS 11-18 20:45
PROVIDERS: ADMIT Internal Medicine; ATTEND Internal Medicine
DX: F10.239 Alcohol dependence with withdrawal, unspecified (principal); K83.1 Obstruction of bile duct; E87.3 Alkalosis; R56.9 Unspecified convulsions; F10.229 Alcohol dependence with intoxication, unspecified; E87.6 Hypokalemia; E83.42 Hypomagnesemia; F12.10 Cannabis abuse, uncomplicated; F41.9 Anxiety disorder, unspecified; K21.9 Gastro-esophageal reflux disease without esophagitis; E66.9 Obesity, unspecified; E05.00 Thyrotoxicosis with diffuse goiter without thyrotoxic crisis or storm; R10.13 Epigastric pain; E05.90 Thyrotoxicosis, unspecified without thyrotoxic crisis or storm; Z79.899 Other long term (current) drug therapy; F32.9 Major depressive disorder, single episode, unspecified; H54.7 Unspecified visual loss; M54.30 Sciatica, unspecified side; Z68.37 Body mass index [BMI] 37.0-37.9, adult; K70.0 Alcoholic fatty liver; F10.251 Alcohol dependence with alcohol-induced psychotic disorder with hallucinations
CPT/HCPCS: 36415; 36600; 71045; 71045-26; 74176; 74176-26; 74181; 74181-26; 76700; 76700-26; 78227; 78227-26; 80053; 80074; 80306; 81001; 81025; 82009; 82248; 82803; 83690; 83735; 84439; 84443; 84481; 85007; 85025; 85027; 85610; 85730; 93005; 93010; 96361; 96365; 96375; 96376; 99285; 99285-25; A9270-GY; A9537; G0480; J2060; J2405; J2543; J3475; J7030; J7040

== ENCOUNTER 2019-01-09 | Emergency (ER) | payer OTHER ==
[2019-01-09 00:11] VITALS: BP 104/41
--- NOTE | 2019-01-09 00:17 | EDM.PDOC ---
ED HPI GENERAL MEDICAL PROBLEM - General Chief Complaint: Abdominal Pain Stated Complaint: [facility] Time Seen by Provider: 01/09/19 00:07 - History of Present Illness INITIAL COMMENTS - FREE TEXT/NARRATIVE: 33-year-old female presents emergency room with persistent bronchitis and abdominal pain difficulty moving around. Patient has chronic cirrhosis and advanced liver disease. She has a persistent cough going back 1 week she was seen in the clinic diagnosed with thrush and bronchitis her cough is not improving. Patient is developed some abdominal pain. Pain is not associated with any nausea or vomiting. She denies any fevers or chills. EMS had a hard time picking her up because of uncleared snow and the patient's overall inability to help herself move. Abdominal Pain Score (Numeric/FACES): 9 - Related Data Allergies Allergy/AdvReac Type Severity Reaction Status Date / Time No Known Allergies Allergy Verified 01/09/19 00:11 Home Meds: Home Meds Cholecalciferol (Vitamin D3) [Vitamin D] 5,000 unit PO BID 11/18/18 [History] Pantoprazole [ProTONIX] 40 mg PO DAILY 11/18/18 [History] Dextran 70/Hypromellose [Artificial Tears] 1 drop EYEBOTH DAILY 01/09/19 [ History] Folic Acid 1 mg PO DAILY 01/09/19 [History] Furosemide 40 mg PO BID 01/09/19 [History] L. Rhamnosus GG/Inulin [Culturelle Probiotics Capsule] 1 cap PO DAILY 01/09/19 [ History] Lactulose 7.5 ml PO DAILY 01/09/19 [History] Levothyroxine 112 mcg PO DAILY 01/09/19 [History] Midodrine 10 mg PO TID 01/09/19 [History] Spironolactone 50 mg PO DAILY 01/09/19 [History] Thiamine Mononitrate [Vitamin B-1] 100 mg PO DAILY 01/09/19 [History] prednisoLONE [Prednisolone] 40 mg PO DAILY 01/09/19 [History] Past Medical History HEENT History: Reports: Impaired Vision Other HEENT History: wears glasses Gastrointestinal History: Reports: GERD (untreated) Musculoskeletal History: Reports: Fracture (right 3rd finger) Other Musculoskeletal History: sciatica Neurological History: Reports: Seizure (alcohol-related only) Other Neuro History: with alcohol withdrawl Psychiatric History: Reports: Addiction (alcohol), Anxiety (untreated) Other Psychiatric History: alcohol Endocrine/Metabolic History: Reports: Hyperthyroidism (untreated), Obesity/BMI 30+ - Infectious Disease History Infectious Disease History: Reports: Chicken Pox - Past Surgical History Musculoskeletal Surgical History: Reports: Arthroscopic Knee (right) Social & Family History - Family History Family Medical History: Noncontributory - Caffeine Use Caffeine Use: Reports: None - Living Situation & Occupation Living situation: Reports: Single, with Family (Cousin, brothers) Occupation: Unemployed ED ROS GENERAL - Review of Systems Review Of Systems: See Below Constitutional: Reports: No Symptoms HEENT: Reports: No Symptoms Respiratory: Reports: Shortness of Breath, Cough. Denies: Sputum Cardiovascular: Reports: No Symptoms Endocrine: Reports: No Symptoms GI/Abdominal: Reports: Abdominal Pain. Denies: Constipation, Diarrhea, Nausea, Vomiting : Reports: No Symptoms Musculoskeletal: Reports: No Symptoms Skin: Reports: No Symptoms Neurological: Reports: No Symptoms ED EXAM, GENERAL - Physical Exam Exam: See Below Exam Limited By: No Limitations General Appearance: Alert, No Apparent Distress, Other (Significant jaundice noticed) Eye Exam: Bilateral Eye: Other (Sclera icteric) Ears: Normal External Exam, Normal Canal, Hearing Grossly Normal, Normal TMs Nose: Normal Inspection, Normal Mucosa, No Blood Throat/Mouth: Normal Inspection, Normal Lips, Normal Teeth, Normal Gums, Normal Oropharynx, Normal Voice, No Airway Compromise Head: Atraumatic, Normocephalic Neck: Normal Inspection Cardiovascular: Normal Peripheral Pulses, Regular Rate, Rhythm, No Edema GI/Abdominal: Soft, Tender (Mild diffuse tenderness without rigidity rebound or guarding she is morbidly obese) Back Exam: Normal Inspection. No: CVA Tenderness (L), CVA Tenderness (R) Extremities: Pedal Edema (Significant lower leg pitting edema). No: No Pedal Edema Neurological: Other (She has some confusion I don't know what her baseline is). No: Normal Cognition Psychiatric: Flat Affect Course - Vital Signs Last Recorded V/S: Last Vital Signs Temp 37.7 C 01/09/19 00:06 Pulse 98 01/09/19 00:06 Resp 16 01/09/19 00:06 BP 104/41 L 01/09/19 00:06 Pulse Ox 97 01/09/19 00:06 - Orders/Labs/Meds Orders: Active Orders 24 hr Category Date Time Status Abdomen 2V AP Flat Upright [CR] Stat Exams 01/09/19 00:37 Taken Chest 1V Frontal [CR] Stat Exams 01/09/19 00:34 Taken Head wo Cont [CT] Stat Exams 01/09/19 01:14 Taken DRUG SCREEN, URINE [URCHEM] Stat Lab 01/09/19 02:14 Ordered UA W/O MICROSCOPIC [URIN] Stat Lab 01/09/19 00:32 Ordered Potassium Chloride [KCl 10 MEQ in Water 100 ML] 10 meq Med 01/09/19 02:00 Ordered Premix Bag 1 bag IV Q1H Medication Orders Potassium Chloride 10 meq/ (Premix) 100 mls @ 100 mls/hr IV Q1H HALINA Stop: 01/09/19 07:59 Last Admin: 01/09/19 02:08 Dose: 100 mls/hr Labs: Laboratory Tests 01/09/19 01/09/19 01/09/19 Range/Units 00:10 00:10 00:10 WBC 14.23 H (3.98-10.04) K/mm3 RBC 2.59 L (3.98-5.22) M/mm3 Hgb 8.7 L (11.2-15.7) gm/L Hct 25.2 L (34.1-44.9) % MCV 97.3 H (79.4-94.8) fl MCH 33.6 H (25.6-32.2) pg MCHC 34.5 (32.2-35.5) g/dl RDW Std Deviation 69.3 H (36.4-46.3) fL Plt Count 152 L (182-369) K/mm3 MPV 10.9 (9.4-12.3) fl Neutrophils % (Manual) 93 H (40-60) % Band Neutrophils % 0 (0-10) % Lymphocytes % (Manual) 4 L (20-40) % Atypical Lymphs % 0 % Monocytes % (Manual) 3 (2-10) % Eosinophils % (Manual) 0 L (0.7-5.8) % Basophils % (Manual) 0 L (0.1-1.2) Platelet Estimate Adequate Anisocytosis 1+ slight Target Cells 1+ slight Tear Drop Cells 1+ slight [place] Cells 1+ slight RBC Morph Comment Not Reportable PT (9.5-12.1) SECONDS INR Sodium 133 L (136-145) mEq/L Potassium 2.8 L (3.5-5.1) mEq/L Chloride 100 (98-107) mEq/L Carbon Dioxide 19 L (21-32) mEq/L Anion Gap 16.8 H (5-15) BUN 64 H (7-18) mg/dL Creatinine 3.5 H (0.55-1.02) mg/dL Est Cr Clr Drug Dosing 26.14 mL/min Estimated GFR (MDRD) 15 (>60) mL/min BUN/Creatinine Ratio 18.3 H (14-18) Glucose 135 H (74-106) mg/dL Calcium 8.1 L (8.5-10.1) mg/dL Total Bilirubin 27.5 H* (0.2-1.0) mg/dL Direct Bilirubin 21.20 H (0.0-0.2) mg/dl Indirect Bilirubin 6.30 AST 72 H (15-37) U/L ALT 78 H (14-59) U/L Alkaline Phosphatase 179 H (46-116) U/L Ammonia (11-32) umol/L Total Protein 4.6 L (6.4-8.2) g/dl Albumin 1.6 L (3.4-5.0) g/dl Globulin 3.1 gm/dL Albumin/Globulin Ratio 0.5 L (1-2) Lipase 526 H (73-393) U/L TSH 3rd Generation 0.011 L (0.358-3.74) uIU/mL HCG, Qual Negative (NEGATIVE) Ethyl Alcohol 0.00 (0.00) gm% 01/09/19 01/09/19 Range/Units 00:10 00:50 WBC (3.98-10.04) K/mm3 RBC (3.98-5.22) M/mm3 Hgb (11.2-15.7) gm/L Hct (34.1-44.9) % MCV (79.4-94.8) fl MCH (25.6-32.2) pg MCHC (32.2-35.5) g/dl RDW Std Deviation (36.4-46.3) fL Plt Count (182-369) K/mm3 MPV (9.4-12.3) fl Neutrophils % (Manual) (40-60) % Band Neutrophils % (0-10) % Lymphocytes % (Manual) (20-40) % Atypical Lymphs % % Monocytes % (Manual) (2-10) % Eosinophils % (Manual) (0.7-5.8) % Basophils % (Manual) (0.1-1.2) Platelet Estimate Anisocytosis Target Cells Tear Drop Cells Manny Cells RBC Morph Comment PT 18.2 H (9.5-12.1) SECONDS INR 1.69 Sodium (136-145) mEq/L Potassium (3.5-5.1) mEq/L Chloride (98-107) mEq/L Carbon Dioxide (21-32) mEq/L Anion Gap (5-15) BUN (7-18) mg/dL Creatinine (0.55-1.02) mg/dL Est Cr Clr Drug Dosing mL/min Estimated GFR (MDRD) (>60) mL/min BUN/Creatinine Ratio (14-18) Glucose (74-106) mg/dL Calcium (8.5-10.1) mg/dL Total Bilirubin (0.2-1.0) mg/dL Direct Bilirubin (0.0-0.2) mg/dl Indirect Bilirubin AST (15-37) U/L ALT (14-59) U/L Alkaline Phosphatase (46-116) U/L Ammonia 103 H (11-32) umol/L Total Protein (6.4-8.2) g/dl Albumin (3.4-5.0) g/dl Globulin gm/dL Albumin/Globulin Ratio (1-2) Lipase (73-393) U/L TSH 3rd Generation (0.358-3.74) uIU/mL HCG, Qual (NEGATIVE) Ethyl Alcohol (0.00) gm% Meds: Medications Generic Name Dose Route Start Last Admin Trade Name Freq PRN Reason Stop Dose Admin Potassium Chloride 10 meq/ 100 mls @ 100 mls/hr 01/09/19 02:00 01/09/19 02:08 Premix IV 01/09/19 07:59 100 mls/hr Q1H HALINA Administration - Re-Assessments/Exams Free Text/Narrative Re-Assessment/Exam: 01/09/19 02:49 Labs reviewed her renal function is clearly getting worse get quite elevated bilirubin direct and indirect. As well as numerous other abnormalities such as hypokalemia and her creatinines up to 3.4 it was 1.9 several days ago awaiting urinalysis urine drug screen and official CT report I did review the head CT did not see anything. However with what this patient's care required did discuss patient's case with Dr. Walker hospitalist at [facility] in [place] is willing to accept the patient in transfer. Departure - Departure Time of Disposition: 02:51 Disposition: DC/Tfer to [facility] 02 Clinical Impression: Hepatic failure - Discharge Information Referrals: PCP,None [Primary Care Provider] - Forms: ED Department Discharge - My Orders Last 24 Hours: My Active Orders 01/09/19 00:32 UA W/O MICROSCOPIC [URIN] Stat 01/09/19 00:34 Chest 1V Frontal [CR] Stat 01/09/19 00:37 Abdomen 2V AP Flat Upright [CR] Stat 01/09/19 01:14 Head wo Cont [CT] Stat 01/09/19 02:00 Potassium Chloride [KCl 10 MEQ in Water 100 ML] 10 meq Premix Bag 1 bag IV Q1H 01/09/19 02:14 DRUG SCREEN, URINE [URCHEM] Stat - Assessment/Plan Last 24 Hours: My Active Orders 01/09/19 00:32 UA W/O MICROSCOPIC [URIN] Stat 01/09/19 00:34 Chest 1V Frontal [CR] Stat 01/09/19 00:37 Abdomen 2V AP Flat Upright [CR] Stat 01/09/19 01:14 Head wo Cont [CT] Stat 01/09/19 02:00 Potassium Chloride [KCl 10 MEQ in Water 100 ML] 10 meq Premix Bag 1 bag IV Q1H 01/09/19 02:14 DRUG SCREEN, URINE [URCHEM] Stat
[2019-01-09] MEDS ORDERED: Potassium Chloride 10 MEQ in Premix Bag 1 BAG IV SCH (02:00)
--- NOTE | 2019-01-09 07:03 | CR ---
Chest: Frontal view of the chest was obtained. Comparison: Prior chest x-ray of 01/03/19. Heart size and mediastinum are normal. Lungs are clear. Bony structures are grossly intact. Impression: 1. Nothing acute is seen on frontal chest x-ray. Diagnostic code #1
--- NOTE | 2019-01-09 07:03 | CR ---
Abdomen: Supine and decubitus views of the abdomen were obtained. Comparison: No prior abdominal x-ray, previous noncontrast CT abdomen and pelvis exam of 11/18/18. Bowel gas pattern is normal. No free air is seen. Bony structures are unremarkable. No discrete soft tissue abnormality is appreciated. Impression: 1. Nothing acute is seen on two-view abdominal x-ray. Diagnostic code #1 I agree with preliminary report from [facility], finalized on 01/09/19, 3:50 AM Central Time
--- NOTE | 2019-01-09 08:14 | CT ---
Head CT Technique: Multiple axial sections through the brain were obtained. Intravenous contrast was not utilized. Comparison: Prior head CT study of 12/25/17. Findings: Ventricles along with basal cisterns and sulci over the convexities are within normal limits for the patient's age. No abnormal parenchymal densities are seen. No evidence of intracranial hemorrhage. No midline shift or mass effect is seen. Bone window settings were reviewed which show no acute calvarial abnormality. Mild mucosal thickening is seen within the ethmoid sinuses. Impression: 1. Sinus findings which are likely incidental. 2. No acute intracranial abnormality is identified. Diagnostic code #2 I agree with preliminary report from [facility], finalized on 01/09/19, 3:49 AM Central Time
== END 2019-01-09 03:25 ==
LOC: JD.ED
DX: K72.90 Hepatic failure, unspecified without coma (principal); Z79.899 Other long term (current) drug therapy
CPT/HCPCS: 36415; 70450; 71045; 74019; 80048; 80076; 80306; 81003; 82140; 83690; 84443; 84703; 85007; 85027; 85610; 96365; 99285; G0480; J3480

== ENCOUNTER 2019-02-06 11:30 | Emergency (ER) | payer OTHER ==
[2019-02-06 11:52] VITALS: BP 125/41
--- NOTE | 2019-02-06 14:10 | EDM.PDOC ---
<Ja Cano - Last Filed: 02/06/19 17:09> ED HPI GENERAL MEDICAL PROBLEM - General Chief Complaint: General Stated Complaint: THINKS SHE NEEDS BLOOD TRANSFUSION IN LIVER FAILUR Time Seen by Provider: 02/06/19 11:40 - Related Data Allergies Allergy/AdvReac Type Severity Reaction Status Date / Time No Known Allergies Allergy Verified 01/09/19 00:11 Home Meds: Home Meds Cholecalciferol (Vitamin D3) [Vitamin D] 5,000 unit PO BID 11/18/18 [History] Pantoprazole [ProTONIX] 40 mg PO DAILY 11/18/18 [History] Dextran 70/Hypromellose [Artificial Tears] 1 drop EYEBOTH DAILY 01/09/19 [ History] Folic Acid 1 mg PO DAILY 01/09/19 [History] Furosemide 40 mg PO BID 01/09/19 [History] L. Rhamnosus GG/Inulin [Culturelle Probiotics Capsule] 1 cap PO DAILY 01/09/19 [ History] Lactulose 7.5 ml PO DAILY 01/09/19 [History] Levothyroxine 112 mcg PO DAILY 01/09/19 [History] Midodrine 10 mg PO TID 01/09/19 [History] Spironolactone 50 mg PO DAILY 01/09/19 [History] Thiamine Mononitrate [Vitamin B-1] 100 mg PO DAILY 01/09/19 [History] prednisoLONE [Prednisolone] 40 mg PO DAILY 01/09/19 [History] ED ROS GENERAL - Review of Systems Review Of Systems: See Below Constitutional: Denies: Chills, Weight Gain : Reports: Other (It is uncertain when last time she voided was) Neurological: Reports: Confusion Hematologic/Lymphatic: Reports: Anemia ED EXAM, GENERAL - Physical Exam Exam: See Below General Appearance: Other (Initially she had some confusion but this seems to have cleared) (Female) Exam: Other. No: Normal External Exam Course - Vital Signs Last Recorded V/S: Last Vital Signs Temp 37.1 C 02/06/19 11:51 Pulse 106 H 02/06/19 11:51 Resp 20 02/06/19 11:51 BP 125/41 L 02/06/19 11:51 Pulse Ox 91 L 02/06/19 11:51 - Orders/Labs/Meds Orders: Active Orders 24 hr Category Date Time Status Bladder Scan [RC] ASDIRECTED Care 02/06/19 15:42 Active Chest 1V Frontal [CR] Stat Exams 02/06/19 14:10 Taken CULTURE BLOOD [BC] Stat Lab 02/06/19 14:55 Received CULTURE BLOOD [BC] Stat Lab 02/06/19 15:10 Received DRUG SCREEN, URINE [URCHEM] Stat Lab 02/06/19 16:07 Ordered UA RFX JEROME AND CULT IF INDIC [URIN] Stat Lab 02/06/19 13:55 Ordered Urine HCG [HCG QUALITATIVE,URINE] [URCHEM] Stat Lab 02/06/19 14:12 Ordered Blood Culture x2 Reflex Set [OM.PC] Stat Oth 02/06/19 14:40 Ordered Labs: Laboratory Tests 02/06/19 02/06/19 02/06/19 Range/Units 14:10 14:10 14:10 WBC 22.81 H (3.98-10.04) K/mm3 RBC 2.58 L (3.98-5.22) M/mm3 Hgb 8.2 L (11.2-15.7) gm/L Hct 23.4 L (34.1-44.9) % MCV 90.7 (79.4-94.8) fl MCH 31.8 (25.6-32.2) pg MCHC 35.0 (32.2-35.5) g/dl RDW Std Deviation 63.8 H (36.4-46.3) fL Plt Count 109 L (182-369) K/mm3 MPV 10.2 (9.4-12.3) fl Neutrophils % (Manual) 83 H (40-60) % Band Neutrophils % 0 (0-10) % Lymphocytes % (Manual) 12 L (20-40) % Atypical Lymphs % 0 % Monocytes % (Manual) 4 (2-10) % Eosinophils % (Manual) 1 (0.7-5.8) % Basophils % (Manual) 0 L (0.1-1.2) Hypersegmented Neuts Few Platelet Estimate Decreased Plt Morphology Comment See note Anisocytosis 2+ moderate Macrocytosis 1+ slight Target Cells Few Ovalocytes 1+ slight RBC Morph Comment Not Reportable PT (9.5-12.1) SECONDS INR Sodium 133 L (136-145) mEq/L Potassium 3.6 (3.5-5.1) mEq/L Chloride 102 (98-107) mEq/L Carbon Dioxide 19 L (21-32) mEq/L Anion Gap 15.6 H (5-15) BUN 28 H (7-18) mg/dL Creatinine 2.8 H (0.55-1.02) mg/dL Est Cr Clr Drug Dosing 26.50 mL/min Estimated GFR (MDRD) 19 (>60) mL/min BUN/Creatinine Ratio 10.0 L (14-18) Glucose 110 H (74-106) mg/dL Lactic Acid (0.4-2.0) mmol/L Calcium 8.2 L (8.5-10.1) mg/dL Total Bilirubin 20.0 H* (0.2-1.0) mg/dL Direct Bilirubin 13.90 H (0.0-0.2) mg/dl Indirect Bilirubin 6.10 AST 70 H (15-37) U/L ALT 30 (14-59) U/L Alkaline Phosphatase 126 H (46-116) U/L Ammonia 65 H (11-32) umol/L Total Protein 7.0 (6.4-8.2) g/dl Albumin 1.7 L (3.4-5.0) g/dl Globulin 5.3 gm/dL Albumin/Globulin Ratio 0.3 L (1-2) TSH 3rd Generation 0.184 L (0.358-3.74) uIU/mL Ethyl Alcohol (0.00) gm% 02/06/19 02/06/19 02/06/19 Range/Units 14:10 14:10 14:55 WBC (3.98-10.04) K/mm3 RBC (3.98-5.22) M/mm3 Hgb (11.2-15.7) gm/L Hct (34.1-44.9) % MCV (79.4-94.8) fl MCH (25.6-32.2) pg MCHC (32.2-35.5) g/dl RDW Std Deviation (36.4-46.3) fL Plt Count (182-369) K/mm3 MPV (9.4-12.3) fl Neutrophils % (Manual) (40-60) % Band Neutrophils % (0-10) % Lymphocytes % (Manual) (20-40) % Atypical Lymphs % % Monocytes % (Manual) (2-10) % Eosinophils % (Manual) (0.7-5.8) % Basophils % (Manual) (0.1-1.2) Hypersegmented Neuts Platelet Estimate Plt Morphology Comment Anisocytosis Macrocytosis Target Cells Ovalocytes RBC Morph Comment PT > 90.0 H* (9.5-12.1) SECONDS INR TNP Sodium (136-145) mEq/L Potassium (3.5-5.1) mEq/L Chloride (98-107) mEq/L Carbon Dioxide (21-32) mEq/L Anion Gap (5-15) BUN (7-18) mg/dL Creatinine (0.55-1.02) mg/dL Est Cr Clr Drug Dosing mL/min Estimated GFR (MDRD) (>60) mL/min BUN/Creatinine Ratio (14-18) Glucose (74-106) mg/dL Lactic Acid 1.6 (0.4-2.0) mmol/L Calcium (8.5-10.1) mg/dL Total Bilirubin (0.2-1.0) mg/dL Direct Bilirubin (0.0-0.2) mg/dl Indirect Bilirubin AST (15-37) U/L ALT (14-59) U/L Alkaline Phosphatase (46-116) U/L Ammonia (11-32) umol/L Total Protein (6.4-8.2) g/dl Albumin (3.4-5.0) g/dl Globulin gm/dL Albumin/Globulin Ratio (1-2) TSH 3rd Generation (0.358-3.74) uIU/mL Ethyl Alcohol 0.00 (0.00) gm% Meds: Medications Discontinued Medications Generic Name Dose Route Start Last Admin Trade Name Freq PRN Reason Stop Dose Admin Cefepime HCl 2 gm/ Premix 50 mls @ 100 mls/hr 02/06/19 16:58 IV 02/06/19 17:27 ONETIME ONE - Re-Assessments/Exams Free Text/Narrative Re-Assessment/Exam: 02/06/19 17:09 Patient is much more alert at this time than she was at the time of admission making me think that a lot of her confusion could be medication related however I was able to get a discharge summary from when she was discharged from [facility] on the of last month. Her creatinine at the time of discharge was 2.0 and is now up to 2.8 ammonia stable. Examination shows what I believe is a paracentesis site is leaking fluid and her left lower abdomen they keeps oozing serous type fluid. We tentatively labored cannot get a catheter in because of tissue distortion from edema in the vaginal area. Her white count came back at 22,000 with elevated neutrophils but no bands. She started on cefepime 2 g to cover for SBP. Patient's case discussed with Dr. Montaño at [facility] in [place] who is concerned about the patient's case with probable hepatorenal syndrome and the high mortality with this. I did discuss this with the patient and she seems to understand I did discuss this with the patient's sister who seems to understand. Dosed recent vitals show temperature 98.3 blood pressure 123/63 pulse 92 O2 saturation 94% on 2 L respiratory rate of 18 This case was work through with PA student Alex lopez I was involved with initial interview physical exam secondary exams decision making and evaluation and arrange the transfer. Departure - Departure Time of Disposition: 17:22 Disposition: DC/Tfer to [facility] 02 Clinical Impression: Hepatorenal syndrome, Liver failure, Renal failure, Spontaneous bacterial peritonitis - Discharge Information Referrals: Elle Redding MD [Primary Care Provider] - Forms: ED Department Discharge - My Orders Last 24 Hours: My Active Orders 02/06/19 13:55 UA RFX JEROME AND CULT IF INDIC [URIN] Stat 02/06/19 14:10 Chest 1V Frontal [CR] Stat 02/06/19 14:12 Urine HCG [HCG QUALITATIVE,URINE] [URCHEM] Stat 02/06/19 14:40 Blood Culture x2 Reflex Set [OM.PC] Stat 02/06/19 14:55 CULTURE BLOOD [BC] Stat 02/06/19 15:10 CULTURE BLOOD [BC] Stat 02/06/19 15:42 Bladder Scan [RC] ASDIRECTED 02/06/19 16:07 DRUG SCREEN, URINE [URCHEM] Stat - Assessment/Plan Last 24 Hours: My Active Orders 02/06/19 13:55 UA RFX JEROME AND CULT IF INDIC [URIN] Stat 02/06/19 14:10 Chest 1V Frontal [CR] Stat 02/06/19 14:12 Urine HCG [HCG QUALITATIVE,URINE] [URCHEM] Stat 02/06/19 14:40 Blood Culture x2 Reflex Set [OM.PC] Stat 02/06/19 14:55 CULTURE BLOOD [BC] Stat 02/06/19 15:10 CULTURE BLOOD [BC] Stat 02/06/19 15:42 Bladder Scan [RC] ASDIRECTED 02/06/19 16:07 DRUG SCREEN, URINE [URCHEM] Stat <SwensonAlex D - Last Filed: 02/06/19 17:36> ED HPI GENERAL MEDICAL PROBLEM - General Source of Information: Reports: Patient, Family (Sister) History Limitations: Reports: Altered Mental Status (Some confusion) - History of Present Illness INITIAL COMMENTS - FREE TEXT/NARRATIVE: Neela England is a 33 year old female who presents to the ED with multiple chronic issues. She was recently discharged from [facility] on January 27. Upon discharge, she was told to stop her Lasix, Levothyroxine, Spironolactone, Zithromax, prednisolone, rifaximin. She also had a UTI and feels that it hasn't improved. She has a lot of edema and erythema in her vagina and they have tried topical treatment with no improvement. Her sister also states that she hasn't urinated since yesterday morning and is worried that her urethra is completely blocked. Stephany believes she urinated this morning but her sister states that she has been confused lately. She is on Lactulose but hasn't taken it due to the diarrhea she has had since Hospital discharge. She was on antibiotics during her admission. Her sister also complains of leakage coming from her peritoneal dialysis incision and some small superficial tears on her lower right abdomen. The sister states that she has been having a lot of leakage the last two days. She was also discharged from the Hospital with Albuterol and Robitussin-DM for possible Bronchitis. During her hospital admission she was giving a blood transfusion, the sister was informed that she may need another transfusion at another point and thus is why the sister brought her in. 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; stage 3 Genitourinary History: Reports: Chronic Renal Insuffiency Musculoskeletal History: Reports: Fracture Other Musculoskeletal History: sciatica Neurological History: Reports: Seizure Other Neuro History: with alcohol withdrawl Psychiatric History: Reports: Addiction, Anxiety Other Psychiatric History: alcohol Endocrine/Metabolic History: Reports: Hyperthyroidism, Obesity/BMI 30+ Hematologic History: Reports: Anemia, Blood Transfusion(s) - Infectious Disease History Infectious Disease History: Reports: Chicken Pox - Past Surgical History Musculoskeletal Surgical History: Reports: Arthroscopic Knee Social & Family History - Family History Family Medical History: Noncontributory - Tobacco Use Smoking Status *Q: Former Smoker Used Tobacco, but Quit: Yes Month/Year Tobacco Last Used: 1999 - Caffeine Use Caffeine Use: Reports: Tea - Recreational Drug Use Drug Use in Last 12 Months: No - Living Situation & Occupation Living situation: Reports: Single, with Family (Cousin, brothers) Occupation: Unemployed ED ROS GENERAL - Review of Systems Constitutional: Reports: Chills, Weight Gain. Denies: Fever Respiratory: Reports: Shortness of Breath. Denies: Cough, Sputum Cardiovascular: Reports: No Symptoms GI/Abdominal: Reports: Decreased Appetite, Flatus. Denies: Diarrhea, Nausea : Reports: Frequency, Pain, Urinary Retention Skin: Reports: Jaundice, Other (Serous fluid leaking from open wounds) Psychiatric: Reports: No Symptoms ED EXAM, GENERAL - Physical Exam Exam Limited By: No Limitations General Appearance: No Apparent Distress, Other Eye Exam: Bilateral Eye: Normal Inspection, Other (Jaundice) Respiratory/Chest: No Respiratory Distress, No Accessory Muscle Use, Chest Non- Tender, Crackles (Base of left lung). No: Wheezing, Stridor, Pleural Rub Cardiovascular: Normal Peripheral Pulses, Regular Rate, Rhythm, No Edema, No Gallop, No JVD, Diastolic Murmur GI/Abdominal: Soft, Non-Tender, No Organomegaly, No Abnormal Bruit, No Mass, Distended, Abnormal Bowel Sounds (Hypoactive) (Female) Exam: Other (Edema and Erythema noted on Labia Majora) Neurological: No Motor/Sensory Deficits, Confused Psychiatric: Normal Affect, Normal Mood Skin Exam: Jaundice Course - Orders/Labs/Meds Labs: Laboratory Tests 02/06/19 02/06/19 02/06/19 Range/Units 14:10 14:10 14:10 WBC 22.81 H (3.98-10.04) K/mm3 RBC 2.58 L (3.98-5.22) M/mm3 Hgb 8.2 L (11.2-15.7) gm/L Hct 23.4 L (34.1-44.9) % MCV 90.7 (79.4-94.8) fl MCH 31.8 (25.6-32.2) pg MCHC 35.0 (32.2-35.5) g/dl RDW Std Deviation 63.8 H (36.4-46.3) fL Plt Count 109 L (182-369) K/mm3 MPV 10.2 (9.4-12.3) fl Neutrophils % (Manual) 83 H (40-60) % Band Neutrophils % 0 (0-10) % Lymphocytes % (Manual) 12 L (20-40) % Atypical Lymphs % 0 % Monocytes % (Manual) 4 (2-10) % Eosinophils % (Manual) 1 (0.7-5.8) % Basophils % (Manual) 0 L (0.1-1.2) Hypersegmented Neuts Few Platelet Estimate Decreased Plt Morphology Comment See note Anisocytosis 2+ moderate Macrocytosis 1+ slight Target Cells Few Ovalocytes 1+ slight RBC Morph Comment Not Reportable PT (9.5-12.1) SECONDS INR Sodium 133 L (136-145) mEq/L Potassium 3.6 (3.5-5.1) mEq/L Chloride 102 (98-107) mEq/L Carbon Dioxide 19 L (21-32) mEq/L Anion Gap 15.6 H (5-15) BUN 28 H (7-18) mg/dL Creatinine 2.8 H (0.55-1.02) mg/dL Est Cr Clr Drug Dosing 26.50 mL/min Estimated GFR (MDRD) 19 (>60) mL/min BUN/Creatinine Ratio 10.0 L (14-18) Glucose 110 H (74-106) mg/dL Lactic Acid (0.4-2.0) mmol/L Calcium 8.2 L (8.5-10.1) mg/dL Total Bilirubin 20.0 H* (0.2-1.0) mg/dL Direct Bilirubin 13.90 H (0.0-0.2) mg/dl Indirect Bilirubin 6.10 AST 70 H (15-37) U/L ALT 30 (14-59) U/L Alkaline Phosphatase 126 H (46-116) U/L Ammonia 65 H (11-32) umol/L Total Protein 7.0 (6.4-8.2) g/dl Albumin 1.7 L (3.4-5.0) g/dl Globulin 5.3 gm/dL Albumin/Globulin Ratio 0.3 L (1-2) TSH 3rd Generation 0.184 L (0.358-3.74) uIU/mL Ethyl Alcohol (0.00) gm% 02/06/19 02/06/19 02/06/19 Range/Units 14:10 14:10 14:55 WBC (3.98-10.04) K/mm3 RBC (3.98-5.22) M/mm3 Hgb (11.2-15.7) gm/L Hct (34.1-44.9) % MCV (79.4-94.8) fl MCH (25.6-32.2) pg MCHC (32.2-35.5) g/dl RDW Std Deviation (36.4-46.3) fL Plt Count (182-369) K/mm3 MPV (9.4-12.3) fl Neutrophils % (Manual) (40-60) % Band Neutrophils % (0-10) % Lymphocytes % (Manual) (20-40) % Atypical Lymphs % % Monocytes % (Manual) (2-10) % Eosinophils % (Manual) (0.7-5.8) % Basophils % (Manual) (0.1-1.2) Hypersegmented Neuts Platelet Estimate Plt Morphology Comment Anisocytosis Macrocytosis Target Cells Ovalocytes RBC Morph Comment PT > 90.0 H* (9.5-12.1) SECONDS INR TNP Sodium (136-145) mEq/L Potassium (3.5-5.1) mEq/L Chloride (98-107) mEq/L Carbon Dioxide (21-32) mEq/L Anion Gap (5-15) BUN (7-18) mg/dL Creatinine (0.55-1.02) mg/dL Est Cr Clr Drug Dosing mL/min Estimated GFR (MDRD) (>60) mL/min BUN/Creatinine Ratio (14-18) Glucose (74-106) mg/dL Lactic Acid 1.6 (0.4-2.0) mmol/L Calcium (8.5-10.1) mg/dL Total Bilirubin (0.2-1.0) mg/dL Direct Bilirubin (0.0-0.2) mg/dl Indirect Bilirubin AST (15-37) U/L ALT (14-59) U/L Alkaline Phosphatase (46-116) U/L Ammonia (11-32) umol/L Total Protein (6.4-8.2) g/dl Albumin (3.4-5.0) g/dl Globulin gm/dL Albumin/Globulin Ratio (1-2) TSH 3rd Generation (0.358-3.74) uIU/mL Ethyl Alcohol 0.00 (0.00) gm% Meds: Medications Discontinued Medications Generic Name Dose Route Start Last Admin Trade Name Freq PRN Reason Stop Dose Admin Cefepime HCl 2 gm/ Premix 50 mls @ 100 mls/hr 02/06/19 16:58 IV 02/06/19 17:27 ONETIME ONE
--- NOTE | 2019-02-06 16:53 | CT ---
Head CT Technique: Multiple axial sections through the brain were obtained. Intravenous contrast was not utilized. Comparison: Prior head CT study of 01/09/19. Findings: Ventricles along with basal cisterns and sulci over the convexities are within normal limits for the patient's age. No abnormal parenchymal densities are seen. No evidence of intracranial hemorrhage. No midline shift or mass effect is seen. Bone window settings were reviewed which shows no acute calvarial abnormality. Paranasal sinuses that are seen show nothing acute. Impression: 1. Nothing acute is appreciated on noncontrast head CT study. Diagnostic code #1
[2019-02-06] MEDS ORDERED: Cefepime 2 GM in Premix Bag 1 BAG IV ONE (16:58)
--- NOTE | 2019-02-07 06:29 | CR ---
Chest: Portable view of the chest was obtained. Comparison: Prior chest x-ray of 01/09/19. Heart is enlarged. Pulmonary vessels are congested. No alveolar type densities are seen. Bony structures are grossly intact. Impression: 1. Findings compatible with moderate CHF. Diagnostic code #3
== END 2019-02-06 18:30 ==
LOC: JD.ED 11:30
DX: K76.7 Hepatorenal syndrome (principal); K72.90 Hepatic failure, unspecified without coma; N18.9 Chronic kidney disease, unspecified; K65.2 Spontaneous bacterial peritonitis; B96.89 Other specified bacterial agents as the cause of diseases classified elsewhere; K21.9 Gastro-esophageal reflux disease without esophagitis; E05.90 Thyrotoxicosis, unspecified without thyrotoxic crisis or storm; Z87.891 Personal history of nicotine dependence
CPT/HCPCS: 36415; 70450; 71045; 80048; 80076; 82140; 83605; 84443; 85007; 85027; 85610; 87040; 96365; 99285; G0480; J0692